=== PATIENT | female | born 1970 | race Caucasian/White ===

== ENCOUNTER 2019-06-11 07:00 | Outpatient (RCR) | payer BC, SELFPAY ==
[2018-12-20 12:19] VITALS: BMI 32.4
--- NOTE | 2019-05-28 10:49 | HP.PTEVAL ---
Patient's Visit Information WHIT CHAPMAN is a 49 year old F referred to Physical Therapy by Koffi Tran DO with a diagnosis of Left Hip Pain. Date of Evaluation: 05/28/19 Physical Therapist: Jannette Garrett DPT - Visit Plan Frequency: 2x /Week Duration: 4 Weeks Plan: Focus on LE and core strength/stabilization. 3/6 HEP given: isometric abdominals, bridge, hip adduction with ball, piriformis stretch, Figure 4 stretch, clams - Subjective Findings: Patient reports that she gets left hip pain comes and goes- Couple of months- Insidious onset-Last time it really hurt she was sitting in the drivers seat and reached in the back seat right rotation- sharp pain then she has to stop and wait and it goes away. Going down the stairs sometimes it feels like its going to buckle. When it aches the a pain is more in the back of the hip but she has groin pain when its sharp. X-rays were normal. Worst: 8/10. Less than a minute then the pain fully goes away. Best: 0/10. 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 No radiates pain- reports no back pain prior. Did try chiropractic and he told her it was tight but no relief or change in syptoms. Dr. Tran gave her an anti-inflam which she takes but does not feel like it changes things (3 pills). Sleep: does wake her up if she rolls over to quickly. No N/T in the LE. PMHx: none Meds: anti-inflammatory - Objective Posture: FH, RS- can correct but does not maintain. Gait: no deviation noted. Stairs: asc/desc 8 recip with 1 HR- poor controlw ith descent. HR/TR: able. SLS: 15 sec with hip drop bilaterally. Sensation/Reflex: WNL. ROM: Lumbar: flexion: hands to knees-reports pulling in hamstrings no pain, Extn: WNL, SB and rotation: WNL no pain, Hip: flexion only painful from 90 degrees to 120 degrees, Discomfort with IR/ER but no limitations, Knee: WNL, Ankle: WNL. Strength: Core: fair minus, Hip: flexion: 4-/5, Abd: 4-/5, Add: 4+/5, IR/ER: 4/5 with discomfort, Knee: 4+/5, Ankle: 5/5. Special Test: LLD: negative, IBETH: positive, Piriformis: positive, Scour Positive,. Palpation: tender along piriformis and greater troch. Flex: HS: severe, Gastroc: mod Piriformis: severe - Goals Goal 1:: Patient will be I with HEP and progression Goal Time Frame: 4-6 Weeks Goal 2:: Patient will maintain proper posture t/o tx session to demo increased core s/s. Goal Time Frame: 4-6 Weeks Goal 3:: Patient will report 0/10 pain for 1 week Goal Time Frame: 4-6 Weeks Goal 4:: Patient will SLS for 30 sec without LOB or pelvic drop bilaterally Goal Time Frame: 4-6 Weeks - Rehabilitation Potential Physical Therapy Diagnosis: Patient presents with hypomobility- she has decreased painfree ROM, LE and core strength/stabilization, flex and muscular endurance leading to increased pain with ADL's. Rehabilitation Potential: Fair - Anticipated Interventions Patient/Client Instruction: Educate patient on: Benefits of Fitness Program Therapeutic Exercise to Include: Strength training, Endurance training, Balance training, Body mechanics, Postural training, Flexibilty training, Gait and locomotor training, Neuromotor development, Passive ROM, Active ROM, Dynamic Lumbar Stabilization, Scapular Strength/Stabilization For the Purpose of:: To improve muscle performance and motor function Cryotherapy (ice pack, ice massage): Yes Thermo therapy (hot pack): Yes Thank you for the opportunity to evaluate your patient. For Medicare and Medicare HMO plans, please review the plan of care and approve it. It will need to be FAXED BACK to us at [phone] for Medicare purposes. For Medicare only, by signing this I certify the plan of care. Please let me know if there are questions or concerns regarding this plan of care. Physician Signature: Date:
--- NOTE | 2019-08-03 12:26 | HP.PT.NRP ---
WHIT CHAPMAN was seen in my office for initial evaluation on 05/28/19. The following Plan of Care was established for this patient: Initial Frequency: 2x /Week Initial Duration: 4 Weeks Patient/Client Instruction: Educate patient on: Benefits of Fitness Program Therapeutic Exercise to Include: Strength training, Endurance training, Balance training, Body mechanics, Postural training, Flexibilty training, Gait and locomotor training, Neuromotor development, Passive ROM, Active ROM, Dynamic Lumbar Stabilization, Scapular Strength/Stabilization For the Purpose of:: To improve muscle performance and motor function Cryotherapy (ice pack, ice massage): Yes Thermo therapy (hot pack): Yes This patient was last seen in our office . Pertinent comments regarding their Physical therapy will appear below: Patient reports that she is going to return to [facility] for further evaluation- Discharge at this time. At this point I will be discontinuing this patient from physical therapy. I would be happy to see this patient again in the future if found appropriate by the physician. Thank you! Jannette Garrett DPT
== END 2019-06-11 19:00 | disposition home or self-care (01) ==
LOC: PT 07:00
PROVIDERS: PCP Internal Medicine; Referring Provider Orthopaedic Surgery; Visit Provider Orthopaedic Surgery
DX: M25.552 Pain in left hip (principal)
CPT/HCPCS: 97110; 97161

== ENCOUNTER → 2019-08-13 09:37 | Outpatient (CLI) | payer BC, SELFPAY ==
[2018-12-20 12:19] VITALS: BMI 32.4
--- NOTE | 2019-08-13 09:42 | RAD_ITS ---
PROCEDURE: Steroid injection - LEFT HIP REASON FOR EXAM: Female, 49 years old. Left hip pain FLUOROSCOPY TIME (if supplied): (0:15) seconds STERILE BARRIER TECHNIQUE: The following sterile barrier precautions were used during the procedure: hand hygiene; use of 2% chlorhexidine aseptic; use of a cap, mask, sterile gown, sterile gloves, sterile full body drape, and a large sterile sheet. PROCEDURE/TECHNIQUE: The risks, benefits, and alternatives to the procedure were explained to patient, and the patient agreed to the procedure and signed a consent form for the procedure. A timeout was performed to confirm the patient''s identity, the type of procedure, to be performed and the site of entry. Injection Information: Mixture of 16 cc containing 0.2 mL of DOTAREM, 10 mL of Isovue 300 and 10 mL of normal saline. Number of images obtained: 7 TECHNIQUE: Under fluoroscopic guidance using sterile technique and after infiltration of the skin and subcutaneous soft tissues with 10 mL of lidocaine 1% a 22-gauge needle is introduced in the hip joint. The above mentioned mixture was injected in the hip joint. FINDINGS: The joint capsule is normal in size. There is no evidence of intra-articular loose bodies. RAD/Inj/Asp Henri Jt Should/Hip/Knee IMPRESSION: Successful left hip arthrogram. Electronically Signed: Paola Villar, at 15:49 EDT Tel , Service support ,
--- NOTE | 2019-08-13 10:33 | MRI_ITS ---
STUDY: MRI ARTHROGRAM LEFT HIP REASON FOR EXAM: Female, 49 years old. left hip/groin pain TECHNIQUE: Standardized fat and water weighted pulse sequences were obtained in all 3 orthogonal planes following the intra-articular administration of contrast. COMPARISON: None. FINDINGS: Normal hip joint without articular joint space narrowing. Normal acetabulum. Tear of the anterior superior acetabular labrum, series 8 images 9 and 10. Normal femoral head. Normal femoral neck and intratrochanteric region. There is no demonstrated fracture. Normal gluteus minimus, medius and iliopsoas tendons and distal insertions. There is no trochanteric, iliopsoas or iliopectineal bursitis. Normal superior and inferior pubic rami. Normal pubic symphysis. Normal ischial tuberosity. Normal origin of the hamstring tendons. Normal visualized iliac wing, sacroiliac joint, and sacral ala. Normal visualized soft tissue structures of the pelvis. MRI/Lower Ext/Jt Only/W Contrast IMPRESSION: No fracture or avascular necrosis. Tear of the anterior superior acetabular labrum. Electronically Signed: Mahad Tsang MD at 8:13 EDT , Service support ,
== END ==
PROVIDERS: PCP Internal Medicine; Referring Provider Orthopaedic Surgery; Visit Provider Orthopaedic Surgery
DX: M25.552 Pain in left hip (principal)
CPT/HCPCS: 20610; 73722; 77002; A9575; Q9967

== ENCOUNTER 2019-09-08 07:00 | Outpatient (RCR) | payer BC, SELFPAY ==
[2018-12-20 12:19] VITALS: BMI 32.4
--- NOTE | 2019-08-25 07:47 | HP.PTEVAL_ITS ---
Patient's Visit Information WHIT CHAPMAN is a 49 year old F referred to Physical Therapy by Dr. Koffi Tran, with a diagnosis of Left Hip Labral Tear. Date of Evaluation: 08/25/19 Physical Therapist: Jannette Garrett DPT - Visit Plan Frequency: 1x/Week Duration: 4 Weeks Plan: Focus on LE and core strength/stabilization with a home exercise program- does have a left labral tear per MRI. / HEP given: clams with blue tband, bridge with blue tband, bug UE and LE, Step up knee drive bilateral, Lateral step overs, steamboats bilaterally with green tband, inchworms orange tband. - Subjective Patient reports that she was doing okay- returned to Dr. Tran- wanted her to have and MRI- did an arthrogram- injected the dye- and then it was horrible- had the MRI which was very painful for the next couple of days. MRI was August 12- showed a labral tear in the hip- plan is to try PT then have surgery if it does not get better. Pain is located in the greater troch-no radiating pain. Dull and achy at this time but last night she reached for a volleyball with her daughter and it was sharp/shooting. Worst: 9/10 when she had the MRI. Sleep: wakes her up at night. Best: 0/10 Eases: nothing really just tries to rest but not sure it helps- moves around a lot. No N/T down the LE. Has noticed the LE does swell sometimes. 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 PMHx: none Meds: none - Objective Posture: FH, RS- can correct but does not maintain. Gait: no deviation noted- normal bryn. Stairs: asc/desc 8 recip with 1 HR- poor control with descent. HR/TR: able. SLS: 15 sec with hip drop bilaterally but no loss of balance. Sensation/Reflex: WNL. ROM: Lumbar: flexion: hands to knees-reports pulling in hamstrings no pain, Extn: WNL, SB and rotation: WNL no pain, Hip: flexion only painful from 90 degrees to 120 degrees, Discomfort with IR/ER but no limitations but tight, Knee: WNL, Ankle: WNL. Strength: Core: fair minus, Hip: flexion: 4- /5, Abd: 4-/5, Add: 4+/5, IR/ER: 4/5 with no discomfort, Knee: 5/5, Ankle: 5/5. Special Test: LLD: negative, IBETH: positive, Piriformis: positive, Scour Positive,. Palpation: tender along piriformis and greater troch. Flex: HS: severe, Gastroc: mod Piriformis: severe - Goals Goal 1:: Patient will be I with HEP and progression Goal Time Frame: 4-6 Weeks Goal 2:: Patient will maintain proper posture to demo increased core strength/stabilization Goal Time Frame: 4-6 Weeks Goal 3:: Patient will report no pain for 1 week Goal Time Frame: 4-6 Weeks Goal 4:: Patient will demo increase of strength by 1 grade where deficit Goal Time Frame: 4-6 Weeks - Rehabilitation Potential Physical Therapy Diagnosis: Patient presents with hypomobility- she has decreased ROM, strength, flex and muscular endurance leading to increased pain with ADL's. Rehabilitation Potential: Fair - Anticipated Interventions Patient/Client Instruction: Educate patient on: Benefits of Fitness Program Therapeutic Exercise to Include: Strength training, Endurance training, Balance training, Coordination, Agility training, Body mechanics, Postural training, Flexibilty training, Gait and locomotor training, Neuromotor development, Dynamic Lumbar Stabilization For the Purpose of:: To improve muscle performance and motor function TENS: Yes Cryotherapy (ice pack, ice massage): Yes Thermo therapy (hot pack): Yes Ultrasound (thermal/non thermal): Yes Thank you for the opportunity to evaluate your patient. For Medicare and Medicare HMO plans, please review the plan of care and approve it. It will need to be FAXED BACK to us at [phone] for Medicare purposes. For Medicare only, by signing this I certify the plan of care. Please let me know if there are questions or concerns regarding this plan of care. Physician Signature: Date:
--- NOTE | 2019-12-20 15:55 | HP.PT.NRP ---
WHIT CHAPMAN was seen in my office for initial evaluation on 08/25/19. The following Plan of Care was established for this patient: Initial Frequency: 1x/Week Initial Duration: 4 Weeks Patient/Client Instruction: Educate patient on: Benefits of Fitness Program Therapeutic Exercise to Include: Strength training, Endurance training, Balance training, Coordination, Agility training, Body mechanics, Postural training, Flexibilty training, Gait and locomotor training, Neuromotor development, Dynamic Lumbar Stabilization For the Purpose of:: To improve muscle performance and motor function TENS: Yes Cryotherapy (ice pack, ice massage): Yes Thermo therapy (hot pack): Yes Ultrasound (thermal/non thermal): Yes This patient was last seen in our office . Pertinent comments regarding their Physical therapy will appear below: Discharge- pt to have surgery. At this point I will be discontinuing this patient from physical therapy. I would be happy to see this patient again in the future if found appropriate by the physician. Thank you! Jannette Garrett DPT
== END 2019-09-08 19:00 | disposition home or self-care (01) ==
LOC: PT 07:00
PROVIDERS: PCP Internal Medicine; Referring Provider Orthopaedic Surgery; Visit Provider Orthopaedic Surgery
DX: S73.192D Other sprain of left hip, subsequent encounter (principal)
CPT/HCPCS: 97110; 97161

== ENCOUNTER 2020-03-08 16:30 | Outpatient (RCR) | payer BC, SELFPAY ==
[2018-12-20 12:19] VITALS: BMI 32.4
--- NOTE | 2019-12-02 17:25 | HP.PTEVAL ---
Patient's Visit Information WHIT CHAPMAN is a 49 year old F referred to Physical Therapy by Dr. David Burleson MD with a diagnosis of Left Hip Surgery 11/15/2019. Date of Evaluation: 12/02/19 Physical Therapist: Jannette Garrett DPT - Visit Plan Frequency: 1x/Week Duration: 4 Weeks Plan: Follow protocol. HEP Given 12/01: heel slide, hamstring stretch, quad set, glut set, prone lying, bent knee fall out, hip add with ball, laq - Subjective Left Hip Scope with Labral Repair Acetabluloplasty, AIIS decompression, chroplasty, synovectomy, femoroplasty, and casular closure on 11/15/2019. The pain has not been that bad except for achy in the side of the hip. She is back to work and is sitting in the w/c all day. Going up/down stairs on her buttocks- she does use her crutches when she needs to. Does have her own wheelchair but does not use it at home. Fully I prior to surgery. Worst: 5/10 Agg: trying to get comfortable sitting. Eases: elevation and rest. Best: 0/10. Describes the pain as dull and achy. No radiating pain in the leg or back. Does have N/T but it comes and goes. Sleep: disturbed- hard to get comfortable. PMHx/Meds: see previous. - Objective Posture: FH, RS- can correct but does not maintain. Gait: antalgic- axillary crutches- NWB on the left- following restrictions- came to PT in w/c ROM: Right Hip: WNL in all planes. Left Hip: Flexion: 110 degrees, Extn: zero, IR: 40 degrees ER: 30 degrees, Knee/Ankle: WNL. Flex: HS: moderate, Gastroc: moderate, Quad: mild. No WB testing secondary to precautions - Goals Goal 1:: Patient will be I with HEP and progression Goal Time Frame: 4-6 Weeks Goal 2:: Patient will ambulate >300 feet with a normalized gait pattern as per protocol Goal Time Frame: 4-6 Weeks Goal 3:: Patient will asc/desc 8 stairs recip with no HR as per protocol Goal Time Frame: 4-6 Weeks Goal 4:: Patient will report no pain for 1 week Goal Time Frame: 4-6 Weeks - Rehabilitation Potential Physical Therapy Diagnosis: Patient presents s/p extensive hip surgery- she has decreased rom,strength, flex and muscular endurance limiting her ability to perform normalized ADL's. Rehabilitation Potential: Good - Anticipated Interventions Patient/Client Instruction: Educate patient on: Benefits of Fitness Program Therapeutic Exercise to Include: Strength training, Endurance training, Balance training, Agility training, Body mechanics, Postural training, Flexibilty training, Gait and locomotor training, Passive ROM, Active ROM, Dynamic Lumbar Stabilization, Scapular Strength/Stabilization Comment: as per protocol For the Purpose of:: To improve muscle performance and motor function TENS: Yes Cryotherapy (ice pack, ice massage): Yes Thermo therapy (hot pack): Yes Ultrasound (thermal/non thermal): No Thank you for the opportunity to evaluate your patient. For Medicare and Medicare HMO plans, please review the plan of care and approve it. It will need to be FAXED BACK to us at [phone] for Medicare purposes. For Medicare only, by signing this I certify the plan of care. Please let me know if there are questions or concerns regarding this plan of care. Physician Signature: Date:
--- NOTE | 2019-12-29 17:18 | HP.PTREVAL ---
Dr. David Burleson MD, It has been my pleasure to treat WHIT CHAPMAN over the last 5 visits for Left Hip Surgery 11/15/2019. Please see the progress note below for an update on the physical therapy plan of care! Subjective: Patient reports that she the PA yesterday- no a lot to say other than she is tight and gave her Tramadol for sleeping and then said see you in 6 weeks. Sleeping is the worst issue at this point. Worst: 5/10 pain is located on the lateral aspect of the hip- more achy pains. Best: 0/10 Eases: ice and elevate. Most comfortable position now is sitting but depends on the chair. Current HEP: bridges and quadruped exercises. Objective/Function: Posture: FH, RS- can correct but does not maintain. Gait: antalgic- no AD- poor heel/toe pattern on the left with decreased stance time ROM: Right Hip: WNL in all planes. Left Hip: Flexion: 125 degrees, Extn: 10, IR: 40 degrees ER: 30 degrees, Knee/Ankle: WNL. Flex: HS: moderate, Gastroc: moderate, Quad: mild. HR/TR: WNL, SLS: 10 sec then LOB, Stairs: non recip with 2 HR. Plan Plan: Continue 1x a week for 4 weeks- focus on protocol progression and HEP. HEP: supine hamstring stretch from 90/90, SKTC, Hip flexor stretch, modified IBETH, modified piriformis, quad rocking, cat/camel, cobra, prone hip extn, prone IR stretch, prone ER stretch Goals Goal 1:: Patient will be I with HEP and progression Goal Time Frame: 4-6 Weeks Goal Progress: Progressing Goal 2:: Patient will ambulate >300 feet with a normalized gait pattern as per protocol Goal Time Frame: 4-6 Weeks Goal Progress: Progressing Goal 3:: Patient will asc/desc 8 stairs recip with no HR as per protocol Goal Time Frame: 4-6 Weeks Goal Progress: Progressing Goal 4:: Patient will report no pain for 1 week Goal Time Frame: 4-6 Weeks Goal Progress: Progressing Anticipated Interventions Patient/Client Instruction: Educate patient on: Benefits of Fitness Program Therapeutic Exercise to Include: Strength training, Endurance training, Balance training, Agility training, Body mechanics, Postural training, Flexibilty training, Gait and locomotor training, Passive ROM, Active ROM, Dynamic Lumbar Stabilization, Scapular Strength/Stabilization Comment: as per protocol For the Purpose of:: To improve muscle performance and motor function TENS: Yes Cryotherapy (ice pack, ice massage): Yes Thermo therapy (hot pack): Yes Ultrasound (thermal/non thermal): No Please do not hesitate to contact me at [phone] by phone or if you have questions or concerns regarding this new plan of care! Sincerely, JANNETTE HarperT
--- NOTE | 2020-01-26 17:21 | HP.PTREVAL ---
Dr. David Burleson MD, It has been my pleasure to treat WHIT CHAPMAN over the last 9 visits for Left Hip Surgery 11/15/2019. Please see the progress note below for an update on the physical therapy plan of care! Subjective: Patient reports that she sometimes feels that her legs are uneven. Does not have any pain in the LE anymore. Feels that she is 85% back to normal- still trying to get rid of the limp. Overdid it this weekend helping with leaves. Objective/Function: Posture: FH, RS- can correct but does not maintain without verbal cues. Gait: slightly antalgic ROM: Right Hip: WNL in all planes. Left Hip: WNL in all planes, Knee/Ankle: WNL. Flex: HS: moderate, Gastroc: moderate, Quad: mild. HR/TR: WNL, SLS: 30 sec then LOB, Stairs: recip with no HR Strength: Ankle: 5/5, Knee: 5/5, Hip: 4+/5 throughout Pelvic Alignment:left ASIS superior to right Plan Plan: Continue for HEP progression 1x a week for 3 weeks Goals Goal 1:: Patient will be I with HEP and progression Goal Time Frame: 4-6 Weeks Goal Progress: Progressing Goal 2:: Patient will ambulate >300 feet with a normalized gait pattern as per protocol Goal Time Frame: 4-6 Weeks Goal Progress: Progressing Goal 3:: Patient will asc/desc 8 stairs recip with no HR as per protocol Goal Time Frame: 4-6 Weeks Goal Progress: Progressing Goal 4:: Patient will report no pain for 1 week Goal Time Frame: 4-6 Weeks Goal Progress: Progressing Anticipated Interventions Patient/Client Instruction: Educate patient on: Benefits of Fitness Program Therapeutic Exercise to Include: Strength training, Endurance training, Balance training, Agility training, Body mechanics, Postural training, Flexibilty training, Gait and locomotor training, Passive ROM, Active ROM, Dynamic Lumbar Stabilization, Scapular Strength/Stabilization Comment: as per protocol For the Purpose of:: To improve muscle performance and motor function TENS: Yes Cryotherapy (ice pack, ice massage): Yes Thermo therapy (hot pack): Yes Ultrasound (thermal/non thermal): No Please do not hesitate to contact me at [phone] by phone or if you have questions or concerns regarding this new plan of care! Sincerely, JANNETTE HarperT
--- NOTE | 2020-03-08 16:48 | HP.PTDCSUM ---
It has been my pleasure to treat WHIT CHAPMAN referred by Dr. David Burleson MD, with the diagnosis of Left Hip Surgery 11/15/2019 for a total of 12 visit(s). Discharge Date: Please see the following information for a summary of their discharge status. Subjective: Patient reports that she is doing not bad. She has no pain in the hip and feels that she is 90% back to normal. She still holds onto the HR going upstairs due to feeling weird. There is nothing at home she can't do. Goes back to the MD 03/21. Left Hip Pain Intensity (Out of 10): 6 % Improvement: 90 Objective/Function: Posture: good in sitting and standing Gait: slightly antalgic ROM: Right Hip: WNL in all planes. Left Hip: WNL in all planes, Knee/Ankle: WNL. Flex: HS: moderate, Gastroc: moderate, Quad: mild. HR/TR: WNL, SLS: 30 sec without LOB Stairs: recip with no HR Strength: Ankle: 5/5, Knee: 5/5, Hip: 4+/5 throughout Goal 1:: Patient will be I with HEP and progression Goal Progress: Goal Met Goal 2:: Patient will ambulate >300 feet with a normalized gait pattern as per protocol Goal Progress: Progressing Goal 3:: Patient will asc/desc 8 stairs recip with no HR as per protocol Goal Progress: Goal Met Goal 4:: Patient will report no pain for 1 week Goal Progress: Goal Met Plan: Discharge to home exercise program- encouraged to call if questions or concerns If there are questions or concerns regarding this patient's physical therapy, please feel free to call me at [phone]. Thank you for the referral of this patient. Sincerely, Jannette Garrett DPT
== END 2020-03-08 19:00 | disposition home or self-care (01) ==
LOC: PT 16:30
PROVIDERS: PCP Internal Medicine; Referring Provider Orthopaedic Surgery Sports Medicine; Visit Provider Orthopaedic Surgery Sports Medicine
DX: M25.852 Other specified joint disorders, left hip (principal)
CPT/HCPCS: 97110; 97161; 97164

== ENCOUNTER 2021-02-07 07:50 | Emergency (ER) | payer BC, SELFPAY ==
[2021-02-07 07:50] VITALS: BP 132/99; PULSE 83; RESP 14; TEMP 36.7; O2SAT 100; BMI 31.8
--- NOTE | 2021-02-07 08:11 | CT_ITS ---
STUDY: CT ABDOMEN AND PELVIS WITHOUT CONTRAST REASON FOR EXAM: Female, 50 years old. Left lower quadrant left flank pain. RADIATION DOSAGE (If Supplied By Facility): CTDIvol = ( 17.99 ) mGy, DLP = ( 901.85 ) mGycm TECHNIQUE: Transaxial images were obtained from the dome of the diaphragm to the symphysis pubis without oral contrast, and without intravenous contrast. Sagittal and coronal images were reconstructed. Individualized dose optimization techniques were used for this CT. COMPARISON: None. FINDINGS: The visualized lung bases are unremarkable. The visualized portions of the heart are within normal limits. Normal liver. Normal gallbladder and extrahepatic biliary system. Normal spleen. Normal pancreas. Normal bilateral adrenal glands. Normal right kidney. Mild degree of left hydronephrosis with left perinephric stranding. I suspect a 3 mm calculus at the left ureteral pelvic junction. Normal visualized stomach. Normal small intestine. Findings suggestive of a colitis involving the sigmoid colon. The appendix is visualized and appears normal. There is scattered atherosclerotic calcification of the abdominal aorta, without a demonstrated aneurysm. Normal inferior vena cava. Normal retroperitoneum. Normal urinary bladder. The uterus is enlarged. There is evidence of a 1.5 cm nabothian cyst in the cervix. Normal abdominal wall. Normal osseous structures. CT/Abdomen/Pelvis without Cont IMPRESSION: 3 mm catheter placed at the left ureteropelvic junction causing mild degree of left hydronephrosis and left perinephric stranding. Findings suggestive of colitis of the sigmoid colon. Electronically Signed: Foster Victoria MD at 9:25 EST , Service support ,
--- NOTE | 2021-02-07 08:11 | EDS_ITS ---
HPI HPI - Female History of Present Illness Chief Complaint: Flank Pain Informant: patient Pain Current Severity: Moderate Maximum Severity: Moderate Bleeding Issue: Positive for Vaginal bleeding Narrative Narrative: 42-year-old female known history of prior kidney stones x2. She passed both of those without surgery. States she had abdominal cramping yesterday she is on her menstrual period. Initially thought was that and today developed left flank pain which she thinks is secondary to kidney stone. Denies dysuria or fever. She has had associated nausea. Prior similar symptoms: Yes Recent Illness/Hospitalization: No PFSH PFSH Medical History Hay fever Home Medications clotrimazole-betamethasone 1 %-0.05 % topical cream 1 applic TOPICAL BID 14 Days #45 g 10/15/20 [Rx Last Taken Unknown] Allergy/AdvReac Type Severity Reaction Status Date / Time codeine Allergy Unknown Verified 02/07/21 07:52 Family History Other Heart disease Surgical History History of cholecystectomy History of placement of ear tubes History of repair of ACL History of tonsillectomy and adenoidectomy Social History Smoking Status: Never smoker alcohol intake: current alcohol intake frequency: holidays/special occasions only ROS ROS ED ROS Narrative Denies recent illness. Review of Systems ROS Unobtainable: Denies due to encephalopathy Constitutional Constitutional ED: Denies fever(s) Eyes Eyes: Denies change in vision ENT ENT ED: Denies ear pain Cardiovascular Cardiovascular: Denies chest pain Respiratory/Chest Respiratory/Chest: Denies dyspnea Gastrointestinal Gastrointestinal: Reports abdominal pain, nausea and vomiting Genitourinary Genitourinary ED: Denies dysuria Musculoskeletal Musculoskeletal: Denies myalgias Integumentary Denies rash Neurologic Neurologic: Denies headache(s) Psychiatric Psychiatric: Denies depression Endocrine Endocrinology: Denies polyuria Hematologic/Lymphatic Hematologic/Lymphatic: Denies easy bruising Allergic/Immunologic Allergic/Immunologic ED: Denies urticaria EXAM Physical Exam Narrative Exam Narrative: Middle-aged female vital signs stable afebrile. Nauseated. HEENT exam unremarkable. Lungs clear to auscultation. Heart regular rhythm no murmur. Abdomen soft nontender, nondistended normal bowel sounds no peritoneal signs. Moving all 4 extremities. Calves nontender without edema or cords. Neurologically patient is awake and alert. Back nontender. Const Vital Signs: 02/07/21 07:50 Temperature 98.1 F Temperature Source Temporal Pulse Rate 83 Respiratory Rate 14 Blood Pressure 132/99 H Blood Pressure Mean 110 Pulse Ox 100 Oxygen Delivery Method Room Air Positive well nourished and well developed; Negative for obese, cachectic, contractures or unkempt General Appearance ED: well developed; Negative for unkempt, cachectic, contractures, NAD or pallor Nutritional Appearance: Negative for cachectic or obese HEENT Reports moist mucous membranes Negative for trauma or tenderness Eyes PERRL and EOMs intact bilaterally Neck no lymphadenopathy, supple and no JVD Thyroid: Negative for tender Chest Wall inspection of chest normal and palpation of chest normal Resp normal respiratory effort and clear to auscultation bilaterally Effort and Inspection: Negative for pain with movement Auscultation: Negative for rales, rhonchi or wheezes Cardio regular rate, regular rhythm, S1 normal heart sound, no murmurs and no JVD GI normal to inspection, nondistended, normoactive bowel sounds, soft to palpation, non-tender, non-distended and no masses Auscultation: normoactive bowel sounds Palpation: Negative for tender, guarding or rigid no CVA tenderness Extremity normal to inspection and full ROM General Extremety ED: Negative for edema or tenderness General Extremity: Negative for edema Neuro oriented x3 Sensorium / Orientation: alert, oriented to person, oriented to place and oriented to time Motor Exam: strength 5/5 throughout Psych mental status grossly normal Appearance: Negative for unkempt Skin no rashes or lesions noted and no wounds General Skin Exam: Negative for jaundice or pallor MDM MDM MDM Narrative Medical decision making narrative: Middle-aged female with left flank pain with history of kidney stones. Clinically and historically sounds like a kidney stone. She will receive IV morphine, IV Toradol and IV Zofran. UA, chemistry and CAT scan will be obtained. She will be reevaluated. Repeat exam at 10:15 a.m. patient is doing well. She will need a dose of morphine for pain. She will discuss of her test results. Urine culture be sent. She will be started on antibiotics for UTI. The 3 mm stone should pass. And she will be written for [employer] for pain. She will be given a dose of IV Rocephin here prior to discharge. She knows return if worse. Lab Data Attestation: I reviewed the patient's lab results. Lab results narrative: Electrolytes show a gap of 9 normal BUN and creatinine. Glucose of 391. Urinalysis 5-10 white cells 25-50 red cells 1+ bacteria positive nitrites Labs: Laboratory Results - last 24 hr 02/07/21 02/07/21 08:02 08:25 Sodium 136 Potassium 3.9 Chloride 102 Carbon Dioxide 25.0 Anion Gap 9 BUN 14 Creatinine 0.83 Estim Creat Clear Calc 71.58 Est GFR (MDRD) Af Amer 94 Est GFR (MDRD) Non-Af 78 BUN/Creatinine Ratio 16.9 Glucose 391 H Calcium 9.1 Urine Color Yellow Urine Clarity Cloudy Urine pH 5.0 Ur Specific [place] 1.020 Urine Protein 100 H Urine Glucose (UA) 1000 H Urine Ketones 50 H Urine Occult Blood 250 H Urine Nitrite Positive H Urine Bilirubin Negative Urine Urobilinogen Normal Ur Leukocyte Esterase 500 H Urine RBC 25-50 SEEN Urine WBC 5-10 SEEN Ur Squamous Epith Cells 0-5 SEEN Urine Bacteria 1+ Urine Mucus RARE Radiography Diagnostic Testing: Clinical Impression(s) from Imaging Studies Abdomen/Pelvis CT 02/07/21 08:11 IMPRESSION: 3 mm catheter placed at the left ureteropelvic junction causing mild degree of left hydronephrosis and left perinephric stranding. Findings suggestive of colitis of the sigmoid colon. Electronically Signed: Foster Victoria MD at 9:25 EST , Service support , Discharge Plan Triage Chief Complaint: Flank Pain ED Provider: Rodrigo Higuera Dx/Rx/DC Orders Clinical Impression: Left flank pain, Kidney stone Prescriptions: No Action clotrimazole-betamethasone 1-0.05 % cream 1 applic topical BID 14 Days Qty: 45 RF: 1 Primary Care Provider: Care Physician,No Primary Referrals: Fast,Kathy, DO [NON-STAFF] -
[2021-02-07] MEDS: Ketorolac 30 MG/ML Syringe IV (08:25)
[2021-02-07] MEDS: Ondansetron 4 MG/2 ML Vial IV (08:25)
[2021-02-07] MEDS: morphine 10 MG/ML Syringe IV (08:27)
[2021-02-07 08:28] LABS: Color, Urine Yellow (Yellow); Glucose, Dipstick 1000 mg/dl (Normal); Ketone-Dipstick 50 mg/dl (Negative); Leukocyte Esterase-Dipstick 500 /ul (Negative); Nitrite-Dipstick Positive (Negative); Occult Blood-Urine 250 /ul (Negative); Protein-Dipstick 100 mg/dl (Negative); Urine Bilirubin Dipstick Negative (Negative); Urine Clarity Cloudy (Clear); Urine Urobilinogen Normal (Normal)
[2021-02-07 08:40] LABS: Red Blood Cells-Urine 25-50 SEEN /hpf (0-5); White Blood Cells 5-10 SEEN /hpf (0-5)
[2021-02-07 08:41] LABS: Bacteria 1+ /hpf (None Seen); Mucous, Urine RARE /hpf (<or=2+); Squamous Epithelial Cells - UA 0-5 SEEN /hpf (5-10)
[2021-02-07 08:48] LABS: Anion Gap 9 (5-15); BUN 14 mg/dL (7-18); BUN/Creat Ratio 16.9 RATIO (10-20); Calcium,Total 9.1 mg/dL (8.5-10.1); Chloride 102 mmol/L (98-107); Creatinine, Serum 0.83 mg/dL (0.55-1.02); EST Glomerular Filtration Rate 78 mL/min (>60); Est Glom Filt Rate - Afr Amer 94 mL/min (>60); Estimated Creatinine Clearance 71.58 ml/min; Glucose 391 mg/dL (74-106); Potassium 3.9 mmol/L (3.5-5.1); Sodium Level 136 mmol/L (136-145)
[2021-02-07] MEDS: morphine 8 MG/ML Syringe 6 MG IV (10:27)
[2021-02-07] MEDS: Ceftriaxone 1 GM/50 ML BAG IV (10:30)
[2021-02-07 11:37] VITALS: PULSE 84; RESP 16; O2SAT 99
== END 2021-02-07 11:38 | disposition home or self-care (01) ==
PROVIDERS: Emergency Provider Emergency Medicine
DX: N13.2 Hydronephrosis with renal and ureteral calculous obstruction (principal); N39.0 Urinary tract infection, site not specified; Z87.442 Personal history of urinary calculi
CPT/HCPCS: 74176; 80048; 81001; 87086; 87088; 87186; 96365; 96374; 96375; 96376; 99282; J7030; A4216; J2405

== ENCOUNTER 2021-09-07 07:30 | Outpatient (RCR) | payer BC, SELFPAY ==
--- NOTE | 2021-06-13 08:17 | HP.PTEVAL ---
Patient's Visit Information WHIT CHAPMAN is a 51 year old F referred to Physical Therapy by FATOUMATA OLIVIER with a diagnosis of L shoulder pain. Date of Evaluation: 06/13/21 Physical Therapist: Bairon Larios, PT, ATC - Visit Plan Frequency: 2-3x /Week Duration: 4-6 Weeks Plan: L shoulder PROM/MOBS, AROM, rot cuff strengthening, scap stab ex's, and HEP - Subjective Pt reports she has had L shoulder pain for greater than one year. Pt notes she has had 2 injections at this time. The first one lasted for approximately 3 weeks, and the last one she had was yesterday which has really helped at this time. Pt reports significant sleep difficulty secondary to pain. Pt reports she is R hand dominant. Pt reports she believes her pain may have originated 2 years ago when she had to use crutches and started to have shoulder pain at that time. Pt reports occasional tingling and numbness in L UE to the fingers. Pt reports she is unable to reach overhead or behind her back secondary to pain. Pain ranges from 0/10 pain at rest since the injection, and 9/10 at worst prior to injection. Pt reports she is limited with all ADLs that requires above the head lifting like washing her hair and getting dressed. - Pain L shoulder Pain Intensity (Out of 10): 0 Pain Intensity Range: 9 - Objective Neuro: B LE sensation is WNL to light touch. B bicepital reflex= 2/3. ROM: R shoulder flex= 160, abd= 155, ER= 60, IR WNL; L shoulder flex= 90, abd= 50, ER= 20, IR severely limited. MMT: R shoulder flex= 16, abd= 20, ER= 20; L shoulder flex= 8, abd= 17, ER= 10. SPecial testing: Pos empty can, HK, speeds test. Palpation: Pt is sore along the lateral aspect of her L shoulder. No obvious deformity noted at this time - Balance/Special Test Scores Quick DASH Score: 43.1800 - Goals Goal 1:: Increase L shoulder strength x 5-10 #F to aid with IADL's Goal Time Frame: 4-6 Weeks Goal 2:: Increase L shoulder flex and abd ROM x 30 degrees to aid with overhead lifting Goal Time Frame: 4-6 Weeks Goal 3:: Decrease L shoulder pain x 50% to aid with sleep Goal Time Frame: 4-6 Weeks Goal 4:: I with HEP Goal Time Frame: 4-6 Weeks - Rehabilitation Potential Physical Therapy Diagnosis: L shoulder pain, weakness, and limited ROM secondary to L shoulder adhesive capsulitis Rehabilitation Potential: Good - Anticipated Interventions Patient/Client Instruction: Educate patient on: Condition, Plan of Care For the Purpose of:: To improve self management Therapeutic Exercise to Include: Strength training, Endurance training, Flexibilty training, Passive ROM, Active ROM, Scapular Strength/Stabilization For the Purpose of:: To decrease pain, To increase ROM, To improve muscle performance and motor function Cryotherapy (ice pack, ice massage): Yes For the Purpose of:: To decrease pain Thank you for the opportunity to evaluate your patient. For Medicare and Medicare HMO plans, please review the plan of care and approve it. It will need to be FAXED BACK to us at [phone] for Medicare purposes. For Medicare only, by signing this I certify the plan of care. Please let me know if there are questions or concerns regarding this plan of care. Physician Signature: Date:
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
== END 2021-09-07 09:22 | disposition home or self-care (01) ==
LOC: PT 07:30
DX: M75.02 Adhesive capsulitis of left shoulder (principal)
CPT/HCPCS: 97035; 97110; 97140; 97161

== ENCOUNTER → 2021-10-25 | Outpatient (CLI) | payer BC, SELFPAY ==
--- NOTE | 2021-10-25 10:40 | MRI_ITS ---
STUDY: MRI LEFT SHOULDER REASON FOR EXAM: Left shoulder pain and limited mobility/frozen shoulder for 1.5 years. TECHNIQUE: Standardized fat and water weighted pulse sequences were obtained in all 3 orthogonal planes. COMPARISON: None. FINDINGS: There is mild supraspinatus tendinosis (T2 coronal image 13) without discrete tendon tear. Normal infraspinatus tendon. There is mild subscapularis tendinosis (proton-density axial images 12, 13) without discrete tendon tear. Normal teres minor tendon. Normal supraspinatus muscle. Normal infraspinatus muscle. Normal subscapularis muscle. There is a low-grade strain of the teres minor muscle (T2 coronal images 4, 5). Normal glenohumeral articulation. There is mild cystic change of the posterior aspect of the greater tuberosity. Normal biceps labral complex. Normal intracapsular long biceps tendon. Normal labrum. Normal capsulo- ligamentous complex. There is no substantial acromioclavicular arthrosis. There is a Type II morphology (curved), with a neutral orientation. There is a small volume of subacromial-subdeltoid bursal fluid (T2 coronal images 11-14). There is thickening of the coracohumeral ligament (T2 sagittal image 6). Normal deltoid muscle. Normal trapezius muscle. MRI/Upper Ext Joint Only(Routine) IMPRESSION: Mild supraspinatus and subscapularis tendinosis without demonstrated rotator cuff tear. Low-grade strain of the teres minor muscle. Mild subacromial-subdeltoid bursitis. Thickening of the coracohumeral ligament, a possible MRI manifestation of adhesive capsulitis. Electronically Signed: Aston Trinidad MD at 11:54 EDT ,
== END | disposition home or self-care (01) ==
LOC: MRI 10:23
PROVIDERS: Visit Provider Physician Assistant
DX: M25.512 Pain in left shoulder (principal); M75.02 Adhesive capsulitis of left shoulder
CPT/HCPCS: 73221

== ENCOUNTER → 2023-01-24 | Outpatient (CLI) | payer OTHER, SELFPAY ==
--- NOTE | 2023-01-24 14:12 | BI_ITS ---
MAMMOGRAPHY - BILATERAL SCREENING REASON FOR EXAM: Female, 52 years old. Routine annual screening examination. PERTINENT HISTORY: Mother with breast cancer. TECHNIQUE: Digital bilateral breast jake (3D mammographic acquisition) in the CC and MLO projections. 2-D mediolateral oblique (MLO) and craniocaudad (CC) views of both breasts were obtained. CAD: Full Field Digital Mammography with Computer Added Detection was performed. COMPARISON: Comparison is made with prior study dated May 21, 2016. FINDINGS: Breast Composition: The breasts are heterogeneously dense, which may obscure small masses. There are no dominant masses or suspicious calcifications. No other significant abnormalities are identified. There has been no significant change since the prior study. BI/SCRN MAMM (CAD)W/JAKE BILAT IMPRESSION: Stable bilateral screening mammogram. Yearly follow-up mammogram recommended. (A) ASSESSMENT CATEGORY: BIRADS Category 1: Negative. A letter regarding these results will be sent to the patient by the facility within 30 days. Approximately 10% of breast cancers are not detected by mammography. A normal mammogram should not delay biopsy of a clinically suspicious abnormality. [id number] Electronically Signed: Foster Victoria MD at 15:35 EDT ,
== END | disposition home or self-care (01) ==
PROVIDERS: PCP Internal Medicine; Referring Provider Internal Medicine; Visit Provider Internal Medicine
DX: Z12.31 Encounter for screening mammogram for malignant neoplasm of breast (principal); Z80.3 Family history of malignant neoplasm of breast
CPT/HCPCS: 77063; 77067

== ENCOUNTER → 2023-01-28 | Outpatient (CLI) | payer OTHER, SELFPAY ==
[2023-01-28 09:17] LABS: Bacteria 0 SEEN /hpf (None Seen); Mucous, Urine 0 SEEN /hpf (<or=2+); Red Blood Cells-Urine 0 SEEN /hpf (0-5)
[2023-01-28 12:16] LABS: Color, Urine Yellow (Yellow); Glucose, Dipstick 1000 mg/dl (Normal); Leukocyte Esterase-Dipstick 500 /ul (Negative); Nitrite-Dipstick Negative (Negative); Occult Blood-Urine 25 /ul (Negative); Protein-Dipstick 15 mg/dl (Negative); Specific Gravity, Urine 1.025 (1.002-1.030); Urine Bilirubin Dipstick Negative (Negative); Urine Clarity Clear (Clear); Urine Urobilinogen Normal (Normal)
[2023-01-28 12:17] LABS: Ketone-Dipstick 150 mg/dl (Negative)
[2023-01-28 12:23] LABS: Squamous Epithelial Cells - UA 0-5 SEEN /hpf (5-10); White Blood Cells 10-25 SEEN /hpf (0-5)
[2023-01-28 12:54] LABS: Microalbumin,Random Urine 32.8 mg/L (NO RANGE EST.); Microalbumin:Creatinine Ratio 33.1 mg/g CRE (<30 mg/g CRE)
== END | disposition home or self-care (01) ==
LOC: LABSPEC 09:17
PROVIDERS: PCP Internal Medicine; Referring Provider Internal Medicine; Visit Provider Internal Medicine
DX: R30.0 Dysuria (principal); R73.9 Hyperglycemia, unspecified
CPT/HCPCS: 81001; 82043; 82570; 87086; 87088

== ENCOUNTER → 2023-02-11 | Outpatient (CLI) | payer OTHER, SELFPAY ==
[2023-02-17 15:07] LABS: HPV APTIMA, High Risk Negative (Negative)
== END | disposition home or self-care (01) ==
PROVIDERS: PCP Internal Medicine; Visit Provider Nurse Practitioner Women's Health
DX: Z12.4 Encounter for screening for malignant neoplasm of cervix (principal)
CPT/HCPCS: 87624; 88175; G0145

== ENCOUNTER 2023-02-20 07:25 | Day surgery (SDC) | payer OTHER, SELFPAY ==
[2023-02-20 07:51] VITALS: BP 109/70; PULSE 83; RESP 16; TEMP 36.3; O2SAT 100; BMI 30.9
[2023-02-20] MEDS: Lactated Ringers 1,000 ML 15 ML IV (07:54)
[2023-02-20 08:13] LABS: Bedside Glucose 178 mg/dL (74-106)
--- NOTE | 2023-02-20 08:38 | PCM.HP.STD ---
[facility] - General General Date of Admission: 02/20/23 Date of Service: 02/20/23 [facility] Narrative WHIT CHAPMAN, is a 52 F who presents today for screening colonoscopy. She has not had a colonoscopy in the past. She did not have abdominal pain. She not have any nausea, vomiting or diarrhea. She denies any change in bowel habits. She denies any bleeding, diarrhea or constipation. Overall she is very good health. Past medical history is positive for type 2 diabetes, hypertension, hypercholesterolemia. [facility] Medical History Adhesive capsulitis of left shoulder Alcohol use Diabetes Hay fever High cholesterol History of edema Kidney stone Non-smoker Post-menopausal Restless legs Type 2 diabetes mellitus Wears contact lenses Home Medications atorvastatin 40 mg tablet (Lipitor) 40 mg PO QHS #30 tabs 01/01/23 [Rx Last Taken Unknown] blood sugar diagnostic (Accu-Chek Asya Plus test strips) #100 ea 01/01/23 [Rx Last Taken Unknown] blood-glucose meter (Accu-Chek Guide Glucose Meter) #1 ea 01/01/23 [Rx Last Taken Unknown] lancets (Accu-Chek Softclix Lancets) #100 ea 01/01/23 [Rx Last Taken Unknown] lisinopril 2.5 mg tablet 2.5 mg PO DAILY #30 tabs 01/28/23 [Rx Last Taken Unknown] metformin 1,000 mg tablet 1,000 mg PO BIDWMEAL #60 tabs 01/28/23 [Rx Last Taken Unknown] coenzyme Q10 75 mg capsule (Ultra CoQ10) 75 mg PO DAILY 02/11/23 [History Last Taken Unknown] Allergy/AdvReac Type Severity Reaction Status Date / Time codeine Allergy Itching Verified 02/20/23 07:48 Family History Father Hypertension CVA (cerebral vascular accident) Diabetes Prostate cancer Myocardial infarction High cholesterol Mother Breast cancer Cancer SKIN CANCER High cholesterol Other Heart disease Surgical History History of cholecystectomy History of hip surgery History of placement of ear tubes History of repair of ACL History of tonsillectomy and adenoidectomy S/P endometrial ablation Social History (Updated 02/11/23 @ 15:34 by Susan Obando) household members: spouse and children current occupational status: employed current occupation: [employer] Smoking Status: Never smoker Electronic Cigarette Use: not used alcohol intake: current alcohol intake frequency: holidays/special occasions only details: special occasions substance use type: does not use what type of physical activity do you participate in: none seatbelt use: always do you feel safe at home: Yes additional social history: - Homar ROS Review of Systems ROS Unobtainable: other Constitutional Constitutional: Denies fatigue, fever(s), poor appetite, weight gain or weight loss ENT HEENT: Denies mouth lesions Cardiovascular Cardiovascular: Denies abdominal bloating, abdominal edema or abdominal pain Respiratory/Chest Respiratory/Chest: Denies change in mental status, change in phlegm color, chest congestion or chest tightness Gastrointestinal Gastrointestinal: Denies belching, bloating, change in bowel habits, change in stool character, chewing difficulty, coffee ground emesis, constipation, cramping, diarrhea, dyspepsia, dysphagia, early satiety, excessive flatus, fecal incontinence, heartburn, hematemesis, hematochezia, hemorrhoids, loose stools, melena, nausea, odynophagia, rectal bleeding, tenesmus, vomiting or weight changes Genitourinary Genitourinary: Denies abdominal discomfort, burning urination or itching Musculoskeletal Musculoskeletal: Reports as per HPI; Denies muscle weakness or myalgias Integumentary Integumentary: Denies jaundice Neurologic Neurologic: Denies lack of coordination or weakness Psychiatric Psychiatric: Denies confusion, depression, memory loss, mood swings, paranoia or suicidal ideation Endocrine Endocrinology: Denies systems reviewed and no addt'l complaints, except as documented Hematologic/Lymphatic Hematologic/Lymphatic: Denies anemia, easy bleeding, easy bruising or lymphadenopathy Allergic/Immunologic Allergic/Immunologic: Denies systems reviewed and no addt'l complaints, except as documented Vital Signs Vital Signs Vital Signs: 02/20/23 07:51 02/20/23 07:51 Temperature 97.4 F L Temperature Source Temporal Pulse Rate 83 Respiratory Rate 16 Respiratory Pattern Normal Blood Pressure 109/70 Blood Pressure Mean 83 Blood Pressure Source Monitor Blood Pressure Position Sitting Blood Pressure Location Right Arm Pulse Ox 100 Oxygen Delivery Method Room Air Weight Weight: 186 lb 1.122 oz Body Mass Index (BMI) 30.9 Physical Exam Const alert General Appearance: cooperative Orientation / Consciousness: oriented to person HEENT hearing grossly normal bilaterally Head and Scalp: normal to inspection Face and Sinus: face symmetric Nose: external nose normal Mouth: oral and palatal mucosa normal Eyes conjunctivae normal General Eye: normal appearance of both eyes Neck full ROM General: normal visual inspection Lymph Lymphatic: no lymphadenopathy noted Chest inspection of chest normal and palpation of chest normal Chest: symmetrical chest wall rise Resp normal respiratory effort Effort and Inspection: able to speak in complete sentences Cardio regular rate GI non-distended Percussion: normal to percussion Rectal Exam: deferred Neuro Speech: speech normal Gait (Neuro): normal gait Results Lab / Micro Data Labs: Laboratory Results - last 24 hr 02/20/23 07:50: POC Glucose 178 H Assessment & Plan Assessment/Plan (1) Encounter for screening for malignant neoplasm of colon: PLAN: She was explained alternatives, risk, benefits including not withstanding bleeding, infection, sepsis, perforation, need for emergent surgery . She will have an ASA of 3.
[2023-02-20 09:11] VITALS: BP 109/70; BP 98/66; PULSE 88; RESP 16; TEMP 36.2; O2SAT 100
--- NOTE | 2023-02-20 09:11 | OP.COLON_ITS ---
Patient Name: Lara Montague Procedure Date: 02/20/2023 8:39 AM Date of : 1970 Age: 52 Procedure: Colonoscopy Indications: Screening for colorectal malignant neoplasm Providers: Iggy Panchal DO Referring MD: Iggy Panchal DO Medicines: Monitored Anesthesia Care Patient Profile: This is a 52 year old female. Refer to note in patient chart for documentation of history and physical. Last Colonoscopy: none. The patient's first colonoscopy is today. Complications: No immediate complications. Procedure: Pre-Anesthesia Assessment: - Prior to the procedure, a History and Physical was performed, and patient medications and allergies were reviewed. The patient is competent. The risks and benefits of the procedure and the sedation options and risks were discussed with the patient. All questions were answered and informed consent was obtained. Patient identification and proposed procedure were verified by the physician in the pre-procedure area. Mental Status Examination: alert and oriented. Airway Examination: normal oropharyngeal airway and neck mobility. Prophylactic Antibiotics: The patient does not require prophylactic antibiotics. Prior Anticoagulants: The patient has taken no anticoagulant or antiplatelet agents. ASA Grade Assessment: II - A patient with mild systemic disease. After reviewing the risks and benefits, the patient was deemed in satisfactory condition to undergo the procedure. The anesthesia plan was to use monitored anesthesia care (MAC). Immediately prior to administration of medications, the patient was re-assessed for adequacy to receive sedatives. The heart rate, respiratory rate, oxygen saturations, blood pressure, adequacy of pulmonary ventilation, and response to care were monitored throughout the procedure. The physical status of the patient was re-assessed after the procedure. After I obtained informed consent, the scope was passed under direct vision. Throughout the procedure, the patient's blood pressure, pulse, and oxygen saturations were monitored continuously. The Colonoscope was introduced through the anus and advanced to the cecum, identified by appendiceal orifice and ileocecal valve. The colonoscopy was performed without difficulty. The patient tolerated the procedure well. The quality of the bowel preparation was adequate. The ileocecal valve, appendiceal orifice, and rectum were photographed. Scope In: 8:52:52 AM Scope Withdrawal Time 0 hours 9 minutes 29 seconds Scope Out: 9:06:32 AM Total Procedure Duration Time 0 hours 13 minutes 40 seconds Findings: The perianal and digital rectal examinations were normal. A few small-mouthed diverticula were found in the sigmoid colon. The exam was otherwise without abnormality on direct and retroflexion views. Impression: - Diverticulosis in the sigmoid colon. - The examination was otherwise normal on direct and retroflexion views. - No specimens collected. Recommendation: - Discharge patient to home. - Resume previous diet. - Continue present medications. - Repeat colonoscopy in 10 years for screening purposes. Procedure Code(s): --- Professional --- G0121, Colorectal cancer screening; colonoscopy on individual not meeting criteria for high risk CPT copyright 2021 [employer]. All rights reserved. The codes documented in this report are preliminary and upon order entry administrator review may be revised to meet current compliance requirements. Iggy Panchal DO 02/20/2023 9:11:17 AM This report has been signed electronically. Number of Addenda: 0 Note Initiated On: 02/20/2023 8:39 AM
--- NOTE | 2023-02-20 09:12 | OP.CCLET_ITS ---
02/20/2023 Shantell Ricks Md Re : Colonoscopy procedure for Lara Montague Dear Milliecnt This procedure was performed on January. My impressions and recommendations are as follows: Impressions : - Diverticulosis in the sigmoid colon. - The examination was otherwise normal on direct and retroflexion views. - No specimens collected. Recommendations : - Discharge patient to home. - Resume previous diet. - Continue present medications. - Repeat colonoscopy in 10 years for screening purposes. My findings are described in the full procedure note, which is enclosed. If I can be of further assistance, please feel free to contact me at . Sincerely, Iggy Panchal, 02/20/2023 9:11:17 AM This report has been signed electronically.
[2023-02-20 09:15] VITALS: BP 105/76; BP 109/70; PULSE 79; RESP 16; O2SAT 100
[2023-02-20 09:20] VITALS: BP 103/84; BP 109/70; PULSE 81; RESP 16; O2SAT 100
[2023-02-20 09:25] VITALS: BP 109/70; BP 111/91; PULSE 80; RESP 16; TEMP 36.3; O2SAT 99
[2023-02-20 09:41] VITALS: BP 109/70
== END 2023-02-20 09:55 | disposition home or self-care (01) ==
LOC: EN 07:26 → AC 07:27
PROVIDERS: PCP Internal Medicine; Referring Provider Internal Medicine; Visit Provider Internal Medicine Gastroenterology
PROC: 0DJD8ZZ Inspection of Lower Intestinal Tract, Via Natural or Artificial Opening Endoscopic (ICD-10-PCS; CPT 45378; principal; 2023-02-20 08:25)
DX: Z12.11 Encounter for screening for malignant neoplasm of colon (principal); E11.9 Type 2 diabetes mellitus without complications; K57.30 Diverticulosis of large intestine without perforation or abscess without bleeding; E78.00 Pure hypercholesterolemia, unspecified; I10 Essential (primary) hypertension; Z79.899 Other long term (current) drug therapy; Z79.84 Long term (current) use of oral hypoglycemic drugs; Z90.49 Acquired absence of other specified parts of digestive tract
CPT/HCPCS: 45378; 82962; J7120; J2405

== ENCOUNTER → 2023-03-26 | Outpatient (CLI) | payer OTHER, SELFPAY ==
--- OUTSIDE RECORDS SUMMARY | 2023-03-26 15:50 | XMS RPT_ITS | CCD ---
Author Name Unknown Address [address] [place] [address] Organization [facility] Care Team Providers Care [employer] Name Role Phone Con MARKETING SERVICES SPECIALIST, Leti N Unavailable Unavailab le Con MARKETING SERVICES SPECIALIST, Leti N Unavailable Unavailab le Fast, Kathy A Unavailable Alanis Anaya Unavailable Unavailable Legal Summer Intern, System Unavailable Unavailable Hina Stahl Unavailable Unavailable Unavailable Unavailable Fast DO, Kathy A Unavailable Alanis Anaya Unavailable Unavailable Legal Summer Intern, System Unavailable Unavailable Mast Hina OROZCO Unavailable Unavailable Unavailable Unavailable Allergies Allergy Classification Reported Allergen(s) Allergy Type Date of Onset Reaction(s) Facility (2 sources) codeine drug allergy 7 [facility] Work Phone: (2 sources) SEASONAL ALLERGIES drug allergy 7 [facility] Work Phone: (4 sources) Codeine/Codeine Derivatives; Translations: [Codeine/Codein e Derivatives] Allergy to substance (finding) [facility] Work Phone: Medications Completed/Discontinued Medications Medication Drug Class(es) Dates Sig (Normalized) Sig (Original) AMOXICILLIN-POT CLAVULANATE TABS (6 sources) Penicillin-class Antibacterial Start: 09-10-2016 AUGMENTIN TABS as directed AMOXICILLIN-POT CLAVULANATE TABS [id number] [place] Problems Active Problems Problem Classification Problem Date Documented Da te Episodic/Chronic Allergic reactions (3 sources) Dermatitis Episodic Calculus of urinary tract (6 sources) Calcium renal calculus ; 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] 02-08-2015 Episodic Conditions associated with dizziness or vertigo (6 sources) Dizziness and giddiness; Translations: [Dizziness and giddiness] Resolved: 07-14-2009 03-03-2015 Episodic Conditions associated with dizziness or vertigo (6 sources) Conditions associated with dizziness or vertigo Contraceptive and procreative management (3 sources) H/O: tubal ligation; Translations: [Tubal Ligation] 06-12-2011 Episodic Diabetes mellitus with complications (11 sources) Type II diabetes mellitus uncontrolled; Translations: [Uncontrolled type II diabetes mellitus] 02-06-2015 Chronic Diabetes mellitus without complication (20 sources) Abnormal glucose tolerance test; Translations: [Abnormal glucose tolerance test] 02-03-2015 Episodic Diabetes or abnormal glucose tolerance complicating ; childbirth; or the puerperium (8 sources) Personal history of gestational diabetes Resolved: 09-07-2008 12-29-2019 Episodic Disorders of lipid metabolism (20 sources) Mixed hyperlipidemia; Translations: [Mixed hyperlipidemia] 06-12-2011 Chronic Genitourinary symptoms and ill-defined conditions (8 sources) Blood in urine; Translations: [Hematuria] Resolved: 12-09-2008 12-29-2019 Episodic Headache; including migraine (11 sources) Migraine with aura; Translations: [Migraine with aura and without status migrainosus, not intractable] 02-07-2015 Chronic Past or Other Problems Problem Classification Problem Date Documented Date Episodic/Chronic Coronary atherosclerosis and other heart disease (8 sources) Coronary atherosclerosis and other heart disease Resolved: 09-07-2008 09-07-2008 Diabetes mellitus without complication (20 sources) Diabetes mellitus without complication Other non-traumatic joint disorders (2 sources) Pain in wrist; Translations: [Pain in unspecified wrist] Onset: 02-14-2016 02-14-2016 Episodic Unclassified (12 sources) soft tissue mass right buttocks- get mri of the buttocks Resolved: 09-07-2008 12-29-2019 Results Test Name Value Interpretation Reference Range Facil ity Vital Signs Date Time Vital Sign Value Performing Clinician Facility 09-10-2016 13:19-0400 BMI (Body Mass Index) 35.56 kg/m2 Leti Andujar LPN [facility] Work Phone: 09-10-2016 13:19-0400 Body Temperature 98.7 [degF] Leti Andujar LPN [facility] Work Phone: 09-10-2016 13:19-0400 BP Diastolic 92 mm[Hg] Leti Andujar LPN [facility] Work Phone: 09-10-2016 13:19-0400 BP Systolic 150 mm[Hg] Leti Andujar LPN [facility] Work Phone: 09-10-2016 13:19-0400 Height 162.56 cm Leti Andujar LPN [facility] Work Phone: 09-10-2016 13:19-0400 Pulse (Heart Rate) 104 /min Leti Andujar LPN [facility] Work Phone: 09-10-2016 13:19-0400 Pulse Oximetry 98 % Leti Andujar LPN [facility] Work Phone: 09-10-2016 13:19-0400 Respiratory Rate 15 /min Leti Andujar LPN [facility] [place] Work Phone: 09-10-2016 13:19-0400 Weight 93.99 kg Leti Andujar LPN [facility] Work Phone: 06-12-2011 08:46-0400 BMI (Body Mass Index) 39.96 kg/m2 Hina Stahl RN [facility] Work Phone: 06-12-2011 08:46-0400 Body Temperature 97.7 [degF] Hina Stahl RN [facility] Work Phone: Encounters Encounter Date Encounter Type Care Provider Facility Start: 06-12-2011 End: 06-12-2011 Patient encounter procedure Kathy Benavides [facility] Start: 03-19-2011 End: 03-19-2011 Patient encounter procedure Ktahy Benavides [facility] Start: 12-05-2010 End: 12-05-2010 Error Encounter Kathy Benavides [facility] Start: 08-29-2010 End: 08-29-2010 Patient encounter procedure Kathy Benavides [facility] Start: 05-14-2010 End: 05-14-2010 Patient encounter procedure Kathy Benavides [facility] Start: 01-05-2010 End: 01-05-2010 Patient encounter procedure Kathy Benavides [facility] Start: 10-20-2009 End: 10-20-2009 Patient encounter procedure Kathyfarhat Benavides [facility] Start: 07-14-2009 End: 07-14-2009 Patient encounter procedure Kathy Benavides [facility] Start: 05-25-2009 End: 05-25-2009 Office outpatient visit 10 minutes Kathyfarhat Benavides [facility] Start: 05-01-2009 End: 05-01-2009 Patient encounter procedure Kathyfarhat Benavides [facility] Start: 03-31-2009 End: 03-31-2009 Patient encounter procedure Kathyfarhat Benavides [facility] Start: 01-16-2009 End: 01-16-2009 Office outpatient visit 15 minutes Kathy Kennedy [facility] Start: 12-09-2008 End: 12-09-2008 Patient encounter procedure Kathy Kennedy [facility] Start: 09-08-2008 End: 09-08-2008 Patient encounter procedure Kathy Kennedy [facility] Start: 07-18-2008 End: 07-18-2008 Phone Encounter Kathy Kennedy [facility] Start: 06-10-2008 End: 06-12-2008 Patient encounter procedure Kathy Kennedy [facility] Start: 03-11-2008 End: 03-13-2008 Patient encounter procedure Kathyfarhat Benavides [facility] Start: 12-21-2007 End: 12-21-2007 Patient encounter procedure Kathy Kennedy [facility] Start: 12-09-2007 End: 12-09-2007 Patient encounter procedure Kathy Benavides [facility] Start: 11-03-2007 End: 11-03-2007 Office outpatient visit 15 minutes Kathy Kennedy [facility] Start: 09-04-2007 End: 09-04-2007 Patient encounter procedure Kathy Kennedy [facility] Start: 06-05-2007 End: 06-05-2007 Patient encounter procedure Kathyfarhat Benavides [facility] Start: 05-21-2007 End: 05-21-2007 Office outpatient visit 15 minutes Kathy Kennedy [facility] Start: 02-27-2007 End: 02-27-2007 Patient encounter procedure Kathy Kennedy [facility] Start: 12-22-2006 End: 12-22-2006 Office outpatient visit 10 minutes Kathy Kennedy [facility] Start: 11-10-2006 End: 11-10-2006 Patient encounter procedure Kathy Kennedy [facility] Start: 11-07-2006 End: 11-07-2006 Historical Summary Kathy Benavides [facility] Start: 08-11-2006 End: 08-11-2006 Patient encounter procedure Kathy Kennedy [facility] Start: 06-24-2006 End: 06-24-2006 Office outpatient visit 40 minutes Kathy Benavides [facility] Procedures Date Procedure Procedure Detail Performing Clinician Start: 05-21-2016 End: 05-21-2016 SCREENING MAMM (CAD), BILAT Comments: See Note; NOTES: [facility] Services [address] [address] Verdana 4d SCREENING MAMM (CAD), BILAT MR#: [id number] Acct: [id number] Name: WHIT CHAPMAN Rep #: [id number] : [id number] F [id number] From: Foster Victoria MD PCP: Kathy Benavides DO Status: REG CLI Study: SCREENING MAMM (CAD), BILAT Date of Exam: 05/21/16 Exam# [id number] Ordering Dr: Jacqueline Nevarez MD MAMMOGRAPHY - BILATERAL SCREENING REASON FOR EXAM: Female, 46 years old. Routine annual screening examination. PERTINENT HISTORY: Mother with breast cancer. TECHNIQUE: Digital bilateral breast michelle (3D mammographic acquisition) in the CC and MLO projections. 2-D mediolateral oblique (MLO) and craniocaudad (CC) views of both breasts were obtained. CAD: Full Field Digital Mammography with Computer Added Detection was performed. COMPARISON: Comparison is made with prior examination dated March 11, 2008. FINDINGS: Breast Composition: There are scattered areas of fibroglandular density. There are no dominant masses or suspicious calcifications. No other significant abnormalities are identified. There has been no significant change since the prior study. HPBI/SCREENING MAMM (CAD), BILAT IMPRESSION: Stable bilateral screening mammogram. Yearly follow-up mammogram recommended. (A) ASSESSMENT CATEGORY: BIRADS Category 1: Negative. A letter regarding these results will be sent to the patient by the facility within 30 days. Approximately 10% of breast cancers are not detected by mammography. A normal mammogram should not delay biopsy of a clinically suspicious abnormality. [id number] Electronically Signed: Foster Victoria MD at 11:28 EST Tel [phone], Service support [phone], CC: Kathy Benavides DO; Jacqueline Nevarez MD Press Operator Automatic: Signed Kathy Benavides Start: 02-14-2016 End: 02-28-2016 Drain/inject, joint/bursa Koffi Ely Work Phone: Arthroscopy of knee Arthroscopy of Knee M celeste Stahl RN Plan of Treatment Date Care Activity Detail Author Start: 09-10-2016 End: 09-10-2016 Appointment Appointment [facility] Work Phone: Start: 06-12-2011 Provider Instructions for Treatment Diet, Exercise, and Wt loss [facility] Work Phone: Start: 06-12-2011 Assay of thyroid stimulating hormone tsh TSH (08499) [facility]; [facility] Work Phone: Start: 06-12-2011 TSH Qn TSH (45213) [facility] Work Phone: Start: 06-12-2011 Blood count manual cell count each CBC WITH MANUAL DIFF (36535) [facility] Work Phone: Start: 06-12-2011 Comprehensive metabolic panel METABOLIC PANEL, COMPREHENSIVE (02350) [facility] Work Phone: Start: 06-12-2011 Lipid panel LIPID PANEL (84567) [facility] Work Phone: Start: 03-19-2011 Provider Instructions for Treatment Diet, Exercise, and Wt loss [facility] Work Phone: Start: 03-19-2011 Urine albumin quantitative MICROALBUMIN: CREATININE RATIO (10791) AND (79243) [facility] Work Phone: Start: 03-19-2011 Blood count manual cell count each CBC WITH MANUAL DIFF (30925) [facility] Work Phone: Start: 03-19-2011 Comprehensive metabolic panel METABOLIC PANEL, COMPREHENSIVE (10267) [facility] Work Phone: Start: 03-19-2011 Lipid panel LIPID PANEL (55001) [facility] Work Phone: Start: 12-05-2010 HbA1c (Bld) [Mass fraction] HgA1C , Office (59180) [facility] Work Phone: Start: 12-05-2010 Hemoglobin glycosylated a1c HgA1C , Office (14652) [facility]; [facility] Work Phone: Start: 12-05-2010 Gluc bld gluc mntr dev cleared fda spec home use Blood Glucose , Office (85591) [facility]; [facility] Work Phone: Start: 12-05-2010 Glucose [Mass/Vol] Blood Glucose , Office (12528) [facility] Work Phone: Start: 08-29-2010 Provider Instructions for Treatment [facility] Work Phone: Start: 08-29-2010 Comprehensive metabolic panel METABOLIC PANEL, COMPREHENSIVE (06270) [facility] Work Phone: Start: 08-29-2010 Lipid panel LIPID PANEL (58816) [facility] Work Phone: Start: 05-14-2010 Comprehensive metabolic panel METABOLIC PANEL, COMPREHENSIVE (96788) [facility] Work Phone: Start: 05-14-2010 Lipid panel LIPID PANEL (79170) [facility] Work Phone: Start: 01-05-2010 Urine albumin quantitative MICROALBUMIN: CREATININE RATIO (04850) AND (71785) [facility] Work Phone: Start: 01-05-2010 Comprehensive metabolic panel METABOLIC PANEL, COMPREHENSIVE (56954) [facility] Work Phone: Start: 01-05-2010 Lipid panel LIPID PANEL (23491) [facility] Work Phone: Start: 01-05-2010 [employer] streptococcus group a Rapid Strep Test, Office (77294) [facility]; [facility] Work Phone: Immunizations Immunization Date Immunization Notes Care Provider Sarah brownlee 03-11-2008 influenza, seasonal, injectable Kathy Fast [facility] Work Phone: Payers Date Payer Category Payer Policy ID Unknown Social History Date Type Detail Facility Alcohol Use Alcohol Use [facility] Work Phone: Medical Equipment Procedure Code Equipment Code Equipment Origin al Text Equipment Identifier Dates DIABETIC TESTING SUPPLIES ( Strip) (Free Text) 1 Strip bid for 0 days Quantity: 1 {Box(s)} Refills: 3 Ordered: 29-Aug-2010 Mast Hina OROZCO Start : 29-Aug-2010 Active Comments: pen needles for byetta Start: 08-29-2010 Family History Unknown Family Member Name Dates Details Father Comments:- age 62- r enal failure and [place]- had chf and diabetes- high chol Status:Active Mother Comments:In good health- hig h chol Status:Active Unknown Family Member Name Dates Details Father Comments:- age 62- r enal failure and [place]- had chf and diabetes- high chol Status:Active Mother Comments:In good health- hig h chol Status:Active Unknown Family Member Name Dates Details Father Comments:- age 62- r enal failure and [place]- had chf and diabetes- high chol Status:Active Mother Comments:In good health- hig h chol Status:Active Additional Source Comments FOR RECORDS PERTAINING TO PATIENTS WHO ARE OR HAVE BEEN ENROLLED IN A CHEMICAL DEPENDENCY/SUBSTANCEABUSE PROGRAM, SOME INFORMATION MAY BE OMITTED. This clinical summary was aggregated from multiple sources. Caution should be exercised in using it in the provision of clinical care. This summary normalizes information from multiple sources, and as a consequence, information in this document may materially change the coding, format and clinical context of patient data. In addition, data may be omitted in some cases. CLINICAL DECISIONS SHOULD BE BASED ON THE PRIMARY CLINICAL RECORDS. [employer] provides no warranty or guarantee of the accuracy or completeness of information in this document.
== END | disposition home or self-care (01) ==
LOC: LABSPEC 15:19
PROVIDERS: PCP Internal Medicine; Visit Provider Physician Assistant
DX: U07.1 COVID-19 (principal)
CPT/HCPCS: 87634; 87635

== ENCOUNTER → 2023-05-01 | Outpatient (CLI) | payer OTHER, SELFPAY ==
[2023-05-01 12:01] LABS: Microalbumin,Random Urine 33.3 mg/L (NO RANGE EST.); Microalbumin:Creatinine Ratio 26.6 mg/g CRE (<30 mg/g CRE)
[2023-05-01 13:46] LABS: AST(SGOT) 17 U/L (15-37); Alanine Aminotransfer ALT/SGPT 21 U/L (13-56); Albumin, Serum 3.9 g/dL (3.2-5.0); Alkaline Phosphatase 99 U/L (45-117); Anion Gap 6 (5-15); BUN 15 mg/dL (7-18); Calcium,Total 9.2 mg/dL (8.5-10.1); Chloride 107 mmol/L (98-107); Cholesterol 270 mg/dL (200); Creatinine, Serum 0.65 mg/dL (0.55-1.02); EST Glomerular Filtration Rate 102 mL/min (>60); Est Glom Filt Rate - Afr Amer 123 mL/min (>60); Glucose 169 mg/dL (74-106); High Density Lipoprotein 50 mg/dL; Potassium 3.7 mmol/L (3.5-5.1); Protein, Total 7.9 g/dL (6.4-8.2); Sodium Level 135 mmol/L (136-145); Triglycerides 123 mg/dL; Very Low Density Lipoprotein 25 mg/dL (5-40)
== END | disposition home or self-care (01) ==
LOC: LAB 11:18
PROVIDERS: PCP Internal Medicine; Referring Provider Internal Medicine; Visit Provider Internal Medicine
DX: E11.9 Type 2 diabetes mellitus without complications (principal)
CPT/HCPCS: 36415; 80053; 80061; 82043; 82570

== ENCOUNTER → 2023-07-31 | Outpatient (CLI) | payer OTHER, SELFPAY ==
--- NOTE | 2023-07-31 08:28 | RAD_ITS ---
STUDY: X-RAY - LEFT WRIST REASON FOR EXAM: Female, 53 years old. PAIN S/P FALL TECHNIQUE: 3 view(s) of the wrist were obtained. COMPARISON: None. FINDINGS: Normal visualized distal radius and ulna. Normal radiocarpal articulation. Normal distal radioulnar articulation. Normal carpal bones. Normal carpal articulations. Normal carpometacarpal articulation of the thumb. Normal second through fifth carpometacarpal articulations. Normal visualized metacarpal bones. The soft tissue structures are unremarkable. RAD/Wrist min 3 Views IMPRESSION: Normal x-ray examination of the wrist. Electronically Signed: Tyler Cedeno MD at 22:43 EDT ,
== END | disposition home or self-care (01) ==
LOC: RAD 08:25
PROVIDERS: PCP Internal Medicine; Referring Provider Orthopaedic Surgery Sports Medicine; Visit Provider Orthopaedic Surgery Sports Medicine
DX: M25.531 Pain in right wrist (principal)
CPT/HCPCS: 73110

== ENCOUNTER → 2023-10-01 | Outpatient (CLI) | payer OTHER, SELFPAY ==
--- NOTE | 2023-10-01 15:55 | RAD_ITS ---
STUDY: X-RAY CHEST REASON FOR EXAM: Female, 53 years old. right chest wall pain TECHNIQUE: PA and lateral COMPARISON: None. FINDINGS: The lungs are clear and expanded. There is no demonstrated pleural abnormality. Normal size heart. Normal mediastinum and elvira. Normal visualized pulmonary arteries. Normal visualized aortic arch and descending thoracic aorta. Normal visualized thoracic spine. Normal visualized ribs, clavicles, and shoulders. There is no demonstrated abnormality of the visualized soft tissue structures of the upper abdomen. RAD/Chest PA and Lateral IMPRESSION: Normal x-ray examination of the chest. Electronically Signed: Milton Zaldivar MD at 17:03 EDT ,
== END | disposition home or self-care (01) ==
LOC: MTRAD 15:55
PROVIDERS: PCP Internal Medicine; Referring Provider Physician Assistant; Visit Provider Physician Assistant
DX: R07.89 Other chest pain (principal)
CPT/HCPCS: 71046

== ENCOUNTER → 2023-12-23 | Outpatient (CLI) | payer OTHER, SELFPAY ==
--- NOTE | 2023-12-23 11:09 | RAD_ITS ---
STUDY: X-RAY - RIGHT SHOULDER REASON FOR EXAM: Female, 53 years old. Pain. TECHNIQUE: 4 views of the right shoulder. COMPARISON: None. FINDINGS: There is a 3 mm calcific density situated inferior to the inferior glenoid rim, possibly representing a small loose body. Otherwise, normal glenohumeral articulation. Normal acromioclavicular joint. Normal acromion. Normal humeral head and visualized proximal humerus. The soft tissue structures are unremarkable. Normal visualized pulmonary apex. RAD/Shoulder min 2 Views IMPRESSION: Suspected 3 mm calcified loose body in the inferior glenohumeral joint recess. Electronically Signed: Dudley Bush MD at 11:43 EDT ,
== END | disposition home or self-care (01) ==
LOC: MTRAD 11:09
PROVIDERS: PCP Internal Medicine; Referring Provider Orthopaedic Surgery Sports Medicine; Visit Provider Orthopaedic Surgery Sports Medicine
DX: M25.511 Pain in right shoulder (principal)
CPT/HCPCS: 73030

== ENCOUNTER → 2024-01-22 | Outpatient (CLI) | payer OTHER, SELFPAY ==
--- NOTE | 2024-01-22 16:33 | MRI_ITS ---
EXAM: MR RIGHT UPPER EXTREMITY WITHOUT INTRAVENOUS CONTRAST, SHOULDER CLINICAL INDICATION: pain, eval for cuff tear TECHNIQUE: Multiplanar and multisequence MR images of the right shoulder without intravenous contrast. COMPARISON: No relevant prior studies available. FINDINGS: TENDONS: SUPRASPINATUS: Unremarkable. Intact. INFRASPINATUS: Unremarkable. Intact. SUBSCAPULARIS: Unremarkable. Intact. TERES MINOR: Unremarkable. Intact. BICEPS BRACHII, LONG HEAD: Unremarkable. The extra-articular biceps tendon is in the bicipital groove. The intra-articular biceps tendon is normal. LIGAMENTS: GLENOHUMERAL: Unremarkable. Intact. MUSCLES: Unremarkable. No rotator cuff muscle atrophy. FLUID: Unremarkable. No joint effusion. No subacromial-subdeltoid space bursal fluid. CARTILAGE: Unremarkable. Articular cartilage intact. GLENOID LABRUM: Unremarkable. Intact, limited evaluation on non-arthrographic exam. BONES/JOINTS: Type I acromion with flat undersurface. No subacromial enthesophyte or os acromiale. No fracture. No abnormal bone marrow signal. OTHER SOFT TISSUES: Unremarkable. No rotator interval edema. MRI/Upper Ext Joint Only(Routine) IMPRESSION: Unremarkable MRI of the right shoulder. Electronically Signed: Polo Briceno MD at 22:05 EDT ,
== END | disposition home or self-care (01) ==
LOC: MRI 16:25
PROVIDERS: PCP Internal Medicine; Referring Provider Orthopaedic Surgery Sports Medicine; Visit Provider Orthopaedic Surgery Sports Medicine
DX: M25.511 Pain in right shoulder (principal); M25.811 Other specified joint disorders, right shoulder
CPT/HCPCS: 73221

== ENCOUNTER → 2024-02-06 | Outpatient (CLI) | payer OTHER, SELFPAY ==
--- NOTE | 2024-02-06 07:28 | BI_ITS ---
MAMMOGRAPHY - BILATERAL SCREENING REASON FOR EXAM: Female, 53 years old. Routine annual screening examination. PERTINENT HISTORY: Mother with breast cancer. TECHNIQUE: Digital bilateral breast jake (3D mammographic acquisition) in the CC and MLO projections. 2-D mediolateral oblique (MLO) and craniocaudad (CC) views of both breasts were obtained. CAD: Full Field Digital Mammography with Computer Added Detection was performed. COMPARISON: Comparison is made with prior study January 24, 2023 and May 21, 2016. FINDINGS: Breast Composition: The breasts are heterogeneously dense, which may obscure small masses. There are no dominant masses or suspicious calcifications. No other significant abnormalities are identified. There has been no significant change since the prior study. BI/SCRN MAMM (CAD)W/JAKE BILAT IMPRESSION: Stable bilateral screening mammogram. Yearly follow-up mammogram recommended. (A) ASSESSMENT CATEGORY: BIRADS Category 1: Negative. A letter regarding these results will be sent to the patient by the facility within 30 days. Approximately 10% of breast cancers are not detected by mammography. A normal mammogram should not delay biopsy of a clinically suspicious abnormality. [id number] Electronically Signed: Foster Victoria MD at 8:32 EST ,
== END | disposition home or self-care (01) ==
LOC: OPBI 07:27
PROVIDERS: PCP Internal Medicine; Referring Provider Internal Medicine; Visit Provider Internal Medicine
DX: Z12.31 Encounter for screening mammogram for malignant neoplasm of breast (principal); Z80.3 Family history of malignant neoplasm of breast
CPT/HCPCS: 77063; 77067

== ENCOUNTER → 2024-02-26 | Outpatient (CLI) | payer OTHER, SELFPAY ==
[2024-02-26 07:47] LABS: Absolute Lymphocyte Count 3.08 X10^3/uL (0.83-4.51); Absolute Neutrophil Count 6.6 X10^3/uL (2.0-7.7); Basophil# 0.06 X10^3/uL; Basophil% 0.6 % (0-1); Hematocrit 39.8 % (37-47); Hemoglobin 13.3 g/dL (12.0-15.0); Lymphocyte # 3.08 X10^3/ul (0.83-4.51); Lymphocyte % 29.3 % (19-41); Mean Corp Hgb Conc 33.4 g/dL (32-36); Mean Corpuscular Hgb 30.3 pg (27.0-32.0); Mean Corpuscular Volume 90.7 fL (81-99); Mean Platelet Vol. 10.3 fl (6.2-12.0); Monocyte# 0.69 X10^3/uL; Monocyte% 6.6 % (0-10); NRBC Flagged by Analyzer 0 % (0-5); Neutrophil # 6.56 X10^3/uL (2.7-7.7); Neutrophil % 62.2 % (47-70); Platelet Count 298 K/mm3 (150-450); RBC Distribution Width CV 12.8 % (11.6-14.6); RBC Distribution Width SD 42.2 fl (35.1-43.9); Red Blood Count 4.39 M/mm3 (4.2-5.4); White Blood Count 10.5 K/mm3 (4.4-11.0)
[2024-02-26 08:16] LABS: ALB/GLOB Ratio 1.1 RATIO (0.9-2.4); AST(SGOT) 13 U/L (15-37); Alanine Aminotransfer ALT/SGPT 26 U/L (13-56); Albumin, Serum 3.8 g/dL (3.2-5.0); Alkaline Phosphatase 107 U/L (45-117); Anion Gap 5 (5-15); BUN 20 mg/dL (7-18); BUN/Creat Ratio 23.1 RATIO (10-20); Calcium,Total 9.3 mg/dL (8.5-10.1); Chloride 105 mmol/L (98-107); Creatinine, Serum 0.87 mg/dL (0.55-1.02); EST Glomerular Filtration Rate 73 mL/min (>60); Est Glom Filt Rate - Afr Amer 88 mL/min (>60); Globulin 3.4 g/dL (2.2-4.2); Glucose 196 mg/dL (74-106); Potassium 4.3 mmol/L (3.5-5.1); Protein, Total 7.2 g/dL (6.4-8.2); Sodium Level 138 mmol/L (136-145)
[2024-02-26 08:27] LABS: Hemoglobin A1c 7.7 % (3.8-5.6)
== END | disposition home or self-care (01) ==
LOC: LAB 07:30
PROVIDERS: PCP Internal Medicine
DX: Z01.818 Encounter for other preprocedural examination (principal); E11.9 Type 2 diabetes mellitus without complications
CPT/HCPCS: 36415; 80053; 83036; 85025

== ENCOUNTER 2024-04-14 15:30 | Outpatient (RCR) | payer OTHER, SELFPAY ==
--- NOTE | 2024-03-18 11:26 | HP.PTEVAL ---
Patient's Visit Information Visit Information Visit Information: WHIT CHAPMAN is a 53 year old F referred to Physical Therapy by LEYLA GLASS with a diagnosis of R shoulder SAD, biceps tenodesis, and capsular release 03/11/24. Date of Evaluation: 03/18/24 Physical Therapist: Bairon Larios, PT, ATC Visit Plan Frequency: 2-3x /Week Duration: 6-8 weeks Plan: Follow protocol. CP for pain Subjective Subjective: DOS: 03/11/24. Pt reports she had SAD performed at that time with biceps tenodesis and capsular release in her R shoulder. Pt reports she had pain in her R shoulder for approximately 2 mos prior to having this surgery. Pt reports the pain she had previously is gone now, but she still has a lot of discomfort and stiffness in R shoulder. Pt reports she is able to sleep at night as long as she ices and takes pain meds. Pt is R hand dominant. Pt reports she has tingling in her R UE from the elbow downward towards her hand. 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 Pt notes she has been performing her HEP faithfully, but is having a hard time reaching behind her back. 4/10 pain at rest, 7/10 pain at worst (when she stretches out taking her pain meds.) Pain R shoulder: Pain Intensity (Out of 10): 4 Pain Intensity Range: 7 Objective Objective: Neuro: B UE sensation is WNL to light touch Observation: Incisions are still covered at this time. No signs of infection. AROM: L shoulder flex= 110, abd= 100, ER= 10, IR= WNL; R shoulder flex= 110, abd= 110, ER= 10, IR= moderately limited MMT: L shoulder flex= 8, abd= 15, ER= 10, IR= 16 #F; R shoulder Not tested today Balance/Special Test Scores Quick DASH Score: 75.0000 Goals Goal 1:: Increase R shoulder flex and abd ROM to 150 degrees to aid with overhead activity Goal Time Frame: 6-8 Weeks Goal 2:: Increase R shoulder strength to 90% of L shoulder strength to aid with IADL's Goal Time Frame: 6-8 Weeks Goal 3:: I with HEP Goal Time Frame: 4-6 Weeks Goal 4:: Decrease R shoulder pain x 50% to aid with sleep Goal Time Frame: 6-8 Weeks Rehabilitation Potential Physical Therapy Diagnosis: Pt has R shoulder pain, weakness, and limited ROM secondary to R shoulder surgery Rehabilitation Potential: Good Anticipated Interventions Patient/Client Instruction: Educate patient on: Condition and Plan of Care For the Purpose of:: To improve self management Therapeutic Exercise to Include: Strength training, Endurance training, Flexibilty training, Passive ROM, Active ROM and Scapular Strength/Stabilization For the Purpose of:: To decrease pain, To increase ROM and To improve muscle performance and motor function Cryotherapy (ice pack, ice massage): Yes For the Purpose of:: To decrease pain Text: Thank you for the opportunity to evaluate your patient. For Medicare and Medicare HMO plans, please review the plan of care and approve it. It will need to be FAXED BACK to us at [phone] for Medicare purposes. For Medicare only, by signing this I certify the plan of care. Please let me know if there are questions or concerns regarding this plan of care. Physician Signature: Date:
--- NOTE | 2024-04-14 16:05 | HP.PTREVAL ---
Re-Evaluation Intro: LEYLA GLASS, It has been my pleasure to treat WHIT CHAPMAN over the last 9 visits for R shoulder SAD, biceps tenodesis, and capsular release 03/11/24. Please see the progress note below for an update on the physical therapy plan of care! Subjective Subjective: Pt reports her shoulder aches all the time Objective Objective/Function: R shoulder pain ranges from 2-8/10 R shoulder ROM: flex= 120, abd= 105 degrees R shoulder MMT: flex= 5, abd= 10, ER= 7, IR= 10 #F Pt is showing excellent progress at this time Plan Plan Plan: 04/14/24- Follow protocol. CP for pain Balance/Gait/Functional tests Balance/Special Test Scores Quick DASH Score: 72.7250 Goals Goals Goal 1:: Increase R shoulder flex and abd ROM to 150 degrees to aid with overhead activity Goal Time Frame: 6-8 Weeks Goal 2:: Increase R shoulder strength to 90% of L shoulder strength to aid with IADL's Goal Time Frame: 6-8 Weeks Goal 3:: I with HEP Goal Time Frame: 4-6 Weeks Goal 4:: Decrease R shoulder pain x 50% to aid with sleep Goal Time Frame: 6-8 Weeks Goal Progress: Progressing Anticipated Interventions Anticipated Interventions Patient/Client Instruction: Educate patient on: Condition and Plan of Care For the Purpose of:: To improve self management Therapeutic Exercise to Include: Strength training, Endurance training, Flexibilty training, Passive ROM, Active ROM and Scapular Strength/Stabilization For the Purpose of:: To decrease pain, To increase ROM and To improve muscle performance and motor function Cryotherapy (ice pack, ice massage): Yes For the Purpose of:: To decrease pain Re-Evaluation Ending Re-evaluation ending: Please do not hesitate to contact me at [phone] by phone or if you have questions or concerns regarding this new plan of care! Sincerely, Bairon Larios, PT, ATC
--- NOTE | 2024-06-08 13:52 | HP.PT.NRP ---
Patient Information Patient Information: WHIT CHAPMAN was seen in my office for initial evaluation on 03/18/24. The following Plan of Care was established for this patient: POC Established Initial Frequency: 2-3x /Week Initial Duration: 6-8 weeks Anticipated Interventions Patient/Client Instruction: Educate patient on: Condition and Plan of Care For the Purpose of:: To improve self management Therapeutic Exercise to Include: Strength training, Endurance training, Flexibilty training, Passive ROM, Active ROM and Scapular Strength/Stabilization For the Purpose of:: To decrease pain, To increase ROM and To improve muscle performance and motor function Cryotherapy (ice pack, ice massage): Yes For the Purpose of:: To decrease pain Last Seen Last Seen: This patient was last seen in our office . Pertinent comments regarding their Physical therapy will appear below: Pt has not returned to PT in 30 days and is discharged at this time. At this point I will be discontinuing this patient from physical therapy. I would be happy to see this patient again in the future if found appropriate by the physician. Thank you! Bairon Larios, PT, ATC Balance/Gait/Functional tests Balance/Special Test Scores Quick DASH Score: 72.7290
== END 2024-04-14 19:00 | disposition home or self-care (01) ==
LOC: PT 15:30
PROVIDERS: PCP Internal Medicine
DX: Z98.890 Other specified postprocedural states (principal)
CPT/HCPCS: 97110; 97140; 97161; 97530

== ENCOUNTER → 2024-05-12 | Outpatient (CLI) | payer OTHER, SELFPAY ==
[2024-05-12 16:54] LABS: Absolute Lymphocyte Count 3.72 X10^3/uL (0.83-4.51); Absolute Neutrophil Count 5.4 X10^3/uL (2.0-7.7); Basophil# 0.04 X10^3/uL; Basophil% 0.4 % (0-1); Eosinophil# 0.13 X10^3/uL; Eosinophils% 1.3 % (0-5); Hemoglobin 13.3 g/dL (12.0-15.0); Lymphocyte # 3.72 X10^3/ul (0.83-4.51); Lymphocyte % 37.7 % (19-41); Mean Corp Hgb Conc 33.3 g/dL (32-36); Mean Corpuscular Volume 90.1 fL (81-99); Mean Platelet Vol. 10.8 fl (6.2-12.0); Monocyte# 0.58 X10^3/uL; Monocyte% 5.9 % (0-10); NRBC Flagged by Analyzer 0 % (0-5); Neutrophil # 5.38 X10^3/uL (2.7-7.7); Neutrophil % 54.4 % (47-70); Platelet Count 303 K/mm3 (150-450); RBC Distribution Width CV 12.6 % (11.6-14.6); RBC Distribution Width SD 41.2 fl (35.1-43.9); Red Blood Count 4.44 M/mm3 (4.2-5.4); White Blood Count 9.9 K/mm3 (4.4-11.0)
[2024-05-12 17:46] LABS: ALB/GLOB Ratio 1.2 RATIO (0.9-2.4); AST(SGOT) 11 U/L (15-37); Alanine Aminotransfer ALT/SGPT 23 U/L (13-56); Albumin, Serum 4.1 g/dL (3.2-5.0); Alkaline Phosphatase 92 U/L (45-117); Anion Gap 8 (5-15); BUN 23 mg/dL (7-18); Calcium,Total 9.6 mg/dL (8.5-10.1); Chloride 107 mmol/L (98-107); Creatinine, Serum 0.66 mg/dL (0.55-1.02); EST Glomerular Filtration Rate 100 mL/min (>60); Est Glom Filt Rate - Afr Amer 121 mL/min (>60); Globulin 3.5 g/dL (2.2-4.2); Glucose 123 mg/dL (74-106); Potassium 4.1 mmol/L (3.5-5.1); Protein, Total 7.6 g/dL (6.4-8.2); Sodium Level 140 mmol/L (136-145)
== END | disposition home or self-care (01) ==
PROVIDERS: PCP Internal Medicine
DX: Z01.818 Encounter for other preprocedural examination (principal)
CPT/HCPCS: 36415; 80053; 85025

== ENCOUNTER → 2024-06-28 | Outpatient (CLI) | payer OTHER, SELFPAY ==
[2024-06-28 10:40] LABS: Cholesterol 234 mg/dL (<=200); High Density Lipoprotein 54 mg/dL; Low Density Lipoprotein Calc. 151 mg/dL; Triglycerides 147 mg/dL; Very Low Density Lipoprotein 29 mg/dL (5-40); cholesterol:hdl ratio screen 4.35
== END | disposition home or self-care (01) ==
LOC: LAB 09:25
PROVIDERS: PCP Internal Medicine; Referring Provider Internal Medicine; Visit Provider Internal Medicine
DX: E11.9 Type 2 diabetes mellitus without complications (principal); R80.9 Proteinuria, unspecified
CPT/HCPCS: 36415; 80061; 82043; 82570

== ENCOUNTER 2024-10-05 10:55 | Outpatient (CLI) | payer OTHER, SELFPAY ==
--- NOTE | 2024-10-05 10:57 | CT_ITS ---
PROCEDURE: LIMITED CHEST CT CARDIAC ONLY 10/05/2024 REASON FOR EXAM: SCREENING TECHNIQUE: LIMITED CHEST CT CARDIAC ONLY Coronal and Sagittal reconstruction series were provided. CONTRAST: None One or more dose reduction techniques were used (e.g., Automated exposure control, adjustment of the mA and/or kV according to patient size, use of iterative reconstruction technique). RADIATION DOSE SUMMARY: CTDlvol: 12.19 mGy DLP: 219.42 mGycm COMPARISON: None FINDINGS: Small mediastinal lymph nodes. Coronary artery calcification. The heart is not enlarged. The pericardium is not thickened. The lungs are clear. CT/Limited Chest CT Cardiac Only IMPRESSION: Coronary artery calcification. Reading Location: [facility]
--- NOTE | 2024-10-05 12:26 | CA.SCORE ---
Calcium Scoring Date of Study:: 10/05/24 Indications Indications: Hyperlipidemia Coronary Calcium Scoring: High-resolution Computed Tomographic imaging of the chest was performed on [10/05/2024], with particular attention paid to the coronary arteries. Images from the examination were analyzed for the presence and extent of coronary artery calcification , using coronary calcium quantification software. The patient tolerated the procedure well and there were no complications. The results of the coronary calcification analysis are provided below. Findings Coronary Artery Left Main (LM): 0 Left Anterior Descending (LAD): 233 Left Circumflex (LCX): 0 Right Coronary Artery (RCA): 228 Total Agatston Score: 461 Percentile RankinTh % Calcium Scoring Interpretation: Different methods to categorize the overall amount of coronary plaque. Overall amount CAC SIS Visual of coronary plaque P1 Mild -100 <2 1-2 vessels with mild amount of plaque P2 Moderate 101-300 3-4 1-2 vessels with moderate amount, 3 vessels with mild amount of plaque P3 Severe 301-999 5-7 3 vessels with moderate amount, 1 vessel with severe amount of plaque P4 Extensive >1000 >8 2-3 vessels with severe amount of plaque Calcium Score: Moderate: 1-2 vessels w/moderate amt, 3 vessels w/mild amt of plaque Conclusion: Moderate two-vessel plaque disease noted.
== END 2024-10-05 23:59 | disposition home or self-care (01) ==
LOC: CT 10:56
PROVIDERS: PCP Internal Medicine; Referring Provider Internal Medicine; Visit Provider Internal Medicine
DX: Z13.6 Encounter for screening for cardiovascular disorders (principal)
CPT/HCPCS: 75571; 76380

== ENCOUNTER → 2024-10-07 | Outpatient (CLI) | payer OTHER, SELFPAY ==
--- NOTE | 2024-10-07 10:51 | ART_ITS ---
Reason For Study Reason For Study: Lrg pain with walking Procedure A bilateral lower extremity continuous wave Doppler with analog waveform analysis and ankle brachial indexes. Left Segmental Pressures Left brachial= 94mmHg. Left posterior tibial artery = 162mmHg. Left dorsalis pedis artery = 153mmHg. Left digit = 130 mmHg. The left dorsalis pedis waveforms are triphasic. The left posterior tibial artery waveforms are triphasic. Right Segmental Pressures Right brachial= 94mmHg. Right posterior tibial artery = 177mmHg. Right dorsalis pedis artery = 165mmHg. Right digit = 112 mmHg. The right dorsalis pedis waveforms are triphasic. The right posterior tibial artery waveforms are triphasic. Indices The right ankle brachial index by the dorsalis pedis is 1.76. The right ankle brachial index by the posterior tibial artery is 1.88. The right digital-brachial index is 1.19. The left ankle brachial index by the dorsalis pedis is 1.63. The left ankle brachial index by the posterior tibial artery is 1.73. The left digital-brachial index is 1.38. VL/Ankle Brachial Index Interpretation Summary Right DAGOBERTO 1.88, normal. TBI and Doppler/PVR waveforms of the right leg normal a t rest. Left DAGOBERTO 1.72, normal. TBI and Doppler/PVR waveforms of the left leg normal at rest. Ordering Physician: Anamaria Ricks Referring Physician: ANAMARIA RICKS MD Performed By: Antonina Dickinson RVT
== END | disposition home or self-care (01) ==
LOC: CVS 10:50
PROVIDERS: PCP Internal Medicine; Referring Provider Internal Medicine; Visit Provider Internal Medicine
DX: I73.9 Peripheral vascular disease, unspecified (principal)
CPT/HCPCS: 93922

== ENCOUNTER → 2024-10-12 | Outpatient (CLI) | payer OTHER, SELFPAY ==
[2024-10-12 13:01] LABS: Creatinine, Urine (random) 145.00 mg/dL (28.00-217.00); Microalbumin,Random Urine 12.7 mg/L (<20 mg/L)
== END | disposition home or self-care (01) ==
LOC: LAB 11:46
PROVIDERS: PCP Internal Medicine; Referring Provider Internal Medicine; Visit Provider Internal Medicine
DX: R80.9 Proteinuria, unspecified (principal)
CPT/HCPCS: 82043; 82570

== ENCOUNTER → 2024-10-19 | Outpatient (CLI) | payer OTHER, SELFPAY ==
--- NOTE | 2024-10-19 07:50 | ART_ITS ---
Reason For Study Reason For Study: BLE Pain Procedure A bilateral lower extremity continuous wave Doppler with analog waveform analysis,segmental pressures,and ankle brachial indexes with exercise. Left Segmental Pressures Left brachial= 83mmHg. Left posterior tibial artery = 142mmHg. Left dorsalis pedis artery = 141mmHg. Left digit = 102 mmHg. The left posterior tibial artery waveforms are triphasic. The left dorsalis pedis waveforms are triphasic. Right Segmental Pressures Right brachial= 83mmHg. Right posterior tibial artery = 142mmHg. Right dorsalis pedis artery = 141mmHg. Right digit = 102 mmHg. The right posterior tibial artery waveforms are triphasic. The right dorsalis pedis waveforms are triphasic. Indices The right ankle brachial index by the posterior tibial artery is 1.69. The right ankle brachial index by the dorsalis pedis is 1.67. The right digital-brachial index is 1.29. The right post exercise ankle brachial index is 1.05. The left ankle brachial index by the posterior tibial artery is 1.56. The left ankle brachial index by the dorsalis pedis is 1.55. The left digital-brachial index is 1.12. The left post exercise ankle brachial index is 0.84. VL/Lower Ext Art Exam w/ Exercise Interpretation Summary Right DAGOBERTO 1.69, artificially elevated. TBI and Doppler/PVR waveforms of the rig ht leg normal at rest. Right lower extremity exhibits normal response to exercise. Left DAGOBERTO 1.56, artificially elevated. TBI and Doppler/PVR waveforms of the left leg normal at rest. Left lower extremity with abnormal response to exercise and post exercise DAGOBERTO i n the moderate category. Bilateral brachial pressures reduced which ma lead to inaccurate indices. Ordering Physician: Jovan Gilliam Referring Physician: Shantell Ricks Performed By: Marcellus Yi, RVT
== END | disposition home or self-care (01) ==
LOC: CVS 07:50
PROVIDERS: PCP Internal Medicine; Referring Provider Internal Medicine Cardiovascular Disease; Visit Provider Internal Medicine Cardiovascular Disease
DX: E11.29 Type 2 diabetes mellitus with other diabetic kidney complication (principal); R80.9 Proteinuria, unspecified; I79.8 Other disorders of arteries, arterioles and capillaries in diseases classified elsewhere
CPT/HCPCS: 93924

== ENCOUNTER → 2024-11-05 | Outpatient (CLI) | payer OTHER, SELFPAY ==
--- NOTE | 2024-11-05 06:54 | ECHOD_ITS ---
Reason For Study Reason For Study: MURMUR Procedure This was a 2D Doppler, Color Flow transthoracic echocardiogram. Exam performed in department. Left Ventricle Normal LV size. Left ventricular systolic function is normal. The left ventricular ejection fraction is 65 %. No regional wall motion abnormalities noted. Right Ventricle Normal RV size. Normal systolic function. Atria Normal left atrium. Normal right atrium. Mitral Valve Normal mitral valve. Tricuspid Valve Normal tricuspid valve. Mild tricuspid valve insufficiency. Pulmonary artery systolic pressure is 26 mmHg. Pulmonic Valve Normal pulmonic valve. Great Vessels Normal aortic root. The pulmonary artery is normal size. Normal inferior vena cava. Pericardium/Pleural No pericardial effusion. MMode/2D Measurements & Calculations LVIDd: 4.1 cm IVSd: 1.1 cm Ao root diam: 2.9 cm LVIDs: 2.8 cm LVPWd: 1.1 cm RVDd: 2.8 cm FS: 32.1 % LAV(MOD-bp): 49.0 ml LVAd ap4: 20.2 cm2 LVAd ap2: 19.6 cm2 LAV(MOD-bp) Indexed: 26.5 ml/m2 LVLd ap4: 6.3 cm LVLd ap2: 6.1 cm LAV(MOD-sp2): 44.1 ml EDV(MOD-sp4): 55.6 ml EDV(MOD-sp2): 55.0 ml LAV(MOD-sp4): 44.5 ml EDV(sp4-el): 55.2 ml EDV(sp2-el): 53.6 ml LVAs ap4: 9.9 cm2 LVAs ap2: 9.9 cm2 LVLs ap4: 4.9 cm LVLs ap2: 4.7 cm ESV(MOD-sp4): 18.9 ml ESV(MOD-sp2): 18.5 ml ESV(sp4-el): 17.3 ml ESV(sp2-el): 17.6 ml EF(MOD-sp4): 65.9 % EF(MOD-sp2): 66.3 % EF(sp4-el): 68.6 % SV(MOD-sp4): 36.6 ml SV(MOD-sp2): 36.5 ml SV(sp4-el): 37.9 ml SI(MOD-sp4): 19.8 ml/m2 SI(MOD-sp2): 19.7 ml/m2 LA A4 area: 14.7 cm2 LA dimension(2D): 3.8 cm RA A4 area: 11.7 cm2 TAPSE: 2.1 cm Time Measurements MV dec time: 0.14 sec Doppler Measurements & Calculations MV E max maverick: 93.3 cm/sec Lat Peak E' Maverick: 10.4 cm/sec Med Peak E' Maverick: 7.9 cm/sec MV A max maverick: 82.6 cm/sec E/E' lat: 9.0 E/E' med: 11.8 MV E/A: 1.1 MV V2 max: 88.7 cm/sec MV P1/2t max maverick: 88.7 cm/sec Ao V2 max: 133.6 cm/sec MV max P.1 mmHg MV P1/2t: 42.6 msec Ao max P.1 mmHg MV V2 mean: 66.0 cm/sec Ao V2 mean: 90.7 cm/sec MV mean P.9 mmHg MV dec slope: 610.4 cm/sec2 Ao mean P.8 mmHg MV V2 VTI: 18.1 cm MVA(P1/2t): 5.2 cm2 Ao V2 VTI: 28.3 cm AV (velocity ratio): 0.64 LV V1 max: 79.9 cm/sec PA V2 max: 101.9 cm/sec TR max maverick: 239.0 cm/sec LV V1 max P.6 mmHg PA V2 mean: 74.9 cm/sec TR max P.9 mmHg LV V1 mean P.6 mmHg LV V1 mean: 59.6 cm/sec LV V1 VTI: 18.2 cm ECHO/Echo Complete Interpretation Summary Normal LV size. Left ventricular systolic function is normal. The left ventricular ejection fraction is 65 %. Pulmonary artery systolic pressure is 26 mmHg. Ordering Physician: Jovan Gilliam Referring Physician: Shantell Ricks Performed By: Julia Urena, CARLINE, RVT
--- OUTSIDE RECORDS SUMMARY | 2024-11-05 07:10 | XMS RPT_ITS | CCD ---
Author Organization [facility]ini[facility] Care Team Providers Care Cash Applications Analyst Name Role Phone Leti Andujar LPN Unavailable Unavailab le Leti Andujar LPN Unavailable Unavailab le Fast, Kathy A Unavailable Alanis Anaya Unavailable Unavailable Mail Technician, System Unavailable Unavailable Mast, Hina Unavailable Unavailable Unavailable Unavailable Fast DO, Kathy A Unavailable Jaclyn Alanis Unavailable Unavailable Mail Technician, System Unavailable Unavailable Mast RN, Hina Unavailable Unavailable Unavailable Unavailable Care Physician, No Primary Primary Care Provider Unavailable Care Physician, No Primary Referring Provider Un available Dr. Anamaria Ricks Attending Provider [phone] Dr. Anamaria Ricks Primary Care Provider Dr. Anamaria Ricks Referring Provider [phone] Contreras CONTAINERS SALES REPRESENTATIVE, JENNI-Karel Cardona Attending Provider [phone] FriendDr. Parkinson Attending Provider Friend, Dr. Parkinson Other Provider [phone] LINDY Farmer Attending Provider [phone] Dr. Anamaria Ricks Attending Provider [phone] Unavailable Primary Care Provider Unavailabl e SASHA SAVAGE Attending Unavailable SASHA SAVAGE Attending Unavailable Dr. Anamaria Ricks MD Primary Care Provider [phone] SASHA SAVAGE Attending Provider [phone] SASHA SAVAGE Referring Provider [phone] Anamaria Ricks MD Attending Provider Dr. Anamaria Ricks MD Referring Provider YELENA GLASS Attending Provider [phone] YELENA GLASS Referring Provider [phone] SASHA SAVAGE Attending Provider SASHA SAVAGE Referring Provider [phone] Millicent FRANKS, Dr. Stinson Primary Care Provider [phone] Millicent FRANKS, Dr. Stinson Primary Care Provider [phone] Millicent FRANKS, Dr. Stinson Attending Provider Millicent FRANKS, Dr. Stinson Referring Provider Millicent FRANKS, Dr. Stinson Other Provider [phone] Mane FRANKS, Dr. Aldana Attending Provider [phone] Amadou FRANKS, Dr. Ratliff Attending Provider [phone] Mane FRANKS, Dr. Aldana Referring Provider [phone] Millicent FRANKS, Dr. Stinson Primary Care Provider [phone] Millicent FRANKS, Dr. Stinson Attending Provider Millicent FRANKS, Dr. Stinson Referring Provider Millicent, Anamaria Referring Unavailable Mollison, Oscar Attending Unavailable [place], Anamaria Primary Care Unavailable Gaudencio Tobar Attending Unavailable [place], Anamaria Primary Care Unavailable Millicent, Anamaria Referring Unavailable Millicent, Anamaria Consulting Unavailable Millicent, Anamaria Primary Care Unavailable Mane, Jovan Attending Unavailable Millicent, Anamaria Attending Unavailable Millicent, Anamaria Primary Care Unavailable Millicent, Anamaria Referring Unavailable Mollison, Oscar Referring Unavailable Mollison, Oscar Attending Unavailable Millicent, Anamaria Primary Care Unavailable Mollison, Osacr Referring Unavailable Mollison, Oscar Attending Unavailable [place], Anamaria Primary Care Unavailable Millicent, Anamaria Primary Care Unavailable Mane, Jovan Attending Unavailable Mane, Piedmont Referring Unavailable [place], Anamaria Primary Care Unavailable Mane, [place] Attending Unavailable Mane, Jovan Referring Unavailable Millicent, Anamaria Referring Unavailable Gaudencio Tobar Attending Unavailable Millicent, Anamaria Primary Care Unavailable [place], Anamaria Attending Unavailable [place], Anamaria Primary Care Unavailable [place], Anamaria Referring Unavailable [place], Anamaria Attending Unavailable Millicent, Anamaria Primary Care Unavailable Millicent, Anamaria Referring Unavailable Millicent, Anamaria Attending Unavailable Millicent, Anamaria Primary Care Unavailable [place], Anamaria Referring Unavailable Millicent, Anamaria Primary Care Unavailable Rodriguez, Mahad Referring Unavailable Rodriguez, Mahad Attending Unavailable [place], Anamaria Primary Care Unavailable Rodriguez, Mahad Referring Unavailable Rodriguez, Mahad Attending Unavailable Millicent, Anamaria Primary Care Unavailable Rodriguez, Mahad Referring Unavailable Rodriguez, Mahad Attending Unavailable [place], Anamaria Attending Unavailable Millicent, Anamaria Referring Unavailable Millicent, Anamaria Primary Care Unavailable Millicent, Anamaria Attending Unavailable Millicent, Anamaria Primary Care Unavailable Millicent, Anamaria Referring Unavailable [place], Anamaria Primary Care Unavailable Mane, Piedmont Attending Unavailable Mane, P[place]mont Referring Unavailable Millicent, Anamaria Attending Unavailable Millicent, Anamaria Referring Unavailable [place], Anamaria Primary Care Unavailable Millicent, Anamaria Referring Unavailable Millicent, Anamaria Primary Care Unavailable Mane, Pied[place] Attending Unavailable Millicent, Anamaria Primary Care Unavailable [place], Anamaria Attending Unavailable Millicent, Anamaria Referring Unavailable Oscar Davis Attending Unavailable [place], Anamaria Primary Care Unavailable [place], Anamaria Referring Unavailable [place], Anamaria Attending Unavailable Millicent, Anamaria Primary Care Unavailable Millicent, Anamaria Referring Unavailable Millicent, Anamaria Attending Unavailable Millicent, Anamaria Primary Care Unavailable Millicent, Anamaria Referring Unavailable Millicent, Anamaria Referring Unavailable Oscar Davis Attending Unavailable Millicent, Anamaria Primary Care Unavailable Allergies Allergy Classification Reported Allergen(s) Allergy Type Date of Onset Reaction(s) Facility (2 sources) codeine drug allergy [address] [facility] Work Phone: (2 sources) SEASONAL ALLERGIES drug allergy [address] [facility] Work Phone: (4 sources) Codeine/Codeine Derivatives; Translations: [Codeine/Codein e Derivatives] Allergy to substance (finding) [facility] Work Phone: (20 sources) Codeine Drug Allergy 1 Hives, Shortness of breath [facility] (1 source) Codeine Drug Allergy 5 [facility] Repository Medications Current Medications Medication Drug Class(es) Dates Sig (Normalized) Sig (Original) acetaminophen 325 mg / oxyCODONE hydrochloride 5 mg oral tablet (2 sources) Opioid Agonist Start: 02-25-2024 oxyCODONE-acetamino phen (Percocet) 5-325 MG tablet 02/25/2024 Active Blood-Glucose Meter (Accu-Chek Guide Glucose Meter) misc (14 sources) Start: 01-01-2023 Blood-Glucose Meter (Accu-Chek Guide Glucose Meter) misc Active 0 .Route 1 January 01, 2023 12:00am Uncontrolled type 2 diabetes mellitus daily Start: 01-01-2023 Blood-Glucose Meter (Accu-Chek Guide Glucose Meter) misc Active 0 .Route January 01, 2023 12:00am daily Start: 01-01-2023 Blood-Glucose Meter (Accu-Chek Guide Glucose Meter) misc Active 0 .Route 1 December 31, 2022 11:00pm daily fluticasone propionate 0.05 mg/actuat metered dose nasal spray (20 sources) Corticosteroid Start: 09-05-2023 fluticasone (F lonase) 50 MCG/ACT nasal spray 09/05/2023 Active Start: 09-05-2023 End: 09-16-2024 take 50 ug nasal route once daily Fluticasone Propionate (Allergy Relief (Fluticasone)) 50 mcg/actuation spray,suspension Active 2 NMA INTRANASAL DAILY 16 0 September 16, 2024 8:49am administer into each nostril Start: 09-10-2016 FLOVENT DISKUS AEPB as directed FLUTICASONE PROPIONATE (INHAL) AEPB [id number] [place] Start: 09-10-2016 FLOVENT DISKUS AEPB as directed FLUTICASONE PROPIONATE (INHAL) AEPB [id number] [place] ipratropium bromide 0.021 mg/actuat metered dose nasal spray (10 sources) Anticholinergic Start: 09-16-2024 Ipratropium Br omide 21 mcg (0.03 %) spray,non-aerosol Active 2 NMA INTRANASAL 2 to 3 times per day as needed for allergy symptoms September 16, 2024 8:49am administer into each nostril Start: 09-05-2023 ipratropium (A trovent) 0.03 % nasal spray 09/05/2023 Active levocetirizine dihydrochloride 5 mg oral tablet (2 sources) Histamine-1 Receptor Antagonist Start: 10-20-2024 take 1 tablet by mouth once daily Levocetirizine (Xyzal) 5 mg tablet Active 5 mg PO daily October 20, 2024 12:00am Mounjaro 10 MG/0.5ML solution auto-injector (4 sources) Start: 11-19-2023 Mounjaro 10 MG/0.5ML solution auto-injector 11/19/2023 Active Mounjaro 2.5 MG/0.5ML solution auto-injector (4 sources) Start: 06-16-2023 Mounjaro 2.5 MG/0.5ML solution auto-injector 06/16/2023 Active Mounjaro 5 MG/0.5ML solution auto-injector (4 sources) Start: 04-14-2023 Mounjaro 5 MG/0.5ML solution auto-injector 04/14/2023 Active Mounjaro 7.5 MG/0.5ML solution auto-injector (4 sources) Start: 02-11-2024 Mounjaro 7.5 MG/0.5ML solution auto-injector 02/11/2024 Active rosuvastatin calcium 40 mg oral tablet (5 sources) HMG-CoA Reductase Inhibitor Start: 10-20-2024 take 1 tablet by mouth once daily Rosuvastatin (Crestor) 40 mg tablet Active 40 mg PO daily October 20, 2024 12:00am Start: 03-19-2011 take 1 tablet by alec th once daily CRESTOR, 40MG (Oral Tablet) 1 Tablet qd for 30 days Quantity: 30 {Tablet} Refills: 3 Ordered: 19-Mar-2011 Fast DO, Kathy A Fast DO, Kathy A Start : 19-Mar-2011 Active Tirzepatide 12.5 mg/0.5 mL p en injector (6 sources) Start: 09-28-2024 Tirzepatide 12 .5 mg/0.5 mL pen injector Active 12.5 mg SC EVERY WEEK 2 28 September 28, 2024 7:54am ubidecarenone 75 mg oral cap mallory (12 sources) Start: 02-11-2023 Coenzyme Q10 ( Ultra Coq10) 75 mg capsule Active 75 mg PO DAILY February 11, 2023 1:00am Completed/Discontinued Medications Medication Drug Class(es) Dates Sig (Normalized) Sig (Original) acetaminophen 325 mg / HYDROcodone bitartrate 5 mg oral tablet (16 sources) Opioid Agonist Start: 02-07-2021 End: 11-15-2021 Hydrocodone-Acetami nophen 5-325 mg tablet Discontinued 1 {tbl} PO Q4H as needed for pain 14 3 0 February 07, 2021 November 15, 2021 12:25pm Calculus of kidney Calculus of kidney Start: 02-07-2021 End: 11-15-2021 take 1 tablet by mouth every four hours Hydrocodone-Acetaminophen Discontinued 1 TABLET PO Q4H 14 3 February 07, 2021 November 15, 2021 11:25am amoxicillin 875 mg / clavulanate 125 mg oral tablet (20 sources) Penicillin-class Antibacterial Start: 12-20-2018 End: 12-30-2018 Amoxicillin-Pot Clavulanate (Augmentin) 875-125 mg tablet Discontinued 1 {tbl} PO Q12H 20 10 0 December 20, 2018 12:00am December 29, 2018 12:00am December 30, 2018 12:07am Acute sinusitis, unspecified Start: 09-10-2016 AUGMENTIN TABS as directed AMOXICILLIN-POT CLAVULANATE TABS [id number] [place] Start: 05-01-2009 End: 05-15-2009 take 1 tablet by mouth twice daily AUGMENTIN, 875-125MG (Oral Tablet) 1 Tablet bid for 14 days Quantity: 28 {Tablet} Refills: 0 Ordered: 01-May-2009 Fast DO, Kathy A Fast DO, Kathy A Start : 01-May-2009 End : 15-May-2009 Inactive atorvastatin 40 mg oral tablet (20 sources) HMG-CoA Reductase Inhibitor Start: 04-11-2023 take 1 tablet by mouth at bedtime Atorvastatin Active 0 .ROUTE .COMPLEX April 11, 2023 1:19pm TAKE 1 TABLET BY MOUTH AT BEDTIME Start: 12-24-2022 End: 10-20-2024 take 1 tablet by mouth at bedtime Atorvastatin 40 mg tablet Discontinued 0 .ROUTE .COMPLEX 90 July 27, 2024 9:55am October 20, 2024 10:32am TAKE 1 TABLET BY MOUTH AT BEDTIME benzonatate 200 mg oral capsule (20 sources) Non-narcotic Antitussive Start: 03-26-2023 End: 06-30-2023 take 1 capsule by mouth three times daily Benzonatate 200 mg capsule Discontinued 200 mg PO THREE TIMES A DAY March 26, 2023 1:00am June 30, 2023 7:50am Start: 09-10-2016 TESSALRADAMES GRADYE S CAPS as directed BENZONATATE CAPS [id number] [place] Start: 05-21-2007 End: 12-21-2007 take 1 capsule by mouth three times daily as needed TESSALON PERLES, 100MG (Oral Capsule) 1 (one) Capsule tid, prn for 0 days Quantity: 30 {Capsule} Refills: 0 Ordered: 21-May-2007 Mignon Donahue RN Start : 21-May-2007 End : 21-Dec-2007 Inactive augmented betamethasone 0.5 mg/ml topical cream (4 sources) Corticosteroid Start: 12-21-2007 End: 01-05-2010 DIPROLENE AF, 0.05% (External Cream) apply to affected area Cream Twice daily for 0 days Quantity: 45 {Cream} Refills: 0 Ordered: 05-Jan-2010 Esperanza Shane Start : 21-Dec-2007 End : 05-Jan-2010 Inactive betamethasone 0.5 mg/ml / clotrimazole 10 mg/ml topical cream (16 sources) Azole Antifungal, Corticosteroid Start: 10-15-2020 End: 11-15-2021 Clotrimazole-Betamet hasone 1-0.05 % cream Discontinued 1 NMA TOPICAL TWICE A DAY 45 14 1 October 15, 2020 12:00am November 15, 2021 12:25pm Start: 10-15-2020 End: 11-15-2021 Clotrimazole-Betamethasone D iscontinued 1 APPLIC TOPICAL TWICE A DAY 45 14 October 14, 2020 11:00pm November 15, 2021 11:25am BYETTA 10 MCG PEN, 10MCG/0.04ML (Subcutaneous Solution) (3 sources) Start: 03-19-2011 BYETTA 10 MCG PEN, 10MCG/0.04ML (Subcutaneous Solution) 1 Solution bid for 0 days Quantity: 1 {pen} Refills: 3 Ordered: 19-Mar-2011 Hina Stahl RN Start : 19-Mar-2011 Active BYETTA 5 MCG PEN, 5MCG/0.02ML (Subcutaneous Solution) (3 sources) Start: 08-29-2010 End: 08-29-2010 BYETTA 5 MCG PEN, 5MCG/0.02ML (Subcutaneous Solution) 1 (one) Solution bid for 0 days Quantity: 1 {Solution} Refills: 3 Ordered: 29-Aug-2010 Fast DO, Kathy A Fast DO, Kathy A Start : 29-Aug-2010 End : 29-Aug-2010 Discontinued cephalexin 500 mg oral capsule (16 sources) Cephalosporin Antibacterial Start: 02-07-2021 End: 11-15-2021 take 1 capsule by mouth every six hours Cephalexin 500 mg capsule Discontinued 500 mg PO EVERY 6 HOURS 28 7 0 February 07, 2021 1:00am November 15, 2021 12:24pm Urinary tract infection Urinary tract infection, site not specified DULoxetine 60 mg delayed release oral capsule (4 sources) Serotonin and Norepinephrine Reuptake Inhibitor Start: 03-19-2011 CYMBALTA, 60MG (Oral Capsule Delayed Release Particles) 1 (one) Capsule DR Part qd for 0 days Quantity: 30 {Capsule_DR_Part} Refills: 3 Ordered: 19-Mar-2011 Fast DO, Kathy A Fast DO, Kathy A Start : 19-Mar-2011 Active ORTHO TRI-CYCLEN (28), 0.035MG (Oral Tablet) (8 sources) Progestin, Estrogen End: 12-22-2006 take 1 tablet by mouth once daily ORTHO-CYCLEN (28), 0.25-35MG-MCG (Oral Tablet) 1 tab qd, uad for 0 days Refills: 0 Ordered: 21-May-2007 Rita Shea LPN End : 22-Dec-2006 Inactive Comments: on hold d/t no periods with cymbalta End: 12-21-2007 take 1 tablet by mouth once daily ORTHO TRI-CYCLEN (28), 0.035MG (Oral Tablet) 1 tab qd for 0 days Refills: 0 Ordered: 21-Dec-2007 Mignon Donahue RN End : 21-Dec-2007 Inactive Comment on above: on hold d/t no perio ds with cymbalta 60 actuat exenatide 0.01 mg/actuat pen injector (2 sources) GLP-1 Receptor Agonist Start: 03-19-2011 BYETTA 10 MCG PEN, 10MCG/0.04ML (Subcutaneous Solution) 1 Solution bid for 0 days Quantity: 1 {pen} Refills: 3 Ordered: 19-Mar-2011 Hina Stahl RN Start : 19-Mar-2011 Active Start: 08-29-2010 End: 08-29-2010 BYETTA 5 MCG PEN, 5MCG/0.02M L (Subcutaneous Solution) 1 (one) Solution bid for 0 days Quantity: 1 {Solution} Refills: 3 Ordered: 29-Aug-2010 Fast DO, Kathy A Fast DO, Kathy A Start : 29-Aug-2010 End : 29-Aug-2010 Discontinued fenofibric acid 135 mg delayed release oral capsule (4 sources) Peroxisome Proliferator Receptor alpha Agonist Start: 03-19-2011 TRILIPIX, 135MG (Oral Capsule Delayed Release) [address] q tashi for 0 days Quantity: 30 {Capsule_DR} Refills: 3 Ordered: 19-Mar-2011 Hina Stahl RN Start : 19-Mar-2011 Active fexofenadine hydrochloride 180 mg oral tablet (4 sources) Histamine-1 Receptor Antagonist Start: 08-29-2010 DEEDEE, 180MG (Oral Tablet) 1 tab Tablet qd prn for 0 days Quantity: 30 {Tablet} Refills: 3 Ordered: 29-Aug-2010 Hina Stahl RN Start : 29-Aug-2010 Active 12 hr fexofenadine hydrochloride 60 mg / pseudoephedrine hydrochloride 120 mg extended release oral tablet (4 sources) alpha-Adrenergic Agonist, Histamine-1 Receptor Antagonist Start: 11-03-2007 End: 09-08-2008 take 60-120 mg by mouth every twelve hours DEEDEE-D 12 HOUR, 60-120MG (Oral Tablet Extended Release 12 Hour) 1 for 0 days Refills: 0 Ordered: 03-Nov-2007 Mignon Donahue RN Start : 03-Nov-2007 End : 08-Sep-2008 Inactive Ipratropium [place] 21 mcg (0.03 %) spray,non-aerosol (8 sources) Start: 09-05-2023 End: 09-16-2024 Ipratropium [place] 21 mcg (0.03 %) spray,non-aerosol Discontinued 2 NMA INTRANASAL 2 to 3 times per day as needed for allergy symptoms September 05, 2023 12:00am September 16, 2024 8:49am administer into each nostril Start: 09-05-2023 Ipratropium Br omide 21 mcg (0.03 %) spray,non-aerosol Active 2 NMA INTRANASAL 2 to 3 times per day as needed for allergy symptoms September 05, 2023 12:00am administer into each nostril lisinopril 2.5 mg oral tablet (20 sources) Angiotensin Converting Enzyme Inhibitor Start: 01-24-2023 End: 07-27-2024 take 1 tablet by mouth once daily Lisinopril 2.5 mg tablet Discontinued 2.5 mg PO DAILY 90 0 April 12, 2024 8:21am July 27, 2024 9:56am meclizine hydrochloride 12.5 mg oral tablet (4 sources) Antiemetic Start: 05-25-2009 End: 01-05-2010 take 1 tablet by mouth every six hours as needed for dizziness ANTIVERT, 12.5MG (Oral Tablet) 1 Tablet q6hrs prn for dizziness for 0 days Quantity: 30 {Tablet} Refills: 0 Ordered: 05-Jan-2010 Esperanza Shane Start : 25-May-2009 End : 05-Jan-2010 Inactive metFORMIN hydrochloride 1000 mg oral tablet (20 sources) Biguanide Start: 01-28-2023 End: 06-30-2023 take 1 tablet by mouth twice daily at mealtime Metformin 1,000 mg tablet Discontinued 1000 mg PO 2 times per day with meals 60 2 January 28, 2023 9:58am June 30, 2023 7:38am Start: 01-16-2023 End: 01-28-2023 take 1 tablet by mouth once daily at mealtime, then take 1 tablet by mouth twice daily Metformin 1,000 mg tablet Discontinued 1000 mg PO 2 times per day with meals 60 0 January 16, 2023 12:00am January 28, 2023 9:58am take 1 tablet daily for 7 days, then increase to 1 tablet twice daily. Start: 03-19-2011 METFORMIN HCL, 500MG (Oral Tablet Extended Release 24 Hour) 2 (two) Tablet ER 24HR bid for 0 days Quantity: 120 {Tablet_ER_24HR} Refills: 3 Ordered: 19-Mar-2011 Mast Hina OROZCO Start : 19-Mar-2011 Active methylPREDNISolone 4 mg oral tablet (8 sources) Corticosteroid Start: 10-09-2023 End: 10-15-2023 take 1 tablet by mouth once Methylprednisolone (Medrol (Ra)) 4 mg tablets,dose pack Discontinued 4 mg PO per package directions 21 6 0 October 09, 2023 12:00am October 14, 2023 12:00am October 15, 2023 12:05am metoprolol tartrate 50 mg oral tablet (6 sources) beta-Adrenergic Shemar Start: 09-28-2024 End: 10-18-2024 take 1 tablet by mouth once Metoprolol Tartrate 50 mg tablet Discontinued 50 mg PO ONCE 1 0 September 28, 2024 12:00am October 18, 2024 11:36am take 1 hour before calcium scoring test ofloxacin 3 mg/ml otic solution (4 sources) Quinolone Antimicrobial Start: 01-16-2009 End: 01-05-2010 FLOXIN OTIC, 0.3% (Otic Solution) 1 Solution 10 gtts bid for 0 days Quantity: 1 {Solution} Refills: 0 Ordered: 20-Oct-2009 Esperanza Shane Start : 16-Jan-2009 End : 05-Jan-2010 Discontinued Comments: This order discontinued per [facility]. Comment on above: This order discontin ued per [facility]. predniSONE 20 mg oral tablet (14 sources) Start: 03-26-2023 End: 06-30-2023 take 1 tablet by mouth twice daily Prednisone 20 mg tablet Discontinued 20 mg PO TWICE A DAY 10 March 26, 2023 1:00am June 30, 2023 7:38am rizatriptan 10 mg disintegrating oral tablet (4 sources) Serotonin-1b and Serotonin-1d Receptor Agonist Start: 02-27-2007 End: 01-05-2010 MAXALT-CDL PROGRAM COORDINATOR, 10MG (Oral Tablet Dispersible) 1 (one) Tablet Disperse at onset of headache for 0 days Quantity: 10 {Tablet_Disperse} Refills: 1 Ordered: 05-Jan-2010 Esperanza Shane Start : 27-Feb-2007 End : 05-Jan-2010 Inactive Tirzepatide (Mounjaro) 2.5 mg/0.5 mL pen injector (20 sources) Start: 06-16-2023 End: 06-30-2023 Tirzepatide (Mounjaro) 2.5 mg/0.5 mL pen injector Discontinued 2.5 mg SC EVERY WEEK 2 20 04June 16, 2023 12:18pm June 30, 2023 8:01am Start: 06-16-2023 End: 06-30-2023 Tirzepatide (Mounjaro) 2.5 m g/0.5 mL pen injector Discontinued 2.5 mg SC EVERY WEEK 2 June 16, 2023 12:18pm June 30, 2023 8:01am Start: 04-21-2023 End: 05-19-2023 Tirzepatide (Mounjaro) 2.5 m g/0.5 mL pen injector Discontinued 2.5 mg SC EVERY WEEK 2 April 21, 2023 10:06am May 18, 2023 1:00am May 19, 2023 1:05am Start: 04-21-2023 End: 05-19-2023 Tirzepatide (Mounjaro) 2.5 m g/0.5 mL pen injector Discontinued 2.5 mg SC EVERY WEEK 2 April 21, 2023 10:06am May 18, 2023 1:00am May 19, 2023 1:05am Start: 04-21-2023 Tirzepatide (M ounjaro) 2.5 mg/0.5 mL pen injector Active 2.5 MG SC EVERY WEEK 2 April 21, 2023 9:06am Start: 01-01-2023 End: 01-28-2023 Tirzepatide (Mounjaro) 2.5 m g/0.5 mL pen injector Discontinued 2.5 mg SC EVERY WEEK 2 January 01, 2023 12:00am January 28, 2023 1:00am January 28, 2023 10:34am Start: 01-01-2023 End: 01-28-2023 Tirzepatide (Mounjaro) 2.5 m g/0.5 mL pen injector Discontinued 2.5 mg SC EVERY WEEK 2 January 01, 2023 12:00am January 28, 2023 1:00am January 28, 2023 10:34am Start: 01-01-2023 End: 01-28-2023 Tirzepatide (Mounjaro) 2.5 m g/0.5 mL pen injector Discontinued 2.5 MG SC EVERY WEEK 2 December 31, 2022 11:00pm January 28, 2023 9:34am Tirzepatide (Mounjaro) 5 mg/ 0.5 mL pen injector (8 sources) Start: 06-30-2023 End: 07-29-2023 Tirzepatide (Mounjaro) 5 mg/ 0.5 mL pen injector Discontinued 5 mg SC EVERY WEEK 2 20 04June 30, 2023 7:57am July 29, 2023 12:46pm Start: 06-30-2023 End: 07-29-2023 Tirzepatide (Mounjaro) 5 mg/ 0.5 mL pen injector Discontinued 5 mg SC EVERY WEEK 2 June 30, 2023 7:57am July 29, 2023 12:46pm Tirzepatide 10 mg/0.5 mL pen injector (20 sources) Start: 07-27-2024 End: 08-24-2024 Tirzepatide 10 mg/0.5 mL pen injector Discontinued 10 mg SC EVERY WEEK 6 July 27, 2024 9:56am August 23, 2024 12:00am August 24, 2024 12:07am Start: 06-23-2024 End: 07-27-2024 Tirzepatide 10 mg/0.5 mL pen injector Discontinued 10 mg SC EVERY WEEK 2 20 04June 23, 2024 6:34pm July 27, 2024 9:56am Start: 06-23-2024 Tirzepatide 10 mg/0.5 mL pen injector Active 10 mg SC EVERY WEEK 2 June 23, 2024 6:34pm Start: 04-26-2024 End: 06-23-2024 Tirzepatide 10 mg/0.5 mL pen injector Discontinued 10 mg SC EVERY WEEK 2 20 04April 26, 2024 5:04pm June 23, 2024 6:35pm Start: 04-26-2024 End: 06-23-2024 Tirzepatide 10 mg/0.5 mL pen injector Discontinued 10 mg SC EVERY WEEK 2 April 26, 2024 5:04pm June 23, 2024 6:35pm Start: 04-26-2024 Tirzepatide 10 mg/0.5 mL pen injector Active 10 mg SC EVERY WEEK 2 April 26, 2024 5:04pm Start: 09-29-2023 End: 01-13-2024 Tirzepatide 10 mg/0.5 mL pen injector Discontinued 10 mg SC EVERY WEEK 2 20 04September 29, 2023 5:41pm January 13, 2024 4:14pm Start: 09-29-2023 End: 01-13-2024 Tirzepatide 10 mg/0.5 mL pen injector Discontinued 10 mg SC EVERY WEEK 2 September 29, 2023 5:41pm January 13, 2024 4:14pm Tirzepatide 7.5 mg/0.5 mL pe n injector (20 sources) Start: 03-31-2024 End: 04-26-2024 Tirzepatide 7.5 mg/0.5 mL pe n injector Discontinued 7.5 mg SC EVERY WEEK 2 20 04March 31, 2024 8:58am April 26, 2024 5:05pm Start: 03-31-2024 End: 04-26-2024 Tirzepatide 7.5 mg/0.5 mL pe n injector Discontinued 7.5 mg SC EVERY WEEK 2 March 31, 2024 8:58am April 26, 2024 5:05pm Start: 03-08-2024 End: 03-31-2024 Tirzepatide 7.5 mg/0.5 mL pe n injector Discontinued 7.5 mg SC EVERY WEEK 2 20 04March 08, 2024 1:00pm March 31, 2024 8:59am Start: 03-08-2024 End: 03-31-2024 Tirzepatide 7.5 mg/0.5 mL pe n injector Discontinued 7.5 mg SC EVERY WEEK 2 March 08, 2024 1:00pm March 31, 2024 8:59am Start: 01-13-2024 End: 03-08-2024 Tirzepatide 7.5 mg/0.5 mL pe n injector Discontinued 7.5 mg SC EVERY WEEK 2 20 04January 13, 2024 4:14pm March 08, 2024 1:00pm Start: 01-13-2024 End: 03-08-2024 Tirzepatide 7.5 mg/0.5 mL pe n injector Discontinued 7.5 mg SC EVERY WEEK 2 January 13, 2024 4:14pm March 08, 2024 1:00pm Start: 09-29-2023 End: 09-29-2023 Tirzepatide 7.5 mg/0.5 mL pe n injector Discontinued 7.5 mg SC EVERY WEEK 2 20 04September 29, 2023 7:57am September 29, 2023 5:41pm Start: 09-29-2023 End: 09-29-2023 Tirzepatide 7.5 mg/0.5 mL pe n injector Discontinued 7.5 mg SC EVERY WEEK 2 September 29, 2023 7:57am September 29, 2023 5:41pm Start: 07-29-2023 End: 09-29-2023 Tirzepatide 7.5 mg/0.5 mL pe n injector Discontinued 7.5 mg SC EVERY WEEK 2 20 04July 29, 2023 12:46pm September 29, 2023 7:58am Start: 07-29-2023 End: 09-29-2023 Tirzepatide 7.5 mg/0.5 mL pe n injector Discontinued 7.5 mg SC EVERY WEEK 2 July 29, 2023 12:46pm September 29, 2023 7:58am tobramycin 3 mg/ml ophthalmic solution (14 sources) Aminoglycoside Antibacterial Start: 11-15-2021 End: 11-23-2021 take 0.3 drop(s) into the eye(s) every two hours Tobramycin (Tobrex) 0.3 % drops Discontinued 1 NMA OPHTHALMIC Q2H 5 0 November 15, 2021 12:00am November 23, 2021 8:59am to left eye while awake for 5 days Start: 11-15-2021 End: 11-23-2021 take 0.3 drop(s) into the eye(s) every two hours Tobramycin (Tobrex) 0.3 % drops Discontinued 1 DRP OPHTHALMIC Q2H 5 November 14, 2021 11:00pm November 23, 2021 7:59am to left eye while awake for 5 days traMADol hydrochloride 50 mg oral tablet (10 sources) Opioid Agonist Start: 03-23-2024 End: 06-29-2024 take 1 tablet by mouth every six hours as needed Tramadol 50 mg tablet Discontinued 50 mg PO EVERY 6 HOURS as needed March 31, 2024 1:00am June 29, 2024 7:38am triamcinolone acetonide 0.055 mg/actuat metered dose nasal spray (4 sources) Corticosteroid Start: 08-29-2010 NASACORT AQ, 55MCG/ACT (Nasal Aerosol Solution) 2 (two) Aerosol Soln qd for 0 days Quantity: 1 {Aerosol_Soln} Refills: 3 Ordered: 29-Aug-2010 Fast DO, Kathy A Fast DO, Kathy A Start : 29-Aug-2010 Active Start: 08-29-2010 NASACORT AQ, 5 5MCG/ACT (Nasal Aerosol Solution) 2 (two) Aerosol Soln qd for 0 days Quantity: 1 {Aerosol_Soln} Refills: 3 Ordered: 29-Aug-2010 Fast DO, Kathy A Fast DO, Kathy A Start : 29-Aug-2010 Active valACYclovir 1000 mg oral tablet (8 sources) Herpesvirus Nucleoside Analog DNA Polymerase Inhibitor, Herpes Simplex Virus Nucleoside Analog DNA Polymerase Inhibitor, Herpes Zoster Virus Nucleoside Analog DNA Polymerase Inhibitor Start: 10-09-2023 End: 10-19-2023 Valacyclovir 1 gram tablet Discontinued 1000 mg PO Q8H 30 10 0 October 09, 2023 12:00am October 18, 2023 12:00am October 19, 2023 12:04am Problems Active Problems Problem Classification Problem Date Documented Da te Episodic/Chronic Abdominal pain (16 sources) Left flank pain; Translations: [Unspecified abdominal pain] 02-15-2021 Episodic Administrative/social admission (5 sources) Persons encountering health services in other specified circumstances; Translations: [Other reasons for seeking consultation] 01-01-2023 Episodic Allergic reactions (3 sources) Dermatitis Episodic Calculus of urinary tract (20 sources) Calcium renal calculus ; Translations: [Kidney stone] 02-08-2015 Episodic Conditions associated with dizziness or vertigo (6 sources) Dizziness and giddiness; Translations: [Dizziness and giddiness] Resolved: 07-14-2009 03-03-2015 Episodic Conditions associated with dizziness or vertigo (6 sources) Conditions associated with dizziness or vertigo Contraceptive and procreative management (3 sources) H/O: tubal ligation; Translations: [Tubal Ligation] 06-12-2011 Episodic Diabetes mellitus with complications (20 sources) Type II diabetes mellitus uncontrolled; Translations: [Uncontrolled type II diabetes mellitus] Onset: 10-28-2024 02-06-2015 Chronic Diabetes mellitus without complication (20 sources) Diabetes mellitus; Translations: [Type 2 diabetes mellitus without complications] Onset: 12-24-2022 02-25-2024 Chronic Diabetes mellitus without complication (20 sources) Abnormal glucose tolerance test; Translations: [Abnormal glucose tolerance test] 02-03-2015 Episodic Diabetes or abnormal glucose tolerance complicating ; childbirth; or the puerperium (8 sources) Personal history of gestational diabetes Resolved: 09-07-2008 12-29-2019 Episodic Disorders of lipid metabolism (20 sources) Mixed hyperlipidemia; Translations: [Mixed hyperlipidemia] Onset: 10-20-2024 06-12-2011 Chronic Comment on above: ON MED Genitourinary symptoms and ill-defined conditions (20 sources) Blood in urine; Translations: [Hematuria] Onset: 10-20-2024 Resolved: 12-09-2008 12-29-2019 Episodic Headache; including migraine (11 sources) Migraine with aura; Translations: [Migraine with aura and without status migrainosus, not intractable] 02-07-2015 Chronic Comment on above: if persist next visi t will start prevention meds Headache; including migraine (8 sources) Headache; Translations: [Headache] Resolved: 07-14-2009 12-29-2019 Episodic Headache; including migraine (20 sources) Headache; including migraine Heart valve disorders (3 sources) Heart murmur; Translations: [Cardiac murmur, unspecified] Onset: 11-04-2024 10-20-2024 Episodic Immunizations and screening for infectious disease (18 sources) Need for prophylactic vaccination and inoculation against influenza; Translations: [Needs influenza immunization] 12-27-2014 Episodic Inflammation; infection of eye (except that caused by tuberculosis or sexually transmitteddisease) (14 sources) Acute conjunctivitis; Translations: [Unspecified acute conjunctivitis, left eye] 01-01-2023 Episodic Mood disorders (20 sources) Depressive disorder; Translations: [Depressive disorder] 02-10-2015 Chronic Comment on above: chronic stable-mark nue present regimen Mood disorders (20 sources) Mood disorders Neoplasms of unspecified nature or uncertain behavior (5 sources) Neoplasm of unspecified behavior of bone, soft tissue, and skin; Translations: [Neoplasm of unspecified nature of bone, soft tissue, and skin] 01-01-2023 Episodic Nonspecific chest pain (9 sources) Chest wall pain; Translations: [Other chest pain] Onset: 10-20-2024 10-01-2023 Episodic Other circulatory disease (1 source) Other disorders of arteries, arterioles and capillaries in diseases classified elsewhere; Translations: [Other disorders of arteries, arterioles and capillaries in diseases classified elsewhere] Onset: 10-20-2024 Chronic Other connective tissue disease (14 sources) Adhesive capsulitis of left shoulder; Translations: [Adhesive capsulitis of left shoulder] 11-23-2021 Episodic Other connective tissue disease (7 sources) Adhesive capsulitis of left shoulder; Translations: [Adhesive capsulitis of shoulder] 01-01-2023 Episodic Other connective tissue disease (2 sources) Impingement syndrome of right shoulder region; Translations: [Impingement syndrome of right shoulder] 02-24-2024 Episodic Other connective tissue disease (5 sources) Bilateral calf pain; Translations: [Pain in right lower leg] 09-28-2024 Episodic Other ear and sense organ disorders (6 sources) Impacted cerumen; Translations: [Cerumen impaction] Resolved: 07-14-2009 12-29-2019 Episodic Other gastrointestinal disorders (1 source) Irritable bowel syndrome without diarrhea; Translations: [Irritable bowel syndrome, unspecified] Onset: 07-13-2024 Chronic Other gastrointestinal disorders (6 sources) Diarrhea; Translations: [Diarrhea, unspecified] 07-13-2024 Episodic Other hereditary and degenerative nervous system conditions (3 sources) Restless legs; Translations: [Restless legs syndrome] 10-18-2024 Chronic Comment on above: NOT ON MED, DOESN'T BOTHER PT Other inflammatory condition of skin (16 sources) Intertrigo; Translations: [Erythema intertrigo] 12-31-2022 Episodic Other lower respiratory disease (10 sources) Cough; Translations: [Cough] Onset: 09-10-2016 Resolved: 09-08-2008 09-10-2016 Episodic Other nervous system disorders (2 sources) Carpal tunnel syndrome; Translations: [Carpal tunnel syndrome, unspecified upper limb] Onset: 02-14-2016 02-14-2016 Chronic Other non-traumatic joint disorders (10 sources) Pain in wrist; Translations: [Pain in left wrist] Onset: 02-14-2016 02-14-2016 Episodic Other non-traumatic joint disorders (5 sources) Pain in right hip; Translations: [Pain in joint, pelvic region and thigh] 01-01-2023 Episodic Other non-traumatic joint disorders (8 sources) Disorder of shoulder; Translations: [Other specified joint disorders, right shoulder] 12-23-2023 Episodic Other screening for suspected conditions (not mental disorders or infectious disease) (20 sources) CT of abdomen abnormal; Translations: [Liver function tests abnormal] Onset: 03-04-2024 Resolved: 03-31-2009 12-29-2019 Episodic Other skin disorders (5 sources) Inflammatory dermatosis; Translations: [Dermatitis] Resolved: 09-08-2008 09-08-2008 Episodic Other upper respiratory disease (20 sources) Allergic rhinitis; Translations: [Allergic rhinitis] 12-27-2014 Chronic Other upper respiratory infections (5 sources) Chronic sinusitis; Translations: [Sinusitis, chronic] 12-27-2014 Chronic Other upper respiratory infections (20 sources) Viral upper respiratory tract infection; Translations: [Acute pharyngitis] Onset: 09-10-2016 Resolved: 03-19-2011 09-10-2016 Episodic Otitis media and related conditions (6 sources) Chronic serous otitis media; Translations: [Chronic serous otitis media, unspecified laterality] Resolved: 07-14-2009 12-29-2019 Chronic Otitis media and related conditions (20 sources) Dysfunction of eustachian tube; Translations: [Otitis media] 12-27-2014 Episodic Peripheral and visceral atherosclerosis (1 source) Peripheral vascular disease, unspecified; Translations: [Peripheral vascular disease, unspecified] Onset: 10-13-2024 Chronic Residual codes; unclassified (3 sources) H/O: surgery; Translations: [Tonsillectomy] 06-12-2011 Episodic Residual codes; unclassified (3 sources) Needs influenza immunization; Translations: [Need for prophylactic vaccination and inoculation against influenza] 12-27-2014 Episodic Residual codes; unclassified (8 sources) Family history of ischemic heart disease; Translations: [Family history of ischemic heart disease] 06-12-2011 Episodic Residual codes; unclassified (5 sources) Immunization not carried out because of patient refusal; Translations: [Vaccination not carried out because of patient refusal] 01-01-2023 Episodic Thyroid disorders (20 sources) Thyroid nodule; Translations: [Goiter] 06-12-2011 Chronic Unclassified (20 sources) Unclassified (12 sources) splenic lesion- ct 11/3006-12-2011 Unclassified (6 sources) Nephrolithiasis (274.11) Unclassified (8 sources) elevated alk phos- no sx- from bone Resolved: 09-07-2008 12-29-2019 Unclassified (8 sources) sebacous lesion Resolved: 09-07-2008 12-29-2019 Comment on above: reassurance call alexandro nges Unclassified (6 sources) Elevated LFT (790.6) Unclassified (6 sources) Abnormal CT of Abdomen(794.9) Unclassified (6 sources) Otitis externa, unspecified (380.10) Unclassified (3 sources) Sinusitis,chronic (473.9) Urinary tract infections (20 sources) Urinary tract infectious disease; Translations: [Urinary tract infection, site not specified] 12-31-2022 Episodic Viral infection (10 sources) COVID-19; Translations: [Other specified viral infection] 03-31-2023 Episodic Past or Other Problems Problem Classification Problem Date Documented Da te Episodic/Chronic Biliary tract disease (4 sources) Gallstone; Translations: [Calculus of gallbladder without cholecystitis without obstruction] Onset: 01-04-2008 02-25-2024 Episodic Coronary atherosclerosis and other heart disease (8 sources) Coronary atherosclerosis and other heart disease Resolved: 09-07-2008 09-07-2008 Diabetes mellitus without complication (20 sources) Diabetes mellitus without complication Other gastrointestinal disorders (1 source) Diarrhea, unspecified; Translations: [Diarrhea, unspecified] Onset: 07-13-2024 Episodic Other non-traumatic joint disorders (20 sources) Pain in right shoulder; Translations: [Right shoulder pain] Onset: 02-12-2024 03-30-2024 Episodic Other non-traumatic joint disorders (1 source) Other specified joint disorders, right shoulder; Translations: [Other specified joint disorders, right shoulder] Onset: 01-16-2024 Episodic Unclassified (12 sources) soft tissue mass right buttocks- get mri of the buttocks Resolved: 09-07-2008 12-29-2019 Comment on above: mri neg- likely asym ettric fat distribution Unclassified (4 sources) Deliveries (Parity); Translations: [Deliveries (Parity)] 06-12-2011 Comment on above: 2 Unclassified (4 sources) Pregnancies (); Translations: [Pregnancies ()] 06-12-2011 Comment on above: 2 Unclassified (6 sources) Cerumen impaction (380.4) Unclassified (6 sources) Eustachian tube dysfunction (381.81) Unclassified (4 sources) ANTERIOR CRUCIATE LIGAMENT OF KNEE JOINT 06-12-2011 Comment on above: Replacement 04/26 Results Test Name Value Interpretation Reference Range Facility Arterial study reportOrdered By: Gaudencio Tobar on 10-20-2024 Noninvasive arteriosclerosis study report [facility] [address] [place] [address] Lower Ext Art Exam w/ Exercise 10/19/24 0804 MR#: [id number] Acct: [id number] Name: LARA CHAPMAN Rep #:[id number] : 1970 54 From: Gaudencio Vicente Attending Dr: Dr. Jovan Gilliam MD S tatus: REG CLI Ordering Dr: Jovan Gilliam MD Date: Location: [facility] Sex: F C Admitted: Reason For Study Reason For Study: BLE Pain Procedure A bilateral lower extremity continuous wave Doppler with analog waveform analysis,segmental pressures,and ankle brachial indexes with exercise. Left Segmental Pressures Left brachial= 83mmHg. Left posterior tibial artery = 142mmHg. Left dorsalis pedis artery = 141mmHg. Left digit = 102 mmHg. The left posterior tibial artery waveforms are triphasic. The left dorsalis pedis waveforms are triphasic. Right Segmental Pressures Right brachial= 83mmHg. Right posterior tibial artery = 142mmHg. Right dorsalis pedis artery = 141mmHg. Right digit = 102 mmHg. The right posterior tibial artery waveforms are triphasic. The right dorsalis pedis waveforms are triphasic. Indices The right ankle brachial index by the posterior tibial artery is 1.69. The rightankle brachial index by the dorsalis pedis is 1.67. The right digital-brachial index is 1.29. The right post exerciseankle brachial index is 1.05. The left ankle brachial index by the posterior tibial artery is 1.56. The left ankle brachial index by the dorsalis pedis is 1.55. The left digital-brachial index is 1.12. The left post exercise ankle brachial index is 0.84. VL/Lower Ext Art Exam w/ Exercise Interpretation Summary Right DAGOBERTO 1.69, artificially elevated. TBI and Doppler/PVR waveforms of the right leg normal at rest. Right lower extremity exhibits normal response to exercise. Left DAGOBERTO 1.56, artificially elevated. TBI and Doppler/PVR waveforms of the left leg normal at rest. Left lower extremity with abnormal response to exercise and post exercise DAGOBERTO inthe moderate category. Bilateral brachial pressures reduced which ma lead to inaccurate indices. __ Ordering Physician: Jovan Gilliam Referring Physician: Anamaria Ricks Performed By: Marcellus Yi, T 10/20/24940 Date _ Gaudencio Tobar MD CC: Dr. Anamaria Ricks MD; Dr. Jovan Gilliam MD ~ Date Dictated: 10/19/24 0804 Date Transcribed: 10/20/24 0941 Weaving Machine Operator: Signed [facility] Work Phone: Cardiology Visit Reporton Cardiology Visit Report [facility] [address] [place] [address] OFFICE VISIT Date of Service: 10/20/24 MR#: [id number] Acct: [id number] Name: LARA CHAPMAN Rep #: [id number] : 1970 Provider: Dr. Jovan Gilliam MD Age/Sex: 54/F Location: [facility] Status: Signed HPI HPI History of Present Illness Details: Pleasant 54-year-old lady with a family history of coronary artery disease who underwent a routine screening coronary calcium score which demonstrated an elevated level of 461. She denies any chest pain or shortness of breath or paroxysmal nocturnal dyspnea or pedal edema she does have what she thinks are intermittent claudication she also thinks that she has muscle aches from the statin. She was sent for and underwent a lower extremity arterial duplex scan has had a lipid profile demonstrating a total cholesterol 234 HDL of 54 LDL of 151. She has been compliant with her medications. Her physical exam demonstrates clear lung hayes regular rate and rhythm soft 1/6 systolic murmur noted left sternal border and apex and no pedal edema electrocardiogram demonstrates sinus rhythm with no acute changes and a rate of 84 bpm. 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: No Accompanied by: Self Is patient in pain?: No Allergies codeine Allergy (Verified 10/20/24 08:59) Itching Medications ???Medication ???Instructions ???Recorded ???Confirmed ???Type blood sugar diagnostic (Accu-Chek #100 ea 01/01/23 10/20/24 Rx Asya Plus test strips) blood-glucose meter (Accu-Chek #1 ea 01/01/23 10/20/24 Rx Guide Glucose Meter) lancets (Accu-Chek Softclix #100 ea 01/01/23 10/20/24 Rx Lancets) coenzyme Q10 75 mg capsule (Ultra 75 mg PO DAILY 02/11/23 10/20/24 History CoQ10) lisinopril 2.5 mg tablet 2.5 mg PO DAILY #90 tabs 07/27/24 10/20/24 Rx fluticasone propionate 50 2 spray intranasal DAILY #16 grams 09/16/24 10/20/24 Rx mcg/actuation nasal spray,suspension (Allergy Relief (fluticasone)) ipratropium bromide 21 mcg (0.03 2 spray intranasal BID-TID PRN 10/20/24 Rx %) nasal spray allergy symptoms #30 mL tirzepatide 12.5 mg/0.5 mL 12.5 mg (0.5 mL) subcut QWEEK 4 10/20/24 Rx subcutaneous pen injector weeks #2 mL levocetirizine 5 mg tablet (Xyzal) 5 mg PO QDAY 10/20/24 10/20/24 H istory rosuvastatin 40 mg tablet (Crestor) 40 mg PO QDAY #90 tabs 10/20/24 10/20/24 Rx PFSH Medical History Abnormal findings on diagnostic imaging of heart and coronary circulation Right-sided chest wall pain High cholesterol Restless legs Type 2 diabetes mellitus Adhesive capsulitis of left shoulder Kidney stone Hay fever Surgical History History of shoulder surgery S/P endometrial ablation History of hip surgery History of cholecystectomy History of repair of ACL History of placement of ear tubes History of tonsillectomy and adenoidectomy Family History Father Hypertension CVA (cerebral vascular accident) Diabetes Prostate cancer Myocardial infarction High cholesterol Mother Breast cancer Cancer SKIN CANCER High cholesterol Other Heart disease Social History household members: spouse and children current occupational status: employed current occupation: [employer] Smoking Status: Never smoker Electronic Cigarette Use: not used alcohol intake: current alcohol intake frequency: holidays/special occasions only details: special occasions substance use type: does not use what type of physical activity do you participate in: none seatbelt use: always do you feel safe at home: Yes additional social history: - Homar ROS Const Const: Negative for fatigue, weakness, headache(s), daytime sleepiness or difficulty sleeping ENT ENT: Negative for headache(s), dizziness or Nosebleed/epistaxis Cardio Chest Pain: No Palpitations: No Edema: None Resp Respiratory: Negative for SOB with activity, SOB at rest, SOB orthopnea SOB lying down or Cough GI GI: Negative nausea, vomiting or heartburn Neuro Neuro: Negative for dizziness, lightheadedness, near syncope, headache(s) or weakness Endo Endo: Negative for fatigue Cardiology Exam Const Appearance: cooperative, healthy appearing, no acute distress, well developed and well groomed Nutritional Appearance: average body (more content not included)... Normal [facility] Lower Ext Art Exam w/ Exerci bethany 10-19-2024 Lower Ext Art Exam w/ Exercise [facility] [address] [place] [address] Lower Ext Art Exam w/ Exercise 10/19/24 0804 MR#: [id number] Acct: [id number] Name: LARA CHAPMAN Rep #: [id number] : 1970 54 From: Gaudencio Tobar MD Attending Dr: Dr. Jovan Gilliam MD Status: [facility] Ordering Dr: Jovan Gilliam MD Date: 10/19/24 Location: [facility] Sex: F C Admitted: Reason For Study Reason For Study: BLE Pain Procedure A bilateral lower extremity continuous wave Doppler with analog waveform analysis,segmental pressures,and ankle brachial indexes with exercise. Left Segmental Pressures Left brachial= 83mmHg. Left posterior tibial artery = 142mmHg. Left dorsalis pedis artery = 141mmHg. Left digit = 102 mmHg. The left posterior tibial artery waveforms are triphasic. The left dorsalis pedis waveforms are triphasic. Right Segmental Pressures Right brachial= 83mmHg. Right posterior tibial artery = 142mmHg. Right dorsalis pedis artery = 141mmHg. Right digit = 102 mmHg. The right posterior tibial artery waveforms are triphasic. The right dorsalis pedis waveforms are triphasic. Indices The right ankle brachial index by the posterior tibial artery is 1.69. The right ankle brachial index by the dorsalis pedis is 1.67. The right digital-brachial index is 1.29. The right post exercise ankle brachial index is 1.05. The left ankle brachial index by the posterior tibial artery is 1.56. The left ankle brachial index by the dorsalis pedis is 1.55. The left digital-brachial index is 1.12. The left post exercise ankle brachial index is 0.84. VL/Lower Ext Art Exam w/ Exercise Interpretation Summary Right DAGOBERTO 1.69, artificially elevated. TBI and Doppler/PVR waveforms of the right leg normal at rest. Right lower extremity exhibits normal response to exercise. Left DAGOBERTO 1.56, artificially elevated. TBI and Doppler/PVR waveforms of the left leg normal at rest. Left lower extremity with abnormal response to exercise and post exercise DAGOBERTO in the moderate category. Bilateral brachial pressures reduced which ma lead to inaccurate indices. __ Ordering Physician: Jovan Gilliam Referring Physician: Anamaria Ricks Performed By: Marcellus iY, T 10/20/24940 Date Gaudencio Tobar MD CC: Dr. Anamaria Ricks MD; Dr. Jovan Gilliam MD Date Dictated: 10/19/24803 Date Transcribed: 10/20/24940 Weaving Machine Operator: Signed Normal [facility] Microalb:Creat Ratio,Random URon 10-12-2024 Creatinine [Mass/Vol] 145.00 mg/dL Normal 28.00- 217.0 0 [facility] Comment on above: Performed By: #### L 502.0250 ####[facility] [id number] [place], [place], [id number] MALB:CREAT 8.8 mg/g CRE Normal <30 mg/g CRE [facility] Comment on above: Performed By: #### L [id number] ####[facility] [address] [facility] [id number] MICROALBUMIN,UR 12.7 mg/L Normal <20 mg/L [facility] Comment on above: Performed By: #### L 502.0250 ####[facility] [address] [place], [place], [id number] Random urine creatinine jerson urement (mass/volume)Ordered By: Anamaria Ricks on 10-12-2024 Creatinine Unsp time (U) [Mass/Vol] 145.00 mg/dL 28.00-217.0 0 [facility] Urine albumin measurement [facility] detection limit of 20 mg/L or less (mass/volume)Ordered By: Anamaria Ricks on 10-12-2024 Albumin DL <= 20 mg/L (U) [Mass/Vol] 12.7 mg/L <20 mg/L [facility] Ankle Brachial Indexon 10-07 Ankle Brachial Index [facility] [address] [place] [address] Ankle Brachial Index 10/07/24 1052 MR#: [id number] Acct: [id number] Name: LARA CHAPMAN Rep #: [id number] : 1970 54 From: Gaudencio Tobar MD Attending Dr: Dr. Anamaria Ricks MD Status: RE G CLI Ordering Dr: Anamaria Ricks MD Date: 10/07/24 Location: [facility] Sex: F C Admitted: Reason For Study Reason For Study: Lrg pain with walking Procedure A bilateral lower extremity continuous wave Doppler with analog waveform analysis and ankle brachial indexes. Left Segmental Pressures Left brachial= 94mmHg. Left posterior tibial artery = 162mmHg. Left dorsalis pedis artery = 153mmHg. Left digit = 130 mmHg. The left dorsalis pedis waveforms are triphasic. The left posterior tibial artery waveforms are triphasic. Right Segmental Pressures Right brachial= 94mmHg. Right posterior tibial artery = 177mmHg. Right dorsalis pedis artery = 165mmHg. Right digit = 112 mmHg. The right dorsalis pedis waveforms are triphasic. The right posterior tibial artery waveforms are triphasic. Indices The right ankle brachial index by the dorsalis pedis is 1.76. The right ankle brachial index by the posterior tibial artery is 1.88. The right digital-brachial index is 1.19. The left ankle brachial index by the dorsalis pedis is 1.63. The left ankle brachial index by the posterior tibial artery is 1.73. The left digital-brachial index is 1.38. VL/Ankle Brachial Index Interpretation Summary Right DAGOBERTO 1.88, normal. TBI and Doppler/PVR waveforms of the right leg normal at rest. Left DAGOBERTO 1.72, normal. TBI and Doppler/PVR waveforms of the left leg normal at rest. __ Ordering Physician: Anamaria Ricks Referring Physician: ANAMARIA RICKS MD Performed By: Antonian Dickinson RVT 10/07/241841 Date Gaudencio Tobar MD CC: Dr. Anamaria Ricks MD Date Dictated: 10/07/24 1052 Date Transcribed: 10/07/241841 Weaving Machine Operator: Signed Normal [facility] Arterial study reportOrdered By: Gaudencio Tobar on 10-07-2024 Noninvasive arteriosclerosis study report [facility] Services [address] [place], [place] [address] [address] Ankle Brachial Index 10/07/24 1052 MR#: [id number] Acct: [id number] Name: LARA CHAPMAN Rep #:[id number] : 1970 54 From: Gaudencio Vicente Attending Dr: Dr. Anamaria Ricks MD Status: REG CLI Ordering Dr: Anamaria Ricks MD Date: 10/07/24 Location: CVS Sex: F C Admitted: Reason For Study Reason For Study: Lrg pain with walking Procedure A bilateral lower extremity continuous wave Doppler with analog waveform analysis and ankle brachial indexes. Left Segmental Pressures Left brachial= 94mmHg. Left posterior tibial artery = 162mmHg. Left dorsalis pedis artery = 153mmHg. Left digit = 130 mmHg. The left dorsalis pedis waveforms are triphasic. The left posterior tibialartery waveforms are triphasic. Right Segmental Pressures Right brachial= 94mmHg. Right posterior tibial artery = 177mmHg. Right dorsalis pedis artery = 165mmHg. Right digit = 112 mmHg. The right dorsalis pedis waveforms are triphasic. The right posterior tibial artery waveforms are triphasic. Indices The right ankle brachial index by the dorsalis pedis is 1.76. The right ankle brachial index by the posterior tibial artery is 1.88. The right digital-brachial index is 1.19. The left ankle brachial index by the dorsalis pedis is 1.63. The left ankle brachial index by the posterior tibial artery is 1.73. The left digital-brachial index is 1.38. VL/Ankle Brachial Index Interpretation Summary Right DAGOBERTO 1.88, normal. TBI and Doppler/PVR waveforms of the right leg normal atrest. Left DAOGBERTO 1.72, normal. TBI and Doppler/PVR waveforms of the left leg normal at rest. __ Ordering Physician: Anamaria Ricks Referring Physician: ANAMARIA RICKS MD Performed By: Antonina Dickinson RVSindy 10/07/241841 Date _ Gaudencio Tobar MD CC: Dr. 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 Anamaria Ricks MD Status:REG CLI Y Location: CT Calcium Scoring Date of Study:: 10/05/24 Indications Indications: Hyperlipidemia Coronary Calcium Scoring: High-resolution Computed Tomographic imaging of the chest was performed on [10/05/2024], with particular attention paid to the coronary arteries. Images from the examination were analyzed for the presence and extent of coronary artery calcification , using coronary calcium quantification software. The patient tolerated the procedure well and there were no complications. The results of the coronary calcification analysis are provided below. Findings Coronary Artery Left Main (LM): 0 Left Anterior Descending (LAD): 233 Left Circumflex (LCX): 0 Right Coronary Artery (RCA): 228 Total Agatston Score: 461 Percentile RankinTh % Calcium Scoring Interpretation: Different methods to categorize the overall amount of coronary plaque. Overall amount CAC SIS Visual of coronary plaque P1 Mild -100 <2 1-2 vessels with mild amount of plaque P2 Moderate 101-300 3-4 1-2 vessels with moderate amount, 3 vessels with mild amount of plaque P3 Severe 301-999 5-7 3 vessels with moderate amount, 1 vessel with severe amount of plaque P4 Extensive >1000 >8 2-3 vessels with severe amount of plaque Calcium Score: Moderate: 1-2 vessels w/moderate amt, 3 vessels w/mild amt of plaque Conclusion: Moderate two-vessel plaque disease noted. 10/05/24 1228 Date Jovan Gilliam MD Cosigner Signature (if applicable): Date CC: Dr. Anamaria Ricks MD; Dr. Jovan Gilliam MD Signed Normal [facility] Limited Chest CT Cardiac Onl yon 10-05-[address] Cardiac Only [facility] Imaging Services [address] [place], [place] [id number] Limited Chest CT Cardiac Only MR#: [id number] Acct: [id number] Name: LARA CHAPMAN Rep #: [id number] : 1970 F 54 From: Foster perez MD PCP: Dr. Anamaria Ricks MD Status: [facility] Study: Limited Chest CT Cardiac Only Date of Exam: Exam# [id number] Ordering Dr: Anamaria Ricks MD PROCEDURE: LIMITED CHEST CT CARDIAC ONLY 10/05/2024 REASON FOR EXAM: SCREENING TECHNIQUE: LIMITED CHEST CT CARDIAC ONLY Coronal and Sagittal reconstruction series were provided. CONTRAST: None One or more dose reduction techniques were used (e.g., Automated exposure control, adjustment of the mA and/or kV according to patient size, use of iterative reconstruction technique). RADIATION DOSE SUMMARY: CTDlvol: 12.19 mGy DLP: 219.42 mGycm COMPARISON: None FINDINGS: Small mediastinal lymph nodes. Coronary artery calcification. The heart is not enlarged. The pericardium is not thickened. The lungs are clear. CT/Limited Chest CT Cardiac Only IMPRESSION: Coronary artery calcification. Reading Location: [facility] CC: Dr. 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 Anamaria gaitan MD Age/Sex: 54/F Location: [facility] Status: Signed Intake Vital Signs 06/29/24 07:39 07/13/24 08:02 09/28/24 07:36 Height 5 ft 5 in 5 ft 5 in 5 ft 5 in Weight: 169 lb 4 oz BMI 28.1 BP 138/80 H Blood Pressure Location Lt brachial Position Sitting Respiration 16 Pulse 91 Pulse Source Monitor Temp 97.1 F L Temp Source Temporal Pulse Oximetry (%) 99 Oxygen Delivery Method room air Intake Visit Reasons: 3 M FU Chief Complaint: f/u Sr. 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 Required: No Accompanied by: Self Is patient in pain?: No Allergies codeine Allergy (Verified 09/28/24 07:28) Itching Medications ???Medication ???Instructions ???Recorded ???Confirmed ???Type blood sugar diagnostic (Accu-Chek #100 ea 01/01/23 09/28/24 Rx Asya Plus test strips) blood-glucose meter (Accu-Chek #1 ea 01/01/23 09/28/24 Rx Guide Glucose Meter) lancets (Accu-Chek Softclix #100 ea 01/01/23 09/28/24 Rx Lancets) coenzyme Q10 75 mg capsule (Ultra 75 mg PO DAILY 02/11/23 09/28/24 History CoQ10) atorvastatin 40 mg tablet See Rx Instructions .Route 5 09/28/24 Rx .COMPLEX #90 tabs lisinopril 2.5 mg tablet 2.5 mg PO DAILY #90 tabs 07/27/24 09/28/24 Rx fluticasone propionate 50 2 spray intranasal DAILY #16 grams 09/16/24 09/28/24 Rx mcg/actuation nasal spray,suspension (Allergy Relief (fluticasone)) ipratropium bromide 21 mcg (0.03 2 spray intranasal BID-TID PRN 09/28/24 Rx %) nasal spray allergy symptoms #30 mL metoprolol tartrate 50 mg tablet 50 mg PO ONCE #1 TAB 09/28/2411/15 Rx tirzepatide 12.5 mg/0.5 mL 12.5 mg (0.5 mL) subcut QWEEK 4 09/28/24 Rx subcutaneous pen injector weeks #2 mL Nurse's Note: 3 month fu [facility] Medical History Impingement of right shoulder Right shoulder pain Right-sided chest wall pain Left wrist pain Wears contact lenses Post-menopausal Alcohol use Diabetes High cholesterol Restless legs Non-smoker History of edema Type 2 diabetes mellitus Adhesive capsulitis of left shoulder Kidney stone Hay fever Surgical History History of shoulder surgery S/P endometrial ablation History of hip surgery History of cholecystectomy History of repair of ACL History of placement of ear tubes History of tonsillectomy and adenoidectomy Family History Father Hypertension CVA (cerebral vascular accident) Diabetes Prostate cancer Myocardial infarction High cholesterol Mother Breast cancer Cancer SKIN CANCER High cholesterol Other Heart disease Social History household members: spouse and children current occupational status: employed current occupation: [employer] Smoking Status: Never smoker Electronic Cigarette Use: not used alcohol intake: current alcohol intake frequency: holidays/special occasions only details: special occasions substance use type: does not use what type of physical activity do you participate in: none seatbelt use: always do you feel safe at home: Yes additional social history: - Homar HPI HPI Chief Complaint: f/u Details: LARA CHAPMAN, is a 54 F who presents to the office today for a follow up. She is up to date on her routine blood work and screening. She would like her pneumovax today. She doesn't smoke and does not need refills. She reports she has been trying to monitor her diet. Her activity has been doing better. She started a walking group at work. She reports her sugars have been in the 120-140s range. She does try to limit her carbohydrate and sugar intake. She is taking her medication as prescribed without problems. She does her injections on Tuesdays, usually. Last week, she did forget and did it on . She is up to date on her eye exam. She has been taking her cholesterol medication without problems, however, does report some occasional pain in her calves with walking. She reports it started when she started walking at work a couple of weeks ago. She states it does improve when she stops exercising. She reports her shoulder has been doing better lately. She reports she has been using a topical compound medication seems to be helping. She states she is planning on changing to [facility] as it is closer. She reports the diarrhea is better than it had been. She states she thinks it is related to when she doesn't get her protein drinks (more content not included)... Normal [facility] Microalb:Creat Ratio,Random URon 09-09-2024 MALB:CREAT 44.3 mg/g CRE Normal [facility] Comment on above: Result Comment: AMENDED REPORT 09/09/24 0857 MALB:CREAT previously reported as: 443.0 mg/g CRE Performed By: #### L 500.4100, L502.0250 ####[facility] [address] [place], [address] Internal Medicine Office Vis iton 07-12-2024 Internal Medicine Office Visit [facility] [place] [address] [place] [address] OFFICE VISIT Date of Service: 07/13/24 MR#: [id number] Acct: [id number] Name: LARA CHAPMAN Rep #: [id number] : 1970 Provider: Dr. Anamaria gaitan MD Age/Sex: 54/F Location: [facility] Status: Signed Intake Vital Signs 06/29/24 07:39 07/13/24 08:02 Height 5 ft 5 in 5 ft 5 in Weight: 162 lb BMI 26.9 BP 126/78 H Blood Pressure Location Lt brachial Position Sitting Respiration 16 Pulse 92 Pulse Source Monitor Temp 97.2 F L Temp Source Temporal Pulse Oximetry (%) 96 Oxygen Delivery Method room air Intake Visit Reasons: ongoing diarrhea Sr. 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 Required: No Is patient in pain?: No Allergies codeine Allergy (Verified 07/13/24 07:52) Itching Medications ???Medication ???Instructions ???Recorded ???Confirmed ???Type blood sugar diagnostic (Accu-Chek #100 ea 01/01/23 07/13/24 Rx Asya Plus test strips) blood-glucose meter (Accu-Chek #1 ea 01/01/23 07/13/24 Rx Guide Glucose Meter) lancets (Accu-Chek Softclix #100 ea 01/01/23 07/13/24 Rx Lancets) coenzyme Q10 75 mg capsule (Ultra 75 mg PO DAILY 02/11/23 07/13/24 History CoQ10) fluticasone propionate 50 2 spray intranasal DAILY #16 grams 09/05/23 07/13/24 Rx mcg/actuation nasal spray,suspension (Allergy Relief (fluticasone)) ipratropium bromide 21 mcg (0.03 2 spray intranasal BID-TID PRN 07/13/24 Rx %) nasal spray allergy symptoms #30 mL atorvastatin 40 mg tablet See Rx Instructions .Route 5 07/13/24 Rx .COMPLEX #90 tabs lisinopril 2.5 mg tablet 2.5 mg PO DAILY #90 tabs 04/12/24 07/13/24 Rx tirzepatide 10 mg/0.5 mL 10 mg (0.5 mL) subcut QWEEK 4 05/1807/13/24 Rx subcutaneous pen injector weeks #2 mL Nurse's Note: Since she has had diarrhea. She has not had a formed BM. Has been taking immodium and hydrogen water which helped some then she quit taking it and right back at it. Has about 5-6 Bm's a day. Pt states it is worse in the morning and after she eats anything not specific that she has noticed flares it. Is not doing BRAT diet but is not eating much as it happens when she eats. Denies abdominal pain, bloating crampin, nausea, or vomiting. Pt states the diarrhea does stink very bad. Denies any odor color, burning or blood. Wonders if it's due to the antiinflammatory use as it has been senior care. [facility] Medical History Impingement of right shoulder Right shoulder pain Right-sided chest wall pain Left wrist pain Wears contact lenses Post-menopausal Alcohol use Diabetes High cholesterol Restless legs Non-smoker History of edema Type 2 diabetes mellitus Adhesive capsulitis of left shoulder Kidney stone Hay fever Surgical History History of shoulder surgery S/P endometrial ablation History of hip surgery History of cholecystectomy History of repair of ACL History of placement of ear tubes History of tonsillectomy and adenoidectomy Family History Father Hypertension CVA (cerebral vascular accident) Diabetes Prostate cancer Myocardial infarction High cholesterol Mother Breast cancer Cancer SKIN CANCER High cholesterol Other Heart disease Social History household members: spouse and children current occupational status: employed current occupation: [employer] Smoking Status: Never smoker Electronic Cigarette Use: not used alcohol intake: current alcohol intake frequency: holidays/special occasions only details: special occasions substance use type: does not use what type of physical activity do you participate in: none seatbelt use: always do you feel safe at home: Yes additional social history: - Homar [facility] HPI Details: LARA CHAPMAN, is a 54 F who presents to the office today for an acute visit. She has concerns about diarrhea. She reports that it started on . She reports they are watery stools. She started taking imodium on Friday which has slowed it down. Prior to taking it, she was having 4-6 bowel movements per day. She denies any dark or bloody stools, fevers, abdominal pain. She reports some nausea without vomiting. She reports she didn't eat anything out or the ordinary and denies anybody with similar symptoms. She reports she hasn't eaten much since it started. She is trying to drink fluids. She reports her medications haven't changed much, aside from stopping NSAIDS. She hasn't been on any antibiotics. ROS Const Constitutional: Positive for weight change (3 pound weight loss); N (more content not included)... Normal [facility] Laboratory - Hematology and Cell countsOrdered By: Anamaria Ricks on 06-29-2024 HbA1c (Bld) [Mass fraction] 7.6 % High 4.2-6.3 [facility] Albumin DL <= 20 mg/L (U) [M ass/Vol]Ordered By: Anamaria Ricks on 06-28-2024 Urine Random Microalbumin 171.0 mg/L NO RANGE EST. [facility] Calculated very low density lipoprotein (VLDL) cholesterol measurementOrdered By: Anamaria Ricks on 06-28-2024 Calculated very low density lipoprotein (VLDL) cholesterol measurement 29 mg/dL 5-40 [facility] VLDL Cholesterol 29 mg/dL 5-40 [facility] Creatinine Unsp time (U) [Ma ss/Vol]Ordered By: Anamaria Ricks on 06-28-2024 Creatinine (U) [Mass/Vol] 386.00 mg/dL High 28.00-217.0 0 [facility] Internal Medicine Office Vis itomikey 06-28-2024 Internal Medicine Office Visit [facility] [place] [address] [place] [address] OFFICE VISIT Date of Service: 06/29/24 MR#: [id number] Acct: [id number] Name: LARA CHAPMAN Rep #: [id number] : 1970 Provider: Dr. Anamaria gaitan MD Age/Sex: 54/F Location: [facility] Status: Signed Intake Vital Signs 03/31/24 07:36 06/29/24 07:39 Height 5 ft 5 in 5 ft 5 in Weight: 165 lb BMI 27.4 BP 130/84 H Blood Pressure Location Lt brachial Position Sitting Respiration 16 Pulse 79 Pulse Source Monitor Temp 97.7 F L Temp Source Temporal Pulse Oximetry (%) 97 Oxygen Delivery Method room air Intake Visit Reasons: 3 M FU Chief Complaint: 6m f/u Sr. 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 Required: No Is patient in pain?: No Allergies codeine Allergy (Verified 06/29/24 07:38) Itching Medications ???Medication ???Instructions ???Recorded ???Confirmed ???Type blood sugar diagnostic (Accu-Chek #100 ea 01/01/23 06/29/24 Rx Asya Plus test strips) blood-glucose meter (Accu-Chek #1 ea 01/01/23 06/29/24 Rx Guide Glucose Meter) lancets (Accu-Chek Softclix #100 ea 01/01/23 06/29/24 Rx Lancets) coenzyme Q10 75 mg capsule (Ultra 75 mg PO DAILY 02/11/23 06/29/24 History CoQ10) fluticasone propionate 50 2 spray intranasal DAILY #16 grams 09/05/23 06/29/24 Rx mcg/actuation nasal spray,suspension (Allergy Relief (fluticasone)) ipratropium bromide 21 mcg (0.03 2 spray intranasal BID-TID PRN 06/29/24 Rx %) nasal spray allergy symptoms #30 mL atorvastatin 40 mg tablet See Rx Instructions .Route 5 06/29/24 Rx .COMPLEX #90 tabs lisinopril 2.5 mg tablet 2.5 mg PO DAILY #90 tabs 04/12/24 06/29/24 Rx tirzepatide 10 mg/0.5 mL 10 mg (0.5 mL) subcut QWEEK 4 05/1806/29/24 Rx subcutaneous pen injector weeks #2 mL Nurse's Note: Wants to discuss lab results. Wants to know what alternatives she could use for inflammation to help w/ body pains. [facility] Medical History (Updated 06/29/24 @ 09:[address] Anamaria Ricks MD) Impingement of right shoulder Right shoulder pain Right-sided chest wall pain Left wrist pain Wears contact lenses Post-menopausal Alcohol use Diabetes High cholesterol Restless legs Non-smoker History of edema Type 2 diabetes mellitus Adhesive capsulitis of left shoulder Kidney stone Hay fever Surgical History (Updated 06/29/24 @ 07:38 by Kasandra Reyes MA) History of shoulder surgery S/P endometrial ablation History of hip surgery History of cholecystectomy History of repair of ACL History of placement of ear tubes History of tonsillectomy and adenoidectomy Family History Father Hypertension CVA (cerebral vascular accident) Diabetes Prostate cancer Myocardial infarction High cholesterol Mother Breast cancer Cancer SKIN CANCER High cholesterol Other Heart disease Social History household members: spouse and children current occupational status: employed current occupation: [employer] Smoking Status: Never smoker Electronic Cigarette Use: not used alcohol intake: current alcohol intake frequency: holidays/special occasions only details: special occasions substance use type: does not use what type of physical activity do you participate in: none seatbelt use: always do you feel safe at home: Yes additional social history: - Homar HPI HPI Chief Complaint: 6m f/u Details: LARA CHAPMAN, is a 54 F who presents to the office today for a follow up. She is up to date on her routine blood work and screening. She isn't due for any immunizations. She doesn't smoke and does need refills. She reports she has been trying to monitor her diet. Her activity has been low with her repeat surgery. She reports her sugars have been in the 130-140s range. She does try to limit her carbohydrate and sugar intake. She is taking her medication as prescribed without problems. She does her injections on Friday evenings, but missed yesterday's dose. She is up to date on her eye exam. She has been taking her cholesterol medication without problems. She reports since she was last seen, she had another surgery for her right shoulder. She reports she is having some associated weakness and plans on doing some physical therapy. She continues to have some pain in her shoulder, rating it 2-3/10 currently. She states her pain is mainly at night. She has been using aleve and advil PM. She also uses aspercreme with lidocaine which helps a little. She has also tried cryotherapy and injections, which did help, but they don't last long. She has no other questions or concerns at this time. ROS Const Constitutional: Positive for weight c (more content not included)... Normal [facility] LDL calc ser/plasOrdered By: Anamaria Ricks on 06-28-2024 Cholesterol in LDL [Mass/Vol] 151 mg/dL [facility] Comment on above: Hqflxuxskg=209-308 m g/dL & Higher Gnil=801 mg/dL or greater LDL Cholesterol, Calculated 151 mg/dL [facility] Comment on above: Bhfultwpmr=989-967 m g/dL & Higher Uebx=891 mg/dL or greater Lipid Profileon 06-28-2024 CHOL:HDL 4.35 Normal [facility] Comment on above: Performed By: #### L 500.4100, L502.0250 ####[facility] [address] [place], [address] Cholesterol [Mass/Vol] 234 mg/dL High <=200 [facility] Comment on above: Result Comment: Chol esterol level, Desirable <200 mg/dL Borderline high cholesterol 200-239 mg/dL High cholesterol >=240 mg/dL Recommendations of the NCEP Adult Treatment Panel for the following risk-cutoff thresholds for the [place] population. Performed By: #### L 500.4100, L502.0250 ####[facility] [address] [place], [address] Cholesterol in HDL [Mass/Vol] 54 mg/dL Normal [facility] Comment on above: Result Comment: Sunitha onal Cholesterol Education Program (NCEP) guidelines: <40 mg/dL: Low HDL-cholesterol (major risk factor for CHD) >= 60 mg/dL: High HDL-cholesterol (negative risk factor for CHD) HDL-cholesterol is affected by a number of factors, e.g. smoking, exercise, hormones, sex and age. Performed By: #### L 500.4100, L502.0250 ####[facility] [address] [place], [address] Cholesterol in LDL [Mass/Vol] 151 mg/dL Normal [facility] Comment on above: Result Comment: Bord lvykai=468-942 mg/dL Higher Whqq=392 mg/dL or greater Performed By: #### L 500.4100, L502.0250 ####[facility] [address] [place], [address] Cholesterol in VLDL [Mass/Vol] 29 mg/dL Normal 5-40 [facility] Comment on above: Performed By: #### L 500.4100, L502.0250 ####[facility] [address] [place], [address] Triglyceride [Mass/Vol] 147 mg/dL Normal [facility] Comment on above: Result Comment: The drugs N-Acetylcysteine and Metamizole may falsely depress this assay. Normal range: <150 mg/dL Borderline High: 150-199 mg/dL High: 200-499 mg/dL Very High: >500 mg/dL Performed By: #### L 500.4100, L502.0250 ####[facility] [address] [place], [address] Microalbumin/creat ratio urO rdered By: Anamaria Ricks on 06-28-2024 Urine Microalbumin/Creatinine Ratio 443.0 mg/g CRE [facility] Random urine creatinine jerson urement (mass/volume)Ordered By: Anamaria Ricks on 06-28-2024 Creatinine Unsp time (U) [Mass/Vol] 386.00 mg/dL High 28.00-217.0 0 [facility] Screening total cholesterol/ high density lipoprotein (HDL) cholesterol ratioOrdered By: Anamaria Ricks on 06-28-2024 Cholesterol.total/Choles terol in HDL [Mass ratio] 4.35 {ratio} [facility] Serum or plasma cholesterol in HDL measurement (mass/volume)Ordered By: Anamaria Ricks on 06-28-2024 Cholesterol in HDL [Mass/Vol] 54 mg/dL >40 [facility] Comment on above: National Cholesterol Education Program (NCEP) guidelines:<40 mg/dL: Low HDL-cholesterol (major risk factor for CHD)>= 60 mg/dL: High HDL-cholesterol (negative risk factor for CHD)HDL-cholesterol is affected by a number of factors, e.g. smoking, exercise, hormones, sex and age. Serum or plasma cholesterol measurement (mass/volume)Ordered By: Anamaria Ricks on 06-28-2024 Cholesterol [Mass/Vol] 234 mg/dL High <201 [facility] Comment on above: Cholesterol level, D esirable <200 mg/dLBorderline high cholesterol 200-239 mg/dLHigh cholesterol >=240 mg/dLRecommendations of the NCEP Adult Treatment Panel for the following risk-cutoff thresholds for the [place] population. Triglycerides measurementOrd ered By: Anamaria Ricks on 06-28-2024 Triglyceride [Mass/Vol] 147 mg/dL <[address] [facility] Comment on above: The drugs N-Acetylcy steine and Metamizole may falsely depress this assay. Normal range: <150 mg/dLBorderline High: 150-199 mg/dLHigh: 200-499 mg/dLVery High: >500 mg/dL Urine albumin measurement wi detection limit of 20 mg/L or less (mass/volume)Ordered By: Anamaria Ricks on 06-28-2024 Albumin DL <= 20 mg/L (U) [Mass/Vol] 171.0 mg/L NO RANGE EST. [facility] Absolute neutrophil counton 05-12-2024 Neutrophils (Bld) [#/Vol] 5.4 10*3/uL 2.0-7.7 [facility] Albumin to globulin ratioon 05-12-2024 Albumin/Globulin [Mass ratio] 1.2 {ratio} 0.9-2.4 [facility] Basophil percentageon 2024 Basophils/100 WBC (Bld) 0.4 % 0-[address] [facility] Bilirubin, totalon Bilirubin [Mass/Vol] 0.90 mg/dL 0.20-1.00 [facility] Comment on above: For patients on eltr ombopag therapy, use of Dimension [place] TBIL is not recommended. Blood urea nitrogen (BUN)/cr eatinine ratioon 05-12-2024 Urea nitrogen/Creatinine [Mass ratio] 35.0 mg/mg High 10-20 [facility] CBC W/Diff, Automatedon 02-1 9-2025 Absolute Lymph 3.72 X10 3/uL Normal 0.83-4.51 [facility] Comment on above: Performed By: #### L 500.4050, L100.0100 #### [facility] [address] [place], [address] Absolute Neut 5.4 X10 3/uL Normal 2.0-7.7 [facility] Comment on above: Performed By: #### L 500.4050, L100.0100 #### [facility] [address] [place], [address] Basophils/100 WBC (Bld) 0.4 % Normal 0-[address] [facility] Comment on above: Performed By: #### L 500.4050, L100.0100 #### [facility] [address] [place], [address] Eosinophils/100 WBC (Bld) 1.3 % Normal 0-5 [facility] Comment on above: Performed By: #### L 500.4050, L100.0100 #### [facility] [address] [place], [address] Erythrocyte distribution width (RBC) [Ratio] 12.6 % Normal 11.6-14.6 [facility] Comment on above: Performed By: #### L 500.4050, L100.0100 #### [facility] [address] [place], [address] Hematocrit (Bld) [Volume fraction] 40.0 % Normal 37-47 [facility] Comment on above: Performed By: #### L 500.4050, L100.0100 #### [facility] [address] [place], [address] Hemoglobin (Bld) [Mass/Vol] 13.3 g/dL Normal 12.0-15.0 [facility] Comment on above: Performed By: #### L 500.4050, L100.0100 #### [facility] [address] [place], [address] IG% 0.300 Normal 0.0-0.9 [facility] Comment on above: Result Comment: IG% - Immature Granulocytes (promyelocytes, myelocytes and metamyelocytes) > 1% indicates that a LEFT SHIFT is Present. Performed By: #### L 500.4050, L100.0100 #### [facility] [address] [place], [address] Lymphocytes/100 WBC (Bld) 37.7 % Normal 19-41 [facility] Comment on above: Performed By: #### L 500.4050, L100.0100 #### [facility] [address] [place], [address] MCH (RBC) [Entitic mass] 30.0 pg Normal 27.0-32.0 [facility] Comment on above: Performed By: #### L 500.4050, L100.0100 #### [facility] [address] [place], [address] MCHC (RBC) [Mass/Vol] 33.3 g/dL Normal 32-[address] [facility] Comment on above: Performed By: #### L 500.4050, L100.0100 #### [facility] [address] [place], [address] MCV (RBC) [Entitic vol] 90.1 fL Normal 81-99 [facility] Comment on above: Performed By: #### L 500.4050, L100.0100 #### [facility] [address] [place], [address] Monocytes/100 WBC (Bld) 5.9 % Normal 0-[address] [facility] Comment on above: Performed By: #### L 500.4050, L100.0100 #### [facility] [address] [place], [address] Neutrophils/100 WBC (Bld) 54.4 % Normal 47-70 [facility] Comment on above: Performed By: #### L 500.4050, L100.0100 #### [facility] [address] [place], [address] Nucleated RBC (Bld) [#/Vol] 0 10*3/uL Normal 0-5 [facility] Comment on above: Performed By: #### L 500.4050, L100.0100 #### [facility] [address] [place], [address] Platelet mean volume (Bld) [Entitic vol] 10.8 fL Normal 6.2-12.0 [facility] Comment on above: Performed By: #### L 500.4050, L100.0100 #### [facility] [address] [place], [address] Platelets (Bld) [#/Vol] 303 10*3/uL Normal 150-450 [facility] Comment on above: Performed By: #### L 500.4050, L100.0100 #### [facility] [address] [place], [address] RBC (Bld) [#/Vol] 4.44 10*6/uL Normal 4.2-5.4 [facility] Comment on above: Performed By: #### L 500.4050, L100.0100 #### [facility] [address] [place], [address] RDW SD 41.2 fl Normal 35.1-43.9 [facility] Comment on above: Performed By: #### L 500.4050, L100.0100 #### [facility] [address] [place], [address] WBC (Bld) [#/Vol] 9.9 10*3/uL Normal 4.4-11.0 [facility] Comment on above: Performed By: #### L 500.4050, L100.0100 #### [facility] [address] [place], [address] Carbon dioxide measurementon 05-12-2024 CO2 [Moles/Vol] 25.0 mmol/L 21.0-32.0 [facility] Chloride measurementon 05-12 Chloride [Moles/Vol] 107 mmol/L 98-107 [facility] Comprehensive Metabolic Prof ilon 05-12-2024 Albumin [Mass/Vol] 4.1 g/dL Normal 3.2-5.0 [facility] Comment on above: Performed By: #### L 500.4050, L100.0100 #### [facility] [address] [place], [address] Albumin/Globulin [Mass ratio] 1.2 {ratio} Normal 0.9-2.4 [facility] Comment on above: Performed By: #### L 500.4050, L100.0100 #### [facility] [address] [place], [address] ALK P 92 U/L Normal 45-117 [facility] Comment on above: Performed By: #### L 500.4050, L100.0100 #### [facility] [address] [place], [address] ALT [Catalytic activity/Vol] 23 U/L Normal 13-56 [facility] Comment on above: Performed By: #### L 500.4050, L100.0100 #### [facility] [address] [place], [address] AST [Catalytic activity/Vol] 11 U/L Low 15-37 [facility] Comment on above: Performed By: #### L 500.4050, L100.0100 #### [facility] [address] [place], [address] Bilirubin [Mass/Vol] 0.90 mg/dL Normal 0.20-1.00 [facility] Comment on above: Result Comment: For patients on eltrombopag therapy, use of Dimension [place] TBIL is not recommended. Performed By: #### L 500.4050, L100.0100 #### [facility] [address] [place], [address] BUN/CRE 35.0 RATIO High 10-20 [facility] Comment on above: Performed By: #### L 500.4050, L100.0100 #### [facility] [address] [place], [address] CA,Total 9.6 mg/dL Normal 8.5-10.1 [facility] Comment on above: Performed By: #### L 500.4050, L100.0100 #### [facility] [address] [place], [address] Chloride [Moles/Vol] 107 mmol/L Normal 98-107 [facility] Comment on above: Performed By: #### L 500.4050, L100.0100 #### [facility] [address] [place], [address] CO2 [Moles/Vol] 25.0 mmol/L Normal 21.0-32.0 [facility] Comment on above: Performed By: #### L 500.4050, L100.0100 #### [facility] [address] [place], [address] Creatinine [Mass/Vol] 0.66 mg/dL Normal 0.55-1.[address] [facility] Comment on above: Result Comment: The validity of the calculated GFR GFRAA in patients over 70 years has not been determined. Clinical correlation is essential. Performed By: #### L 500.4050, L100.0100 #### [facility] [address] [place], [address] EST GFR - AA 121 mL/min Normal >60 [facility] Comment on above: Result Comment: Afri can Sudanese GFR Calc Performed By: #### L 500.4050, L100.0100 #### [facility] [address] [place], [address] GAP 8 Normal 5-15 [facility] Comment on above: Performed By: #### L 500.4050, L100.0100 #### [facility] [address] [place], [address] GFR/1.73 sq M.predicted among non-blacks MDRD (S/P/Bld) [Vol rate/Area] 100 mL/min/{1.73_m2} Normal >60 [facility] Comment on above: Result Comment: Non- GFR Calc Performed By: #### L 500.4050, L100.0100 #### [facility] [address] [place], [address] Globulin (S) [Mass/Vol] 3.5 g/dL Normal 2.2-4.2 [facility] Comment on above: Performed By: #### L 500.4050, L100.0100 #### [facility] [address] [place], [address] Glucose [Mass/Vol] 123 mg/dL High 74-106 [facility] Comment on above: Result Comment: Fast ing Glucose result from 100 to 125 mg/dL suggests IMPAIRED HOMEOSTASIS per A.D.A. criteria. Performed By: #### L 500.4050, L100.0100 #### [facility] [address] [place], [address] Potassium [Moles/Vol] 4.1 mmol/L Normal 3.5-5.[address] [facility] Comment on above: Performed By: #### L 500.4050, L100.0100 #### [facility] [address] [place], [address] Sodium [Moles/Vol] 140 mmol/L Normal 136-145 [facility] Comment on above: Performed By: #### L 500.4050, L100.0100 #### [facility] [address] [place], [address] T PROT 7.6 g/dL Normal 6.4-8.2 [facility] Comment on above: Performed By: #### L 500.4050, L100.0100 #### [facility] [address] [place], [address] Urea nitrogen [Mass/Vol] 23 mg/dL High 7-18 [facility] Comment on above: Performed By: #### L 500.4050, L100.0100 #### [facility] [address] [place], [address] Eosinophil percentageon 04-24 Eosinophils/100 WBC (Bld) 1.3 % 0-5 [facility] Erythrocyte distribution wid th ratioon 05-12-2024 Erythrocyte distribution width (RBC) [Ratio] 12.6 % 11.6-14.6 [facility] Erythrocyte distribution wid th standard deviationon 05-12-2024 Erythrocyte distribution width (RBC) [Entitic vol] 41.2 fL 35.1-43.9 [facility] Estimated glomerular filtrat ion rate (GFR) Americanon 05-12-2024 Estimated GFR (MDRD) Amer 121 mL/min >60 [facility] Comment on above: GFR Calc Glomerular filtration rate ( GFR) estimationon 05-12-2024 Estimated GFR (MDRD) Non-Af Amer 100 mL/min >60 [facility] Comment on above: Non- GFR Calc Glucose measurementon 2024 Glucose [Mass/Vol] 123 mg/dL High 74-106 [facility] Comment on above: Fasting Glucose resu lt from 100 to 125 mg/dL suggests IMPAIRED HOMEOSTASIS per A.D.A. criteria. Hematocrit Auto (Bld) [Volum e fraction]on 05-12-2024 Hematocrit (Bld) [Volume fraction] 40.0 % 37-47 [facility] Hemoglobin measurementon Hemoglobin (Bld) [Mass/Vol] 13.3 g/dL 12.0-15.0 [facility] Immature granulocytes/100 WB C Auto (Bld)on 05-12-2024 Immature granulocytes/100 WBC (Bld) 0.300 % 0.0-0.9 [facility] Comment on above: IG% - Immature Granu locytes (promyelocytes, myelocytes and metamyelocytes) > 1% indicates that a LEFT SHIFT is Present. Laboratory - Chemistry and C hemistry - challengeon 05-12-2024 AST [Catalytic activity/Vol] 11 U/L Low 15-37 [facility] Lymphocytes Auto (Unsp spec) [#/Vol]on 05-12-2024 Lymphocytes (Bld) [#/Vol] 3.72 10*3/uL 0.83-4.51 [facility] Lymphocytes/100 WBC Auto (Un sp spec)on 05-12-2024 Lymphocytes/100 WBC (Bld) 37.7 % 19-41 [facility] MCV (mean corpuscular volume ) determinationon 05-12-2024 MCV (RBC) [Entitic vol] 90.1 fL 81-[address] [facility] Mean corpuscular hemoglobin (MCH) determinationon 05-12-2024 MCH (RBC) [Entitic mass] 30.0 pg 27.0-32.0 [facility] Mean corpuscular hemoglobin concentration (MCHC) determinationon 05-12-2024 MCHC (RBC) [Mass/Vol] 33.3 g/dL 32-[address] [facility] Mean platelet volume determi nationon 05-12-2024 Platelet mean volume (Bld) [Entitic vol] 10.8 fL 6.2-12.0 [facility] Monocyte percentageon 2024 Monocytes/100 WBC (Bld) 5.9 % 0-[address] [facility] Neutrophil percentageon 04-24 Neutrophils/100 WBC (Bld) 54.4 % 47-70 [facility] Nucleated red blood cell per centageon 05-12-2024 Nucleated RBC/100 WBC (Bld) [Ratio] 0 % 0-5 [facility] Platelet counton 05-12-2024 Platelets (Bld) [#/Vol] 303 10*3/uL 150-450 [facility] Potassium measurementon 04-24 Potassium [Moles/Vol] 4.1 mmol/L 3.5-5.[address] [facility] RBC Auto (Bld) [#/Vol]on RBC (Bld) [#/Vol] 4.44 10*6/uL 4.2-5.4 [facility] Serum anion gap measuremento n 05-12-2024 Anion gap [Moles/Vol] 8 mmol/L 5-[address] [facility] Serum globulin measurementon 05-12-2024 Globulin (S) [Mass/Vol] 3.5 g/dL 2.2-4.[address] [facility] Serum or plasma alanine peterson otransferase (ALT) measurementon 05-12-2024 ALT [Catalytic activity/Vol] 23 U/L 13-56 [facility] Serum or plasma albumin jerson urement (mass/volume)on 05-12-2024 Albumin [Mass/Vol] 4.1 g/dL 3.2-5.0 [facility] Serum or plasma alkaline shereen sphatase measurementon 05-12-2024 ALP [Catalytic activity/Vol] 92 U/L 45-117 [facility] Serum or plasma calcium jerson urement (mass/volume)on 05-12-2024 Calcium [Mass/Vol] 9.6 mg/dL 8.5-10.1 [facility] Serum or plasma creatinine m easurement (mass/volume)on 05-12-2024 Creatinine [Mass/Vol] 0.66 mg/dL 0.55-1.[address] [facility] Comment on above: The validity of the calculated GFR & GFRAA in patients over 70 years has not been determined. Clinical correlation is essential. Serum or plasma urea nitroge n measurement (mass/volume)on 05-12-2024 Urea nitrogen [Mass/Vol] 23 mg/dL High 7-18 [facility] Sodium levelon 05-12-2024 Sodium [Moles/Vol] 140 mmol/L 136-145 [facility] Total proteinon 05-12-2024 Protein [Mass/Vol] 7.6 g/dL 6.4-8.2 [facility] White blood cell (WBC) count on 05-12-2024 WBC (Bld) [#/Vol] 9.9 10*3/uL 4.4-11.0 [facility] Re-Evaluation - PT (1)on Re-Evaluation - PT (1) [facility] Physical Therapy [facility] [address] [place] [address] / REEVALUATION / MEDICARE RECERTIFICATION PHYSICAL THERAPY MR#: [id number] Acct: [id number] Name: LARA CHAPMAN Rep #: [id number] : 1970 53 From: Bairon Larios PT, ATC Referring DrTony: OUT OF TOWN DOCTOR Status:REG RCR Insurance: [employer]/[facility] SELF PAY INSURANCE Re-Evaluation Intro: YELENA GLASS, It has been my pleasure to treat LARA CHAPMAN over the last 9 visits for R shoulder SAD, biceps tenodesis, and capsular release 03/11/24. Please see the progress note below for an update on the physical therapy plan of care! Subjective Subjective: Pt reports her shoulder aches all the time Objective Objective/Function: R shoulder pain ranges from 2-8/10 R shoulder ROM: flex= 120, abd= 105 degrees R shoulder MMT: flex= 5, abd= 10, ER= 7, IR= 10 #F Pt is showing excellent progress at this time Plan Plan Plan: 04/14/24- Follow protocol. CP for pain Balance/Gait/Functi onal tests Balance/Special Test Scores Quick DASH Score: 72.7250 Goals Goals Goal 1:: Increase R shoulder flex and abd ROM to 150 degrees to aid with overhead activity Goal Time Frame: 6-8 Weeks Goal 2:: Increase R shoulder strength to 90% of L shoulder strength to aid with IADL's Goal Time Frame: 6-8 Weeks Goal 3:: I with HEP Goal Time Frame: 4-6 Weeks Goal 4:: Decrease R shoulder pain x 50% to aid with sleep Goal Time Frame: 6-8 Weeks Goal Progress: Progressing Anticipated Interventions Anticipated Interventions Patient/Client Instruction: Educate patient on: Condition and Plan of Care For the Purpose of:: To improve self management Therapeutic Exercise to Include: Strength training, Endurance training, Flexibilty training, Passive ROM, Active ROM and Scapular Strength/Stabilizat ion For the Purpose of:: To decrease pain, To increase ROM and To improve muscle performance and motor function Cryotherapy (ice pack, ice massage): Yes For the Purpose of:: To decrease pain Re-Evaluation Ending Re-evaluation ending: Please do not hesitate to contact me at [phone] by phone or if you have questions or concerns regarding this new plan of care! Sincerely, Bairon Larios, PT, ATC 04/14/24 1608 CC: Dr. Anamaria Ricks MD; YELENA GLASS [facility] Signed For Medicare only, by signing this I certify the plan of care. _ Physicians Signature Date Normal [facility] Internal Medicine Office Vis iton 03-30-2024 Internal Medicine Office Visit [facility] [place] [address] [place] [address] OFFICE VISIT Date of Service: 03/31/24 MR#: [id number] Acct: [id number] Name: LARA CHAPMAN Rep #: [id number] : 1970 Provider: Dr. 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 Accompanied by: Self Is patient in pain?: Yes (right shoulder) Pain scale (1-10): 4 Allergies codeine Allergy (Verified 03/31/24 07:30) Itching Medications ???Medication ???Instructions ???Recorded ???Confirmed ???Type blood sugar diagnostic (Accu-Chek #100 ea 01/01/23 03/31/24 Rx Asya Plus test strips) blood-glucose meter (Accu-Chek #1 ea 01/01/23 03/31/24 Rx Guide Glucose Meter) lancets (Accu-Chek Softclix #100 ea 01/01/23 03/31/24 Rx Lancets) coenzyme Q10 75 mg capsule (Ultra 75 mg PO DAILY 02/11/23 03/31/24 History CoQ10) fluticasone propionate 50 2 spray intranasal DAILY #16 grams 09/05/23 03/31/24 Rx mcg/actuation nasal spray,suspension (Allergy Relief (fluticasone)) ipratropium bromide 21 mcg (0.03 2 spray intranasal BID-TID PRN 09/05/23 03/31/24 Rx %) nasal spray allergy symptoms #30 mL atorvastatin 40 mg tablet See Rx Instructions .Route 12/22/23 03/31/24 Rx .COMPLEX #90 tabs lisinopril 2.5 mg tablet 2.5 mg PO DAILY #90 tabs 12/22/23 03/31/24 Rx tirzepatide 7.5 mg/0.5 mL 7.5 mg (0.5 mL) subcut QWEEK 4 03/31/24 03/31/24 Rx subcutaneous pen injector weeks #2 mL tramadol 50 mg tablet 50 mg PO Q6 PRN 03/31/24 03/31/24 History PFS Medical History Impingement of right shoulder Right shoulder pain Right-sided chest wall pain Left wrist pain Wears contact lenses Post-menopausal Alcohol use Diabetes High cholesterol Restless legs Non-smoker History of edema Type 2 diabetes mellitus Adhesive capsulitis of left shoulder Kidney stone Hay fever Surgical History History of shoulder surgery S/P endometrial ablation History of hip surgery History of cholecystectomy History of repair of ACL History of placement of ear tubes History of tonsillectomy and adenoidectomy Family History Father Hypertension CVA (cerebral vascular accident) Diabetes Prostate cancer Myocardial infarction High cholesterol Mother Breast cancer Cancer SKIN CANCER High cholesterol Other Heart disease Social History (Updated 03/31/24 @ 07:[address] Anamaria Ricks MD) household members: spouse and children current occupational status: employed current occupation: [employer] Smoking Status: Never smoker Electronic Cigarette Use: not used alcohol intake: current alcohol intake frequency: holidays/special occasions only details: special occasions substance use type: does not use what type of physical activity do you participate in: none seatbelt use: always do you feel safe at home: Yes additional social history: - Homar ROBERTSON HPI Chief Complaint: 6m f/u Details: LARA CHAPMAN, is a 53 F who presents to the office today for a follow up. She is due for some routine blood work and is up to date on her screening. She did have her flu shot. She doesn't smoke and does need refills. She reports she has been trying to monitor her diet. She hasn't been very active recently. She reports her sugars have been in the 140-180s range. She does try to limit her carbohydrate and sugar intake. She is taking her medication as prescribed. She reports the mounjaro doesn't seem to cause as much gassiness as it had. She does her injections on Friday evenings. She is up to date on her eye exam. She has been taking her cholesterol medication without problems, however, admits she missed a few doses following her surgery. Since the patient was last seen, she started having problems with her right shoulder as well, which started 2-3 months ago. She has been following with orthopedics. She did an injection which didn't help. Therapy was ordered, but she didn't do it. She went and saw another orthopedist at the [facility] who recommended surgery which was done in February. She reports that the surgery went well. She has been having some ongoing pain, however. She has a follow up with the surgeon on the . She will (more content not included)... Normal [facility] Inital Evaluation (1) - PTon 03-18-2024 Inital Evaluation (1) - PT [facility] Physical Therapy [facility] [address] [place] [address] / REHABILITATION SERVICES INITIAL EVALUATION MR#: [id number] Acct: [id number] Name: LARA CHAPMAN Rep #: [id number] : 1970 53 From: Bairon Larios PT, ATC Referring Dr.: YELENA GLASS Status: REG RCR Insurance: [employer]/[facility] SELF PAY INSURANCE Patient's Visit Information Visit Information Visit Information: LARA CHAPMAN is a 53 year old F referred to Physical Therapy by YELENA GLASS with a diagnosis of R shoulder SAD, biceps tenodesis, and capsular release 03/11/24. Date of Evaluation: 03/18/24 Physical Therapist: Bairon Larios, PT, ATC Visit Plan Frequency: 2-3x /Week Duration: 6-8 weeks Plan: Follow protocol. CP for pain Subjective Subjective: DOS: 03/11/24. Pt reports she had SAD performed at that time with biceps tenodesis and capsular release in her R shoulder. Pt reports she had pain in her R shoulder for approximately 2 mos prior to having this surgery. Pt reports the pain she had previously is gone now, but she still has a lot of discomfort and stiffness in R shoulder. Pt reports she is able to sleep at night as long as she ices and takes pain meds. Pt is R hand dominant. Pt reports she has tingling in her R UE from the elbow downward towards her hand. 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 Pt notes she has been performing her HEP faithfully, but is having a hard time reaching behind her back. 4/10 pain at rest, 7/10 pain at worst (when she stretches out taking her pain meds.) Pain R shoulder: Pain Intensity (Out of 10): 4 Pain Intensity Range: 7 Objective Objective: Neuro: B UE sensation is WNL to light touch Observation: Incisions are still covered at this time. No signs of infection. AROM: L shoulder flex= 110, abd= 100, ER= 10, IR= WNL; R shoulder flex= 110, abd= 110, ER= 10, IR= moderately limited MMT: L shoulder flex= 8, abd= 15, ER= 10, IR= 16 #F; R shoulder Not tested today Balance/Special Test Scores Quick DASH Score: 75.0000 Goals Goal 1:: Increase R shoulder flex and abd ROM to 150 degrees to aid with overhead activity Goal Time Frame: 6-8 Weeks Goal 2:: Increase R shoulder strength to 90% of L shoulder strength to aid with IADL's Goal Time Frame: 6-8 Weeks Goal 3:: I with HEP Goal Time Frame: 4-6 Weeks Goal 4:: Decrease R shoulder pain x 50% to aid with sleep Goal Time Frame: 6-8 Weeks Rehabilitation Potential Physical Therapy Diagnosis: Pt has R shoulder pain, weakness, and limited ROM secondary to R shoulder surgery Rehabilitation Potential: Good Anticipated Interventions Patient/Client Instruction: Educate patient on: Condition and Plan of Care For the Purpose of:: To improve self management Therapeutic Exercise to Include: Strength training, Endurance training, Flexibilty training, Passive ROM, Active ROM and Scapular Strength/Stabilizat ion For the Purpose of:: To decrease pain, To increase ROM and To improve muscle performance and motor function Cryotherapy (ice pack, ice massage): Yes For the Purpose of:: To decrease pain Text: Thank you for the opportunity to evaluate your patient. For Medicare and Medicare HMO plans, please review the plan of care and approve it. It will need to be FAXED BACK to us at [phone] for Medicare purposes. For Medicare only, by signing this I certify the plan of care. Please let me know if there are questions or concerns regarding this plan of care. Physician Signature: __Date: 03/18/24 1126 CC: Dr. Anamaria Ricks MD; YELENA GLASS [facility] Signed Normal [facility] Absolute neutrophil counton 02-26-2024 Neutrophils (Bld) [#/Vol] 6.6 10*3/uL 2.0-7.7 [facility] Albumin to globulin ratioon 02-26-2024 Albumin/Globulin [Mass ratio] 1.1 {ratio} 0.9-2.4 [facility] Basophil percentageon 2023 Basophils/100 WBC (Bld) 0.6 % 0-[address] [facility] Bilirubin, totalon Bilirubin [Mass/Vol] 0.80 mg/dL 0.20-1.00 [facility] Comment on above: For patients on eltr ombopag therapy, use of Dimension [place] TBIL is not recommended. Blood urea nitrogen (BUN)/cr eatinine ratioon 02-26-2024 Urea nitrogen/Creatinine [Mass ratio] 23.1 mg/mg High 10-20 [facility] CBC W/Diff, Automatedon Absolute Lymph 3.08 X10 3/uL Normal 0.83-4.51 [facility] Comment on above: Performed By: #### L 500.4050, L100.0100, L501.9985 ####[facility] [address] [place], [address] Absolute Neut 6.6 X10 3/uL Normal 2.0-7.7 [facility] Comment on above: Performed By: #### L 500.4050, L100.0100, L501.9985 ####[facility] [address] [place], [address] Basophils/100 WBC (Bld) 0.6 % Normal 0-[address] [facility] Comment on above: Performed By: #### L 500.4050, L100.0100, L501.9985 ####[facility] [address] [place], [address] Eosinophils/100 WBC (Bld) 1.0 % Normal 0-5 [facility] Comment on above: Performed By: #### L 500.4050, L100.0100, L501.9985 ####[facility] [address] [place], [address] Erythrocyte distribution width (RBC) [Ratio] 12.8 % Normal 11.6-14.6 [facility] Comment on above: Performed By: #### L 500.4050, L100.0100, L501.9985 ####[facility] [address] [place], [address] Hematocrit (Bld) [Volume fraction] 39.8 % Normal 37-47 [facility] Comment on above: Performed By: #### L 500.4050, L100.0100, L501.9985 ####[facility] [address] [place], [address] Hemoglobin (Bld) [Mass/Vol] 13.3 g/dL Normal 12.0-15.0 [facility] Comment on above: Performed By: #### L 500.4050, L100.0100, L501.9985 ####[facility] [address] [place], [address] IG% 0.300 Normal 0.0-0.9 [facility] Comment on above: Result Comment: IG% - Immature Granulocytes (promyelocytes, myelocytes and metamyelocytes) > 1% indicates that a LEFT SHIFT is Present. Performed By: #### L 500.4050, L100.0100, L501.9985 ####[facility] [address] [place], [address] Lymphocytes/100 WBC (Bld) 29.3 % Normal 19-41 [facility] Comment on above: Performed By: #### L 500.4050, L100.0100, L501.9985 ####[facility] [address] [place], [address] MCH (RBC) [Entitic mass] 30.3 pg Normal 27.0-32.0 [facility] Comment on above: Performed By: #### L 500.4050, L100.0100, L501.9985 ####[facility] [address] [place], [address] MCHC (RBC) [Mass/Vol] 33.4 g/dL Normal 32-[address] [facility] Comment on above: Performed By: #### L 500.4050, L100.0100, L501.9985 ####[facility] [address] [place], [address] MCV (RBC) [Entitic vol] 90.7 fL Normal 81-[address] [facility] Comment on above: Performed By: #### L 500.4050, L100.0100, L501.9985 ####[facility] [address] [place], [address] Monocytes/100 WBC (Bld) 6.6 % Normal 0-10 [facility] Comment on above: Performed By: #### L 500.4050, L100.0100, L501.9985 ####[facility] [address] [place], [address] Neutrophils/100 WBC (Bld) 62.2 % Normal 47-70 [facility] Comment on above: Performed By: #### L 500.4050, L100.0100, L501.9985 ####[facility] [address] [place], [address] Nucleated RBC (Bld) [#/Vol] 0 10*3/uL Normal 0-5 [facility] Comment on above: Performed By: #### L 500.4050, L100.0100, L501.9985 ####[facility] [address] [place], [address] Platelet mean volume (Bld) [Entitic vol] 10.3 fL Normal 6.2-12.0 [facility] Comment on above: Performed By: #### L 500.4050, L100.0100, L501.9985 ####[facility] [address] [place], [address] Platelets (Bld) [#/Vol] 298 10*3/uL Normal 150-450 [facility] Comment on above: Performed By: #### L 500.4050, L100.0100, L501.9985 ####[facility] [address] [place], [address] RBC (Bld) [#/Vol] 4.39 10*6/uL Normal 4.2-5.4 [facility] Comment on above: Performed By: #### L 500.4050, L100.0100, L501.9985 ####[facility] [address] [place], [address] RDW SD 42.2 fl Normal 35.1-43.9 [facility] Comment on above: Performed By: #### L 500.4050, L100.0100, L501.9985 ####[facility] [address] [place], [address] WBC (Bld) [#/Vol] 10.5 10*3/uL Normal 4.4-11.0 [facility] Comment on above: Performed By: #### L 500.4050, L100.0100, L501.9985 ####[facility] [address] [place], [address] Carbon dioxide measurementon 02-26-2024 CO2 [Moles/Vol] 27.0 mmol/L 21.0-32.0 [facility] Chloride measurementon 02-25 Chloride [Moles/Vol] 105 mmol/L 98-107 [facility] Comprehensive Metabolic Prof ilon 02-26-2024 Albumin [Mass/Vol] 3.8 g/dL Normal 3.2-5.0 [facility] Comment on above: Performed By: #### L 500.4050, L100.0100, L501.9985 ####[facility] [address] [place], [address] Albumin/Globulin [Mass ratio] 1.1 {ratio} Normal 0.9-2.4 [facility] Comment on above: Performed By: #### L 500.4050, L100.0100, L501.9985 ####[facility] [address] [place], [address] ALK P 107 U/L Normal 45-117 [facility] Comment on above: Performed By: #### L 500.4050, L100.0100, L501.9985 ####[facility] [address] [place], [address] ALT [Catalytic activity/Vol] 26 U/L Normal 13-56 [facility] Comment on above: Performed By: #### L 500.4050, L100.0100, L501.9985 ####[facility] [address] [place], [address] AST [Catalytic activity/Vol] 13 U/L Low 15-37 [facility] Comment on above: Performed By: #### L 500.4050, L100.0100, L501.9985 ####[facility] [address] [place], [address] Bilirubin [Mass/Vol] 0.80 mg/dL Normal 0.20-1.00 [facility] Comment on above: Result Comment: For patients on eltrombopag therapy, use of Dimension [place] TBIL is not recommended. Performed By: #### L 500.4050, L100.0100, L501.9985 ####[facility] [address] [place], [address] BUN/CRE 23.1 RATIO High 10-20 [facility] Comment on above: Performed By: #### L 500.4050, L100.0100, L501.9985 ####[facility] [address] [place], [address] CA,Total 9.3 mg/dL Normal 8.5-10.1 [facility] Comment on above: Performed By: #### L 500.4050, L100.0100, L501.9985 ####[facility] [address] [place], [address] Chloride [Moles/Vol] 105 mmol/L Normal 98-107 [facility] Comment on above: Performed By: #### L 500.4050, L100.0100, L501.9985 ####[facility] [address] [place], [address] CO2 [Moles/Vol] 27.0 mmol/L Normal 21.0-32.0 [facility] Comment on above: Performed By: #### L 500.4050, L100.0100, L501.9985 ####[facility] [address] [place], [address] Creatinine [Mass/Vol] 0.87 mg/dL Normal 0.55-1.[address] [facility] Comment on above: Result Comment: The validity of the calculated GFR GFRAA in patients over 70 years has not been determined. Clinical correlation is essential. Performed By: #### L 500.4050, L100.0100, L501.9985 ####[facility] [address] [place], [address] EST GFR - AA 88 mL/min Normal >60 [facility] Comment on above: Result Comment: Afri can Sudanese GFR Calc Performed By: #### L 500.4050, L100.0100, L501.9985 ####[facility] [address] [place], [address] GAP 5 Normal 5-15 [facility] Comment on above: Performed By: #### L 500.4050, L100.0100, L501.9985 ####[facility] [address] [place], [address] GFR/1.73 sq M.predicted among non-blacks MDRD (S/P/Bld) [Vol rate/Area] 73 mL/min/{1.73_m2} Normal >60 [facility] Comment on above: Result Comment: Non- GFR Calc Performed By: #### L 500.4050, L100.0100, L501.9985 ####[facility] [address] [place], [address] Globulin (S) [Mass/Vol] 3.4 g/dL Normal 2.2-4.2 [facility] Comment on above: Performed By: #### L 500.4050, L100.0100, L501.9985 ####[facility] [address] [place], [address] Glucose [Mass/Vol] 196 mg/dL High 74-106 [facility] Comment on above: Result Comment: Fast ing Glucose result greater than or equal to 126 mg/dL suggests DIABETES MELLITUS per A.D.A. criteria. Performed By: #### L 500.4050, L100.0100, L501.9985 ####[facility] [address] [place], [address] Potassium [Moles/Vol] 4.3 mmol/L Normal 3.5-5.[address] [facility] Comment on above: Performed By: #### L 500.4050, L100.0100, L501.9985 ####[facility] [address] [place], [address] Sodium [Moles/Vol] 138 mmol/L Normal 136-145 [facility] Comment on above: Performed By: #### L 500.4050, L100.0100, L501.9985 ####[facility] [address] [place], [address] T PROT 7.2 g/dL Normal 6.4-8.2 [facility] Comment on above: Performed By: #### L 500.4050, L100.0100, L501.9985 ####[facility] [address] [place], [address] Urea nitrogen [Mass/Vol] 20 mg/dL High 7-18 [facility] Comment on above: Performed By: #### L 500.4050, L100.0100, L501.9985 ####[facility] [address] [place], [place], [address] Eosinophil percentageon 120 Eosinophils/100 WBC (Bld) 1.0 % 0-5 [facility] Erythrocyte distribution wid th ratioon 02-26-2024 Erythrocyte distribution width (RBC) [Ratio] 12.8 % 11.6-14.6 [facility] Erythrocyte distribution wid th standard deviationon 02-26-2024 Erythrocyte distribution width (RBC) [Entitic vol] 42.2 fL 35.1-43.9 [facility] Estimated glomerular filtrat ion rate (GFR) Americanon 02-26-2024 Estimated GFR (MDRD) Amer 88 mL/min >60 [facility] Comment on above: GFR Calc Glomerular filtration rate ( GFR) estimationon 02-26-2024 Estimated GFR (MDRD) Non-Af Amer 73 mL/min >60 [facility] Comment on above: Non- GFR Calc Glucose measurementon 2023 Glucose [Mass/Vol] 196 mg/dL High 74-106 [facility] Comment on above: Fasting Glucose resu lt greater than or equal to 126 mg/dL suggests DIABETES MELLITUS per A.D.A. criteria. Hematocrit Auto (Bld) [Volum e fraction]on 02-26-2024 Hematocrit (Bld) [Volume fraction] 39.8 % 37-47 [facility] Hemoglobin A1con 02-26-2024 HbA1c (Bld) [Mass fraction] 7.7 % High 3.8-5.6 [facility] Comment on above: Result Comment: Norm al < 5.7 % Prediabetic 5.7 - 6.4 % Diabetic >or= 6.5 % Please note range changes. Performed By: #### L 500.4050, L100.0100, L501.9985 ####[facility] [address] [place], [address] Hemoglobin A1c percentageon 02-26-2024 HbA1c (Bld) [Mass fraction] 7.7 % High 3.8-5.6 [facility] Comment on above: Normal < 5.7 % Predi abetic 5.7 - 6.4 % Diabetic >or= 6.5 % Please note range changes. Hemoglobin measurementon Hemoglobin (Bld) [Mass/Vol] 13.3 g/dL 12.0-15.0 [facility] Immature granulocytes/100 WB C Auto (Bld)on 02-26-2024 Immature granulocytes/100 WBC (Bld) 0.300 % 0.0-0.9 [facility] Comment on above: IG% - Immature Granu locytes (promyelocytes, myelocytes and metamyelocytes) > 1% indicates that a LEFT SHIFT is Present. Laboratory - Chemistry and C hemistry - challengeon 02-26-2024 AST [Catalytic activity/Vol] 13 U/L Low 15-37 [facility] Lymphocytes Auto (Unsp spec) [#/Vol]on 02-26-2024 Lymphocytes (Bld) [#/Vol] 3.08 10*3/uL 0.83-4.51 [facility] Lymphocytes/100 WBC Auto (Un sp spec)on 02-26-2024 Lymphocytes/100 WBC (Bld) 29.3 % 19-41 [facility] MCV (mean corpuscular volume ) determinationon 02-26-2024 MCV (RBC) [Entitic vol] 90.7 fL 81-[address] [facility] Mean corpuscular hemoglobin (MCH) determinationon 02-26-2024 MCH (RBC) [Entitic mass] 30.3 pg 27.0-32.0 [facility] Mean corpuscular hemoglobin concentration (MCHC) determinationon 02-26-2024 MCHC (RBC) [Mass/Vol] 33.4 g/dL 32-[address] [facility] Mean platelet volume determi nationon 02-26-2024 Platelet mean volume (Bld) [Entitic vol] 10.3 fL 6.2-12.0 [facility] Monocyte percentageon 2023 Monocytes/100 WBC (Bld) 6.6 % 0-[address] [facility] Neutrophil percentageon Neutrophils/100 WBC (Bld) 62.2 % 47-70 [facility] Nucleated red blood cell per centageon 02-26-2024 Nucleated RBC/100 WBC (Bld) [Ratio] 0 % 0-5 [facility] Platelet counton 02-26-2024 Platelets (Bld) [#/Vol] 298 10*3/uL 150-450 [facility] Potassium measurementon Potassium [Moles/Vol] 4.3 mmol/L 3.5-5.[address] [facility] RBC Auto (Bld) [#/Vol]on RBC (Bld) [#/Vol] 4.39 10*6/uL 4.2-5.4 [facility] Serum anion gap measuremento n 02-26-2024 Anion gap [Moles/Vol] 5 mmol/L 5-[address] [facility] Serum globulin measurementon 02-26-2024 Globulin (S) [Mass/Vol] 3.4 g/dL 2.2-4.[address] [facility] Serum or plasma alanine peterson otransferase (ALT) measurementon 02-26-2024 ALT [Catalytic activity/Vol] 26 U/L 13-56 [facility] Serum or plasma albumin jerson urement (mass/volume)on 02-26-2024 Albumin [Mass/Vol] 3.8 g/dL 3.2-5.0 [facility] Serum or plasma alkaline shereen sphatase measurementon 02-26-2024 ALP [Catalytic activity/Vol] 107 U/L 45-117 [facility] Serum or plasma calcium jerson urement (mass/volume)on 02-26-2024 Calcium [Mass/Vol] 9.3 mg/dL 8.5-10.1 [facility] Serum or plasma creatinine m easurement (mass/volume)on 02-26-2024 Creatinine [Mass/Vol] 0.87 mg/dL 0.55-1.[address] [facility] Comment on above: The validity of the calculated GFR & GFRAA in patients over 70 years has not been determined. Clinical correlation is essential. Serum or plasma urea nitroge n measurement (mass/volume)on 02-26-2024 Urea nitrogen [Mass/Vol] 20 mg/dL High 7-18 [facility] Sodium levelon 02-26-2024 Sodium [Moles/Vol] 138 mmol/L 136-145 [facility] Total proteinon 02-26-2024 Protein [Mass/Vol] 7.2 g/dL 6.4-8.2 [facility] White blood cell (WBC) count on 02-26-2024 WBC (Bld) [#/Vol] 10.5 10*3/uL 4.4-11.0 [facility] SCRN MAMM (CAD)W/JAKE BILATo n 02-06-2024 SCRN MAMM (CAD)W/JAKE BILAT [facility] Imaging Services [address], [place] [address] SCRN MAMM (CAD)W/JAKE BILAT MR#: [id number] Acct: [id number] Name: LARA CHAPMAN Rep #: [id number] : 1970 F 53 From: Foster perez MD PCP: Dr. Anamaria Ricks MD Status: [facility] Study: SCRN MAMM (CAD)W/JAKE BILAT Date of Exam: 01/22 08/14 Exam# [id number] Ordering Dr: Anamaria Ricks MD -[id number] MAMMOGRAPHY - BILATERAL SCREENING REASON FOR EXAM: Female, 53 years old. Routine annual screening examination. PERTINENT HISTORY: Mother with breast cancer. TECHNIQUE: Digital bilateral breast jake (3D mammographic acquisition) in the CC and MLO projections. 2-D mediolateral oblique (MLO) and craniocaudad (CC) views of both breasts were obtained. CAD: Full Field Digital Mammography with Computer Added Detection was performed. COMPARISON: Comparison is made with prior study January 24, 2023 and May 21, 2016. FINDINGS: Breast Composition: The breasts are heterogeneously dense, which may obscure small masses. There are no dominant masses or suspicious calcifications. No other significant abnormalities are identified. There has been no significant change since the prior study. BI/SCRN MAMM (CAD)W/JAKE BILAT IMPRESSION: Stable bilateral screening mammogram. Yearly follow-up mammogram recommended. (A) ASSESSMENT CATEGORY: BIRADS Category 1: Negative. A letter regarding these results will be sent to the patient by the facility within 30 days. Approximately 10% of breast cancers are not detected by mammography. A normal mammogram should not delay biopsy of a clinically suspicious abnormality. [id number] Electronically Signed: Foster Victoria MD at 8:32 EST Reading Location ID and State: [facility] / [place] , Service support , CC: Dr. 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 Oscar rose MD Age/Sex: 53/F Location: [facility] Status: Signed Intake Vital Signs 01/23/24 11:30 Height 5 ft 5 in Intake Visit Reasons: RIGHT SHOULDER Chief Complaint: Right shoulder pain Accompanied by: Self Is patient in pain?: Yes Pain scale (1-10): 5 Allergies codeine Allergy (Verified 01/26/24 13:16) Itching Medications ???Medication ???Instructions ???Recorded ???Confirmed ???Type blood sugar diagnostic (Accu-Chek #100 ea 01/01/23 01/26/24 Rx Asya Plus test strips) blood-glucose meter (Accu-Chek #1 ea 01/01/23 01/26/24 Rx Guide Glucose Meter) lancets (Accu-Chek Softclix #100 ea 01/01/23 01/26/24 Rx Lancets) coenzyme Q10 75 mg capsule (Ultra 75 mg PO DAILY 02/11/23 01/26/24 History CoQ10) fluticasone propionate 50 2 spray intranasal DAILY #16 grams 09/05/23 01/26/24 Rx mcg/actuation nasal spray,suspension (Allergy Relief (fluticasone)) ipratropium bromide 21 mcg (0.03 2 spray intranasal BID-TID PRN 09/05/23 01/26/24 Rx %) nasal spray allergy symptoms #30 mL atorvastatin 40 mg tablet See Rx Instructions .Route 12/22/23 01/26/24 Rx .COMPLEX #90 tabs lisinopril 2.5 mg tablet 2.5 mg PO DAILY #90 tabs 12/22/23 01/26/24 Rx tirzepatide 7.5 mg/0.5 mL 7.5 mg (0.5 mL) subcut QWEEK 4 01/13/24 01/26/24 Rx subcutaneous pen injector weeks #2 mL PFSH Medical History Impingement of right shoulder Right shoulder pain Right-sided chest wall pain Left wrist pain Wears contact lenses Post-menopausal Alcohol use Diabetes High cholesterol Restless legs Non-smoker History of edema Type 2 diabetes mellitus Adhesive capsulitis of left shoulder Kidney stone Hay fever Surgical History S/P endometrial ablation History of hip surgery History of cholecystectomy History of repair of ACL History of placement of ear tubes History of tonsillectomy and adenoidectomy Family History Father Hypertension CVA (cerebral vascular accident) Diabetes Prostate cancer Myocardial infarction High cholesterol Mother Breast cancer Cancer SKIN CANCER High cholesterol Other Heart disease Social History household members: spouse and children current occupational status: employed current occupation: [facility] Smoking Status: Never smoker Electronic Cigarette Use: not used alcohol intake: current alcohol intake frequency: holidays/special occasions only details: special occasions substance use type: does not use what type of physical activity do you participate in: none seatbelt use: always do you feel safe at home: Yes additional social history: - Homar HPI RIGHT SHOULDER Details: This documentation accurately reflects the service provided and the decisions made by me, Dr. Oscar Davis MD 01/26/24 1039. Part of today???s visit was documented by [ ], acting as scribe. LARA CHAPMAN is a 53 year old F here today for follow-up right shoulder MRI results. Patient did have a cortisone injection but has not yet started physical therapy. The patient has noticed lateral based shoulder pain radiating down the arm especially with certain movements like reaching behind the back or abduction of the shoulder. No numbness or tingling in the hand. Supplemental Info [facility] Imaging Services [address], [place] [address] Upper Ext Joint Only(Routine) MR#: [id number] Acct: [id number] Name: LARA CHAPMAN Rep #: [id number] : 1970 F 53 From: Polo Briceno MD PCP: Dr. Anamaria Ricks MD Status: REG [facility] Study: Upper Ext Joint Only(Routine) Date of Exam: 01/22/24 Exam# [id number] Ordering Dr: Oscar Davis MD -[id number] EXAM: MR RIGHT UPPER EXTREMITY WITHOUT INTRAVENOUS CONTRAST, SHOULDER CLINICAL INDICATION: pain, eval for cuff tear TECHNIQUE: Multiplanar and multisequence MR images of the right shoulder without intravenous contrast. COMPARISON: No relevant prior studies available. FINDINGS: TENDONS: SUPRASPINATUS: Unremarkable. Intact. INFRASPINATUS: Unremarkable. Intact. SUBSCAPULARIS: Unremarkable. Intact. TERES MINOR: Unremarkable. Intact. BICEPS BRACHII, LONG HEAD: Unremarkabl (more content not included)... Normal [facility] Upper Ext Joint Only(Routine )on 01-22-2024 Upper Ext Joint Only(Routine) [facility] Imaging Services [address] [place], [place] [id number] Upper Ext Joint Only(Routine) MR#: [id number] Acct: [id number] Name: LARA CHAPMAN Rep #: [id number] : 1970 F 53 From: Polo Briceno MD PCP: Dr. Anamaria Ricks MD Status: REG CLI Study: Upper Ext Joint Only(Routine) Date of Exam: Exam# [id number] Ordering Dr: Oscar Davis MD -[id number] EXAM: MR RIGHT UPPER EXTREMITY WITHOUT INTRAVENOUS CONTRAST, SHOULDER CLINICAL INDICATION: pain, eval for cuff tear TECHNIQUE: Multiplanar and multisequence MR images of the right shoulder without intravenous contrast. COMPARISON: No relevant prior studies available. FINDINGS: TENDONS: SUPRASPINATUS: Unremarkable. Intact. INFRASPINATUS: Unremarkable. Intact. SUBSCAPULARIS: Unremarkable. Intact. TERES MINOR: Unremarkable. Intact. BICEPS BRACHII, LONG HEAD: Unremarkable. The extra-articular biceps tendon is in the bicipital groove. The intra-articular biceps tendon is normal. LIGAMENTS: GLENOHUMERAL: Unremarkable. Intact. MUSCLES: Unremarkable. No rotator cuff muscle atrophy. FLUID: Unremarkable. No joint effusion. No subacromial-subdelt oid space bursal fluid. CARTILAGE: Unremarkable. Articular cartilage intact. GLENOID LABRUM: Unremarkable. Intact, limited evaluation on non-arthrographic exam. BONES/JOINTS: Type I acromion with flat undersurface. No subacromial enthesophyte or os acromiale. No fracture. No abnormal bone marrow signal. OTHER SOFT TISSUES: Unremarkable. No rotator interval edema. MRI/Upper Ext Joint Only(Routine) IMPRESSION: Unremarkable MRI of the right shoulder. Electronically Signed: Polo Briceno MD at 22:05 EDT , CC: Dr. Anamaria Ricks MD; Dr. 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 [address] [place] [id number] OFFICE VISIT Date of Service: 01/16/24 MR#: [id number] Acct: [id number] Name: LARA CHAPMAN Rep #: [id number] : 1970 Provider: Dr. Oscar rose MD Age/Sex: 53/F Location: [facility] Status: Signed Intake Vital Signs 12/16/23 14:36 Height 5 ft 5 in Intake Visit Reasons: RIGHT SHOULDER Chief Complaint: Right shoulder pain Accompanied by: Self Is patient in pain?: Yes (Right shoulder ) Pain scale (1-10): 4 Allergies codeine Allergy (Verified 01/16/24 14:33) Itching Medications ???Medication ???Instructions ???Recorded ???Confirmed ???Type blood sugar diagnostic (Accu-Chek #100 ea 01/01/23 01/16/24 Rx Asya Plus test strips) blood-glucose meter (Accu-Chek #1 ea 01/01/23 01/16/24 Rx Guide Glucose Meter) lancets (Accu-Chek Softclix #100 ea 01/01/23 01/16/24 Rx Lancets) coenzyme Q10 75 mg capsule (Ultra 75 mg PO DAILY 02/11/23 01/16/24 History CoQ10) fluticasone propionate 50 2 spray intranasal DAILY #16 grams 09/05/23 01/16/24 Rx mcg/actuation nasal spray,suspension (Allergy Relief (fluticasone)) ipratropium bromide 21 mcg (0.03 2 spray intranasal BID-TID PRN 09/05/23 01/16/24 Rx %) nasal spray allergy symptoms #30 mL atorvastatin 40 mg tablet See Rx Instructions .Route 12/22/23 01/16/24 Rx .COMPLEX #90 tabs lisinopril 2.5 mg tablet 2.5 mg PO DAILY #90 tabs 12/22/23 01/16/24 Rx tirzepatide 7.5 mg/0.5 mL 7.5 mg (0.5 mL) subcut QWEEK 4 10/22/24 10/25/24 Rx subcutaneous pen injector weeks #2 mL PFSH Medical History Impingement of right shoulder Right shoulder pain Right-sided chest wall pain Left wrist pain Wears contact lenses Post-menopausal Alcohol use Diabetes High cholesterol Restless legs Non-smoker History of edema Type 2 diabetes mellitus Adhesive capsulitis of left shoulder Kidney stone Hay fever Surgical History S/P endometrial ablation History of hip surgery History of cholecystectomy History of repair of ACL History of placement of ear tubes History of tonsillectomy and adenoidectomy Family History Father Hypertension CVA (cerebral vascular accident) Diabetes Prostate cancer Myocardial infarction High cholesterol Mother Breast cancer Cancer SKIN CANCER High cholesterol Other Heart disease Social History household members: spouse and children current occupational status: employed current occupation: [employer] Smoking Status: Never smoker Electronic Cigarette Use: not used alcohol intake: current alcohol intake frequency: holidays/special occasions only details: special occasions substance use type: does not use what type of physical activity do you participate in: none seatbelt use: always do you feel safe at home: Yes additional social history: - Homar ROBERTSON RIGHT SHOULDER Details: This documentation accurately reflects the service provided and the decisions made by me, Dr. Oscar Davis MD 01/16/24 1312. Part of today???s visit was documented by [ ], acting as scribe. LARA CHAPMAN is a 53 year old F here today for FU R shoulder pain, had right shoulder cortisone injection now 3 weeks ago with minimal relief. The patient only got about 2 days of help from the injection the pain is worse at night wakes the patient up multiple times at night. The pain is located on the lateral aspect of the arm worse with lifting. Coding Level of Care Code Off vis,est,level 3 Diagnoses Right shoulder pain M25.511 Impingement of right shoulder M25.811 Assessment and Plan Assessment and Plan (1) Right shoulder pain: Status: Acute Plan: LARA CHAPMAN is a 53 year old F here today for FU R shoulder pain, had right shoulder cortisone injection now 3 weeks ago with no relief. This could be rotator cuff tear impingement syndrome bursitis or other problems about the shoulder. I will go ahead and order an MRI of the shoulder as well as a referral for physical therapy at [facility] follow-up after the test the patient understands no further questions or concerns. (2) Impingement of right shoulder: Status: Acute Orders: Orders Upper Ext Joint Only(Routine) Today M25.511 - Pain in right shoulder, M25.811 - Other specified joint disorders, right shoulder Referrals PT Referral M25.511 - Pain in right shoulder, M25.811 - Other specified joint disorders, right shoulder Ortho Exam General General: Yes no acute distress Neurologic: Yes alert and Yes oriented x3 Psychologic: Yes reasonable and appropriate Rig (more content not included)... Normal [facility] Orthopedic Visit Reporton Orthopedic Visit Report [facility] [address] [place] [address] OFFICE VISIT Date of Service: 12/23/23 MR#: [id number] Acct: [id number] Name: LARA CHAPMAN Rep #: [id number] : 1970 Provider: Dr. Oscar rose MD Age/Sex: 53/F Location: [facility] Status: Signed Intake Vital Signs 09/29/23 07:38 12/16/23 14:36 Height 5 ft 5 in 5 ft 5 in Intake Visit Reasons: RIGHT SHOULDER Accompanied by: Self Is patient in pain?: Yes Pain scale (1-10): 4 Allergies codeine Allergy (Verified 12/23/23 11:02) Itching Medications ???Medication ???Instructions ???Recorded ???Confirmed ???Type blood sugar diagnostic (Accu-Chek #100 ea 01/01/23 12/23/23 Rx Asya Plus test strips) blood-glucose meter (Accu-Chek #1 ea 01/01/23 12/23/23 Rx Guide Glucose Meter) lancets (Accu-Chek Softclix #100 ea 01/01/23 12/23/23 Rx Lancets) coenzyme Q10 75 mg capsule (Ultra 75 mg PO DAILY 02/11/23 12/23/23 History CoQ10) fluticasone propionate 50 2 spray intranasal DAILY #16 grams 09/05/23 12/23/23 Rx mcg/actuation nasal spray,suspension (Allergy Relief (fluticasone)) ipratropium bromide 21 mcg (0.03 2 spray intranasal BID-TID PRN 09/05/23 12/23/23 Rx %) nasal spray allergy symptoms #30 mL tirzepatide 10 mg/0.5 mL 10 mg (0.5 mL) subcut QWEEK 4 09/29/23 12/23/23 Rx subcutaneous pen injector weeks #2 mL atorvastatin 40 mg tablet See Rx Instructions .Route 12/22/23 12/23/23 Rx .COMPLEX #90 tabs lisinopril 2.5 mg tablet 2.5 mg PO DAILY #90 tabs 12/22/23 12/23/23 Rx PFSH Medical History (Updated 12/23/23 @ 11:43 by Oscar Davis MD) Impingement of right shoulder Right shoulder pain Right-sided chest wall pain Left wrist pain Wears contact lenses Post-menopausal Alcohol use Diabetes High cholesterol Restless legs Non-smoker History of edema Type 2 diabetes mellitus Adhesive capsulitis of left shoulder Kidney stone Hay fever Surgical History S/P endometrial ablation History of hip surgery History of cholecystectomy History of repair of ACL History of placement of ear tubes History of tonsillectomy and adenoidectomy Family History Father Hypertension CVA (cerebral vascular accident) Diabetes Prostate cancer Myocardial infarction High cholesterol Mother Breast cancer Cancer SKIN CANCER High cholesterol Other Heart disease Social History household members: spouse and children current occupational status: employed current occupation: [employer] Smoking Status: Never smoker Electronic Cigarette Use: not used alcohol intake: current alcohol intake frequency: holidays/special occasions only details: special occasions substance use type: does not use what type of physical activity do you participate in: none seatbelt use: always do you feel safe at home: Yes additional social history: - Homar HPI RIGHT SHOULDER Details: This documentation accurately reflects the service provided and the decisions made by me, Dr. Oscar Davis MD 12/23/23 1100. Part of today???s visit was documented by [ ], acting as scribe. LARA CHAPMAN is a 53 year old F here today for R shoulder pain. no stiffness on the right side. 1 month. lateral side pain. no injnury. worse at night. worse with reaching. RHD. Patient did have adhesive capsulitis on the left shoulder tried quite a bit of stretching and a cortisone injection there but is quite stiff stiffness on the right side more so pain lateral side going down the arm worse with lifting and working the patient up at night the patient is interested in a cortisone injection. hg a1c is 7 now, but was 13. still stiff on the left side. Ortho Exam General General: Yes no acute distress Neurologic: Yes alert and Yes oriented x3 Psychologic: Yes reasonable and appropriate Right Shoulder Skin/Wound: Yes CDI, No ecchymosis, No erythema and No swelling Testing: Positive Hawkin's, Neer's, AROM-Forward Elevation 0-180, AROM-External Rotation at side 0- 60, empty can and belly press normal; Negative Speed's, TTP Biceps, TTP AC Joint, Drop Arm, cross arm or scapular winging SHOULDER: normal motor and sens to ax nerve, and MRU and AIN/PIN strength fe 4+, er 5, pos painful arc. Left Shoulder Skin/Wound: Yes CDI, No ecchymosis, No erythema and No swelling Testing: Yes Hawkin's, No scapular winging and Yes belly press normal Internal Rotation: Hip SHOULDER: Active and passive forward elevation 85 degrees. Er neutral. Office Procedures Ortho Injections Injections Yes Subacromial Injection Right Is this a patient provided medication?: No Detail (more content not included)... Normal [facility] Shoulder min 2 Viewson 12-22 Shoulder min 2 Views [facility] Imaging Services [address] [place] [address] Shoulder min 2 Views MR#: [id number] Acct: [id number] Name: LARA CHAPMAN Rep #: [id number] : 1970 F 53 From: Dudely Bush MD PCP: Dr. Anamaria Ricks MD Status: REG CLI Study: Shoulder min 2 Views Date of Exam: 12/23/23 Exam# [id number] Ordering Dr: Oscar Davis MD -[id number] STUDY: X-RAY - RIGHT SHOULDER REASON FOR EXAM: Female, 53 years old. Pain. TECHNIQUE: 4 views of the right shoulder. COMPARISON: None. FINDINGS: There is a 3 mm calcific density situated inferior to the inferior glenoid rim, possibly representing a small loose body. Otherwise, normal glenohumeral articulation. Normal acromioclavicular joint. Normal acromion. Normal humeral head and visualized proximal humerus. The soft tissue structures are unremarkable. Normal visualized pulmonary apex. RAD/Shoulder min 2 Views IMPRESSION: Suspected 3 mm calcified loose body in the inferior glenohumeral joint recess. Electronically Signed: Dudley Bush MD at 11:43 EDT , CC: Dr. Anamaria Ricks MD; Dr. 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 Chloride [Moles/Vol] 107 mmol/L 98-107 [facility] Cholesterol [Mass/Vol] 270 mg/dL <200 [facility] Comment on above: <200 mg/dL Desirable 200-240 mg/dL Borderline >240 mg/dL High Risk Glucose [Mass/Vol] 169 mg/dL 74-106 [facility] Comment on above: Fasting Glucose resu lt greater than or equal to 126 mg/dL suggests DIABETES MELLITUS per A.D.A. criteria. Potassium [Moles/Vol] 3.7 mmol/L 3.5-5.[address] [facility] Protein [Mass/Vol] 7.9 g/dL 6.4-8.2 [facility] Sodium [Moles/Vol] 135 mmol/L 136-145 [facility] Triglyceride [Mass/Vol] 123 mg/dL <[address] [facility] Comment on above: The drugs N-Acetylcy steine and Metamizole may falsely depress this assay.Serum Triglycerides Reference Interval Normal <150 mg/dL Borderline high 150 - 199 mg/dL High 200 - 499 mg/dL Very High > or = 500 mg/dL Laboratory - Chemistry and C hemistry - challengeOrdered By: Anamaria Ricks on 05-01-2023 Albumin/Globulin [Mass ratio] 1.0 {ratio} 0.9-2.4 [facility] ALP [Catalytic activity/Vol] 99 U/L 45-117 [facility] ALT [Catalytic activity/Vol] 21 U/L 13-56 [facility] Cholesterol in HDL [Mass/Vol] 50 mg/dL >40 [facility] Comment on above: The drugs N-Acetylcy steine and Metamizole may falsely depress this assay. Reference Range HDL <40 mg/dL Low HDL Cholesterol HDL >or= 60 mg/dL High HDL Cholesterol Cholesterol in LDL [Mass/Vol] 195 mg/dL 0-130 [facility] CO2 [Moles/Vol] 22.0 mmol/L 21.0-32.0 [facility] Globulin (S) [Mass/Vol] 4.0 g/dL 2.2-4.2 [facility] Urea nitrogen/Creatinine [Mass ratio] 23.0 mg/mg 10-20 [facility] No Panel InformationOrdered By: Anamaria Ricks on 05-01-2023 Estimated GFR (MDRD) Amer 123 mL/min >60 [facility] Comment on above: GFR Calc Estimated GFR (MDRD) Non-Af Amer 102 mL/min >60 [facility] Comment on above: Non- GFR Calc Urine Microalbumin/Creatinine Ratio 26.6 mg/g CRE <30 [facility] VLDL Cholesterol 25 mg/dL 5-40 [facility] Serum or plasma calcium jerson urement (mass/volume)Ordered By: Anamaria Ricks on 05-01-2023 Calcium [Mass/Vol] 9.2 mg/dL 8.5-10.1 [facility] Serum or plasma creatinine m easurement (mass/volume)Ordered By: Anamaria Ricks on 05-01-2023 Creatinine [Mass/Vol] 0.65 mg/dL 0.55-1.[address] [facility] Comment on above: The validity of the calculated GFR & GFRAA in patients over 70 years has not been determined. Clinical correlation is essential. Serum or plasma urea nitroge n measurement (mass/volume)Ordered By: Anamaria Ricks on 05-01-2023 Urea nitrogen [Mass/Vol] 15 mg/dL 7-18 [facility] Thin prep Papanicolaou smear with manual screeningOrdered By: Anamaria Ricks on 05-01-2023 Thin prep Papanicolaou smear with manual screening 3.9 g/dL 3.2-5.0 [facility] Thin prep Papanicolaou smear with manual screening 17 U/L 15-37 [facility] Thin prep Papanicolaou smear with manual screening 6 5-15 [facility] Thin prep Papanicolaou smear with manual screening 33.3 mg/L NO RANGE EST. [facility] Urine creatinine measurement (mass/volume)Ordered By: Anamaria Ricks on 05-01-2023 Creatinine (U) [Mass/Vol] 125.00 mg/dL NO RANGE EST. [facility] Basophil percentageOrdered B y: Newton Harden on 03-26-2023 Basophil percentage [facility] Laboratory - Microbiology an d Antimicrobial susceptibilityOrdered By: Newton Harden on 03-26-2023 SARS-CoV-2 (COVID-19) RNA HUSAM+probe Ql (Unsp spec) SARS-CoV-2 (COVID 19) [facility] No Panel Informationon 03-26 Influenza Types A,B Rapid (Clinic) Negative [facility] Glucose Glucometer (BldC) [M ass/Vol]Ordered By: Iggy Panchal on 02-20-2023 Glucose [Mass/Vol] 178 mg/dL 74-106 [facility] Comment on above: MANAGEMENT OF PATIEN T CARE PER NURSING PROTOCOL Cervical or vagninal specime n microscopic examination by cytology stain (reported asOrdered By: Dulce Chairez on 02-11-2023 Cytology report Cyto stain Doc (Cvx/Vag) Comment . [facility] Comment on above: The Pap smear is a s creening test designed to aid in thedetection of premalignant and malignant conditions of theuterine cervix. It is not a diagnostic procedure andshould not be used as the sole means of detecting cervicalcancer. Both false-positive and false-negative reports dooccur. Detection in cervical specim en of any of human papilloma virus (HPV) 16, 18, 31, 33,Ordered By: Dulce Chairez on 02-11-2023 HPV 16+18+31+33+35+39+45+51+ 52+56+58+59+66+68 DNA Probe+sig amp Ql (Cvx) Negative Negative [facility] Comment on above: This nucleic acid am plification test detects fourteen high-risk HPV types (16,18,31,33,35,39,45,51,52,56,58,59,66,68)without differentiation. Laboratory - CytologyOrdered By: Dulce Chairez on 02-11-2023 Geologic Technician Cyto stain Nom (Cvx/Vag) [ID] Comment . [facility] Comment on above: Samanta Winter pervisory Lube Worker (ASCP) Laboratory - Miscellaneous t estsOrdered By: Dulce Chairez on 02-11-2023 Service comment (Unsp spec) [Interp] Comment . [facility] Comment on above: This liquid based Th inPrep(R) pap test was screened withthe use of an image guided system. Service comment (Unsp spec) [Interp] . . [facility] Liquid-based cerv Pap + CT/G C by HUSAM w reflex to high-risk HPV for ASCUSOrdered By: Dulce Chairez on 02-11-2023 Cytology report Cyto stain.thin prep Doc (Cvx/Vag) Comment . [facility] Comment on above: Criteria not met, HP V Genotype not performed.Performed at: [address], [place] [id number] Director: Jennifer Salcedo MD, Phone: [phone] at: =[facility] [place], [place] [id number] Director: Jennifer Salcedo MD, Phone: [phone] No Panel InformationOrdered By: Dulce Chairez on 02-11-2023 Pathology report final diagnosis Narrative Comment . [facility] Comment on above: NEGATIVE FOR INTRAEP ITHELIAL LESION OR MALIGNANCY. Basophil percentageOrdered B y: Anamaria Ricks on 01-28-2023 Basophil percentage 10-25 SEEN /hpf 0-5 [facility] Bilirubin Test strip Ql (U)O rdered By: Anamaria Ricks on 01-28-2023 Bilirubin Ql (U) Negative Negative [facility] Culture, urineOrdered By: Romulo Ricks on 01-28-2023 Bacteria identified Cx Nom (U) Mixed Gram Pos & Gram Neg Org [facility] Ketones Test strip Ql (U)Ord ered By: Anamaria Ricks on 01-28-2023 Ketones Ql (U) 150 mg/dl Negative [facility] Comment on above: CRITICAL VALUE *H Mucus LM Ql (Urine sed)Order ed By: Anamaria Ricks on 01-28-2023 Mucus Ql (Urine sed) 0 SEEN /hpf [facility] Nitrite Test strip Ql (U)Ord ered By: Anamaria Ricks on 01-28-2023 Nitrite Ql (U) Negative Negative [facility] No Panel InformationOrdered By: Anamaria Ricks on 01-28-2023 Urine Microalbumin/Creatinine Ratio 33.1 mg/g CRE <30 [facility] Protein Test strip Ql (U)Ord ered By: Anamaria Ricks on 01-28-2023 Protein Ql (U) 15 mg/dl Negative [facility] Squamous epithelial cells de tection in urine sediment by light microscopyOrdered By: Anamaria Ricks on 01-28-2023 Epithelial cells.squamous LM Ql (Urine sed) 0-5 SEEN /hpf 5-10 [facility] Thin prep Papanicolaou smear with manual screeningOrdered By: Anamaria Ricks on 01-28-2023 Thin prep Papanicolaou smear with manual screening 32.8 mg/L NO RANGE EST. [facility] Urine blood detectionOrdered By: Anamaria Ricks on 01-28-2023 RBC Ql (U) 25 /ul Negative [facility] RBC Ql (U) 0 SEEN /hpf 0-5 [facility] Urine clarityOrdered By: Timothy Ricks on 01-28-2023 Clarity (U) Clear Clear [facility] Urine color determinationOrd ered By: Anamaria Ricks on 01-28-2023 Color (U) Yellow Yellow [facility] Urine creatinine measurement (mass/volume)Ordered By: Anamaria Ricks on 01-28-2023 Creatinine (U) [Mass/Vol] 99.00 mg/dL NO RANGE EST. [facility] Urine glucose detectionOrder ed By: Anamaria Ricks on 01-28-2023 Glucose Ql (U) 1000 mg/dl Normal [facility] Urine leukocyte esterase det ection by dipstickOrdered By: Anamaria Ricks on 01-28-2023 Leukocyte esterase Test strip Ql (U) 500 /ul Negative [facility] Urine pHOrdered By: Anamaria pruitt on 01-28-2023 pH (U) 5.0 [pH] 5.0 - 8.0 [facility] Urine sediment bacteria coun t by microscopy (number/high power field)Ordered By: Anamaria Ricks on 01-28-2023 Bacteria LM.HPF (Urine sed) [#/Area] 0 /[HPF] None Seen [facility] Urine specific gravity measu rementOrdered By: Anamaria Ricks on 01-28-2023 Specific gravity (U) [Rel density] 1.025 1.002-1.030 [facility] Urobilinogen Auto test strip Ql (U)Ordered By: Anamaria Ricks on 01-28-2023 Urobilinogen Ql (U) Normal mg/dl Normal [facility] Laboratory - Hematology and Cell countson 01-01-2023 HbA1c (Bld) [Mass fraction] 13.2 % 4.2-6.3 [facility] Absolute lymphocyte countOrd ered By: HEALTH ASSESSMENT on 12-30-2022 Lymphocytes Auto (Unsp spec) [#/Vol] 3.04 10*3/uL 0.83-4.51 [facility] Absolute reticulocyte countO rdered By: HEALTH ASSESSMENT on 12-30-2022 Reticulocytes (Bld) [#/Vol] 0.00 10*3/uL 0-5 [facility] Basophil percentageOrdered B y: HEALTH ASSESSMENT on 12-30-2022 Basophil percentage 3.5 mg/dL 2.5-4.9 [facility] Bilirubin [Mass/Vol] 0.60 mg/dL 0.20-1.00 [facility] Comment on above: For patients on eltr ombopag therapy, use of Dimension [place] TBIL is not recommended. Chloride [Moles/Vol] 101 mmol/L 98-107 [facility] Cholesterol [Mass/Vol] 451 mg/dL <200 [facility] Comment on above: <200 mg/dL Desirable 200-240 mg/dL Borderline >240 mg/dL High Risk Glucose [Mass/Vol] 340 mg/dL 74-106 [facility] Comment on above: Glucose result great er than or equal to 200 mg/dLsuggests DIABETES MELLITUS per A.D.A. criteria. LDH [Catalytic activity/Vol] 157 U/L 84-246 [facility] Neutrophils (Bld) [#/Vol] 5.7 10*3/uL 2.0-7.7 [facility] Potassium [Moles/Vol] 4.3 mmol/L 3.5-5.[address] [facility] Protein [Mass/Vol] 7.1 g/dL 6.4-8.2 [facility] Sodium [Moles/Vol] 137 mmol/L 136-145 [facility] Triglyceride [Mass/Vol] 435 mg/dL <[address] [facility] Comment on above: The drugs N-Acetylcy steine and Metamizole may falsely depress this assay. TRIGLYCERIDE IS GREATER THAN 400 mg/dL. LDL RESULT IS INVALID AND WILL NOT BE REPORTED.Serum Triglycerides Reference Interval Normal <150 mg/dL Borderline high 150 - 199 mg/dL High 200 - 499 mg/dL Very High > or = 500 mg/dL WBC (Bld) [#/Vol] 9.6 10*3/uL 4.4-11.0 [facility] Bilirubin Test strip Ql (U)O rdered By: HEALTH ASSESSMENT on 12-30-2022 Bilirubin Ql (U) Negative Negative [facility] Blood erythrocytes count (nu mber/volume)Ordered By: HEALTH ASSESSMENT on 12-30-2022 RBC (Bld) [#/Vol] 4.87 10*6/uL 4.2-5.4 [facility] Blood hemoglobin measurement (mass/volume)Ordered By: HEALTH ASSESSMENT on 12-30-2022 Hemoglobin (Bld) [Mass/Vol] 14.5 g/dL 12.0-15.0 [facility] Blood platelet mean volumeOr dered By: HEALTH ASSESSMENT on 12-30-2022 Platelet mean volume (Bld) [Entitic vol] 11.1 fL 6.2-12.0 [facility] Determination of erythrocyte mean corpuscular volume (MCV)Ordered By: HEALTH ASSESSMENT on 12-30-2022 MCV (RBC) [Entitic vol] 91.0 fL 81-[address] [facility] Direct bilirubinOrdered By: HEALTH ASSESSMENT on 12-30-2022 Bilirubin.direct [Mass/Vol] 0.12 mg/dL 0.00-0.30 [facility] Hematocrit Auto (Bld) [Volum e fraction]Ordered By: HEALTH ASSESSMENT on 12-30-2022 Hematocrit (Bld) [Volume fraction] 44.3 % 37-47 [facility] Ketones Test strip Ql (U)Ord ered By: HEALTH ASSESSMENT on 12-30-2022 Ketones Ql (U) 50 mg/dl Negative [facility] Laboratory - Chemistry and C hemistry - challengeOrdered By: HEALTH ASSESSMENT on 12-30-2022 ALP [Catalytic activity/Vol] 122 U/L 45-117 [facility] ALT [Catalytic activity/Vol] 20 U/L 13-56 [facility] Cholesterol.total/Choles terol in HDL [Mass ratio] 11.30 {ratio} [facility] CO2 [Moles/Vol] 26.0 mmol/L 21.0-32.0 [facility] Globulin (S) [Mass/Vol] 3.8 g/dL 2.2-4.[address] [facility] Urea nitrogen/Creatinine [Mass ratio] 18.4 mg/mg 10-20 [facility] Laboratory - Hematology and Cell countsOrdered By: HEALTH ASSESSMENT on 12-30-2022 Erythrocyte distribution width (RBC) [Entitic vol] 40.6 fL 35.1-43.9 [facility] Erythrocyte distribution width (RBC) [Ratio] 12.3 % 11.6-14.6 [facility] MCH (RBC) [Entitic mass] 29.8 pg 27.0-32.0 [facility] Nucleated RBC/100 WBC (Bld) [Ratio] 0 % 0-5 [facility] MCHC Auto (RBC) [Mass/Vol]Or dered By: HEALTH ASSESSMENT on 12-30-2022 MCHC (RBC) [Mass/Vol] 32.7 g/dL 32-[address] [facility] Nitrite Test strip Ql (U)Ord ered By: HEALTH ASSESSMENT on 12-30-2022 Nitrite Ql (U) Negative Negative [facility] No Panel InformationOrdered By: HEALTH ASSESSMENT on 12-30-2022 Estimated GFR (MDRD) Amer 104 mL/min >60 [facility] Comment on above: GFR Calc Estimated GFR (MDRD) Non-Af Amer 86 mL/min >60 [facility] Comment on above: Non- GFR Calc Platelets bldOrdered By: [facility] ASSESSMENT on 12-30-2022 Platelets (Bld) [#/Vol] 280 10*3/uL 150-450 [facility] Protein Test strip Ql (U)Ord ered By: HEALTH ASSESSMENT on 12-30-2022 Protein Ql (U) 15 mg/dl Negative [facility] Segmented neutrophils/100 WB C Auto (Bld)Ordered By: HEALTH ASSESSMENT on 12-30-2022 Segmented neutrophils/100 WBC (Bld) 59.2 % 47-70 [facility] Serum or plasma albumin jerson urement (mass/volume)Ordered By: HEALTH ASSESSMENT on 12-30-2022 Albumin [Mass/Vol] 3.3 g/dL 3.2-5.0 [facility] Serum or plasma albumin/glob ulin mass ratioOrdered By: HEALTH ASSESSMENT on 12-30-2022 Albumin/Globulin [Mass ratio] 0.9 {ratio} 0.9-2.4 [facility] Serum or plasma calcium jerson urement (mass/volume)Ordered By: HEALTH ASSESSMENT on 12-30-2022 Calcium [Mass/Vol] 8.7 mg/dL 8.5-10.1 [facility] Serum or plasma cholesterol in HDL measurement (mass/volume)Ordered By: HEALTH ASSESSMENT on 12-30-2022 Cholesterol in HDL [Mass/Vol] 40 mg/dL >40 [facility] Comment on above: The drugs N-Acetylcy steine and Metamizole may falsely depress this assay. Reference Range HDL <40 mg/dL Low HDL Cholesterol HDL >or= 60 mg/dL High HDL Cholesterol Serum or plasma cholesterol in VLDL measurement (mass/volume)Ordered By: HEALTH ASSESSMENT on 12-30-2022 Cholesterol in VLDL [Mass/Vol] TNP [facility] Comment on above: Test not performed Serum or plasma creatinine m easurement (mass/volume)Ordered By: HEALTH ASSESSMENT on 12-30-2022 Creatinine [Mass/Vol] 0.76 mg/dL 0.55-1.[address] [facility] Comment on above: The validity of the calculated GFR & GFRAA in patients over 70 years has not been determined. Clinical correlation is essential. Serum or plasma low density lipoprotein (LDL) cholesterol measurement (mass/volume)Ordered By: HEALTH ASSESSMENT on 12-30-2022 Cholesterol in LDL [Mass/Vol] TNP [facility] Comment on above: Test not performed Serum or plasma urea nitroge n measurement (mass/volume)Ordered By: HEALTH ASSESSMENT on 12-30-2022 Urea nitrogen [Mass/Vol] 14 mg/dL 7-18 [facility] Serum or plasma uric acid me asurement (mass/volume)Ordered By: HEALTH ASSESSMENT on 12-30-2022 Urate [Mass/Vol] 3.8 mg/dL 2.6-6.0 [facility] Comment on above: The drugs N-Acetylcy steine and Metamizole may falsely depress this assay. Thin prep Papanicolaou smear with manual screeningOrdered By: HEALTH ASSESSMENT on 12-30-2022 Thin prep Papanicolaou smear with manual screening 9 U/L 15-37 [facility] Thin prep Papanicolaou smear with manual screening 10 5-15 [facility] Urine blood detectionOrdered By: HEALTH ASSESSMENT on 12-30-2022 RBC Ql (U) 10 /ul Negative [facility] Urine clarityOrdered By: HEA LTH ASSESSMENT on 12-30-2022 Clarity (U) Sl. Cloudy Clear [facility] Urine color determinationOrd ered By: HEALTH ASSESSMENT on 12-30-2022 Color (U) Yellow Yellow [facility] Urine glucose detectionOrder ed By: HEALTH ASSESSMENT on 12-30-2022 Glucose Ql (U) 1000 mg/dl Normal [facility] Urine leukocyte esterase det ection by dipstickOrdered By: HEALTH ASSESSMENT on 12-30-2022 Leukocyte esterase Test strip Ql (U) 100 /ul Negative [facility] Urine pHOrdered By: HEALTH A SSESSMENT on 12-30-2022 pH (U) 5.0 [pH] 5.0 - 8.0 [facility] Urine specific gravity measu rementOrdered By: HEALTH ASSESSMENT on 12-30-2022 Specific gravity (U) [Rel density] 1.020 1.002-1.030 [facility] Urobilinogen Auto test strip Ql (U)Ordered By: HEALTH ASSESSMENT on 12-30-2022 Urobilinogen Ql (U) Normal mg/dl Normal [facility] Office Visit: UC: chaparro Documentation of current medications (procedure) Done Invalid Interpretation Code [facility] Work Phone: Fall risk assessment No Invalid Interpretation Code [facility] Work Phone: Protein mass conc Done [facility] Work Phone: Tobacco smoking status NHIS Never smoker [facility] Work Phone: Tobacco use HS Never smoker Invalid Interpretation Code [facility] Work Phone: Blood Glucose , Office ([phone])Ordered By: Hina Stahl on 06-12-2011 Glucose Glucometer (BldC) [Moles/Vol] 117 1 Normal [facility] Work Phone: HgA1C , Office ([phone])Ordere d By: Hina Stahl on 06-12-2011 HbA1c (Bld) [Mass fraction] 7.6 % Abnormal 4.6 - 7.1 [facility] Work Phone: Blood Glucose , Office ([phone])Ordered By: Esperanza Shane on 03-19-2011 Glucose Glucometer (BldC) [Moles/Vol] 108 1 Normal [facility] Work Phone: HgA1C , Office ([phone])Ordere d By: Esperanza Shane on 03-19-2011 HbA1c (Bld) [Mass fraction] 7.6 % Abnormal 4.6 - 7.1 [facility] Work Phone: Blood Glucose , Office ([phone])Ordered By: Esperanza Shane on 08-29-2010 Glucose Glucometer (BldC) [Moles/Vol] 155 1 Normal [facility] Work Phone: HgA1C , Office ([phone])Ordere d By: Esperanza Shane on 08-29-2010 HbA1c (Bld) [Mass fraction] 7.1 % Normal 4.6 - 7.1 [facility] Work Phone: Blood Glucose , Office ([phone])Ordered By: Gay Mitchell on 05-14-2010 Glucose Glucometer (BldC) [Moles/Vol] 119 1 Normal [facility] Work Phone: Comment on above: ate 2 H ago HgA1C , Office ([phone])Ordere d By: Gay Mitchell on 05-14-2010 HbA1c (Bld) [Mass fraction] 6.8 % Normal 4.6 - 7.1 [facility] Work Phone: [facility]OK[facility] CULTURE-OTHER ([phone])Ord ered By: Sample Dye Mixer on 01-05-2010 Bacteria identified Respiratory culture Nom (Unsp spec) Final report Normal [facility] Work Phone: Comment on above: PATIENT NOT FASTINGP ERFORMED BY: CB [facility] [id number] [address] [facility] [id number] Information: SRC:MILIND [id number] Bacteria identified Respiratory culture Nom (Unsp spec) RRF Normal [facility] Work Phone: Comment on above: Routine respiratory caitlin PATIENT NOT FASTINGP ERFORMED BY: CB [facility] [id number] [address] RoadUNC [facility] [id number] Information: SRC:MILIND [id number] Blood Glucose , Office ([phone])Ordered By: Esperanza Shane on 01-05-2010 Glucose Glucometer (BldC) [Moles/Vol] 101 1 Normal [facility] Work Phone: HgA1C , Office ([phone])Ordere d By: Kathy Fast on 01-05-2010 HbA1c (Bld) [Mass fraction] 6.7 % Normal 4.6 - 7.1 [facility] Work Phone: Blood Glucose , Office ([phone])Ordered By: Lucita Leonard on 10-20-2009 Glucose Glucometer (BldC) [Moles/Vol] 137 1 Normal [facility] Work Phone: HgA1C , Office ([phone])Ordere d By: Lucita Leonard on 10-20-2009 HbA1c (Bld) [Mass fraction] 7.1 % Normal 4.6 - 7.1 [facility] Work Phone: Blood Glucose , Office ([phone])Ordered By: Esperanza Shane on 07-14-2009 Glucose Glucometer (BldC) [Moles/Vol] 124 1 Normal [facility] Work Phone: HgA1C , Office ([phone])Ordere d By: Kathy Fast on 07-14-2009 HbA1c (Bld) [Mass fraction] 6.5 % Normal 4.6 - 7.1 [facility] Work Phone: Blood Glucose , Office ([phone])Ordered By: Hina Stahl on 03-31-2009 Glucose Glucometer (BldC) [Moles/Vol] 142 1 Normal [facility] Work Phone: HgA1C , Office ([phone])Ordere d By: Hina Mast on 03-31-2009 HbA1c (Bld) [Mass fraction] 6.6 % Normal 4.6 - 7.1 [facility] Work Phone: Blood Glucose , Office ([phone])Ordered By: Esperanza Shane on 12-09-2008 Glucose Glucometer (BldC) [Moles/Vol] 101 1 Normal [facility] Work Phone: HgA1C , Office ([phone])Ordere d By: Esperanza Shane on 12-09-2008 HbA1c (Bld) [Mass fraction] 6.2 % Normal 4.6 - 7.1 [facility] Work Phone: Blood Glucose , Office ([phone])Ordered By: Mignon Donahue on 09-08-2008 Glucose Glucometer (BldC) [Moles/Vol] 127 1 Normal [facility] Work Phone: Comment on above: done j HgA1C , Office ([phone])Ordere d By: Esperanza Shane on 09-08-2008 HbA1c (Bld) [Mass fraction] 6.2 % Normal 4.6 - 7.1 [facility] Work Phone: Comment on above: done j Blood Glucose , Office ([phone])Ordered By: Esperanza Shane on 06-10-2008 Glucose Glucometer (BldC) [Moles/Vol] 134 1 Normal [facility] Work Phone: HgA1C , Office ([phone])Ordere d By: Esperanza Shane on 06-10-2008 HbA1c (Bld) [Mass fraction] 5.9 % Normal 4.6 - 7.1 [facility] Work Phone: Blood Glucose , Office ([phone])Ordered By: Esperanza Shane on 03-11-2008 Glucose Glucometer (BldC) [Moles/Vol] 91 1 Normal [facility] Work Phone: HgA1C , Office ([phone])Ordere d By: Esperanza Shane on 03-11-2008 HbA1c (Bld) [Mass fraction] 6.0 % Normal 4.6 - 7.1 [facility] Work Phone: Blood Glucose , Office ([phone])Ordered By: Esperanza Shane on 12-09-2007 Glucose Glucometer (BldC) [Moles/Vol] 99 1 Normal [facility] Work Phone: HgA1C , Office ([phone])Ordere d By: Esperanza Shane on 12-09-2007 HbA1c (Bld) [Mass fraction] 6.0 % Normal 4.6 - 7.1 [facility] Work Phone: Blood Glucose , Office ([phone])Ordered By: Esperanza Shane on 09-04-2007 Glucose Glucometer (BldC) [Moles/Vol] 129 1 Normal [facility] Work Phone: HgA1C , Office ([phone])Ordere d By: Esperanza Shane on 09-04-2007 HbA1c (Bld) [Mass fraction] 5.7 % Normal 4.6 - 7.1 [facility] Work Phone: Blood Glucose , Office ([phone])Ordered By: Esperanza Shane on 06-05-2007 Glucose Glucometer (BldC) [Moles/Vol] 115 1 Normal [facility] Work Phone: HgA1C , Office ([phone])Ordere d By: Esperanza Shane on 06-05-2007 HbA1c (Bld) [Mass fraction] 5.6 % Normal 4.6 - 7.1 [facility] Work Phone: Blood Glucose , Office ([phone])Ordered By: Esperanza Shane on 02-27-2007 Glucose Glucometer (BldC) [Moles/Vol] 98 1 Normal [facility] Work Phone: HgA1C , Office ([phone])Ordere d By: Esperanza Shane on 02-27-2007 HbA1c (Bld) [Mass fraction] 5.5 % Normal 4.6 - 7.1 [facility] Work Phone: Blood Glucose , Office ([phone])Ordered By: Esperanza Shane on 11-10-2006 Glucose Glucometer (BldC) [Moles/Vol] 88 1 Normal [facility] Work Phone: HgA1C , Office ([phone])Ordere d By: Esperanza Shane on 11-10-2006 HbA1c (Bld) [Mass fraction] 5.4 % Normal 4.6 - 7.1 [facility] Work Phone: Blood Glucose , Office ([phone])Ordered By: Kathy Benavides on 08-11-2006 Glucose Glucometer (BldC) [Moles/Vol] 92 1 Normal [facility] Work Phone: HgA1C , Office ([phone])Ordere d By: Kathy Benavides on 08-11-2006 HbA1c (Bld) [Mass fraction] 5.5 % Normal 4.6 - 7.1 [facility] Work Phone: Vital Signs Date Time Vital Sign Value Performing Clinician Facility 10-20-2024 08:55-0400 Body height 165.[address] Anamaria Ricks MD Work Phone: [facility] 10-20-2024 08:55-0400 Body mass index (BMI) [Ratio] 28.4 kg/m2 Dr. Anamaria Ricks MD Work Phone: [facility] 10-20-2024 08:55-0400 Body weight 77.[address] Anamaria Ricks MD Work Phone: [facility] 10-20-2024 08:55-0400 Diastolic blood pressure 67 mm[Hg] Dr. Anamaria Ricks MD Work Phone: [facility] 10-20-2024 08:55-0400 Heart rate 76 /min Dr. Anamaria Ricks MD Work Phone: [facility] 10-20-2024 08:55-0400 Respiratory rate 16 /min Dr. Anamaria Ricks MD Work Phone: [facility] 10-20-2024 08:55-0400 Systolic blood pressure 93 mm[Hg] Dr. Anamaria Ricks MD Work Phone: [facility] 09-28-2024 07:36-0400 Body height 165.[address] Anamaria Ricks MD Work Phone: [facility] 09-28-2024 07:36-0400 Body mass index (BMI) [Ratio] 28.1 kg/m2 Dr. Anamaria Ricks MD Work Phone: [facility] 09-28-2024 07:36-0400 Body temperature 97.1 [degF] Dr. Anamaria Ricks MD Work Phone: [facility] 09-28-2024 07:36-0400 Body weight 76.[address] Anamaria Ricks MD Work Phone: [facility] 09-28-2024 07:36-0400 Diastolic blood pressure 80 mm[Hg] Dr. Anamaria Ricks MD Work Phone: [facility] 09-28-2024 07:36-0400 Heart rate 91 /min Dr. Anamaria Ricks MD Work Phone: [facility] 09-28-2024 07:36-0400 Respiratory rate 16 /min Dr. Anamaria Ricks MD Work Phone: [facility] 09-28-2024 07:36-0400 SaO2% (BldA) [Mass fraction] 99 % Dr. Anamaria Ricks MD Work Phone: [facility] 09-28-2024 07:36-0400 Systolic blood pressure 138 mm[Hg] Dr. Anamaria Ricks MD Work Phone: [facility] 07-13-2024 08:02-0400 Body mass index (BMI) [Ratio] 26.9 kg/m2 Dr. Anamaria Ricks MD Work Phone: [facility] 07-13-2024 08:02-0400 Body temperature 97.2 [degF] Dr. Anamaria Ricks MD Work Phone: [facility] 07-13-2024 08:02-0400 Body weight 73.[address] Anamaria Ricks MD Work Phone: [facility] 07-13-2024 08:02-0400 Diastolic blood pressure 78 mm[Hg] Dr. Anamaria Ricks MD Work Phone: [facility] 07-13-2024 08:02-0400 Heart rate 92 /min Dr. Anamaria Ricks MD Work Phone: [facility] 07-13-2024 08:02-0400 Respiratory rate 16 /min Dr. Anamaria Ricks MD Work Phone: [facility] 07-13-2024 08:02-0400 SaO2% (BldA) [Mass fraction] 96 % Dr. Anamaria Ricks MD Work Phone: [facility] 07-13-2024 08:02-0400 Systolic blood pressure 126 mm[Hg] Dr. Anamaria Ricks MD Work Phone: [facility] 06-29-2024 07:39-0400 Body height 165.[address] Anamaria Ricks MD Work Phone: [facility] 06-29-2024 07:39-0400 Body mass index (BMI) [Ratio] 27.4 kg/m2 Dr. Anamaria Ricks MD Work Phone: [facility] 06-29-2024 07:39-0400 Body temperature 97.7 [degF] Dr. Anamaria Ricks MD Work Phone: [facility] 06-29-2024 07:39-0400 Body weight 74.[address] Anamaria Ricks MD Work Phone: [facility] 06-29-2024 07:39-0400 Diastolic blood pressure 84 mm[Hg] Dr. Anamaria Ricks MD Work Phone: [facility] 06-29-2024 07:39-0400 Heart rate 79 /min Dr. Anamaria Ricks MD Work Phone: [facility] 06-29-2024 07:39-0400 Respiratory rate 16 /min Dr. Anamaria Ricks MD Work Phone: [facility] 06-29-2024 07:39-0400 SaO2% (BldA) [Mass fraction] 97 % Dr. Anamaria iRcks MD Work Phone: [facility] 06-29-2024 07:39-0400 Systolic blood pressure 130 mm[Hg] Dr. Anamaria Ricks MD Work Phone: [facility] 05-11-2024 09:00-0500 Body height 165.1 cm Sasha [employer]str[employer] SAL[employer] REPRESENTATIVE Work Phone: [facility] 05-11-2024 09:00-0500 Body mass index (BMI) [Ratio] 26.63 kg/m2 Sasha [employer] SAL[employer] REPRESENTATIVE Work Phone: [facility] 05-11-2024 09:00-0500 Body weight 72.58 kg Sasha [employer]strup [employer] SALES REPRESENTATIVE Work Phone: [facility] 05-11-2024 09:00-0500 Diastolic blood pressure 62 mm[Hg] Sasha [employer]strup [employer] SALES REPRESENTATIVE Work Phone: [facility] 05-11-2024 09:00-0500 Systolic blood pressure 125 mm[Hg] Sasha [employer]strup [employer] SALES REPRESENTATIVE Work Phone: [facility] 03-31-2024 07:36-0500 Body height 165.[address] Anamaria Ricks MD Work Phone: [facility] 03-31-2024 07:36-0500 Body mass index (BMI) [Ratio] 28.1 kg/m2 Dr. Anamaria Ricks MD Work Phone: [facility] 03-31-2024 07:36-0500 Body temperature 97.6 [degF] Dr. Anamaria Ricks MD Work Phone: [facility] 03-31-2024 07:36-0500 Body weight 76.[address] Anamaria Ricks MD Work Phone: [facility] 03-31-2024 07:36-0500 Diastolic blood pressure 76 mm[Hg] Dr. Anamaria Ricks MD Work Phone: [facility] 03-31-2024 07:36-0500 Heart rate 94 /min Dr. Anamaria Ricks MD Work Phone: [facility] 03-31-2024 07:36-0500 Respiratory rate 16 /min Dr. Anamaria Ricks MD Work Phone: [facility] 03-31-2024 07:36-0500 SaO2% (BldA) [Mass fraction] 99 % Dr. Anamaria Ricks MD Work Phone: [facility] 03-31-2024 07:36-0500 Systolic blood pressure 128 mm[Hg] Dr. Anamaria Ricks MD Work Phone: [facility] 02-25-2024 08:51-0500 Body height 165.1 cm Sasha [employer]strup [employer] SALES REPRESENTATIVE Work Phone: [facility] 02-25-2024 08:51-0500 Body mass index (BMI) [Ratio] 26.63 kg/m2 Sasha [employer]strup [employer] SALES REPRESENTATIVE Work Phone: [facility] 02-25-2024 08:51-0500 Body weight 72.58 kg Sasha [employer]strup [employer] SALES REPRESENTATIVE Work Phone: [facility] 02-25-2024 08:51-0500 Diastolic blood pressure 77 mm[Hg] Sasha [employer]strup [employer] SALES REPRESENTATIVE Work Phone: [facility] 02-25-2024 08:51-0500 Systolic blood pressure 130 mm[Hg] Sasha [employer]strup [employer] SALES REPRESENTATIVE Work Phone: [facility] 03-31-2023 07:36-0500 Body height 165.1 cm No Primary Care Physician [facility] 03-31-2023 07:36-0500 Body mass index (BMI) [Ratio] 28.9 kg/m2 No Primary Care Physician [facility] 03-31-2023 07:36-0500 Body temperature 97.6 [degF] No Primary Care Physician [facility] 03-31-2023 07:36-0500 Body weight 78.92 kg No Primary Care Physician [facility] 03-31-2023 07:36-0500 Diastolic blood pressure 70 mm[Hg] No Primary Care Physician [facility] 03-31-2023 07:36-0500 Heart rate 78 /min No Primary Care Physician [facility] 03-31-2023 07:36-0500 Respiratory rate 16 /min No Primary Care Physician [facility] 03-31-2023 07:36-0500 SaO2% (BldA) [Mass fraction] 94 % No Primary Care Physician [facility] 03-31-2023 07:36-0500 Systolic blood pressure 124 mm[Hg] No Primary Care Physician [facility] 03-26-2023 14:50-0500 Body mass index (BMI) [Ratio] 30.2 kg/m2 No Primary Care Physician [facility] 03-26-2023 14:50-0500 Body temperature 98 [degF] No Primary Care Physician [facility] 03-26-2023 14:50-0500 Body weight 82.55 kg No Primary Care Physician [facility] 03-26-2023 14:50-0500 Diastolic blood pressure 80 mm[Hg] No Primary Care Physician [facility] 03-26-2023 14:50-0500 Heart rate 96 /min No Primary Care Physician [facility] 03-26-2023 14:50-0500 Respiratory rate 14 /min No Primary Care Physician [facility] 03-26-2023 14:50-0500 SaO2% (BldA) [Mass fraction] 96 % No Primary Care Physician [facility] 03-26-2023 14:50-0500 Systolic blood pressure 126 mm[Hg] No Primary Care Physician [facility] 02-20-2023 09:25-0500 Body temperature 97.4 [degF] No Primary Care Physician [facility] 02-20-2023 09:25-0500 Diastolic blood pressure 91 mm[Hg] No Primary Care Physician [facility] 02-20-2023 09:25-0500 Heart rate 80 /min No Primary Care Physician [facility] 02-20-2023 09:25-0500 Respiratory rate 16 /min No Primary Care Physician [facility] 02-20-2023 09:25-0500 SaO2% (BldA) [Mass fraction] 99 % No Primary Care Physician [facility] 02-20-2023 09:25-0500 Systolic blood pressure 111 mm[Hg] No Primary Care Physician [facility] 02-20-2023 07:51-0500 Body height 165.1 cm No Primary Care Physician [facility] 02-20-2023 07:51-0500 Body mass index (BMI) [Ratio] 30.9 kg/m2 No Primary Care Physician [facility] 02-20-2023 07:51-0500 Body weight 84.4 kg No Primary Care Physician [facility] 02-11-2023 15:37-0500 Body height 165.1 cm No Primary Care Physician [facility] 02-11-2023 15:28-0500 Body mass index (BMI) [Ratio] 31.5 kg/m2 No Primary Care Physician [facility] 02-11-2023 15:28-0500 Body weight 85.95 kg No Primary Care Physician [facility] 02-11-2023 15:28-0500 Diastolic blood pressure 80 mm[Hg] No Primary Care Physician [facility] 02-11-2023 15:28-0500 Systolic blood pressure 124 mm[Hg] No Primary Care Physician [facility] 01-28-2023 08:32-0500 Body height 165.1 cm No Primary Care Physician [facility] 01-28-2023 08:32-0500 Body mass index (BMI) [Ratio] 31.8 kg/m2 No Primary Care Physician [facility] 01-28-2023 08:32-0500 Body temperature 97.7 [degF] No Primary Care Physician [facility] 01-28-2023 08:32-0500 Body weight 86.63 kg No Primary Care Physician [facility] 01-28-2023 08:32-0500 Diastolic blood pressure 74 mm[Hg] No Primary Care Physician [facility] 01-28-2023 08:32-0500 Heart rate 86 /min No Primary Care Physician [facility] 01-28-2023 08:32-0500 Respiratory rate 16 /min No Primary Care Physician [facility] 01-28-2023 08:32-0500 SaO2% (BldA) [Mass fraction] 98 % No Primary Care Physician [facility] 01-28-2023 08:32-0500 Systolic blood pressure 118 mm[Hg] No Primary Care Physician [facility] 01-02-2023 16:01-0400 Body mass index (BMI) [Ratio] 30.7 kg/m2 No Primary Care Physician [facility] 01-02-2023 16:01-0400 Body weight 83.91 kg No Primary Care Physician [facility] 01-01-2023 11:03-0400 Body temperature 97.9 [degF] No Primary Care Physician [facility] 01-01-2023 11:03-0400 Diastolic blood pressure 72 mm[Hg] No Primary Care Physician [facility] 01-01-2023 11:03-0400 Heart rate 94 /min No Primary Care Physician [facility] 01-01-2023 11:03-0400 Respiratory rate 16 /min No Primary Care Physician [facility] 01-01-2023 11:03-0400 SaO2% (BldA) [Mass fraction] 99 % No Primary Care Physician [facility] 01-01-2023 11:03-0400 Systolic blood pressure 112 mm[Hg] No Primary Care Physician [facility] 09-10-2016 13:19-0400 BMI (Body Mass Index) 35.56 kg/m2 Leti Andujar LPN [facility] Work Phone: 09-10-2016 13:19-0400 Body Temperature 98.7 [degF] [facility] Work Phone: 09-10-2016 13:19-0400 BP Diastolic 92 mm[Hg] Leti Andujar LPN [facility] Work Phone: 09-10-2016 13:19-0400 BP Systolic 150 mm[Hg] Leti Andujar LPN [facility] Work Phone: 09-10-2016 13:19-0400 Height 162.56 cm Leti Andujar LPN [facility] Work Phone: 09-10-2016 13:19-0400 Pulse (Heart Rate) 104 /min Leti Andujar LPN [facility] Work Phone: 09-10-2016 13:19-0400 Pulse Oximetry 98 % Leti Jiangliang ENRIQUEZ [facility] Work Phone: 09-10-2016 13:19-0400 Respiratory Rate 15 /min Leti Andujar LPN [facility] Work Phone: 09-10-2016 13:19-0400 Weight 93.99 kg Leti Andujar MINA [facility] Work Phone: 06-12-2011 08:46-0400 BMI (Body Mass Index) 39.96 kg/m2 Hina Stahl RN [facility] Internal Medicine Work Phone: 06-12-2011 08:46-0400 Body Temperature 97.7 [degF] Hina Stahl RN [facility] Work Phone: Comment on above: Method: Oral 06-12-2011 08:46-0400 Body weight 104.78 kg Hina Stahl RN [facility] Work Phone: 06-12-2011 08:46-0400 BP Diastolic 82 mm[Hg] Hina Stahl RN [facility] Work Phone: Comment on above: Patient Position: Sitting; Cuff Location : Left Arm; Cuff Size: Large 06-12-2011 08:46-0400 BP Systolic 110 mm[Hg] Hina Stahl RN [facility] Work Phone: Comment on above: Patient Position: Sitting; Cuff Location : Left Arm; Cuff Size: Large 06-12-2011 08:46-0400 BSA (Body Surface Area) 2.07 m2 Hina Stahl RN [facility] Work Phone: 06-12-2011 08:46-0400 Height 161.93 cm Hina Stahl RN [facility] Work Phone: 06-12-2011 08:46-0400 Pulse (Heart Rate) 76 /min Hina Stahl RN [facility] Work Phone: Comment on above: Pattern: Regular 06-12-2011 08:46-0400 Respiratory Rate 18 /min Hina Stahl RN [facility] Work Phone: Comment on above: Pattern: Unlabored 03-19-2011 11:08-0500 BMI (Body Mass Index) 39.79 kg/m2 [facility] Work Phone: 03-19-2011 11:08-0500 Body Temperature 98 [degF] Esperanza Shane [facility] Internal Medicine Work Phone: 03-19-2011 11:08-0500 Body weight 104.33 kg Esperanza Shane [facility] Internal Medicine Work Phone: 03-19-2011 11:08-0500 BP Diastolic 84 mm[Hg] Esperanza Shane [facility] Internal Medicine Work Phone: Comment on above: Patient Position: Sitting; Cuff Location : Left Arm; Cuff Size: Large 03-19-2011 11:08-0500 BP Systolic 122 mm[Hg] Esperanza Shane [facility] Internal Medicine Work Phone: Comment on above: Patient Position: Sitting; Cuff Location : Left Arm; Cuff Size: Large 03-19-2011 11:08-0500 BSA (Body Surface Area) 2.07 m2 Esperanza Shane [facility] Internal Medicine Work Phone: 03-19-2011 11:08-0500 Height 161.93 cm Esperanza Shane [facility] Internal Medicine Work Phone: 03-19-2011 11:08-0500 Pulse (Heart Rate) 76 /min Esperanza Calleens e Internal Medicine Work Phone: Comment on above: Pattern: Regular 03-19-2011 11:08-0500 Respiratory Rate 16 /min Esperanza Shane [facility] Internal Medicine Work Phone: Comment on above: Pattern: Unlabored 08-29-2010 08:41-0400 BMI (Body Mass Index) 39.27 kg/m2 Esperanza Shane [facility] Internal Medicine Work Phone: 08-29-2010 08:41-0400 Body Temperature 97.6 [degF] Esperanza Shane [facility] Internal Medicine Work Phone: 08-29-2010 08:41-0400 Body weight 102.97 kg Esperanza Shane [facility] Internal Medicine Work Phone: 08-29-2010 08:41-0400 BP Diastolic 72 mm[Hg] Esperanza Shane [facility] Internal Medicine Work Phone: Comment on above: Patient Position: Sitting; Cuff Location : Left Arm; Cuff Size: Large 08-29-2010 08:41-0400 BP Systolic 114 mm[Hg] Esperanza Shane [facility] Internal Medicine Work Phone: Comment on above: Patient Position: Sitting; Cuff Location : Left Arm; Cuff Size: Large 08-29-2010 08:41-0400 BSA (Body Surface Area) 2.06 m2 Esperanza Rosscharlie [facility] Internal Medicine Work Phone: 08-29-2010 08:41-0400 Height 161.93 cm Esperanza Sparksbeulah [facility] Internal Medicine Work Phone: 08-29-2010 08:41-0400 Pulse (Heart Rate) 80 /min [facility] Work Phone: Comment on above: Pattern: Regular 08-29-2010 08:41-0400 Respiratory Rate 16 /min Esperanza Rosscharlie [facility] Internal Medicine Work Phone: Comment on above: Pattern: Unlabored 05-14-2010 13:18-0500 BMI (Body Mass Index) 38.27 kg/m2 Gay Mitchell RN [facility] Work Phone: 05-14-2010 13:18-0500 Body Temperature 97.3 [degF] Gay Mitchell RN [facility] Work Phone: Comment on above: Method: Oral 05-14-2010 13:18-0500 Body weight 104.33 kg Gay Mitchell RN [facility] Work Phone: 05-14-2010 13:18-0500 BP Diastolic 78 mm[Hg] Gay Mitchell RN [facility] Work Phone: Comment on above: Patient Position: Sitting; Cuff Location : Left Arm; Cuff Size: Standard 05-14-2010 13:18-0500 BP Systolic 122 mm[Hg] Gay Mitchell RN [facility] Internal Medicine Work Phone: Comment on above: Patient Position: Sitting; Cuff Location : Left Arm; Cuff Size: Standard 05-14-2010 13:18-0500 BSA (Body Surface Area) 2.1 m2 Gay Mitchell RN [facility] Work Phone: 05-14-2010 13:18-0500 Height 165.1 cm Gay Mitchell RN [facility] Work Phone: 05-14-2010 13:18-0500 Pulse (Heart Rate) 64 /min Gay Mitchell RN [facility] Internal Medicine Work Phone: Comment on above: Pattern: Regular 05-14-2010 13:18-0500 Respiratory Rate 18 /min Gay Mitchell RN [facility] Internal Medicine Work Phone: Comment on above: Pattern: Unlabored 01-05-2010 08:13-0400 Body Temperature 97.9 [degF] Esperanza Shane [facility] Internal Medicine Work Phone: 01-05-2010 08:13-0400 Body weight 104.33 kg Esperanza Shane [facility] Internal Medicine Work Phone: 01-05-2010 08:13-0400 BP Diastolic 84 mm[Hg] Esperanza Shane [facility] Internal Medicine Work Phone: Comment on above: Patient Position: Sitting; Cuff Location : Left Arm; Cuff Size: Standard 01-05-2010 08:13-0400 BP Systolic 116 mm[Hg] Esperanza Shane [facility] Internal Medicine Work Phone: Comment on above: Patient Position: Sitting; Cuff Location : Left Arm; Cuff Size: Standard 01-05-2010 08:13-0400 Pulse (Heart Rate) 88 /min Esperanza Shane [facility] Internal Medicine Work Phone: Comment on above: Pattern: Regular 01-05-2010 08:13-0400 Respiratory Rate 18 /min Esperanza Shane [facility] Internal Medicine Work Phone: Comment on above: Pattern: Unlabored 10-20-2009 08:22-0400 Body Temperature 97.2 [degF] [facility] Internal [facility] Work Phone: Comment on above: Method: Oral 10-20-2009 08:22-0400 Body weight 108.13 kg [facility] Work Phone: 10-20-2009 08:22-0400 BP Diastolic 74 mm[Hg] [facility] Internal Medicine Work Phone: Comment on above: Patient Position: Sitting; Cuff Location : Left Arm; Cuff Size: Standard 10-20-2009 08:22-0400 BP Systolic 112 mm[Hg] [facility] Internal Medicine Work Phone: Comment on above: Patient Position: Sitting; Cuff Location : Left Arm; Cuff Size: Standard 10-20-2009 08:22-0400 Pulse (Heart Rate) 72 /min [facility] Work Phone: Comment on above: Pattern: Regular 10-20-2009 08:22-0400 Respiratory Rate 16 /min [facility] Internal Medicine Work Phone: Comment on above: Pattern: Unlabored 07-14-2009 07:21-0400 Body Temperature 97.3 [degF] Esperanza Shane [facility] Internal Medicine Work Phone: 07-14-2009 07:21-0400 Body weight 106.6 kg Esperanza Shane [facility] Internal Medicine Work Phone: 07-14-2009 07:21-0400 BP Diastolic 56 mm[Hg] Esperanza Shane [facility] Internal Medicine Work Phone: Comment on above: Patient Position: Sitting; Cuff Location : Left Arm; Cuff Size: Large 07-14-2009 07:21-0400 BP Systolic 100 mm[Hg] Esperanza Shane [facility] Internal Medicine Work Phone: Comment on above: Patient Position: Sitting; Cuff Location : Left Arm; Cuff Size: Large 07-14-2009 07:21-0400 Pulse (Heart Rate) 84 /min Esperanza Shane [facility] Internal Medicine Work Phone: Comment on above: Pattern: Regular 07-14-2009 07:21-0400 Respiratory Rate 18 /min Esperanza Shane [facility] Internal Medicine Work Phone: Comment on above: Pattern: Unlabored 05-25-2009 08:23-0500 Body Temperature 97.7 [degF] Rita Shea LPN [facility] Internal Medicine Work Phone: Comment on above: Method: Oral 05-25-2009 08:23-0500 Body weight 107.96 kg Rita Shea LPN [facility] Internal Medicine Work Phone: 05-25-2009 08:23-0500 BP Diastolic 80 mm[Hg] Rita Shea [employer] [facility] Internal Medicine Work Phone: Comment on above: Patient Position: Sitting; Cuff Location : Left Arm; Cuff Size: Standard 05-25-2009 08:23-0500 BP Systolic 112 mm[Hg] Rita Shea [employer] [facility] Internal Medicine Work Phone: Comment on above: Patient Position: Sitting; Cuff Location : Left Arm; Cuff Size: Standard 05-25-2009 08:23-0500 Pulse (Heart Rate) 70 /min Rita Shea [employer] [facility] Internal Medicine Work Phone: Comment on above: Pattern: Regular 05-25-2009 08:23-0500 Respiratory Rate 18 /min Rita Shea LPN [facility] Internal Medicine Work Phone: Comment on above: Pattern: Unlabored 05-01-2009 08:16-0500 Body Temperature 98.1 [degF] Esperanza Shane [facility] Medicine Work Phone: 05-01-2009 08:16-0500 BP Diastolic 90 mm[Hg] Esperanza Shane [facility] Medicine Work Phone: Comment on above: Patient Position: Sitting; Cuff Location : Left Arm; Cuff Size: Standard 05-01-2009 08:16-0500 BP Systolic 126 mm[Hg] Esperanza Svitlana [facility] Internal Medicine Work Phone: Comment on above: Patient Position: Sitting; Cuff Location : Left Arm; Cuff Size: Standard 05-01-2009 08:16-0500 Pulse (Heart Rate) 76 /min Esperanza Svitlana [facility] Internal Medicine Work Phone: Comment on above: Pattern: Regular 05-01-2009 08:16-0500 Respiratory Rate 18 /min Esperanza Shane [facility] Medicine Work Phone: Comment on above: Pattern: Unlabored 03-31-2009 07:24-0500 Body Temperature 98.1 [degF] Hina Stahl RN [facility] Work Phone: Comment on above: Method: Oral 03-31-2009 07:24-0500 Body weight 107.96 kg Hina Stahl RN [facility] Work Phone: 03-31-2009 07:24-0500 BP Diastolic 78 mm[Hg] Hina Stahl RN [facility] Work Phone: Comment on above: Patient Position: Sitting; Cuff Location : Left Arm; Cuff Size: Large 03-31-2009 07:24-0500 BP Systolic 100 mm[Hg] Hina Stahl RN [facility] Work Phone: Comment on above: Patient Position: Sitting; Cuff Location : Left Arm; Cuff Size: Large 03-31-2009 07:24-0500 Pulse (Heart Rate) 76 /min Hina Stahl RN [facility] Work Phone: Comment on above: Pattern: Regular 03-31-2009 07:24-0500 Respiratory Rate 20 /min Hina Stahl RN [facility] Work Phone: Comment on above: Pattern: Unlabored 01-16-2009 08:09-0400 BMI (Body Mass Index) 41.02 kg/m2 Mignon Donahue RN [facility] Work Phone: 01-16-2009 08:09-0400 Body Temperature 98.2 [degF] Mignon Donahue RN [facility] Work Phone: Comment on above: Method: Oral 01-16-2009 08:09-0400 Body weight 108.41 kg Mignon Donahue RN [facility] Work Phone: 01-16-2009 08:09-0400 BP Diastolic 82 mm[Hg] Mignon Donahue RN [facility] Work Phone: Comment on above: Patient Position: Sitting; Cuff Location : Left Arm; Cuff Size: Large 01-16-2009 08:09-0400 BP Systolic 124 mm[Hg] Mignon Donahue RN [facility] Work Phone: Comment on above: Patient Position: Sitting; Cuff Location : Left Arm; Cuff Size: Large 01-16-2009 08:09-0400 BSA (Body Surface Area) 2.11 m2 Mignon Donahue RN [facility] Work Phone: 01-16-2009 08:09-0400 Head Circumference 0 cm Kathy Fast [facility] Work Phone: 01-16-2009 08:09-0400 Head Occipital-frontal circumference 0 cm Mignon Donahue RN [facility]; [facility] Work Phone: 01-16-2009 08:09-0400 Height 162.56 cm Mignon Donahue RN [facility] Work Phone: 01-16-2009 08:09-0400 Pulse (Heart Rate) 64 /min Mignon Donahue RN [facility] Work Phone: Comment on above: Pattern: Regular 01-16-2009 08:09-0400 Respiratory Rate 20 /min Mignon Donahue RN [facility] Work Phone: Comment on above: Pattern: Unlabored 12-09-2008 07:44-0400 Body Temperature 97.5 [degF] Esperanza Shane [facility] Work Phone: Comment on above: Method: Undefined 12-09-2008 07:44-0400 Body weight 108.41 kg Esperanza Shane [facility] Medicine Work Phone: 12-09-2008 07:44-0400 BP Diastolic 74 mm[Hg] Esperanza Shane [facility] Medicine Work Phone: Comment on above: Patient Position: Sitting; Cuff Location : Right Arm; Cuff Size: Standard 12-09-2008 07:44-0400 BP Systolic 128 mm[Hg] Esperanza Shane [facility] Work Phone: Comment on above: Patient Position: Sitting; Cuff Location : Right Arm; Cuff Size: Standard 12-09-2008 07:44-0400 Head Circumference 0 cm Kathy [facility] Internal Medicine Work Phone: 12-09-2008 07:44-0400 Head Occipital-frontal circumference 0 cm Esperanza Shane [facility]; [facility] Work Phone: 12-09-2008 07:44-0400 Height 0 cm Esperanza Shane [facility] Work Phone: 12-09-2008 07:44-0400 Pulse (Heart Rate) 72 /min Esperanza Shane [facility] Medicine Work Phone: Comment on above: Pattern: Regular 12-09-2008 07:44-0400 Respiratory Rate 18 /min Esperanza Shane [facility] Medicine Work Phone: Comment on above: Pattern: Undefined 09-08-2008 07:46-0400 BMI (Body Mass Index) 40.86 kg/m2 Mignon Donahue RN [facility] Internal Medicine Work Phone: 09-08-2008 07:46-0400 Body Temperature 97.4 [degF] Mignon Donahue RN [facility] Medicine Work Phone: Comment on above: Method: Oral 09-08-2008 07:46-0400 Body weight 107.99 kg Mignon Donahue RN [facility] Internal Medicine Work Phone: 09-08-2008 07:46-0400 BP Diastolic 64 mm[Hg] Mignon Donahue RN [facility] Medicine Work Phone: Comment on above: Patient Position: Sitting; Cuff Location : Left Arm; Cuff Size: Large 09-08-2008 07:46-0400 BP Systolic 122 mm[Hg] Mignon Donahue RN [facility] Work Phone: Comment on above: Patient Position: Sitting; Cuff Location : Left Arm; Cuff Size: Large 09-08-2008 07:46-0400 BSA (Body Surface Area) 2.11 m2 Mignon Donahue RN [facility] Internal Medicine Work Phone: 09-08-2008 07:46-0400 Head Circumference 0 cm [facility] Internal Medicine Work Phone: 09-08-2008 07:46-0400 Head Occipital-frontal circumference 0 cm Mignon Donahue RN [facility] Internal Medicine; [facility] Work Phone: 09-08-2008 07:46-0400 Height 162.56 cm Mignon Donahue RN [facility] Medicine Work Phone: 09-08-2008 07:46-0400 Pulse (Heart Rate) 60 /min Mignon Donahue RN [facility] Medicine Work Phone: Comment on above: Pattern: Regular 09-08-2008 07:46-0400 Respiratory Rate 20 /min Mignon Donahue RN [facility] Internal Medicine Work Phone: Comment on above: Pattern: Unlabored 06-10-2008 07:52-0400 BMI (Body Mass Index) 40.68 kg/m2 Esperanza Shane [facility] Internal Medicine Work Phone: 06-10-2008 07:52-0400 Body Temperature 97.4 [degF] [facility] Work Phone: Comment on above: Method: Undefined 06-10-2008 07:52-0400 Body [facility] 107.5 [facility] Work Phone: 06-10-2008 07:52-0400 BP Diastolic 78 mm[Hg] [facility] Work [facility]: Comment on above: Patient Position: Sitting; Cuff Location : Right Arm; Cuff Size: Standard 06-10-2008 07:52-0400 BP Systolic 118 mm[Hg] [facility] Work Phone: Comment on above: Patient Position: Sitting; Cuff Location : Right Arm; Cuff Size: Standard 06-10-2008 07:52-0400 BSA (Body Surface Area) 2.1 m2 [facility] Work Phone: 06-10-2008 07:52-0400 Head Circumference 0 cm [facility] Internal Medicine Work Phone: 06-10-2008 07:52-0400 Head Occipital-frontal circumference 0 cm Esperanza Shane [facility]; [facility] Work Phone: 06-10-2008 07:52-0400 Height 162.56 cm Esperanza Shane [facility] Medicine Work Phone: 06-10-2008 07:52-0400 Pulse (Heart Rate) 84 /min Esperanza Shane [facility] Work Phone: Comment on above: Pattern: Regular 06-10-2008 07:52-0400 Respiratory Rate 18 /min Esperanza Shane [facility] Internal Medicine Work Phone: Comment on above: Pattern: Undefined 03-11-2008 09:02-0500 Body Temperature 97.7 [degF] Esperanza Shane [facility] Internal Medicine Work Phone: Comment on above: Method: Undefined 03-11-2008 09:02-0500 Body weight 103.42 kg Esperanza Shane [facility] Internal Medicine Work Phone: 03-11-2008 09:02-0500 BP Diastolic 88 mm[Hg] Esperanza Shane [facility] Internal Medicine Work Phone: Comment on above: Patient Position: Sitting; Cuff Location : Left Arm; Cuff Size: Large 03-11-2008 09:02-0500 BP Systolic 116 mm[Hg] Esperanza Shane [facility] Internal Medicine Work Phone: Comment on above: Patient Position: Sitting; Cuff Location : Left Arm; Cuff Size: Large 03-11-2008 09:02-0500 Head Circumference 0 cm Kathy Benavides [facility] Internal Medicine Work Phone: 03-11-2008 09:02-0500 Head Occipital-frontal circumference 0 cm Esperanza Sparksbeulah [facility]; [facility] Work Phone: 03-11-2008 09:02-0500 Height 0 cm Esperanza Rosscharlie [facility] Medicine Work Phone: 03-11-2008 09:02-0500 Pulse (Heart Rate) 72 /min Esperanza Shane [facility] Work Phone: Comment on above: Pattern: Regular 03-11-2008 09:02-0500 Respiratory Rate 16 /min Esperanza Svitlana [facility] Work Phone: Comment on above: Pattern: Undefined 12-21-2007 08:02-0400 Body Temperature 96.9 [degF] Mignon Donahue RN [facility] Work Phone: Comment on above: Method: Oral 12-21-2007 08:02-0400 Body weight 106.14 kg Mignon Donahue RN [facility] Work Phone: 12-21-2007 08:02-0400 BP Diastolic 68 mm[Hg] Mignon Donahue RN [facility] Work Phone: Comment on above: Patient Position: Sitting; Cuff Location : Left Arm; Cuff Size: Large 12-21-2007 08:02-0400 BP Systolic 118 mm[Hg] Mignon Donahue RN [facility] Work Phone: Comment on above: Patient Position: Sitting; Cuff Location : Left Arm; Cuff Size: Large 12-21-2007 08:02-0400 Head Circumference 0 cm Kathy Fast [facility] Work Phone: 12-21-2007 08:02-0400 Head Occipital-frontal circumference 0 cm Mignon Donahue RN [facility]; [facility] Work Phone: 12-21-2007 08:02-0400 Height 0 cm Mignon Donahue RN [facility] Work Phone: 12-21-2007 08:02-0400 Pulse (Heart Rate) 60 /min Mignon Donahue RN [facility] Work Phone: Comment on above: Pattern: Regular 12-21-2007 08:02-0400 Respiratory Rate 20 /min Mignon Donahue RN [facility] Work Phone: Comment on above: Pattern: Unlabored 12-09-2007 08:13-0400 Body Temperature 97.1 [degF] Esperanza Shane [facility] Work Phone: Comment on above: Method: Undefined 12-09-2007 08:13-0400 Body weight 106.14 kg Esperanza Svitlana [facility] Work Phone: 12-09-2007 08:13-0400 BP Diastolic 76 mm[Hg] Esperanza Shane [facility] Work Phone: Comment on above: Patient Position: Sitting; Cuff Location : Right Arm; Cuff Size: Large 12-09-2007 08:13-0400 BP Systolic 118 mm[Hg] Esperanza Rosscharlie [facility] Work Phone: Comment on above: Patient Position: Sitting; Cuff Location : Right Arm; Cuff Size: Large 12-09-2007 08:13-0400 Head Circumference 0 cm Kathyanita Benavides [facility] Medicine Work Phone: 12-09-2007 08:13-0400 Head Occipital-frontal circumference 0 cm Esperanza Svitlana [facility]; [facility] Work Phone: 12-09-2007 08:13-0400 Height 0 cm Esperanza Svitlana [facility] Work Phone: 12-09-2007 08:13-0400 Pulse (Heart Rate) 80 /min Esperanza Rosscharlie [facility] Medicine Work Phone: Comment on above: Pattern: Regular 12-09-2007 08:13-0400 Respiratory Rate 16 /min Esperanza Rosscharlie [facility] Work Phone: Comment on above: Pattern: Undefined 11-03-2007 08:03-0400 Body Temperature 98.7 [degF] Daria [facility] Work Phone: Comment on above: Method: Undefined 11-03-2007 08:03-0400 Body weight 103.42 kg Daria [facility] Work Phone: 11-03-2007 08:03-0400 BP Diastolic 68 mm[Hg] Daria [facility] Work Phone: Comment on above: Patient Position: Sitting; Cuff Location : Left Arm; Cuff Size: Standard 11-03-2007 08:03-0400 BP Systolic 116 mm[Hg] Daria [facility] Work Phone: Comment on above: Patient Position: Sitting; Cuff Location : Left Arm; Cuff Size: Standard 11-03-2007 08:03-0400 Head Circumference 0 cm [facility] Medicine Work Phone: 11-03-2007 08:03-0400 Head Occipital-frontal circumference 0 cm Daria [facility]; [facility] Work Phone: 11-03-2007 08:03-0400 Height 0 cm Daria [facility] Work Phone: 11-03-2007 08:03-0400 Pulse (Heart Rate) 60 /min [facility] Work Phone: Comment on above: Pattern: Regular 11-03-2007 08:03-0400 Respiratory Rate 16 /min [facility] Work Phone: Comment on above: Pattern: Unlabored 09-04-2007 08:13-0400 Body weight 103.42 kg Esperanza Shane [facility] Medicine Work Phone: 09-04-2007 08:13-0400 BP Diastolic 80 mm[Hg] Esperanza Shane [facility] Work Phone: Comment on above: Patient Position: Sitting; Cuff Location : Right Arm; Cuff Size: Large 09-04-2007 08:13-0400 BP Systolic 122 mm[Hg] Esperanza Shane [facility] Medicine Work Phone: Comment on above: Patient Position: Sitting; Cuff Location : Right Arm; Cuff Size: Large 09-04-2007 08:13-0400 Head Circumference 0 cm [facility] Medicine Work Phone: 09-04-2007 08:13-0400 Head Occipital-frontal circumference 0 cm Esperanza Shane [facility]; [facility] Work Phone: 09-04-2007 08:13-0400 Height 0 cm Esperanza Shane [facility] Work Phone: 09-04-2007 08:13-0400 Pulse (Heart Rate) 80 /min Esperanza Shane [facility] Internal Medicine Work Phone: Comment on above: Pattern: Regular 09-04-2007 08:13-0400 Respiratory Rate 16 /min Esperanza Shane [facility] Work Phone: Comment on above: Pattern: Undefined 06-05-2007 07:53-0400 Body Temperature 98 [degF] Esperanza Shane [facility] Work Phone: Comment on above: Method: Undefined 06-05-2007 07:53-0400 Body weight 99.34 kg Esperanza Shane [facility] Work Phone: 06-05-2007 07:53-0400 BP Diastolic 76 mm[Hg] Esperanza Shane [facility] Work Phone: Comment on above: Patient Position: Sitting; Cuff Location : Left Arm; Cuff Size: Standard 06-05-2007 07:53-0400 BP Systolic 122 mm[Hg] Esperanza Sparksbeulah [facility] Medicine Work Phone: Comment on above: Patient Position: Sitting; Cuff Location : Left Arm; Cuff Size: Standard 06-05-2007 07:53-0400 Head Circumference 0 cm Kathy Kennedy [facility] Medicine Work Phone: 06-05-2007 07:53-0400 Head Occipital-frontal circumference 0 cm Esperanza Svitlana [facility]; [facility] Work Phone: 06-05-2007 07:53-0400 Height 0 cm Esperanza Svitlana [facility] Work Phone: 06-05-2007 07:53-0400 Pulse (Heart Rate) 68 /min Esperanza Shane [facility] Work Phone: Comment on above: Pattern: Regular 06-05-2007 07:53-0400 Respiratory Rate 18 /min Esperanza Sparksbeulah [facility] Work Phone: Comment on above: Pattern: Undefined 05-21-2007 07:57-0500 Body Temperature 97 [degF] Rita Shea LPN [facility] Medicine Work Phone: Comment on above: Method: Oral 05-21-2007 07:57-0500 Body weight 96.62 kg Rita Shea LPN [facility] Work Phone: 05-21-2007 07:57-0500 BP Diastolic 80 mm[Hg] Rita Shea LPN [facility] Work Phone: Comment on above: Patient Position: Sitting; Cuff Location : Left Arm; Cuff Size: Standard 05-21-2007 07:57-0500 BP Systolic 132 mm[Hg] Rita Shea LPN [facility] Work Phone: Comment on above: Patient Position: Sitting; Cuff Location : Left Arm; Cuff Size: Standard 05-21-2007 07:57-0500 Head Circumference 0 cm Kathy Benavides [facility] Work Phone: 05-21-2007 07:57-0500 Head Occipital-frontal circumference 0 cm Rita Shea LPN [facility]; [facility] Work Phone: 05-21-2007 07:57-0500 Height 0 cm Rita Shea LPN [facility] Work Phone: 05-21-2007 07:57-0500 Pulse (Heart Rate) 80 /min Rita Shea LPN [facility] Work Phone: Comment on above: Pattern: Regular 05-21-2007 07:57-0500 Pulse Oximetry 99 % Kathy Benavides [facility] Work Phone: Comment on above: Room air 05-21-2007 07:57-0500 Respiratory Rate 18 /min Rita Shea LPN [facility] Work Phone: Comment on above: Pattern: Unlabored 05-21-2007 07:57-0500 SaO2% (BldA) [Mass fraction] 99 % Rita Shea LPN [facility]; [facility] Work Phone: Comment on above: Room air 02-27-2007 09:22-0500 Body Temperature 98.2 [degF] Esperanza Shane [facility] Work Phone: Comment on above: Method: Oral 02-27-2007 09:22-0500 Body weight 96.62 kg Esperanza Shane [facility] Work Phone: 02-27-2007 09:22-0500 BP Diastolic 84 mm[Hg] Esperanza Shane [facility] Work Phone: Comment on above: Patient Position: Sitting; Cuff Location : Left Arm; Cuff Size: Standard 02-27-2007 09:22-0500 BP Systolic 128 mm[Hg] Esperanza Shane [facility] Work Phone: Comment on above: Patient Position: Sitting; Cuff Location : Left Arm; Cuff Size: Standard 02-27-2007 09:22-0500 Head Circumference 0 cm Kathyanita Benavides [facility] Work Phone: 02-27-2007 09:22-0500 Head Occipital-frontal circumference 0 cm Esperanza Shane [facility]; [facility] Work Phone: 02-27-2007 09:22-0500 Height 0 cm Esperanza Shane [facility] Work Phone: 02-27-2007 09:22-0500 Pulse (Heart Rate) 68 /min Esperanza Shane [facility] Work Phone: Comment on above: Pattern: Regular 02-27-2007 09:22-0500 Respiratory Rate 16 /min Esperanza Shane [facility] Work Phone: Comment on above: Pattern: Unlabored 12-22-2006 11:27-0400 BMI (Body Mass Index) 36.22 kg/m2 Esperanza Shane [facility] Work Phone: 12-22-2006 11:27-0400 Body Temperature 96.8 [degF] Esperanza Shane [facility] Work Phone: Comment on above: Method: Oral 12-22-2006 11:27-0400 Body weight 95.71 kg Esperanza Rosscharlie [facility] Work Phone: 12-22-2006 11:27-0400 BP Diastolic 76 mm[Hg] Esperanza Sparksbeulah [facility] Work Phone: Comment on above: Patient Position: Sitting; Cuff Location : Right Arm; Cuff Size: Standard 12-22-2006 11:27-0400 BP Systolic 122 mm[Hg] Esperanza Shane [facility] Work Phone: Comment on above: Patient Position: Sitting; Cuff Location : Right Arm; Cuff Size: Standard 12-22-2006 11:27-0400 BSA (Body Surface Area) 2 m2 Esperanza Shane [facility] Work Phone: 12-22-2006 11:27-0400 Head Circumference 0 cm Kathy Benavides [facility] Work Phone: 12-22-2006 11:27-0400 Head Occipital-frontal circumference 0 cm Esperanza Shane [facility]; [facility] Work Phone: 12-22-2006 11:27-0400 Height 162.56 cm Esperanza Sparksbeulah [facility] Work Phone: 12-22-2006 11:27-0400 Pulse (Heart Rate) 68 /min [facility] Work [facility]: Comment on above: Pattern: Regular 12-22-2006 11:27-0400 Respiratory Rate 16 /min Esperanza Shane [facility] Work Phone: Comment on above: Pattern: Unlabored 11-10-2006 16:50-0400 BMI (Body Mass Index) 36.12 kg/m2 Savanah Braydon [facility] Internal Medicine Work Phone: 11-10-2006 16:50-0400 Body Temperature 98.3 [degF] [facility] Work Phone: Comment on above: Method: Oral 11-10-2006 16:50-0400 Body weight 95.45 kg Savanah [facility] Work Phone: 11-10-2006 16:50-0400 BP Diastolic 80 mm[Hg] Sav[facility]ah [facility] Work Phone: Comment on above: Patient Position: Sitting; Cuff Location : Right Arm; Cuff Size: Large 11-10-2006 16:50-0400 BP Systolic 128 mm[Hg] [facility] Work Phone: Comment on above: Patient Position: Sitting; Cuff Location : Right Arm; Cuff Size: Large 11-10-2006 16:50-0400 BSA (Body Surface Area) 2 m2 [facility] Work Phone: 11-10-2006 16:50-0400 Head Circumference 0 cm Kathy Benavides [facility] Work Phone: 11-10-2006 16:50-0400 Head Occipital-frontal circumference 0 cm [facility]; [facility] Work Phone: 11-10-2006 16:50-0400 Height 162.56 cm [facility] Work Phone: 11-10-2006 16:50-0400 Pulse (Heart Rate) 72 /min [facility] Work Phone: Comment on above: Pattern: Regular 11-10-2006 16:50-0400 Respiratory Rate 18 /min [facility] Work Phone: Comment on above: Pattern: Unlabored 08-11-2006 15:56-0400 BMI (Body Mass Index) 36.39 kg/m2 Esperanza Shane [facility] Medicine Work Phone: 08-11-2006 15:56-0400 Body Temperature 98.1 [degF] Esperanza Shane [facility] Work Phone: Comment on above: Method: Oral 08-11-2006 15:56-0400 Body weight 96.16 kg Esperanza Shane [facility] Work Phone: 08-11-2006 15:56-0400 BP Diastolic 66 mm[Hg] Esperanza Shane [facility] Work Phone: Comment on above: Patient Position: Sitting; Cuff Location : Left Arm; Cuff Size: Large 08-11-2006 15:56-0400 BP Systolic 132 mm[Hg] Esperanza Shane [facility] Work Phone: Comment on above: Patient Position: Sitting; Cuff Location : Left Arm; Cuff Size: Large 08-11-2006 15:56-0400 BSA (Body Surface Area) 2.01 m2 Esperanza Shane [facility] Work Phone: 08-11-2006 15:56-0400 Head Circumference 0 cm Kathy Benavides [facility] Work Phone: 08-11-2006 15:56-0400 Head Occipital-frontal circumference 0 cm Esperanza Svitlana [facility]; [facility] Work Phone: 08-11-2006 15:56-0400 Height 162.56 cm Esperanza Svitlana [facility] Work Phone: 08-11-2006 15:56-0400 Pulse (Heart Rate) 72 /min Esperanza Sparksbeulah [facility] Work Phone: Comment on above: Pattern: Regular 08-11-2006 15:56-0400 Respiratory Rate 16 /min Esperanza Svitlana [facility] Work Phone: Comment on above: Pattern: Unlabored 06-24-2006 15:34-0400 BMI (Body Mass Index) 37.08 kg/m2 Esperanza Svitlana [facility] Work Phone: 06-24-2006 15:34-0400 Body Temperature 97.4 [degF] Esperanza Sparksbeulah [facility] Work Phone: Comment on above: Method: Oral 06-24-2006 15:34-0400 Body weight 97.98 kg Esperanza Svitlana [facility] Work Phone: 06-24-2006 15:34-0400 BP Diastolic 84 mm[Hg] Esperanza Svitlana [facility] Work Phone: Comment on above: Patient Position: Sitting; Cuff Location : Left Arm; Cuff Size: Large 06-24-2006 15:34-0400 BP Systolic 122 mm[Hg] Esperanza Svitlana [facility] Work Phone: Comment on above: Patient Position: Sitting; Cuff Location : Left Arm; Cuff Size: Large 06-24-2006 15:34-0400 BSA (Body Surface Area) 2.02 m2 Esperanza Shane [facility] Work Phone: 06-24-2006 15:34-0400 Head Circumference 0 cm Kathy Benavides [facility] Work Phone: 06-24-2006 15:34-0400 Head Occipital-frontal circumference 0 cm Esperanza Shane [facility]; [facility] Work Phone: 06-24-2006 15:34-0400 Height 162.56 cm Esperanza Shane [facility] Work Phone: 06-24-2006 15:34-0400 Pulse (Heart Rate) 80 /min Esperanza Shane [facility] Work Phone: Comment on above: Pattern: Regular 06-24-2006 15:34-0400 Respiratory Rate 16 /min Esperanza Shane [facility] Work Phone: Comment on above: Pattern: Unlabored Encounters Encounter Date Encounter Type Care Provider Facility Start: 11-12-2024 ambulatory Anamaria Palafoxlay Facility :[facility] Start: 11-05-2024 ambulatory Anam[place] Facility :[facility] Start: 10-20-2024 End: 10-20-[address] Jovan Gilliam MD -[facility] Work Phone: Start: 10-20-2024 End: 10-20-[address] Anamaria Ricks MD Work Phone: -[facility] Start: 10-19-2024 Non-patient / Non-visit Dr. Gaudencio hinkle MD -[facility] Start: 10-19-2024 End: 10-19-[address] Anamaria Ricks MD Work Phone: -[facility] Services Start: 10-19-2024 End: 10-19-[address] Jovan Gilliam MD -[facility] Work Phone: Start: 10-19-2024 End: 10-19-2024 ambulatory Anamaria Ricks Facility:[facility] Start: 10-12-2024 End: 10-12-[address] Anamaria Ricks MD Work Phone: -Laboratory Start: 10-12-2024 End: 10-12-[address] Anamaria Ricks MD -Laboratory Work Phone: Start: 10-12-2024 End: 10-12-2024 ambulatory Anamaria Ricks Facility:[facility] Start: 10-07-2024 Non-patient / Non-visit Dr. Gaudencio hinkle MD -[facility] Start: 10-07-2024 End: 10-07-[address] Anamaria Ricks MD Work Phone: -Cardiovascular Services Start: 10-07-2024 End: 10-07-[address] Anamaria Ricks MD -[facility] Services Work Phone: Start: 10-07-2024 End: 10-07-2024 ambulatory Anamaria Ricks Facility:[facility] Start: 10-05-2024 ambulatory Anamaria Ricks Facility :[facility] Start: 10-05-2024 Non-patient / Non-visit Dr. Asif FRANKS -[facility] Start: 10-05-2024 End: 10-05-[address] Anamaria Ricks MD -[facility] Work Phone: Start: 10-05-2024 End: 10-05-[address] Anamaria Ricks MD Work Phone: -[facility] Start: 09-28-2024 End: 09-28-[address] Anamaria Ricks MD -[facility] Work Phone: Start: 09-28-2024 End: 09-28-[address] Anamaria Ricks MD Work Phone: -[facility] Start: 09-27-2024 ambulatory Anamaria Ricks Facility :[facility] Start: 07-13-2024 End: 07-13-[address] Anamaria Ricks MD -[facility] Work Phone: Start: 07-13-2024 End: 07-13-2024 ambulatory [facility] Facility:[facility] Start: 06-29-2024 End: 06-29-[address] Anamaria Ricks MD -[facility] Work Phone: Start: 06-29-2024 End: 06-29-2024 ambulatory Anamaria Ricks Facility:[facility] Start: 06-28-2024 End: 06-28-[address] Anamaria Ricks MD Work Phone: [facility] Work Phone: Start: 06-28-2024 End: 06-28-[address] Anamaria Ricks MD -Laboratory Work Phone: Start: 06-28-2024 End: 06-28-2024 ambulatory Anamaria [place] Facility:[facility] Start: 05-26-2024 Encounter for other preprocedural examination Mahad Rodriguez [facility] Start: 05-12-2024 End: 05-12-[address] Anamaria iRcks MD Work Phone: -Laboratory Work Phone: Start: 05-11-2024 End: 05-11-2024 Bamboo flowsheet Sasha Paystrup [employer]ERS SAL[employer] REPRESENTATIVE Work Phone: [facility] Start: 05-11-2024 End: 05-11-2024 Bamboo flowsheet Sasha Paystrup [employer]ERS SALES REPRESENTATIVE Work Phone: [facility] Start: 05-11-2024 End: 05-11-2024 Office outpatient visit 25 minutes Sasha Paystdarren [employer] SAL[employer] REPRESENTATIVE Work Phone: [facility] Comment on above: Impingement syndrome of right shoulder (Primary Dx); Pre-op exam; Type 2 diabetes mellitus without complication, without long-term current use of insulin (CMS/[facility]); Hyperlipidemia, unspecified hyperlipidemia type (CMS/HCC) Start: 05-11-2024 End: 05-11-2024 Preprocedural examination done Sasha Savage CONTAINERS SALES REPRESENTATIVE Work Phone: [facility] Work Phone: Start: 05-11-2024 End: 05-12-2024 ambulatory SASHA PAYSTRUP Not Available Start: 04-14-2024 End: 04-14-[address] Anamaria Ricks MD Work Phone: [facility] Work Phone: Start: 04-14-2024 End: 04-14-[address] Anamaria Ricks MD Work Phone: -Physical Therapy Work Phone: Start: 03-31-2024 End: 03-31-[address] Anamaria Ricks MD -[facility] Work Phone: Start: 03-31-2024 End: 03-31-2024 ambulatory Anamaria Ricks Facility:[facility] Start: 02-26-2024 End: 02-26-[address] Anamaria Ricks MD Work Phone: -Laboratory Work Phone: Start: 02-25-2024 End: 02-25-2024 Bamboo flowsheet Sasha Paystalessiap [employer]TAINERS SALES REPRESENTATIVE Work Phone: [facility] Start: 02-25-2024 End: 02-25-2024 Bamboo flowsheet Sasha Paystrup CONTAINERS SALES REPRESENTATIVE Work Phone: [facility] Start: 02-25-2024 End: 02-25-2024 Office outpatient new 45 minutes Sasha Paystrup [employer]ERS SALES REPRESENTATIVE Work Phone: [facility] Comment on above: Impingement syndrome of right shoulder (Primary Dx); Pre-op exam; Type 2 diabetes mellitus without complication, without long-term current use of insulin (CMS/HCC) Start: 02-25-2024 End: 02-25-2024 Preprocedural examination done Sasha Savage CONTAINERS SALES REPRESENTATIVE Work Phone: [facility] Work Phone: Start: 02-25-2024 End: 02-26-2024 ambulatory SASHA PAYSTRUP Not Available Start: 02-06-2024 End: 02-06-2024 ambulatory Anamaria Ricks Facility:[facility] Start: 01-26-2024 End: 01-26-2024 ambulatory [facility] Start: 01-22-2024 End: 01-22-[facility] Start: 01-16-2024 End: 01-16-2024 ambulatory Anamaria Ricks Facility:[facility] Start: 12-23-2023 End: 12-23-2023 ambulatory Anamaria Ricks Facility:[facility] Start: 12-23-2023 End: 12-23-2023 ambulatory [facility] Facility:[facility] Start: 05-01-2023 End: 05-01-[address] Anamaria Ricks Work Phone: [facility] Work Phone: Start: 05-01-2023 End: 05-01-[address] Anamaria Ricks Work Phone: [facility]-Laboratory Work Phone: Start: 03-31-2023 End: 03-31-2023 Patient encounter procedure No Primary Care Physician [facility] Work Phone: Start: 03-26-2023 End: 03-26-2023 ambulatory No Primary Care Physician [facility] Work Phone: Start: 03-26-2023 End: 03-26-2023 Patient encounter procedure No Primary Care Physician [facility]-Laboratory, Specimen Work Phone: Start: 03-26-2023 End: 03-26-2023 Patient encounter procedure No Primary Care Physician [facility] Work Phone: Start: 02-20-2023 Non-patient / Non-visit No Miriam yelena Care Physician [facility] Start: 02-20-2023 End: 02-20-2023 Admission to same day surgery center No Primary Care Physician [facility]-Endoscopy Work Phone: Start: 02-20-2023 End: 02-20-2023 ambulatory No Primary Care Physician [facility] Work Phone: Start: 02-11-2023 End: 02-11-2023 ambulatory No Primary Care Physician [facility] Work Phone: Start: 02-11-2023 End: 02-11-2023 Patient encounter procedure No Primary Care Physician [facility]-Laboratory, Specimen Work Phone: Start: 02-11-2023 End: 02-11-2023 Patient encounter procedure No Primary Care Physician [facility] Work Phone: Start: 01-28-2023 End: 01-28-2023 ambulatory No Primary Care Physician [facility] Work Phone: Start: 01-28-2023 End: 01-28-2023 Patient encounter procedure No Primary Care Physician [facility] [facility] Work Phone: Start: 01-24-2023 End: 01-24-2023 ambulatory No Primary Care Physician [facility] Work Phone: Start: 01-24-2023 End: 01-24-2023 Patient encounter procedure No Primary Care Physician [facility]-Outpatient Breast Imaging Work Phone: Start: 01-01-2023 End: 01-01-2023 Patient encounter procedure No Primary Care Physician [facility] Work Phone: Start: 12-30-2022 Registered Referred No Primary Care Physician [facility]-Employee Health Start: 10-25-2021 End: 10-25-2021 Patient encounter procedure [facility]-MRI - [facility] Start: 09-07-2021 End: 09-07-2021 Discharged Recurring [facility]-Physical Therapy Start: 06-12-2011 End: 06-12-2011 Patient encounter procedure [facility] Start: 03-19-2011 End: 03-19-2011 Patient encounter procedure Kathy [facility] Start: 12-05-2010 End: 12-05-2010 Error Encounter Kathy [facility] Start: 08-29-2010 End: 08-29-2010 Patient encounter procedure Kathy Kennedy [facility] Start: 05-14-2010 End: 05-14-2010 Patient encounter procedure Kathy Kennedy [facility] Start: 01-05-2010 End: 01-05-2010 Patient encounter procedure Kathy [facility] Start: 10-20-2009 End: 10-20-2009 Patient encounter procedure Kathy [facility] Start: 07-14-2009 End: 07-14-2009 Patient encounter procedure Kathy [facility] Start: 05-25-2009 End: 05-25-2009 Office outpatient visit 10 minutes Kathy [facility] Start: 05-01-2009 End: 05-01-2009 Patient encounter procedure Kathy Kennedy [facility] Start: 03-31-2009 End: 03-31-2009 Patient encounter procedure Kathy Kennedy [facility] Start: 01-16-2009 End: 01-16-2009 Office outpatient visit 15 minutes Kathy [facility] Start: 12-09-2008 End: 12-09-2008 Patient encounter procedure Kathy Kennedy [facility] Start: 09-08-2008 End: 09-08-2008 Patient encounter procedure Kathy Kennedy [facility] Start: 07-18-2008 End: 07-18-2008 Phone Encounter Kathy [facility] Start: 06-10-2008 End: 06-12-2008 Patient encounter procedure Kathy Kennedy [facility] Start: 03-11-2008 End: 03-13-2008 Patient encounter procedure Kathy Fast [facility] Start: 12-21-2007 End: 12-21-2007 Patient encounter procedure Kathy Fast [facility] Start: 12-09-2007 End: 12-09-2007 Patient encounter procedure Kathy [facility] Start: 11-03-2007 End: 11-03-2007 Office outpatient visit 15 minutes Kathy Kennedy [facility] Start: 09-04-2007 End: 09-04-2007 Patient encounter procedure Kathy [facility] Start: 06-05-2007 End: 06-05-2007 Patient encounter procedure Kathy [facility] Start: 05-21-2007 End: 05-21-2007 Office outpatient visit 15 minutes Kathy [facility] Start: 02-27-2007 End: 02-27-2007 Patient encounter procedure Kathy [facility] Start: 12-22-2006 End: 12-22-2006 Office outpatient visit 10 minutes Kathy [facility] Start: 11-10-2006 End: 11-10-2006 Patient encounter procedure Kathy [facility] Start: 11-07-2006 End: 11-07-2006 Historical Summary Kathy [facility] Start: 08-11-2006 End: 08-11-2006 Patient encounter procedure Kathy [facility] Start: 06-24-2006 End: 06-24-2006 Office outpatient visit 40 minutes Kathy Fast [facility] Procedures Date Procedure Procedure Detail Performing Clinician Start: 10-12-2024 Urine microalbumin/creatinine ratio measurement Dr. Anamaria Ricks MD Work Phone: Start: 10-05-2024 CT angiography of coronary arteries Dr. Anamaria Ricks MD Work Phone: Start: 06-28-2024 Urine microalbumin/creatinine ratio measurement Dr. Anamaria Ricks MD Work Phone: Comment on above: Previous reported re sult: 443.0 mg/g CREEdited by: DOMINGA on 09/09/24:0857 AMENDED REPORT 09/09/24 0857 MALB:CREAT previously reported as: 443.0 mg/g CRE Start: 03-26-2023 Basophil percent differential count No Primary Care Physician Start: 03-26-2023 Coronavirus COVID-19 PCR No Primary Care Physician Start: 02-20-2023 Colonoscopy No Primary Care Physician Start: 01-28-2023 Urine culture No Primar y Care Physician Start: 01-24-2023 Screening mammography N o Primary Care Physician Start: 10-25-2021 MRI of joint of lowe r extremity Start: 05-21-2016 End: 05-21-2016 SCREENING MAMM (CAD), BILAT Comments: See Note; NOTES: [facility] Imaging Services [address] [place] [address] Verdana 4d SCREENING MAMM (CAD), BILAT MR#: [id number] Acct: [id number] Name: LARA CHAPMAN Rep #: [id number] : 1970 F 46 From: Foster Victoria MD PCP: Kathy Benavides DO Status: REG CLI Study: SCREENING MAMM (CAD), BILAT Date of Exam: 05/21/16 Exam# [id number] Ordering Dr: Jacqueline Nevarez MD MAMMOGRAPHY - BILATERAL SCREENING REASON FOR EXAM: Female, 46 years old. Routine annual screening examination. PERTINENT HISTORY: Mother with breast cancer. TECHNIQUE: Digital bilateral breast jake (3D mammographic acquisition) in the CC and [...] delay biopsy of a clinically suspicious abnormality. 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: Signed Kathy Benavides Start: 02-14-2016 End: 02-28-2016 Drain/inject, joint/bursa Koffi Ely Work Phone: Arthroscopy of knee Arthroscopy of Knee M celeste Stahl RN Comment on above: 1985 Cholecystectomy Cholecystectomy (Gall Bladder Removal) Hina Stahl RN H/O: surgery Tonsillectomy Hina Stahl RN H/O: tubal ligation Tubal Ligation Hina Stahl RN Plan of Treatment Date Care Activity Detail Author Start: 10-20-2024 Evaluation of diagnostic study results [facility] Start: 05-07-2024 End: 05-07-2025 CBC W Auto Differential panel - Blood CBC and differential Lab Routine Pre-op exam Expected: 05/07/2024 (Approximate), Expires: 05/07/2025 [facility] Work Phone: Comment on above: Expected: 05/07/2024 (Approximate), Expi res: 05/07/2025 Start: 05-07-2024 End: 05-07-2025 Comprehensive metabolic 2000 panel - Serum or Plasma Comprehensive metabolic panel Lab Routine Pre-op exam Expected: 05/07/2024 (Approximate), Expires: 05/07/2025 [facility] Comment on above: Expected: 05/07/2024 (Approximate), Expi res: 05/07/2025 Start: 02-25-2024 End: 02-24-2025 Hemoglobin A1c/Hemoglobin.total in Blood Hemoglobin A1c Lab Routine Type 2 diabetes mellitus without complication, without long-term current use of insulin ([facility]) Expected: 02/25/2024 (Approximate), Expires: 02/24/2025 [facility] Comment on above: Expected: 02/25/2024 (Approximate), Expi res: 02/24/2025 Start: 02-25-2024 End: 02-25-2024 Patient encounter procedure 02/25/2024 9:00 AM EST Consult [facility] [address] [facility] [place] [id number] Sasha Savage, JENNI [address] [place] [address] Impingement syndrome of right shoulder (Primary Dx); Pre-op exam [facility] Comment on above: Impingement syndrome of right shoulder ( Primary Dx); Pre-op exam Start: 02-24-2024 End: 02-23-2025 CBC W Auto Differential panel - Blood CBC and differential Lab Routine Pre-op exam Expected: 02/24/2024 (Approximate), Expires: 02/23/2025 [facility] Work Phone: Comment on above: Expected: 02/24/2024 (Approximate), Expi res: 02/23/2025 Start: 02-24-2024 End: 02-23-2025 Comprehensive metabolic 2000 panel - Serum or Plasma Comprehensive metabolic panel Lab Routine Pre-op exam Expected: 02/24/2024 (Approximate), Expires: 02/23/2025 [facility] Comment on above: Expected: 02/24/2024 (Approximate), Expi res: 02/23/2025 Start: 02-24-2024 End: 02-23-2025 ECG 12 lead ECG 12 lead ECG Routine Pre-op exam Expected: 02/24/2024 (Approximate), Expires: 02/23/2025 [facility] Comment on above: Expected: 02/24/2024 (Approximate), Expi res: 02/23/2025 Start: 02-20-2023 Colonoscopy flx dx w/collj spec when pfrmd DIAGNOSTIC COLONOSCOPY [facility] Start: 02-20-2023 Patient discharge [facility] Start: 02-11-2023 Liquid based cervical cytology screening [facility] Start: 01-01-2023 Patient referral [facility] Work Phone: Start: 09-10-2016 End: 09-10-[address] [facility] Work Phone: Start: 2012 Screening for malignant neoplasm of breast Mammogram [facility] Start: 06-12-2011 Provider Instructions for Treatment Diet, Exercise, and Wt loss [facility] Work Phone: Start: 06-12-2011 Assay of thyroid stimulating hormone tsh TSH (89471) [facility] Work Phone: Start: 06-12-2011 TSH Qn TSH (14899) [facility] Work Phone: Start: 06-12-2011 Blood count manual cell count each CBC WITH MANUAL DIFF (75246) [facility] Work Phone: Start: 06-12-2011 Comprehensive metabolic panel METABOLIC PANEL, COMPREHENSIVE (52818) [facility] Work Phone: Start: 06-12-2011 Lipid panel LIPID PANEL (21062) [facility] Work Phone: Start: 03-19-2011 Provider Instructions for Treatment Diet, Exercise, and Wt loss [facility] Work Phone: Start: 03-19-2011 Urine albumin quantitative MICROALBUMIN: CREATININE RATIO (83572) AND (25142) [facility] Work Phone: Start: 03-19-2011 Blood count manual cell count each CBC WITH MANUAL DIFF (42873) [facility] Work Phone: Start: 03-19-2011 Comprehensive metabolic panel METABOLIC PANEL, COMPREHENSIVE (70120) [facility] Work Phone: Start: 03-19-2011 Lipid panel LIPID PANEL (97803) [facility] Work Phone: Start: 12-05-2010 HbA1c (Bld) [Mass fraction] HgA1C , Office (23137) [facility] Work Phone: Start: 12-05-2010 Hemoglobin glycosylated a1c HgA1C , Office (99547) [facility] Work Phone: Start: 12-05-2010 Gluc bld gluc mntr dev cleared fda spec home use Blood Glucose , Office (25068) [facility] Work Phone: Start: 12-05-2010 Glucose [Mass/Vol] Blood Glucose , Office (24482) [facility] Work Phone: Start: 08-29-2010 Provider Instructions for Treatment [facility] Work Phone: Start: 08-29-2010 Comprehensive metabolic panel METABOLIC PANEL, COMPREHENSIVE (14987) [facility] Work Phone: Start: 08-29-2010 Lipid panel LIPID PANEL (17720) [facility] Work Phone: Start: 05-14-2010 Comprehensive metabolic panel METABOLIC PANEL, COMPREHENSIVE (55898) [facility] Work Phone: Start: 05-14-2010 Lipid panel LIPID PANEL (56586) [facility] Work Phone: Start: 01-05-2010 Urine albumin quantitative MICROALBUMIN: CREATININE RATIO (59519) AND (33373) [facility] Work Phone: Start: 01-05-2010 Comprehensive metabolic panel METABOLIC PANEL, COMPREHENSIVE (24397) [facility] Work Phone: Start: 01-05-2010 Lipid panel LIPID PANEL (97692) [facility] Work Phone: Start: 01-05-2010 Iaadiadoo streptococcus group a Rapid Strep Test, Office (12820) [facility]; [facility] Work Phone: Comment on above: neg Start: 01-05-2010 S. pyogenes Ag IA Ql (Unsp spec) Rapid Strep Test, Office (95429) [facility] Work Phone: Comment on above: neg Start: 10-20-2009 Provider Instructions for Treatment Diet, Exercise, and Wt loss [facility] Work Phone: Start: 10-20-2009 Assay of thyroid stimulating hormone tsh TSH (66868) [facility]; [facility] Work Phone: Start: 10-20-2009 TSH Qn TSH (04496) [facility] Work Phone: Start: 10-20-2009 Hepatic function panel HEPATIC FUNCTION PANEL (13336) [facility] Work Phone: Start: 10-20-2009 Lipid panel LIPID PANEL (33840) [facility] Work Phone: Start: 07-14-2009 Comprehensive metabolic panel METABOLIC PANEL, COMPREHENSIVE (47455) [facility] Work Phone: Start: 07-14-2009 Urine albumin quantitative MICROALBUMIN: CREATININE RATIO (18553) AND (57060) [facility] Work Phone: Start: 07-14-2009 Lipid panel LIPID PANEL (30653) [facility] Work Phone: Start: 05-25-2009 Provider Instructions for Treatment *Vertigo Education [facility] Work Phone: Start: 05-01-2009 Provider Instructions for Treatment *Antibiotic Usage Education - Female [facility] Work Phone: Start: 03-31-2009 Provider Instructions for Treatment Diet, Exercise, and Wt loss [facility] Work Phone: Start: 03-31-2009 Comprehensive metabolic panel METABOLIC PANEL, COMPREHENSIVE (87343) [facility] Work Phone: Start: 03-31-2009 Lipid panel LIPID PANEL (75917) [facility] Work Phone: Start: 01-16-2009 Provider Instructions for Treatment Otits Externa Education [facility] Work Phone: Start: 12-09-2008 Provider Instructions for Treatment Diet and Exercise [facility] Work Phone: Start: 12-09-2008 Blood count manual cell count each CBC WITH MANUAL DIFF (34142) [facility] Work Phone: Start: 12-09-2008 Urine albumin quantitative MICROALBUMIN: CREATININE RATIO (98563) AND (34842) [facility] Work Phone: Start: 12-09-2008 Comprehensive metabolic panel METABOLIC PANEL, COMPREHENSIVE (89157) [facility] Work Phone: Start: 12-09-2008 Assay of thyroid stimulating hormone tsh TSH (90944) [facility]; [facility] Work Phone: Start: 12-09-2008 TSH Qn TSH (35221) [facility] Work Phone: Start: 12-09-2008 Hepatic function panel HEPATIC FUNCTION PANEL (90015) [facility] Work Phone: Start: 12-09-2008 Lipid panel LIPID PANEL (39621) [facility] Work Phone: Start: 09-08-2008 Provider Instructions for Treatment Diet and Exercise [facility] Work Phone: Start: 09-08-2008 Hepatic function panel HEPATIC FUNCTION PANEL (45726) [facility] Work Phone: Start: 09-08-2008 Lipid panel LIPID PANEL (18767) [facility] Work Phone: Start: 06-10-2008 Blood count manual cell count each CBC WITH MANUAL DIFF (94908) [facility] Work Phone: Start: 06-10-2008 Comprehensive metabolic panel METABOLIC PANEL, COMPREHENSIVE (16210) [facility] Work Phone: Start: 06-10-2008 Urine albumin quantitative MICROALBUMIN: CREATININE RATIO (34647) AND (86326) [facility] Work Phone: Start: 06-10-2008 Hepatic function panel HEPATIC FUNCTION PANEL (05875) [facility] Work Phone: Start: 06-10-2008 Lipid panel LIPID PANEL (30546) [facility] Work Phone: Start: 03-11-2008 Comprehensive metabolic panel METABOLIC PANEL, COMPREHENSIVE (01591) [facility] Work Phone: Start: 03-11-2008 Blood count manual cell count each CBC WITH MANUAL DIFF (03694) [facility] Work Phone: Start: 03-11-2008 Assay of glutamyltrase gamma GGT (Gamma Glutamyl Transferase) (09064) [facility]; [facility] Work Phone: Start: 03-11-2008 Gamma glutamyl transferase [Catalytic activity/Vol] GGT (Gamma Glutamyl Transferase) (63001) [facility] Work Phone: Start: 03-11-2008 Lipid panel LIPID PANEL (66072) [facility] Work Phone: Start: 03-11-2008 Hepatic function panel HEPATIC FUNCTION PANEL (75692) [facility] Work Phone: Start: 12-09-2007 Hepatic function panel HEPATIC FUNCTION PANEL (03959) [facility] Work Phone: Start: 12-09-2007 Lipid panel LIPID PANEL (32211) [facility] Work Phone: Start: 11-03-2007 Provider Instructions for Treatment FOLLOW UP NEEDED [facility] Work Phone: Start: 09-04-2007 Urine albumin quantitative MICROALBUMIN URINE QUANT (11306) [facility] Work Phone: Start: 09-04-2007 Assay of thyroid stimulating hormone tsh TSH (36241) [facility]; [facility] Work Phone: Start: 09-04-2007 TSH Qn TSH (76392) [facility] Work Phone: Start: 09-04-2007 Blood count manual cell count each CBC WITH MANUAL DIFF (02394) [facility] Work Phone: Start: 09-04-2007 Comprehensive metabolic panel METABOLIC PANEL, COMPREHENSIVE (44991) [facility] Work Phone: Start: 09-04-2007 Lipid panel LIPID PANEL (52946) [facility] Work Phone: Start: 09-04-2007 Hepatic function panel HEPATIC FUNCTION PANEL (96312) [facility] Work Phone: Start: 06-05-2007 Hepatic function panel HEPATIC FUNCTION PANEL (50794) [facility] Work Phone: Start: 06-05-2007 Lipid panel LIPID PANEL (74043) [facility] Work Phone: Start: 05-21-2007 Provider Instructions for Treatment [facility] Work Phone: Start: 02-27-2007 Comprehensive metabolic panel METABOLIC PANEL, COMPREHENSIVE (14939) [facility] Work Phone: Start: 02-27-2007 Hepatic function panel HEPATIC FUNCTION PANEL (46713) [facility] Work Phone: Start: 02-27-2007 Lipid panel LIPID PANEL (98437) [facility] Work Phone: Start: 11-10-2006 Hepatic function panel HEPATIC FUNCTION PANEL (71515) [facility] Work Phone: Start: 11-10-2006 Lipid panel LIPID PANEL (84494) [facility] Work Phone: Start: 11-10-2006 Provider Instructions for Treatment Antidepressant Usage [facility] Work Phone: Start: 08-11-2006 Urnls dip stick/tablet rgnt auto w/o microscopy URINALYSIS W/O MICRO (67293) [facility] Work Phone: Start: 08-11-2006 Hepatic function panel HEPATIC FUNCTION PANEL (65027) [facility] Work Phone: Start: 08-11-2006 Lipid panel LIPID PANEL (82053) [facility] Work Phone: Start: 08-11-2006 Provider Instructions for Treatment Diabetes Education [facility] Work Phone: Start: 06-24-2006 Urnls dip stick/tablet rgnt auto w/o microscopy URINALYSIS W/O MICRO (99909) [facility] Work Phone: Start: 06-24-2006 Assay of thyroid stimulating hormone tsh TSH (46219) [facility]; [facility] Work Phone: Start: 06-24-2006 TSH Qn TSH (07385) [facility] Work Phone: Start: 06-24-2006 Urine albumin quantitative MICROALBUMIN: CREATININE RATIO (85392) AND (33035) [facility] Work Phone: Start: 06-24-2006 Comprehensive metabolic panel METABOLIC PANEL, COMPREHENSIVE (53338) [facility] Work Phone: Start: 06-24-2006 Glucose tolerance test gtt 3 specimens GLUCOSE TOLERANCE TEST (GTT) 2 hour (66403) [facility] Work Phone: Start: 06-24-2006 Lipid panel LIPID PANEL (41083) [facility] Work Phone: Start: 06-24-2006 Provider Instructions for Treatment FOLLOW UP - MAKE APPT AFTER DIAGNOSTIC TESTS [facility] Work Phone: Start: 2002 Screening for malignant neoplasm of cervix [facility] Start: 1993 Screening for malignant neoplasm of cervix Pap Smear [facility] Start: 1972 Screening for malignant neoplasm of colon [facility] Ankle brachial press ure index [facility] Clostridioides diffi cile DNA [Presence] in Unspecified specimen by HUSAM with probe detection [facility] Colonoscopy [facility] CT angiography of coronary arteries [facility] Lactoferrin [Presenc e] in Stool by Immunoassay [facility] Lipid 1995 panel - S bijan or Plasma [facility] Lipid 1995 panel - S bijan or Plasma [facility] Path report.final Dx Spec [facility] Patient Education [facility] Work Phone: Patient referral [facility] Work Phone: Stress echocardiography [facility] Urine microalbumin/creatinine ratio measurement [facility] Urine microalbumin/creatinine ratio measurement [facility] Urine microalbumin/creatinine ratio measurement [facility] US Heart [facility] Work Phone: [facility] Work Phone: [facility] Work Phone: [facility] Work Phone: [facility] Work Phone: [facility] Work Phone: [facility] Work Phone: [facility] Work Phone: [facility] Work Phone: [facility] Work Phone: [facility] Work Phone: [facility] Work Phone: [facility] Immunizations Immunization Date Immunization Notes Care Provider Sarah brownlee 09-28-2024 pneumococcal polysaccharide vaccine, [address] 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 Work Phone: [facility] 01-24-2021 Covid (Moderna) [facility] 12-27-2020 influenza, injectabl e, quadrivalent, preservative free No Primary Care Physician [facility] 12-27-2020 influenza, seasonal, injectable [facility] Work Phone: 12-27-2020 influenza, seasonal, injectable, preservative free Sasha [employer] CONTAINERS SALES REPRESENTATIVE Work Phone: [facility] 12-27-2020 Seasonal, quadrivale nt, recombinant, injectable influenza vaccine, preservative free No Primary Care Physician [facility] 04-24-2020 Covid ([facility]) [facility] 03-27-2020 Covid (Modern) [facility] 01-10-2020 influenza, injectabl e, quadrivalent, preservative free No Primary Care Physician [facility] 01-10-2020 influenza, seasonal, injectable [facility] Work Phone: 12-17-2018 influenza, injectabl e, quadrivalent, preservative free No Primary Care Physician [facility] 12-17-2018 influenza, seasonal, injectable [facility] Work Phone: 11-24-2018 tetanus toxoid, redu mariela diphtheria toxoid, and acellular pertussis vaccine, adsorbed [facility] 12-19-2017 influenza, injectabl e, quadrivalent, preservative free No Primary Care Physician [facility] 12-19-2017 influenza, seasonal, injectable [facility] Work Phone: 03-11-2008 influenza, seasonal, injectable [facility] Internal Medicine Work Phone: Comment on above: Lot #: [id number] on date: 08/30Amount given: 0.5 mlRoute: IMSite given: Left deltoidGiven by: Anita Hewitt LPN Payers Date Payer Category Payer Unknown [id number] 2023 Self-pay [id number] 2023 Managed Care O (unspecified) [employer] [id number] 2023 Unknown [id number] 2012 Unknown [facility] [id number] 1972 Unknown [id number] 2.840.1.696465.3.579.2. 1259 1972 Unknown [id number] .840.1.720305.3.579.2. 1259 Private Health Insurance [id number] Unknown Unknown [id number] Unknown [id number] 2.16.840.1.806746.3.579.2. 462 Unknown [id number] 2.16.840.1.318017.3.579.2. 462 Unknown [id number] 2.16.840.1.112897.3.579.2. 462 Unknown [id number] 2.16840.1.338564.3.579.2. 462 Unknown [id number] 2.16840.1.047960.3.579.2. 462 Unknown [id number] 2.16840.1.226857.3.579.2. 462 Unknown [id number] 2.16.840.1.073863.3.579.2. 462 Unknown [id number] 2.840.1.014725.3.579.2. 462 Unknown [id number] 2.840.1.083569.3.579.2. 462 Unknown [id number] 2.840.1.637620.3.579.2. 462 Unknown [id number] 2.840.1.409680.3.579.2. 462 Unknown [id number] 2.840.1.000205.3.579.2. 462 Unknown [id number] 2.840.1.480452.3.579.2. 462 Unknown [id number] 2.840.1.328289.3.579.2. 462 Unknown [id number] 2.840.1.188892.3.579.2. 462 Unknown [id number] 2.840.1.741143.3.579.2. 462 Unknown [id number] 2.840.1.192655.3.579.2. 462 Unknown [id number] 2.840.1.076145.3.579.2. 462 Unknown [id number] 2.840.1.718144.3.579.2. 462 Unknown [id number] 2.840.1.656426.3.579.2. 462 Unknown [id number] 2.840.1.899028.3.579.2. 462 Unknown [id number] 2.840.1.797512.3.579.2. 462 Unknown [id number] 2.16840.1.719267.3.579.2. 462 Unknown [id number] 2.16.840.1.555223.3.579.2. 462 Unknown [id number] 2.16.840.1.325736.3.579.2. 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 Tobacco use: Tobacco use: [facility]; [facility] Work Phone: Comment on above: 06/12/11 Start: 02-24-2024 End: 05-11-2024 [id number] Health Literacy [facility] How often do you nee d to have someone help you when you read instructions, pamphlets, or other written material from your doctor or pharmacy [SILS] Never [facility] Do you belong to any clubs or organizations such as islam groups, unions, fraternal or athletic groups, or school groups? Yes [facility] Are you now , , , , never or living with a partner? [facility] How often to you hav e a drink containing alcohol? 2-3 time sa week [facility] How many standard drinks containing alcohol do you have on a typical day? 1 or 2 [facility] How often do you hav e 6 or more drinks on 1 occasion? Never [facility] How hard is it for y ou to pay for the very basics like food, housing, medical care, and heating Not very hard [facility] Do you feel stress - tense, restless, nervous, or anxious, or unable to sleep at night because your mind is troubled all the time - these days [OSQ] Only a little [facility] (I/We) worried josef samaniego (my/our) food would run out before (I/we) got money to buy more. Never true [facility] In the past 12 month s, was there a time when you were not able to pay the mortgage or rent on time? No [facility] Start: 1970 Sex assigned at Not on file [facility] Start: 02-25-2024 End: 03-31-2024 Tobacco smoking status NHIS Never smoked tobacco [facility] Start: 02-25-2024 Tobacco use and exposure Smokeless tobacco non-user [facility] Start: 02-25-2024 End: 05-11-2024 Alcoholic beverage intake Current drinker of alcohol (finding) [facility] Start: 06-08-2024 End: 07-01-2024 Sex Female (finding) [facility] NEGATED: Highlighted row [facility] Medical Equipment Procedure Code Equipment Code Equipment Origin al Text Equipment Identifier Dates DIABETIC TESTING SUPPLIES ( Strip) (Free Text) 1 Strip bid for 0 days Quantity: 1 {Box(s)} Refills: 3 Ordered: 29-Aug-2010 Hina Stahl RN Start : 29-Aug-2010 Active Comments: pen needles for byetta Start: 08-29-2010 Comment on above: pen needles for byet ta FREESTYLE FREEDO M (Kit) test strips Kit uad, bid for 30 days Quantity: 100 Kit Refills: 3 Ordered: 14-Jul-2009 Esperanza Shane Start : 14-Jul-2009 Active Comments: test strips only Start: 07-14-2009 Comment on above: test strips only FREESTYLE LITE TEST (In Vitro Strip) 1 Strip BID for 0 days Quantity: 100 {Strip} Refills: 3 Ordered: 31-Mar-2009 Hina Stahl RN Start : 31-Mar-2009 Active Start: 03-31-2009 DIABETIC TESTING SUPPLIES ( Strip) (Free Text) 1 Strip bid for 0 days Quantity: 1 {Box(s)} Refills: 3 Ordered: 29-Aug-2010 Hina Stahl RN Start : 29-Aug-2010 Active Comments: pen needles for byetta Start: 08-29-2010 Comment on above: pen needles for byet ta FREESTYLE FREEDO M (Kit) test strips Kit uad, bid for 30 days Quantity: 100 Kit Refills: 3 Ordered: 14-Jul-2009 Esperanza Shane Start : 14-Jul-2009 Active Comments: test strips only Start: 07-14-2009 Comment on above: test strips only FREESTYLE LITE TEST (In Vitro Strip) 1 Strip BID for 0 days Quantity: 100 {Strip} Refills: 3 Ordered: 31-Mar-2009 Hina Stahl RN Start : 31-Mar-2009 Active Start: 03-31-2009 DIABETIC TESTING SUPPLIES ( Strip) (Free Text) 1 Strip bid for 0 days Quantity: 1 {Box(s)} Refills: 3 Ordered: 29-Aug-2010 Hina Stahl RN Start : 29-Aug-2010 Active Comments: pen needles for byetta Start: 08-29-2010 Comment on above: pen needles for byet ta FREESTYLE FREEDO M (Kit) test strips Kit uad, bid for 30 days Quantity: 100 Kit Refills: 3 Ordered: 14-Jul-2009 Esperanza Shane Start : 14-Jul-2009 Active Comments: test strips only Start: 07-14-2009 Comment on above: test strips only FREESTYLE LITE TEST (In Vitro Strip) 1 Strip BID for 0 days Quantity: 100 {Strip} Refills: 3 Ordered: 31-Mar-2009 Hina Stahl RN Start : 31-Mar-2009 Active Start: 03-31-2009 FREESTYLE FREEDO M (Kit) test strips Kit uad, bid for 30 days Quantity: 100 Kit Refills: 3 Ordered: 14-Jul-2009 Esperanza Shane Start : 14-Jul-2009 Active Comments: test strips only Start: 07-14-2009 Comment on above: test strips only FREESTYLE LITE TEST (In Vitro Strip) 1 Strip BID for 0 days Quantity: 100 {Strip} Refills: 3 Ordered: 31-Mar-2009 Hina Stahl RN Start : 31-Mar-2009 Active Start: 03-31-2009 Blood Sugar Diagnostic (Accu-Chek Asya Plus Test Strp) strip Start: 01-01-2023 Lancets (Accu-Ch ek Softclix Lancets) [facility] Start: 01-01-2023 Blood Sugar Diagnostic (Accu-Chek Asya Plus Test Strp) strip Start: 01-01-2023 Lancets (Accu-Ch ek Softclix Lancets) [facility] Start: 01-01-2023 Blood Sugar Diagnostic (Accu-Chek Asya Plus Test Strp) strip Start: 01-01-2023 Lancets (Accu-Ch ek Softclix Lancets) misc Start: 01-01-2023 Blood Sugar Diagnostic (Accu-Chek Asya Plus Test Strp) strip Start: 01-01-2023 Lancets (Accu-Ch ek Softclix Lancets) misc Start: 01-01-2023 Blood Sugar Diagnostic (Accu-Chek Asya Plus Test Strp) strip Start: 01-01-2023 Lancets (Accu-Ch ek Softclix Lancets) misc Start: 01-01-2023 Blood Sugar Diagnostic (Accu-Chek Asya Plus Test Strp) strip Start: 01-01-2023 Lancets (Accu-Ch ek Softclix Lancets) misc Start: 01-01-2023 Blood Sugar Diagnostic (Accu-Chek Asya Plus Test Strp) strip Start: 01-01-2023 Lancets (Accu-Ch ek Softclix Lancets) misc Start: 01-01-2023 Blood Sugar Diagnostic (Accu-Chek Asya Plus Test Strp) strip Start: 01-01-2023 Lancets (Accu-Ch ek Softclix Lancets) misc Start: 01-01-2023 Blood Sugar Diagnostic (Accu-Chek Asya Plus Test Strp) strip Start: 01-01-2023 Lancets (Accu-Ch ek Softclix Lancets) misc Start: 01-01-2023 Blood Sugar Diagnostic (Accu-Chek Asya Plus Test Strp) strip Start: 01-01-2023 Lancets (Accu-Ch ek Softclix Lancets) misc Start: 01-01-2023 Blood Sugar Diagnostic (Accu-Chek Asya Plus Test Strp) strip Start: 01-01-2023 Lancets (Accu-Ch ek Softclix Lancets) misc Start: 01-01-2023 Blood Sugar Diagnostic (Accu-Chek Asya Plus Test Strp) strip Start: 01-01-2023 Lancets (Accu-Ch ek Softclix Lancets) misc Start: 01-01-2023 Blood Sugar Diagnostic (Accu-Chek Asya Plus Test Strp) strip Start: 01-01-2023 Lancets (Accu-Ch ek Softclix Lancets) [facility] Start: 01-01-2023 Blood Sugar Diagnostic (Accu-Chek Asya Plus Test Strp) strip Start: 01-01-2023 Lancets (Accu-Ch ek Softclix Lancets) [facility] Start: 01-01-2023 Goals Date Patient Goal Desired Activity /State Mental Status Date Assessment Result Facility 02-20-2023 Cognitive function Voice/Name [facility] Work Phone: Clinical Notes 02-11-2023 to 10-05-2024 Note Date & Type Note Facility 10-05-2024 Radiology Diagnostic study note [facility] Imaging Services [address] [place] [address] Cardiac Only MR#: [id number] Acct: [id number] Name: LARA CHAPMAN Rep #: [id number] : 1970 F 54 From: Gopal Victoria MD PCP: Dr. Anamaria Ricks MD Status: REG CLI Study:Limited Chest CT Cardiac Only Date of E xam: 10/05/24 Exam# [id number] Ordering Dr: Anamaria Ricks MD PROCEDURE: LIMITED CHEST CT CARDIAC ONLY 10/05/2024 REASON FOR EXAM: SCREENING TECHNIQUE: LIMITED CHEST CT CARDIAC ONLY Coronal and Sagittal reconstruction series were provided. CONTRAST: None One or more dose reduction techniques were used (e.g., Automated exposure control, adjustment of the mA and/or kV according to patient size, use of iterative reconstruction technique). RADIATION DOSE SUMMARY: CTDlvol: 12.19 mGy DLP: 219.42 mGycm COMPARISON: None FINDINGS: Small mediastinal lymph nodes. Coronary artery calcification. The heart is not enlarged. The pericardium is not thickened. The lungs are clear. CT/Limited Chest CT Cardiac Only IMPRESSION: Coronary artery calcification. Reading Location: [id number] CC: Dr. 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 Anamaria Ricks MD Status:REG CLI Y Location: CT Calcium Scoring Date of Study:: 10/05/24 Indications Indications: Hyperlipidemia Coronary Calcium Scoring: High-resolution Computed Tomographic imaging of the chest was performed on [10/05/2024], with particular attention paid to the coronary arteries. Images from the examination were analyzed for the presence and extent of coronary artery calcification , using coronary calcium quantification software. The patient tolerated the procedure well and there were no complications. The results of the coronary calcification analysis are provided below. Findings Coronary Artery Left Main (LM): 0 Left Anterior Descending (LAD): 233 Left Circumflex (LCX): 0 Right Coronary Artery (RCA): 228 Total Agatston Score: 461 Percentile RankinTh % Calcium Scoring Interpretation: Different methods to categorize the overall amount of coronary plaque. Overall amount CAC SIS Visual of coronary plaque P1 Mild -100 <2 1-2 vessels with mild amount of plaque P2 Moderate 101-300 3-4 1-2 vessels with moderate amount, 3 vessels with mild amount of plaque P3 Severe 301-999 5-7 3 vessels with moderate amount, 1 vessel with severe amount of plaque P4 Extensive >1000 >8 2-3 vessels with severe amount of plaque Calcium Score: Moderate: 1-2 vessels w/moderate amt, 3 vessels w/mild amt of plaque Conclusion: Moderate two-vessel plaque disease noted. 10/05/24 1228 Date ___ _ Jovan Gilliam MD Cosigner Signature (if applicable): Date ____ CC: Dr. Anamaria Ricks MD; Dr. Jovan Gilliam MD ~ Signed [facility] Work Phone: 07-13-2024 Evaluation note Diagnosis Onset Date Resolution Diarrhea noneactive July 13 7:51am Type 2 diabetes mellitus acute September 28, 2024 7:28am Right shoulder pain resolved September 28, 2024 7:28am Immunization due noneactive September 7:28am Screening for cardiovascular condition noneactive September 7:28am Mixed hyperlipidemia noneactive September 28, 2024 7:28am Microalbuminuria noneactive September 7:28am Bilateral calf pain noneactive September 28, 2024 7:28am Abnormal findings on diagnostic imaging of heart and coronary circulation acute October 20, 2024 8:55am High cholesterol acute September 8:55am Murmur, cardiac acute September 8:55am [facility] Work Phone: 1(729) 798-540704-08-2025 Evaluation note* Diagnosis Onset Date Resolution Status Admit Date Right shoulder pain acute June 29, 2024 7:28am Type 2 diabetes mellitus acute June 29, 2024 7:28am Mixed hyperlipidemia noneactive 2024 7:28am Microalbuminuria noneactive June 7:28am Diarrhea noneactive July 13 7:51am Type 2 diabetes mellitus acute September 28, 2024 7:28am Screening for cardiovascular condition noneactive September 28, 2024 7:28am Mixed hyperlipidemia noneactive September 28, 2024 7:28am Microalbuminuria noneactive September 7:28am [facility] Work Phone: 1(772) 236-603504-08-2025 Evaluation note* Diagnosis Onset Date Resolution Status Admit Date Right shoulder pain acute June 29, 2024 7:28am Type 2 diabetes mellitus acute June 29, 2024 7:28am Mixed hyperlipidemia noneactive Apri 2024 7:28am Microalbuminuria noneactive June 7:28am Diarrhea noneactive July 13 7:51am Right shoulder pain acute September 28, 2024 7:28am Type 2 diabetes mellitus acute September 28, 2024 7:28am Immunization due noneactive September 7:28am Screening for cardiovascular condition noneactive September 28, 2024 7:28am Mixed hyperlipidemia noneactive September 28, 2024 7:28am Microalbuminuria noneactive September 7:28am Bilateral calf pain noneactive September 28, 2024 7:28am [facility] Work Phone: 1(439) 976-147404-08-2025 Evaluation note* Diagnosis Onset Date Resolution Status Admit Date Type 2 diabetes mellitus acute June 29, 2024 7:28am Right shoulder pain resolved June 29, 2024 7:28am Mixed hyperlipidemia noneactive 2024 7:28am Microalbuminuria noneactive June 7:28am Diarrhea noneactive July 13 7:51am Type 2 diabetes mellitus acute September 28, 2024 7:28am Right shoulder pain resolved September 28, 2024 7:28am Immunization due noneactive September 7:28am Screening for cardiovascular condition noneactive September 28, 2024 7:28am Mixed hyperlipidemia noneactive September 28, 2024 7:28am Microalbuminuria noneactive September 7:28am Bilateral calf pain noneactive September 28, 2024 7:28am [facility] Work Phone: 1(444) 779-903303-18-2025 Discharge summary [facility] Physical Therapy [address] [place] [address] / REHABILITATION SERVICES DISCHARGE SUMMARY MR#: [id number] Acct: [id number] Name: LARA CHAPMAN Rep #: [id number] : 1970 54 From: Bairon Larios PT, ATC Referring Dr.: OUT OF TOWN DOCTOR Status: REG RCR Insurance: [facility] [employer]/[facility] SELF PAY INSURANCE Patient Information Patient Information: LARA CHAPMAN was seen in my office for initial evaluation on 03/18/24. The following Plan of Care was established for this patient: POC Established Initial Frequency: 2-3x /Week Initial Duration: 6-8 weeks Anticipated Interventions Patient/Client Instruction: Educate patient on: Condition and Plan of Care For the Purpose of:: To improve self management Therapeutic Exercise to Include: Strength training, Endurance training, Flexibilty training, Passive ROM, Active ROM and Scapular Strength/Stabilization For the Purpose of:: To decrease pain, To increase ROM and To improve muscle performance and motor function Cryotherapy (ice pack, ice massage): Yes For the Purpose of:: To decrease pain Last Seen Last Seen: This patient was last seen in our office . Pertinent comments regarding their Physical therapy willappear below: Pt has not returned to PT in 30 days and is discharged at this time. At this point I will be discontinuing this patient from physical therapy. I would be happy to see this patient again in the future if found appropriate by the physician. Thank you! Bairon Larios, PT, ATC Balance/Gait/Functional tests Balance/Special Test Scores Quick DASH Score: 72.7250 06/08/24 1352 CC: Dr. Anamaria Ricks MD; YELENA GLASS ~ [facility] Signed [facility]01-08-2025 Evaluation note* Diagnosis Onset Date Resolution Status Admit Date Right shoulder pain acute 2024 7:30am Type 2 diabetes mellitus acute March 31, 2024 7:30am Mixed hyperlipidemia noneactive [email or web address] 7:30am Microalbuminuria noneactive March 31, 2024 7:30am [facility] Work Phone: 1(826) 449-943301-08-2025 Evaluation note* Diagnosis Onset Date Resolution Status Admit Date Right shoulder pain acute 2024 7:30am Type 2 diabetes mellitus acute March 31, 2024 7:30am Mixed hyperlipidemia noneactive [email or web address] 7:30am Microalbuminuria noneactive March 31, 2024 7:30am Right shoulder pain acute June 29, 2024 7:28am Type 2 diabetes mellitus acute June 29, 2024 7:28am Mixed hyperlipidemia noneactive 2024 7:28am Microalbuminuria noneactive June 7:28am [facility] Work Phone: 1(465) 796-925511-30-2023 Procedure [facility] 02-20-2023 Procedure [facility]11-21-2023 NotePap Smear Specimen AdequacyNov2022 5:06pmComment.Satisfactory for evaluation. Endocervical and/or squamous metaplasticcells (endocervical component)are present.[facility] INTER[facility]ACED A#[id number] Barnesville HospitalComment on above: Satisfactory for evaluation. Endocervical and/or squamous metaplasticcells (endocervical component)are present.02-11-2023 NotePap Smear Specimen Adequacy February 11, 2023 5:06pmComment.Satisfactory for evaluation. Endocervical and/or squamous metaplasticcells (endocervical component)are present.[facility] A#[id number] Barnesville HospitalComment on above:Satisfactory for evaluation. Endocervical and/or squamous metaplasticcells (endocervical component)are present.02-11-2023 NotePap Smear Specimen AdequacyFebruary 11, 2023 5:06pmComment.Satisfactory for evaluation. Endocervical and/or squamous metaplasticcells (endocervical component)are present.[facility] A#[id number] Barnesville HospitalComment on above:Satisfactory for evaluation. Endocervical and/or squamous metaplasticcells (endocervical component)are present.Discharge summary Author Bairon Larios [facility] Note Date/Time June 08, 2024 1:5 2pm [facility] Physical Therapy [facility] [address] [place] [address] [address] [place] [address] / REHABILITATION SERVICES DISCHARGE SUMMARY MR#: [id number] Acct: [id number] Name: LARA CHAPMAN Rep #: [id number] : 1970 54 From: Bairon Larios PT, ATC Referring DrTony: OUT OF TOWN DOCTOR Status: REG RCR Insurance: [facility] [employer]/[facility] SELF PAY INSURANCE Patient Information Patient Information: LARA CHAPMAN was seen in my office for initial evaluation on 03/18/24. The following Plan of Care was established for this patient: POC Established Initial Frequency: 2-3x /Week Initial Duration: 6-8 weeks Anticipated Interventions Patient/Client Instruction: Educate patient on: Condition and Plan of Care For the Purpose of:: To improve self management Therapeutic Exercise to Include: Strength training, Endurance training, Flexibilty training, Passive ROM, Active ROM and Scapular Strength/Stabilization For the Purpose of:: To decrease pain, To increase ROM and To improve muscle performance and motor function Cryotherapy (ice pack, ice massage): Yes For the Purpose of:: To decrease pain Last Seen Last Seen: This patient was last seen in our office . Pertinent comments regarding their Physical therapy will appear below: Pt has not returned to PT in 30 days and is discharged at this time. At this point I will be discontinuing this patient from physical therapy. I would be happy to see this patient again in the future if found appropriate by the physician. Thank you! Bairon Larios, PT, ATC Balance/Gait/Functional tests Balance/Special Test Scores Quick DASH Score: 72.7250 <Electronically signed by Bairon Larios PT, ATC> 06/08/24 1352 CC: Dr. Anamaria Ricks MD; YELE[facility] GLASS ~ [facility] Signed [facility] Work Phone: Evaluation noteNo assessment information available [facility] Work Phone: Evaluation note* Diagnosis Onset Date Resolution Status Adhesive capsulitis of left shoulder acute Immunization declined noneac tive Skin growth noneactive Screening for colon cancer n oneactive Establishing care with new doctor, encounter for noneactive Screening for cervical cancer noneactive Uncontrolled type II diabetes mellitus noneactive Mixed hyperlipidemia noneact yahir Right hip pain noneactive Screening for breast cancer noneactive Dysuria noneactive Uncontrolled type II diabetes mellitus noneactive Mixed hyperlipidemia noneact yahir [facility] Work Phone: Evaluation note* Diagnosis Onset Date Resolution Status Adhesive capsulitis of left shoulder acute Immunization declined noneac tive Skin growth noneactive Screening for colon cancer n oneactive Establishing care with new doctor, encounter for noneactive Screening for cervical cancer noneactive Uncontrolled type II diabetes mellitus noneactive Mixed hyperlipidemia noneact yahir Right hip pain noneactive Screening for breast cancer noneactive Dysuria noneactive Uncontrolled type II diabetes mellitus noneactive Mixed hyperlipidemia noneact yahir Encounter for routine gynecological examination noneactive [facility] Work Phone: Evaluation note* Diagnosis Onset Date Resolution Status Adhesive capsulitis of left shoulder acute Immunization declined noneac tive Skin growth noneactive Screening for colon cancer n oneactive Establishing care with new doctor, encounter for noneactive Screening for cervical cancer noneactive Uncontrolled type II diabetes mellitus noneactive Mixed hyperlipidemia noneact yahir Right hip pain noneactive Screening for breast cancer noneactive Dysuria noneactive Uncontrolled type II diabetes mellitus noneactive Mixed hyperlipidemia noneact yahir Encounter for routine gynecological examination noneactive Encounter for screening for malignant neoplasm of colon acute [facility] Work Phone: Evaluation note* Diagnosis Onset Date Resolution Status Adhesive capsulitis of left shoulder acute Immunization declined noneac tive Skin growth noneactive Screening for colon cancer n oneactive Establishing care with new doctor, encounter for noneactive Screening for cervical cancer noneactive Uncontrolled type II diabetes mellitus noneactive Mixed hyperlipidemia noneact yahir Right hip pain noneactive Screening for breast cancer noneactive Dysuria noneactive Uncontrolled type II diabetes mellitus noneactive Mixed hyperlipidemia noneact yahir Encounter for routine gynecological examination noneactive Encounter for screening for malignant neoplasm of colon resolved Acute upper respiratory infection resolved Adhesive capsulitis of left shoulder acute COVID-19 noneactive Uncontrolled type II diabetes mellitus noneactive Mixed hyperlipidemia noneact yahir [facility] Work Phone: Evaluation note* Diagnosis Onset Date Resolution Status Dysuria noneactive Uncontrolled type II diabetes mellitus noneactive Mixed hyperlipidemia noneact yahir Encounter for routine gynecological examination noneactive Encounter for screening for malignant neoplasm of colon resolved Acute upper respiratory infection resolved Adhesive capsulitis of left shoulder acute COVID-19 noneactive Uncontrolled type II diabetes mellitus noneactive Mixed hyperlipidemia noneact [facility] Work Phone: Evaluation note* Diagnosis Impingement syndrome of right shoulder- Primary Pre-op exam Type 2 diabetes mellitus without complication, without long-term current use of insulin (CMS/HCC) documented in this encounter [facility] Diagnosis Impingement syndrome of right shoulder- Primary Pre-op exam Type 2 diabetes mellitus without complication, without long-term current use of insulin (CMS/HCC) Hyperlipidemia, unspecified hyperlipidemia type (CMS/HCC) documented in this encounter [facility] and [facility] note Author Iggy Panchal [facility] February 20, 2023 8:39am Note Date/Time February 20, 2023 8:39am [facility] Medical Records Department [address] [place] [address] History & Physical Exam 02/20/23 0838 MR#: [id number] Acct: [id number] Name: LARA CHAPMAN Rep #:[id number] 16 : 1970 52 From: Iggy Friend DO PCP: Dr. Anamaria Ricks MD Status:[facility] Location: [place] [address] HPI - General General Date of Admission: 02/20/23 Date of Service: 02/20/23 HPI Narrative LARA CHAPMAN, is a 52 F who presents today for screening colonoscopy. She has not had a colonoscopy in the past. She did not have abdominal pain. She not have any nausea, vomiting or diarrhea. She denies any change in bowel habits. She denies any bleeding, diarrhea or constipation. Overall she is very good health. Past medical history is positive for type 2 diabetes, hypertension, hypercholesterolemia. [facility] Medical History Adhesive capsulitis of left shoulder Alcohol use Diabetes Hay fever High cholesterol History of edema Kidney stone Non-smoker Post-menopausal Restless legs Type 2 diabetes mellitus Wears contact lenses Home Medications atorvastatin 40 mg tablet (Lipitor) 40 mg PO QHS #30 tabs 01/01/23 [Rx Last Taken Unknown] blood sugar diagnostic (Accu-Chek Asya Plus test strips) #100 ea 01/01/23 [Rx Last Taken Unknown] blood-glucose meter (Accu-Chek Guide Glucose Meter) #1 ea 01/01/23 [Rx Last Taken Unknown] lancets (Accu-Chek Softclix Lancets) #100 ea 01/01/23 [Rx Last Taken Unknown] lisinopril 2.5 mg tablet 2.5 mg PO DAILY #30 tabs 01/28/23 [Rx Last Taken Unknown] metformin 1,000 mg tablet 1,000 mg PO BIDWMEAL #60 tabs 01/28/23 [Rx Last Taken Unknown] coenzyme Q10 75 mg capsule (Ultra CoQ10) 75 mg PO DAILY 02/11/23 [History Last Taken Unknown] Allergy/AdvReac Type Severity Reaction Status Date / Time codeine Allergy Itching Verified 02/20/23 07:48 Family History Father Hypertension CVA (cerebral vascular accident) Diabetes Prostate cancer Myocardial infarction High cholesterol Mother Breast cancer Cancer SKIN CANCER High cholesterol Other Heart disease Surgical History History of cholecystectomy History of hip surgery History of placement of ear tubes History of repair of ACL History of tonsillectomy and adenoidectomy S/P endometrial ablation Social History (Updated 02/11/23 @ 15:34 by Susan Obando) household members: spouse and children current occupational status: employed current occupation: [employer] Smoking Status: Never smoker Electronic Cigarette Use: not used alcohol intake: current alcohol intake frequency: holidays/special occasions only details: special occasions substance use type: does not use what type of physical activity do you participate in: none seatbelt use: always do you feel safe at home: Yes additional social history: - Homar ROS Review of Systems ROS Unobtainable: other Constitutional Constitutional: Denies fatigue, fever(s), poor appetite, weight gain or weight loss ENT HEENT: Denies mouth lesions Cardiovascular Cardiovascular: Denies abdominal bloating, abdominal edema or abdominal pain Respiratory/Chest Respiratory/Chest: Denies change in mental status, change in phlegm color, chestcongestion or chest tightness Gastrointestinal Gastrointestinal: Denies belching, bloating, change in bowel habits, change in stool character, chewing difficulty, coffee ground emesis, constipation, cramping, diarrhea, dyspepsia, dysphagia, early satiety, excessive flatus, fecalincontinence, heartburn, hematemesis, hematochezia, hemorrhoids, loose stools, melena, nausea, odynophagia, rectal bleeding, tenesmus, vomiting or weight changes Genitourinary Genitourinary: Denies abdominal discomfort, burning urination or itching Musculoskeletal Musculoskeletal: Reports as per HPI; Denies muscle weakness or myalgias Integumentary Integumentary: Denies jaundice Neurologic Neurologic: Denies lack of coordination or weakness Psychiatric Psychiatric: Denies confusion, depression, memory loss, mood swings, paranoia orsuicidal ideation Endocrine Endocrinology: Denies systems reviewed and no addt'l complaints, except as documented Hematologic/Lymphatic Hematologic/Lymphatic: Denies anemia, easy bleeding, easy bruising or lymphadenopathy Allergic/Immunologic Allergic/Immunologic: Denies systems reviewed and no addt'l complaints, except as documented Vital Signs Vital Signs Vital Signs: 02/20/23 07:51 02/20/23 07:51 Temperature 97.4 F L Temperature Source Temporal Pulse Rate 83 Respiratory Rate 16 Respiratory Pattern Normal Blood Pressure 109/70 Blood Pressure Mean 83 Blood Pressure Source Monitor Blood Pressure Position Sitting Blood Pressure Location Right Arm Pulse Ox 100 Oxygen Delivery Method Room Air Weight Weight: 186 lb 1.122 oz Body Mass Index (BMI) 30.9 Physical Exam Const alert General Appearance: cooperative Orientation / Consciousness: oriented to person HEENT hearing grossly normal bilaterally Head and Scalp: normal to inspection Face and Sinus: face symmetric Nose: external nose normal Mouth: oral and palatal mucosa normal Eyes conjunctivae normal General Eye: normal appearance of both eyes Neck full ROM General: normal visual inspection Lymph Lymphatic: no lymphadenopathy noted Chest inspection of chest normal and palpation of chest normal Chest: symmetrical chest wall rise Resp normal respiratory effort Effort and Inspection: able to speak in complete sentences Cardio regular rate GI non-distended Percussion: normal to percussion Rectal Exam: deferred Neuro Speech: speech normal Gait (Neuro): normal gait Results Lab / Micro Data Labs: Laboratory Results - last 24 hr 02/20/23 07:50: POC Glucose 178 H Assessment & Plan Assessment/Plan (1) Encounter for screening for malignant neoplasm of colon: PLAN: She was explained alternatives, risk, benefits including not withstanding bleeding, infection, sepsis, perforation, need for emergent surgery . She will have an ASA of 3. 02/20/23 0839 <Electronically signed by Iggy Panchal DO> Cosigner Signature (if applicable): CC: Dr. Anamaria Ricks MD; Iggy Panchal DO~ Signed [facility] Work Phone: Reason for referral (narrative)No reason for referral information availableWSt. [facility] Work Phone: Family History No Family History Records FoundUnknown Family Member Name Dates Details Father Comments:- age 62- r enal failure and DC- had chf and diabetes- high chol Status:Active Mother Comments:In good health- hig h chol Status:Active Unknown Family Member Name Dates Details Father Comments:- age 62- r enal failure and DC- had chf and diabetes- high chol Status:Active Mother Comments:In good health- hig h chol Status:Active Relationship Condition Age at Onset Recorded Date/T mirna Not Specified Cardiac disease Unknown Unknown Family Member Name Dates Details Father Comments:- age 62- r enal failure and DC- had chf and diabetes- high chol Status:Active Mother Comments:In good health- hig h chol Status:Active Relationship Condition Age at Onset Recorded Date/T mirna Not Specified Cardiac disease Unknown father Hypertension Unknown Cerebrovascular accident (CVA) Unknown Diabetes mellitus Unknown Malignant neoplasm of prostate Unknown Myocardial infarction Unknown High blood cholesterol Unknown mother Malignant neoplasm of breast Unknown Malignant neoplasm Unknown Chief Complaint and Reason for Visit Chief Complaint 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 Chief Complaint 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 LEFT SHOULDER PAIN Chief Complaint 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 possible UTI Reason for Visit Adhesive capsulitis of left shoulder Immunization declined Skin growth Screening for colon cancer Establishing care with new doctor, encounter for Screening for cervical cancer Uncontrolled type II diabetes mellitus Mixed hyperlipidemia Right hip pain Screening for breast cancer Dysuria Uncontrolled type II diabetes mellitus Mixed hyperlipidemia Chief Complaint 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 possible UTI Annual ([employer]) Reason for Visit Adhesive capsulitis of left shoulder Immunization declined Skin growth Screening for colon cancer Establishing care with new doctor, encounter for Screening for cervical cancer Uncontrolled type II diabetes mellitus Mixed hyperlipidemia Right hip pain Screening for breast cancer Dysuria Uncontrolled type II diabetes mellitus Mixed hyperlipidemia Encounter for routine gynecological examination Chief Complaint 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 SCREEN possible UTI Annual ([employer]) Reason for Visit Adhesive capsulitis of left shoulder Immunization declined Skin growth Screening for colon cancer Establishing care with new doctor, encounter for Screening for cervical cancer Uncontrolled type II diabetes mellitus Mixed hyperlipidemia Right hip pain Screening for breast cancer Dysuria Uncontrolled type II diabetes mellitus Mixed hyperlipidemia Encounter for routine gynecological examination Encounter for screening for malignant neoplasm of colon Chief Complaint 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 SCREEN possible UTI Annual ([employer]) ACUTE SINUS INFECTION 2 M FU Reason for Visit Adhesive capsulitis of left shoulder Immunization declined Skin growth Screening for colon cancer Establishing care with new doctor, encounter for Screening for cervical cancer Uncontrolled type II diabetes mellitus Mixed hyperlipidemia Right hip pain Screening for breast cancer Dysuria Uncontrolled type II diabetes mellitus Mixed hyperlipidemia Encounter for routine gynecological examination Encounter for screening for malignant neoplasm of colon Acute upper respiratory infection Adhesive capsulitis of left shoulder COVID-19 Uncontrolled type II diabetes mellitus Mixed hyperlipidemia Chief Complaint SCREEN possible UTI Annual ([employer]) ACUTE SINUS INFECTION 2 M FU Reason for Visit Dysuria Uncontrolled type II diabetes mellitus Mixed hyperlipidemia Encounter for routine gynecological examination Encounter for screening for malignant neoplasm of colon Acute upper respiratory infection Adhesive capsulitis of left shoulder COVID-19 Uncontrolled type II diabetes mellitus Mixed hyperlipidemia Chief Complaint Admit Date FAX RESULTS [phone] February 25, 2 024 7:26am 6 M FU March 31, 2024 7: 30am S/P SAD, BT & CAPSULAR RELEASE. RX HERE April 14, 2024 3:30pm Reason for Visit Admit Date Right shoulder pain March 31, 2024 7: 30am Type 2 diabetes mellitus March 31 7:30am Mixed hyperlipidemia March 31, 2024 7 :30am Microalbuminuria March 31, 2024 7: 30am Chief Complaint Admit Date 6 M FU March 31, 2024 7: 30am S/P SAD, BT & CAPSULAR RELEASE. RX HERE April 14, 2024 3:30pm E ORDERS June 28, 2024 9:23 am 3 M FU June 29, 2024 7:28 am Reason for Visit Admit Date Right shoulder pain March 31, 2024 7: 30am Type 2 diabetes mellitus March 31 7:30am Mixed hyperlipidemia March 31, 2024 7 :30am Microalbuminuria March 31, 2024 7: 30am Right shoulder pain June 29, 2024 7:28 am Type 2 diabetes mellitus June 29, 2024 7:28am Mixed hyperlipidemia June 29, 2024 7:2 8am Microalbuminuria June 29, 2024 7:28 am Chief Complaint Admit Date E ORDERS June 28, 2024 9:23 am 3 M FU June 29, 2024 7:28 am ongoing diarrhea July 13, 2024 7:5 1am 3 M FU September 28, 2024 7:28a m Reason for Visit Admit Date Right shoulder pain June 29, 2024 7:28 am Type 2 diabetes mellitus June 29, 2024 7:28am Mixed hyperlipidemia June 29, 2024 7:2 8am Microalbuminuria June 29, 2024 7:28 am Diarrhea July 13, 2024 7:5 1am Type 2 diabetes mellitus September 28, 2024 7:28am Screening for cardiovascular condition J frank 2024 7:28am Mixed hyperlipidemia September 28, 2024 7:28 am Microalbuminuria September 28, 2024 7:28a m Chief Complaint Admit Date E ORDERS June 28, 2024 9:23 am 3 M FU June 29, 2024 7:28 am ongoing diarrhea July 13, 2024 7:5 1am 3 M FU September 28, 2024 7:28a m Encounter for screening for cardiovascul ar disorde October 05, 2024 10:55am Encounter for screening for cardiovascul ar disorde October 05, 2024 12:26pm CLAUDICATION October 07, 2024 10:4 9am Reason for Visit Admit Date Right shoulder pain June 29, 2024 7:28 am Type 2 diabetes mellitus June 29, 2024 7:28am Mixed hyperlipidemia June 29, 2024 7:2 8am Microalbuminuria June 29, 2024 7:28 am Diarrhea July 13, 2024 7:5 1am Right shoulder pain September 28, 2024 7:28a m Type 2 diabetes mellitus September 28, 2024 7:28am Immunization due September 28, 2024 7:28a m Screening for cardiovascular condition J frank 2024 7:28am Mixed hyperlipidemia September 28, 2024 7:28 am Microalbuminuria September 28, 2024 7:28a m Bilateral calf pain September 28, 2024 7:28a m Reason for Visit Admit Date Type 2 diabetes mellitus June 29, 2024 7:28am Right shoulder pain June 29, 2024 7:28 am Mixed hyperlipidemia June 29, 2024 7:2 8am Microalbuminuria June 29, 2024 7:28 am Diarrhea July 13, 2024 7:5 1am Type 2 diabetes mellitus September 28, 2024 7:28am Right shoulder pain September 28, 2024 7:28a m Immunization due September 28, 2024 7:28a m Screening for cardiovascular condition Naif marie 2024 7:28am Mixed hyperlipidemia September 28, 2024 7:28 am Microalbuminuria September 28, 2024 7:28a m Bilateral calf pain September 28, 2024 7:28a m Chief Complaint Admit Date E ORDERS June 28, 2024 9:23 am 3 M FU June 29, 2024 7:28 am ongoing diarrhea July 13, 2024 7:5 1am 3 M FU September 28, 2024 7:28a m Encounter for screening for cardiovascul ar disorde October 05, 2024 10:55am Encounter for screening for cardiovascul ar disorde October 05, 2024 12:26pm CLAUDICATION October 07, 2024 10:4 9am claudication October 19, 2024 7:49 am ABN CCTA ([place]) October 20, 2024 8:55 am Chief Complaint Admit Date ongoing diarrhea July 13, 2024 7:5 1am 3 M FU September 28, 2024 7:28a m Encounter for screening for cardiovascul ar disorde October 05, 2024 10:55am Encounter for screening for cardiovascul ar disorde October 05, 2024 12:26pm CLAUDICATION October 07, 2024 10:4 9am claudication October 19, 2024 7:49 am ABN CCTA ([place]) October 20, 2024 8:55 am Reason for Visit Admit Date Diarrhea July 13, 2024 7:5 1am Type 2 diabetes mellitus September 28, 2024 7:28am Right shoulder pain September 28, 2024 7:28a m Immunization due September 28, 2024 7:28a m Screening for cardiovascular condition J frank 2024 7:28am Mixed hyperlipidemia September 28, 2024 7:28 am Microalbuminuria September 28, 2024 7:28a m Bilateral calf pain September 28, 2024 7:28a m Abnormal findings on diagnos tic imaging of heart and coronary circulation October 20, 2024 8:55am High cholesterol October 20, 2024 8:55 am Murmur, cardiac October 20, 2024 8:55 am Advance Directives No Advanced Directives Records Found Advance Directive Response Recorded Date/ Time Living Will No February 07 9:04am Power of Restaurant Mgr No February 07, 2021 9:04am Advance Directive Response Recorded Date/ Time Living Will No February 07 8:04am Power of Restaurant Mgr No February 07, 2021 8:04am Advance Directive Response Recorded Date/ Time Living Will No February 17, 023 3:59pm Power of Restaurant Mgr No February 17, 2023 3:59pm Advance Directive Response Recorded Date/ Time Living Will No September 05, 2023 8:04am Power of Restaurant Mgr No September 04 8:04am Advance Directive Response Recorded Date/ Time Living Will No September 05, 2023 8:04am Do you have a Healthcare Power of Restaurant Mgr? No September 05, 2023 8:04am Summary Purpose Additional Source Comments Goals (unrecognized section and content) Goals may be documented in a n alternate sectionGoals may be documented in an alternate sectionGoals may be documented in an alternate sectionGoals may be documented in an alternate sectionGoals may be documented in an alternate sectionGoals may be documented in an alternate sectionGoals may be documented in an alternate sectionGoals may be documented in an alternate sectionGoals may be documented in an alternate sectionGoals may be documented in an alternate sectionGoals may be documented in an alternate sectionGoals may be documented in an alternate sectionGoals may be documented in an alternate section Care Teams (unrecognized sec tion and content) Team Status: Active Member Role Status Dates Dr. Kathy Benavides DO Family Provider Active Dr. Anamaria Ricks MD Primary Care Provider Active Team Status: Inactive Member Role Status Dates No Primary Care Physician Primary Care Provider, Refer ring Provider Active Dr. Anamaria Ricks MD Attending Provider Active Team Status: Inactive Member Role Status Dates Dr. Anamaria Ricks MD Primary Care Pro vider, Attending Provider, Referring Provider Active Team Status: Active Member Role Status Dates Dr. Anamaria Ricks MD Primary Care Pro vider, Attending Provider, Referring Provider Active Team Status: Active Member Role Status Dates No Primary Care Physician Primary Care Provider Active Health Risk Assessment Attending Provider, Referring P dina Active Team Status: Inactive Member Role Status Dates Dr. Anamaria Ricks MD Primary Care Provider, Referri ng Provider Active Dulce Chairez CONTAINERS SALES REPRESENTATIVE, CONTAINERS SALES REPRESENTATIVE-C Attending Provider Active Team Status: Inactive Member Role Status Dates Dr. Anamaria Ricks MD Primary Care Provider Active Dulce Chairez CONTAINERS SALES REPRESENTATIVE, CONTAINERS SALES REPRESENTATIVE-C Attending Provider Active Team Status: Active Member Role Status Dates Dr. Anamaria Ricks MD Primary Care Provider, Referri ng Provider Active Dr. Iggy Panchal DO Attending Provider, Other Prov ider Active Team Status: Inactive Member Role Status Dates Dr. Anamaria Ricks MD Primary Care Provider, Referri ng Provider Active Dr. Iggy Panchal DO Attending Provider Active Team Status: Inactive Member Role Status Dates Dr. Anamaria Ricks MD Primary Care Provider, Referri ng Provider Active LINDY Wilder Attending Provider Active Team Status: Inactive Member Role Status Dates Dr. Anamaria Ricks MD Primary Care Provider Active LINDY Wilder Attending Provider Active Team Status: Inactive Member Role Status Dates Dr. Anamaria Ricks MD Primary Care Provider Active Start: February 26, 2024 End: February 26, 2024 SASHA, PAYSTRUP Attending Provider Active Start: February 26, 2024 End: February 26, 2024 SASHA, PAYSTRUP Referring Provider Active Start: February 26, 2024 End: February 26, 2024 Team Status: Inactive Member Role Status Dates Dr. Anamaria Ricks MD Primary Care Provider Active Start: March 31, 2024 End: March 31, 2024 Dr. Anamaria Ricks MD Attending Provider Active Start: March 31, 2024 End: March 31, 2024 Dr. Anamaria Ricks MD Referring Provider Active Start: March 31, 2024 End: March 31, 2024 Team Status: Inactive Member Role Status Dates Dr. Anamaria Ricks MD Primary Care Provider Active Start: April 14, 2024 End: April 14, 2024 MARIA LUISA MAYER Attending Provider Active Start: Ravindra chele 2024 End: April 14, 2024 MARIA LUISA MAYER Referring Provider Active Start: Ravindra almeida 2024 End: April 14, 2024 Team Status: Inactive Member Role Status Dates Dr. Anamaria Ricks MD Primary Care Provider Active Start: May 12, 2024 End: May 12, 2024 SASHA, PAYSTRUP Attending Provider Active Start: May 12, 2024 End: May 12, 2024 SASHA, PAYSTRUP Referring Provider Active Start: May 12, 2024 End: May 12, 2024 Team Status: Inactive Member Role Status Dates Dr. Anamaria Ricks MD Primary Care Provider Active Start: June 28, 2024 End: June 28, 2024 Dr. Anamaria Ricks MD Attending Provider Active Start: June 28, 2024 End: June 28, 2024 Dr. Anamaria Ricks MD Referring Provider Active Start: June 28, 2024 End: June 28, 2024 Team Status: Inactive Member Role Status Dates Dr. Anamaria Ricks MD Primary Care Provider Active Start: June 29, 2024 End: June 29, 2024 Dr. Anamaria Ricks MD Attending Provider Active Start: June 29, 2024 End: June 29, 2024 Dr. Anamaria Ricks MD Referring Provider Active Start: June 29, 2024 End: June 29, 2024 Team Status: Active Member Role/Relationship Status Dates Dr. Kathy Benavides DO Family Provider Active Dr. Anamaria Ricks MD Primary Care Provider Active Team Status: Inactive Member Role/Relationship Status Dates Dr. Anamaria Ricks MD Primary Care Provider Active Start: June 28, 2024 End: June 28, 2024 Dr. Anamaria Ricks MD Attending Provider Active Start: June 28, 2024 End: June 28, 2024 Dr. Anamaria Ricks MD Referring Provider Active Start: June 28, 2024 End: June 28, 2024 Team Status: Inactive Member Role/Relationship Status Dates Dr. Anamaria Ricks MD Primary Care Provider Active Start: June 29, 2024 End: June 29, 2024 Dr. Anamaria Ricks MD Attending Provider Active Start: June 29, 2024 End: June 29, 2024 Dr. Anamaria Ricks MD Referring Provider Active Start: June 29, 2024 End: June 29, 2024 Team Status: Inactive Member Role/Relationship Status Dates Dr. Anamaria Ricks MD Primary Care Provider Active Start: July 13, 2024 End: July 13, 2024 Dr. Anamaria Ricks MD Attending Provider Active Start: July 13, 2024 End: July 13, 2024 Dr. Anamaria Ricks MD Referring Provider Active Start: July 13, 2024 End: July 13, 2024 Team Status: Inactive Member Role/Relationship Status Dates Dr. Anamaria Ricks MD Primary Care Provider Active Start: September 28, 2024 End: September 28, 2024 Dr. Anamaria Ricks MD Attending Provider Active Start: September 28, 2024 End: September 28, 2024 Dr. Anamaria Ricks MD Referring Provider Active Start: September 28, 2024 End: September 28, 2024 Team Status: Active Member Role/Relationship Status Dates Dr. Anamaria Ricks MD Primary Care Provider Active Team Status: Inactive Member Role/Relationship Status Dates Dr. Anamaria Ricks MD Primary Care Provider Active Start: October 05, 2024 End: October 05, 2024 Dr. Anamaria Ricks MD Attending Provider Active Start: October 05, 2024 End: October 05, 2024 Dr. Anamaria Ricks MD Referring Provider Active Start: October 05, 2024 End: October 05, 2024 Team Status: Active Member Role/Relationship Status Dates Dr. Anamaria Ricks MD Primary Care Provider Active Start: October 05, 2024 Dr. Anamaria Ricks MD Referring Provider Active Start: October 05, 2024 Dr. Anamaria Ricks MD Other Provider Active St art: October 05, 2024 Dr. Jovan Gilliam MD Attending Provider Active S tart: October 05, 2024 Team Status: Active Member Role/Relationship Status Dates Dr. Anamaria Ricks MD Primary Care Provider Active Start: October 07, 2024 Dr. Anamaria Ricks MD Attending Provider Active Start: October 07, 2024 Dr. Anamaria Ricks MD Referring Provider Active Start: October 07, 2024 Team Status: Active Member Role/Relationship Status Dates Dr. Anamaria Ricks MD Primary Care Provider Active Start: October 07, 2024 Dr. Gaudencio Tobar MD Attending Provider Active S tart: October 07, 2024 Team Status: Inactive Member Role/Relationship Status Dates Dr. Anamaria Ricks MD Primary Care Provider Active Start: October 07, 2024 End: October 07, 2024 Dr. Anamaria Ricks MD Attending Provider Active Start: October 07, 2024 End: October 07, 2024 Dr. Anamaria Ricks MD Referring Provider Active Start: October 07, 2024 End: October 07, 2024 Team Status: Active Member Role/Relationship Status Dates Dr. Anamaria Ricks MD Primary Care Provider Active Start: October 12, 2024 Dr. Anamaria Ricks MD Attending Provider Active Start: October 12, 2024 Dr. Anamaria Ricks MD Referring Provider Active Start: October 12, 2024 Team Status: Inactive Member Role/Relationship Status Dates Dr. Anamaria Ricks MD Primary Care Provider Active Start: October 12, 2024 End: October 12, 2024 Dr. Anamaria Ricks MD Attending Provider Active Start: October 12, 2024 End: October 12, 2024 Dr. Anamaria Ricks MD Referring Provider Active Start: October 12, 2024 End: October 12, 2024 Team Status: Active Member Role/Relationship Status Dates Dr. Anamaria Ricks MD Primary Care Provider Active Start: October 19, 2024 Dr. Jovan Gilliam MD Attending Provider Active S tart: October 19, 2024 Dr. Jovan Gilliam MD Referring Provider Active S tart: October 19, 2024 Team Status: Inactive Member Role/Relationship Status Dates Dr. Anamaria Ricks MD Primary Care Provider Active Start: October 20, 2024 End: October 20, 2024 Dr. Anamaria Ricks MD Referring Provider Active Start: October 20, 2024 End: October 20, 2024 Dr. Jovan Gilliam MD Attending Provider Active S tart: October 20, 2024 End: October 20, 2024 Team Status: Inactive Member Role/Relationship Status Dates Dr. Anamaria Ricks MD Primary Care Provider Active Start: July 13, 2024 End: July 13, 2024 Dr. Anamaria Ricks MD Attending Provider Active Start: July 13, 2024 End: July 13, 2024 Dr. Anamaria Ricks MD Referring Provider Active Start: July 13, 2024 End: July 13, 2024 Team Status: Inactive Member Role/Relationship Status Dates Dr. Anamaria Ricks MD Primary Care Provider Active Start: September 28, 2024 End: September 28, 2024 Dr. Anamaria Ricks MD Attending Provider Active Start: September 28, 2024 End: September 28, 2024 Dr. Anamaria Ricks MD Referring Provider Active Start: September 28, 2024 End: September 28, 2024 Team Status: Inactive Member Role/Relationship Status Dates Dr. Anamaria Ricks MD Primary Care Provider Active Start: October 05, 2024 End: October 05, 2024 Dr. Anamaria Ricks MD Attending Provider Active Start: October 05, 2024 End: October 05, 2024 Dr. Anamaria Ricks MD Referring Provider Active Start: October 05, 2024 End: October 05, 2024 Team Status: Active Member Role/Relationship Status Dates Dr. Anamaria Ricks MD Primary Care Provider Active Start: October 05, 2024 Dr. Anamaria Ricks MD Referring Provider Active Start: October 05, 2024 Dr. Anamaria Ricks MD Other Provider Active St art: October 05, 2024 Dr. Jovan Gilliam MD Attending Provider Active S tart: October 05, 2024 Team Status: Inactive Member Role/Relationship Status Dates Dr. Anamaria Ricks MD Primary Care Provider Active Start: October 07, 2024 End: October 07, 2024 Dr. Anamaria Ricks MD Attending Provider Active Start: October 07, 2024 End: October 07, 2024 Dr. Anamaria Ricks MD Referring Provider Active Start: October 07, 2024 End: October 07, 2024 Team Status: Active Member Role/Relationship Status Dates Dr. Anamaria Ricks MD Primary Care Provider Active Start: October 07, 2024 Dr. Gaudencio Tobar MD Attending Provider Active S tart: October 07, 2024 Team Status: Inactive Member Role/Relationship Status Dates Dr. Anamaria Ricks MD Primary Care Provider Active Start: October 12, 2024 End: October 12, 2024 Dr. Anamaria Ricks MD Attending Provider Active Start: October 12, 2024 End: October 12, 2024 Dr. Anamaria Ricks MD Referring Provider Active Start: October 12, 2024 End: October 12, 2024 Team Status: Inactive Member Role/Relationship Status Dates Dr. Anamaria Ricks MD Primary Care Provider Active Start: October 19, 2024 End: October 19, 2024 Dr. Jovan Gilliam MD Attending Provider Active S tart: October 19, 2024 End: October 19, 2024 Dr. Jovan Gilliam MD Referring Provider Active S tart: October 19, 2024 End: October 19, 2024 Team Status: Active Member Role/Relationship Status Dates Dr. Anamaria Ricks MD Primary Care Provider Active Start: October 19, 2024 Dr. Gaudencio Tobar MD Attending Provider Active S tart: October 19, 2024 Team Status: Inactive Member Role/Relationship Status Dates Dr. Anamaria Ricks MD Primary Care Provider Active Start: October 20, 2024 End: October 20, 2024 Dr. Anamaria Ricks MD Referring Provider Active Start: October 20, 2024 End: October 20, 2024 Dr. Jovan Gilliam MD Attending Provider Active S tart: October 20, 2024 End: October 20, 2024 Reason for Visit (unrecogniz ed section and content) Reason Comments Pre-op Exam Pre op exam INFORMATION SOURCE (unrecogn ized section and content) DATE CREATED AUTHOR 05/12/2024 [facility] EPIC DATE CREATED AUTHOR AUTHOR'S ORGANIZ ATION 11/04/2024 [facility] FOR RECORDS PERTAINING TO PATIENTS WHO ARE [...] BE BASED ON THE PRIMARY CLINICAL RECORDS. [facility] [employer] provides no warranty or guarantee of the accuracy or completeness of information in this document.
== END | disposition home or self-care (01) ==
LOC: CVS 06:53
PROVIDERS: PCP Internal Medicine; Referring Provider Internal Medicine Cardiovascular Disease; Visit Provider Internal Medicine Cardiovascular Disease
DX: R01.1 Cardiac murmur, unspecified (principal)
CPT/HCPCS: 93306

== ENCOUNTER → 2024-11-12 | Outpatient (CLI) | payer OTHER, SELFPAY ==
--- NOTE | 2024-11-12 10:28 | STEWCON_ITS ---
Reason For Study Reason For Study: CAD/ASHD Stress Results Protocol: Ahmet Protocol WITH DEFINITY Maximum Predicted HR: 168 bpm Target HR: 143 bpm % Maximum Predicted HR: 90 % DurationHeart Rate Stage (mm:ss) (bpm) BP Comment BASELINE 101 104/80 STAGE 1 3:00 121 112/78 STAGE 2 3:00 141 122/78LEG CRAMPING UP STAGE 3 1:00 151 / 4 CC DEFINITY FOR ENTIRE TEST recovery 110 98/64 Stress Duration: 7:00 mm:ss Maximum Stress HR: 151 bpm Baseline Echocardiogram Findings Stress Echo Wall motion Data Resting WM Intermediate WM Stress WM ECHO/Stress Test Echo W/Contrast Interpretation Summary Exercise stress echocardiogram. 54-year-old lady with a history of an elevated calcium score. Rest EKG demonstrates normal sinus rhythm with a rate of 86 bpm resting blood p ressure is 104/80 mmHg. The patient exercised according to regular Ahmet protocol for total duration of 7 minutes t he maximum heart rate attained was 151 bpm which was 89% of maximum predicted heart rate the maximum workload was 9 me tabolic equivalents. At rest there were no ST or T wave changes noted suggest ischemia and at peak exercise there was a pproximately [address] depression noted in lead II and aVF as well as V4 V5 and 0.75 mm noted in V6. T he above changes suggestive and indicative of ischemia. No obvious angina was noted. During recovery there was persistent ST depression noted. The peak blood pressure was noted to be 122/78 which was a suboptimal blood pressure res ponse to exercise at the workload. The rate-pressure product was 17,200. The test was terminated due to leg cramping. Stress echocardiogram. The resting echocardiogram demonstrated preserved left v entricular systolic function estimated to be 60% with no wall motion abnormalities noted at rest with Definity enhancemen t. With exercise there was a reduction in left ventricular ejection fraction to approximately 50% with evidence of mid an teroseptal, mid anterior and possibly mid to distal lateral hypokinesis present. The above is suggestive of disease in th e LAD and or circumflex distribution. Conclusion: Abnormal stress echocardiogram with suboptimal blood pressure response to exerc ise at a moderate to high workload. Stress echocardiographic images as noted above with evidence of anteroseptal an d anterolateral ischemia present. Ordering Physician: Jovan Gilliam Referring Physician: Jovan Gilliam Performed By: Onelia Becerra RCS
== END | disposition home or self-care (01) ==
LOC: CVS 10:28
PROVIDERS: PCP Internal Medicine; Referring Provider Internal Medicine Cardiovascular Disease; Visit Provider Internal Medicine Cardiovascular Disease
DX: R93.1 Abnormal findings on diagnostic imaging of heart and coronary circulation (principal); I25.10 Atherosclerotic heart disease of native coronary artery without angina pectoris
CPT/HCPCS: 93017; 93350; Q9957; A4216; C8928

== ENCOUNTER 2024-11-16 09:09 | Day surgery (SDC) | payer OTHER, SELFPAY ==
[2024-11-15 07:41] LABS: Hematocrit 33.7 % (37-47); Hemoglobin 11.3 g/dL (12.0-15.0); Immature Granulocytes Count 0.020 X10^3/uL (0.0-0.0); Mean Corp Hgb Conc 33.5 g/dL (32-36); Mean Corpuscular Volume 90.8 fL (81-99); Mean Platelet Vol. 10.4 fl (6.2-12.0); NRBC Flagged by Analyzer 0 % (0-5); Platelet Count 290 K/mm3 (150-450); RBC Distribution Width CV 12.0 % (11.6-14.6); RBC Distribution Width SD 39.7 fl (35.1-43.9); Red Blood Count 3.71 M/mm3 (4.2-5.4); White Blood Count 8.3 K/mm3 (4.4-11.0)
[2024-11-15 08:37] LABS: Anion Gap 14 (5-15); BUN 15 mg/dL (4-19); BUN/Creat Ratio 23.1 RATIO (10-20); Calcium,Total 9.4 mg/dL (7.6-11.0); Carbon Dioxide 21.4 mmol/L (21.0-32.0); Chloride 105 mmol/L (98-108); Glucose 172 mg/dL (70-99); Potassium 4.1 mmol/L (3.3-5.1)
[2024-11-15 08:44] VITALS: BMI 28.4
--- NOTE | 2024-11-15 15:25 | PCM.HP.BLA ---
History and Physical Date of Admission: 11/16/24 History of Present Illness Details: Pleasant 54-year-old lady who presents today for cardiac catheterization. She has a family history of coronary artery disease who underwent a routine screening coronary calcium score which demonstrated an elevated level of 461. She denies any chest pain or shortness of breath or paroxysmal nocturnal dyspnea or pedal edema she does have what she thinks are intermittent claudication she also thinks that she has muscle aches from the statin. She was sent for and underwent a lower extremity arterial duplex scan has had a lipid profile demonstrating a total cholesterol 234 HDL of 54 LDL of 151. She has been compliant with her medications. Her physical exam demonstrates clear lung hayes regular rate and rhythm soft 1/6 systolic murmur noted left sternal border and apex and no pedal edema electrocardiogram demonstrates sinus rhythm with no acute changes and a rate of 84 bpm. She underwent further evaluation via stress echocardiogram 11/12/2024 that resulted as abnormal with suboptimal blood pressure response to exercise at a moderate to high workload and stress echocardiographic images with evidence of anteroseptal and anterolateral ischemia present. She is being further assessed via left heart catheterization. Intake Vital Signs 09/28/2506:36 10/21/2507:55 Height 5 ft 5 in 5 ft 5 in Weight: 171 lb BMI 28.4 BP 93/67 Blood Pressure Location Lt brachial Position Sitting Respiration 16 Pulse 76 Pulse Source Monitor Intake Visit Reasons: ABN CCTA ([place]) Home Mortgage Disclosure Act Specialist Required: No Accompanied by: Self Is patient in pain?: No Allergies codeine Allergy (Verified 10/20/24 08:59) Itching Medications ?Medication ?Instructions ?Recorded ?Confirmed ?Type blood sugar diagnostic (Accu-Chek #100 ea 01/01/23 10/20/24 Rx Asya Plus test strips) blood-glucose meter (Accu-Chek #1 ea 01/01/23 10/20/24 Rx Guide Glucose Meter) lancets (Accu-Chek Softclix #100 ea 01/01/23 10/20/24 Rx Lancets) coenzyme Q10 75 mg capsule (Ultra 75 mg PO DAILY 02/11/23 10/20/24 History CoQ10) lisinopril 2.5 mg tablet 2.5 mg PO DAILY #90 tabs 07/27/24 10/20/24 Rx fluticasone propionate 50 2 spray intranasal DAILY #16 grams 09/16/24 10/20/24 Rx mcg/actuation nasal spray,suspension (Allergy Relief (fluticasone)) ipratropium bromide 21 mcg (0.03 2 spray intranasal BID-TID PRN 09/16/24 10/20/24 Rx %) nasal spray allergy symptoms #30 mL tirzepatide 12.5 mg/0.5 mL 12.5 mg (0.5 mL) subcut QWEEK 4 09/28/24 10/20/24 Rx subcutaneous pen injector weeks #2 mL levocetirizine 5 mg tablet (Xyzal) 5 mg PO QDAY 10/20/24 10/20/24 History rosuvastatin 40 mg tablet (Crestor) 40 mg PO QDAY #90 tabs 10/20/24 10/20/24 Rx PFSH Medical History Abnormal findings on diagnostic imaging of heart and coronary circulation Right-sided chest wall pain High cholesterol Restless legs Type 2 diabetes mellitus Adhesive capsulitis of left shoulder Kidney stone Hay fever Surgical History History of shoulder surgery S/P endometrial ablation History of hip surgery History of cholecystectomy History of repair of ACL History of placement of ear tubes History of tonsillectomy and adenoidectomy Family History Father Hypertension CVA (cerebral vascular accident) Diabetes Prostate cancer Myocardial infarction High cholesterolMother Breast cancer Cancer SKIN CANCER High cholesterolOther Heart disease Social History household members: spouse and children current occupational status: employed current occupation: [employer] Smoking Status: Never smoker Electronic Cigarette Use: not used alcohol intake: current alcohol intake frequency: holidays/special occasions only details: special occasions substance use type: does not use what type of physical activity do you participate in: none seatbelt use: always do you feel safe at home: Yes additional social history: - Homar ROS Const Const: Negative for fatigue, weakness, headache(s), daytime sleepiness or difficulty sleeping ENT ENT: Negative for headache(s), dizziness or Nosebleed/epistaxis Cardio Chest Pain: No Palpitations: No Edema: None Resp Respiratory: Negative for SOB with activity, SOB at rest, SOB orthopnea\SOB lying down or Cough GI GI: Negative nausea, vomiting or heartburn Neuro Neuro: Negative for dizziness, lightheadedness, near syncope, headache(s) or weakness Endo Endo: Negative for fatigue Cardiology Exam Const Appearance: cooperative, healthy appearing, no acute distress, well developed and well groomed Nutritional Appearance: average body habitus and well nourished Orientation: alert, awake and oriented x3 Head Head: normal to inspection, normocephalic and atraumatic Ears: hearing grossly normal bilaterally and external ears normal Nose: external nose normal, nares normal, nasal mucous membranes and turbinates normal, septum normal and no nasal discharge Face and Sinus: face symmetric Mouth: oral mucosae normal, tongue normal, oropharynx normal and moist mucous membranes Teeth and gingiva: dentition normal Throat: posterior oropharynx normal, tonsils normal and uvula midline Eyes General: appearance normal, both eyes and all related structures Eyelids: eyelids normal Conjunctivae: conjunctivae normal Pupils: PERRL, normal by confrontation and accommodation normal EOM: EOM intact bilaterally Neck Neck: normal visual inspection, trachea midline and no JVD JVD: +5 Carotids: normal carotid upstroke and bounding pulses Chest Chest inspection: normal inspection of the chest, symmetric chest movement and normal respiratory effort Auscultation: Bilateral: Clear to Auscultation Cardio Palpation: normal PMI Rate: regular rate Rhythm: regular rhythm Heart sounds: S1 normal, S2 normal and normal, physiologic split S2; Negative rub, gallop or murmur GI GI: normal to inspection, soft, no hepatosplenomegaly and bowel sounds present Neuro General: patient alert, patient awake, patient oriented x3, gait normal, moves all extremities and no focal sensory deficit Skin Skin: no rashes or lesions noted Extremities Pulses: Normal: Right Femoral Pulse, Left Femoral Pulse, Right Dorsalis Pedis Pulse, Left Dorsalis Pedis Pulse, Right Posterior Tibial Pulse, Left Posterior Tibial Pulse, Right Radial Pulse and Left Radial Pulse Lower Extremity Edema: None: Bilateral Musculoskel Musculoskeletal: No joint tenderness Psych Psychological: normal affect Supplemental Info Supplemental Information Coronary Angiography CT 10/05/24 Findings Coronary Artery Left Main (LM): 0 Left Anterior Descending (LAD): 233 Left Circumflex (LCX): 0 Right Coronary Artery (RCA): 228 Total Agatston Score: 461 Conclusion: Moderate two-vessel plaque disease noted. Labs: HDL Cholesterol 54 mg/dL (40-) Cholesterol 234 mg/dL (<=200) H Triglycerides 147 mg/dL (-199) Diagnostics: Extremity Arterial Study Coronary Angiography CT Pulmonary: No Data to Display Past Visits: Cardiology Visit 10/20/24 Assessment and Plan Assessment and Plan (1) Abnormal stress echocardiogram Patient presented after undergoing evaluation via coronary calcium score which demonstrated elevated levels at 461. She was further assessed via stress echocardiogram which also resulted as abnormal with findings concerning for ischemia.
--- NOTE | 2024-11-16 11:08 | CL.D_ITS ---
Patient Name: WHIT CHAPMAN Study Date: 11/16/2024 Performing: Jovan Gilliam MD Ht: 65 inches 165.1 cm : 1970 Wt: 170.99 lbs 77.56 kg Age: 54 Gender: female BSA: 1.85 PROCEDURE(S) PERFORMED DC01-(52576)LHC/COR/LV CLINICAL PROFILE AND INDICATIONS Indications: New Onset Angina <= 2 months Heart Failure: None Stress/Imaging Stress Echocardiogram: Yes Result: Positive High RiskStress Echocardiogram: Positive High Risk CAD Presentations: Stable angina. CONCLUSIONS Severe distal triple-vessel disease and ostial left main disease and preserved ejection fraction RECOMMENDATIONS Surgery consult for coronary revascularization DESCRIPTION OF PROCEDURE The patient arrived to the procedure lab. The risks and benefits of the procedure as well as a full description of our services here and current unavailability of surgical backup were fully explained to the patient and/or their significant other prior to the catheterization. The Timeout was completed, verifying the correct patient and procedure. The patient's procedural site was prepped and draped in the usual fashion. Local anesthetic was given subcutaneously to right radial region with Lidocaine 2%. Using a modified Seldinger technique, arterial access was obtained via the right radial artery, a 6Fr sheath was inserted. Right Coronary Artery selective angiography was then performed in multiple views using a 5 Fr. 4.0 [place] catheter. Left Coronary Artery selective angiography was performed in multiple views using a 5 Fr. JL3.5 catheter. Left Ventriculography was performed in CHEUNG projection using a 5 Fr. Pigtail catheter. LV to AO pullback pressures were then recorded.The arterial sheath was pulled and a TR Band was applied for hemostasis. 10cc of air CORONARY ANGIOGRAPHY DOMINANCE: Right Dominant LEFT HEART ASSESSMENT Left Ventricular Ejection Fraction: by LV Gram 65 % Normal LV wall motion Normal Left Ventricular systolic function LEFT MAIN: Ostial 60% left main and a long the left main which bifurcates the left anterior descending artery and left circumflex artery LEFT ANTERIOR DESCENDING ARTERY: This vessel courses towards the apex of the ventricle and is severely diffusely diseased more in the proximal portion with up to 70% stenosis in some portions. CIRCUMFLEX ARTERY: Diffusely diseased vessel with areas of proximal stenosis of 60 to 70% stenosis present RIGHT CORONARY ARTERY: Dominant right coronary artery with mild 30 to 40% proximal and mid stenosis and distal disease noted in the posterior descending artery of diffuse 80% stenosis and in the posterolateral vessel as well. COMPLICATIONS No Complications PROCEDURE MEDICATIONS Versed 1 mg IV Fentanyl 50 mcg IV Versed 1 mg IV Fentanyl 25 mcg IV Oxygen: 2 L/min via nasal cannula Aspirin (325mg) 1 Tabs PO @ 11/16/2024 09:27:15 Heparin given IA 11/16/2024 10:31:39 Verapamil 2.5mg, Ntg 100mcgs, 3000 units of Heparin given IA 11/16/2024 10:31:39 SUMMARY OF HEMODYNAMIC DATA Time AIR REST ECG 09:32:12 AO 128/72 (96) SA 10:37:39 LV 147/13, 27 10:49:36 LV 154/15, 34 10:49:46 LV 151/14, 27 10:50:21 LVp 149/15, 27 10:50:25 AOp 153/73 (107) 10:50:32 11:02:35 Signed By Jovan Gilliam MD On 11/16/2024 11:07:03 Jovan Gilliam MD
== END 2024-11-16 12:45 | disposition home or self-care (01) ==
PROVIDERS: PCP Internal Medicine; Referring Provider Internal Medicine Cardiovascular Disease; Visit Provider Internal Medicine Cardiovascular Disease
DX: I25.118 Atherosclerotic heart disease of native coronary artery with other forms of angina pectoris (principal); E11.9 Type 2 diabetes mellitus without complications; E78.00 Pure hypercholesterolemia, unspecified; Z82.49 Family history of ischemic heart disease and other diseases of the circulatory system
CPT/HCPCS: 36415; 80048; 85025; 93458; 99152; 99153; Q9967; C1769; C1894

== ENCOUNTER → 2024-11-19 | Outpatient (CLI) | payer OTHER, SELFPAY ==
--- NOTE | 2024-11-19 08:30 | CT_ITS ---
PROCEDURE: LIMITED CHEST CT CARDIAC ONLY 11/19/2024 REASON FOR EXAM: CAD JUST LOOKING AT THE OSTIUM OF THE LEFT MAIN TECHNIQUE: Procedure Code: [id number] Modality: CT Procedure: LIMITED CHEST CT CARDIAC ONLY CONTRAST: Isovue 370 VOLUME: 95 mL One or more dose reduction techniques were used (e.g., Automated exposure control, adjustment of the mA and/or kV according to patient size, use of iterative reconstruction technique). RADIATION DOSE SUMMARY: CTDlvol: 29.5 mGy DLP: 1078.56 mGycm COMPARISON: None FINDINGS: No coronary artery calcification. The heart is not enlarged. The pericardium is unremarkable. The lungs are clear. CT/Limited Chest CT Cardiac Only IMPRESSION: No coronary artery calcification is seen. Reading Location: [id number]
[2024-11-19 08:38] VITALS: BP 127/88; PULSE 85; RESP 18; O2SAT 100; BMI 28.3
[2024-11-19 09:47] VITALS: BP 126/70; PULSE 88
[2024-11-19] MEDS: 0.9% Saline Lock 10 ML Syringe IV (09:52)
[2024-11-19 09:55] VITALS: BP 114/74; PULSE 82
[2024-11-19 10:04] VITALS: BP 123/64; PULSE 80
[2024-11-19 10:15] VITALS: BP 97/74; PULSE 91
[2024-11-19] MEDS: Nitroglycerin SL (ED/IMG/CATH) 0.4 MG TABLET SL (10:15)
--- NOTE | 2024-11-22 10:31 | CCTA.WCONT ---
CCTA w/Cont Coronary Arteries Date of Study:: 11/19/24 Evaluation of the ostium of the left main Coronary Calcium Scoring: High-resolution Computed Tomographic imaging of the chest was performed on [11/19/2024], with particular attention paid to the coronary arteries. Intravenous contrast agent was administered per protocol and images reconstructed and displayed. LEFT MAIN CORONARY ARTERY: Arises from the left coronary cusp. There appears to be a 40% stenosis noted very close to the ostium and then the vessel opens up before it trifurcates into a left anterior descending artery, ramus intermedius and a circumflex artery. No calcification is noted at the ostium of the left main. [] LEFT ANTERIOR DESCENDING CORONARY ARTERY: Moderate calcification noted and diffuse stenosis present [] LEFT CIRCUMFLEX CORONARY ARTERY: Moderate calcification noted and moderate stenosis present [] RIGHT CORONARY ARTERY: Mild proximal calcification noted Calcium Scoring Interpretation: Different methods to categorize the overall amount of coronary plaque. Overall amount CAC SIS Visual of coronary plaque P1 Mild -100 <2 1-2 vessels with mild amount of plaque P2 Moderate 101-300 3-4 1-2 vessels with moderate amount, 3 vessels with mild amount of plaque P3 Severe 301-999 5-7 3 vessels with moderate amount, 1 vessel with severe amount of plaque P4 Extensive >1000 >8 2-3 vessels with severe amount of plaque Conclusion: Probable moderate disease noted at the ostium of the left main coronary artery. Consider IVUS in a tertiary care facility.
== END | disposition home or self-care (01) ==
LOC: CT 08:28
PROVIDERS: PCP Internal Medicine; Referring Provider Internal Medicine Cardiovascular Disease; Visit Provider Internal Medicine Cardiovascular Disease
DX: R93.1 Abnormal findings on diagnostic imaging of heart and coronary circulation (principal); I25.10 Atherosclerotic heart disease of native coronary artery without angina pectoris
CPT/HCPCS: 75574; 76380; 96374; Q9967; A4216

== ENCOUNTER 2024-12-20 08:36 | Outpatient (CLI) | payer OTHER, SELFPAY ==
--- OUTSIDE RECORDS SUMMARY | 2024-12-10 12:46 | XMS RPT_ITS ---
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 Referring Unavail able BRIANNA MOSS JR. Attending Unavail able PROBLEMS No Problem Records Found PROCEDURES No Procedure Records Found RESULTS ALLERGIES No Allergies Records Found ENCOUNTERS ADMIT/DISCHARGE ACCOUNT NUMBER ADMITTING ENCOUNTER CLASS LOCATION SOURCE 12/10/2024 [id number] [facility] ing:[facility] 05/11/2024/05/11/19 25 [id number] Ambulatory Building:[facility] 02/25/2024/02/25/20 24 [id number] Ambulatory Building:[facility] PAYERS ENCOUNTER GUARANTOR PAYER SUBSCRIBER SOURCE 12/10/2024 WHIT CHAPMANB: [place], [place] [address]Kfg: () Primary Insurance:TIERA Montero Number: [id number] Date:1138-57-13Gitq Name:MANAGED CARE WHIT [place] CYNTHIAB: [id number] [place] [id number] [facility] 05/11/2024 WHIT MARIEB: [place], [place] [address]Bqw: () Primary Insurance:AETNAPolicy Number: [id number] Date:2944-53-55Dtvg Name:MAUREEN GRAMAJO [id number]: WHIT ARIB: [id number] [place] [id number] [facility] 02/25/2024 WHIT CYNTHIAB: [place], [place] [address]Cfr: () Primary Insurance:AETNAPolicy Number: [id number] Date:1978-72-44Fnuo Name:JESSICA COFFMAN [id number] [address]QG: WHIT MARIEB: [id number] [place] [id number] [facility]
--- NOTE | 2024-12-20 08:37 | CDU_ITS ---
Reason For Study Reason For Study: CAD Rt. Velocities/BP Lt. Velocities/BP Prox CCA 136/21 cm/sec. Prox CCA 186/38 cm/sec. Mid CCA 88/29 cm/sec. Mid CCA 94/27 cm/sec. Dist CCA 82/22 cm/sec. Dist CCA 113/32 cm/sec. Prox ICA 182/66 cm/sec. Prox ICA 197/49 cm/sec. Mid ICA 177/68 cm/sec. Mid ICA 176/49 cm/sec. Dist ICA 170/69 cm/sec. Dist ICA 122/44 cm/sec. Rt. ICA/CCA = 2.07. Lt. ICA/CCA = 2.10. Prox ECA 307/37 cm/sec. Prox ECA 231/19 cm/sec. Rt. Vert. 74/29 cm/sec. Right Extracranial There is heterogeneous, irregular atherosclerotic plaque noted in the right common carotid artery. There is heterogeneous, irregular atherosclerotic plaque noted in the right internal carotid artery. There is homogeneous, irregular atherosclerotic plaque noted in the right external carotid artery. Antegrade flow is noted in the right vertebral artery. Left Extracranial There is homogeneous, irregular atherosclerotic plaque noted in the left common carotid artery. There is heterogeneous, irregular atherosclerotic plaque noted in the left internal carotid artery. There is heterogeneous, smooth atherosclerotic plaque noted in the left external carotid artery. Bidirectional flow noted Lt Vert A. Procedure Carotid Duplex [id number]. This is a Carotid Duplex examination using B-mode, color flow and specral Doppler. Hypoechoic, non vascular structure noted Lt Thyroid 0.65cm x 1.13cm. Exam performed in department. VL/Carotid Duplex Ultrasound Interpretation Summary Moderate (50-69%) stenosis right extracranial internal carotid. Moderate (50-69%) stenosis left extracranial internal carotid. The Right vertebral is patent and antegrade. The Left vertebral flow is bidirectional. Ordering Physician: Jovan Gilliam Referring Physician: Shantell Ricks Performed By: Jen Jones, RDCS, RVT
--- NOTE | 2024-12-20 08:37 | CT_ITS ---
PROCEDURE: CTA ABD W/RUNOFF W/WO CONTRAST 12/20/2024 REASON FOR EXAM: PVD TECHNIQUE: Procedure Code: [id number] Modality: CT Procedure: CTA ABD W/RUNOFF W/WO CONTRAST Multiplanar Sagittal and Coronal images were obtained. CONTRAST: 100 cc Isovue 370 One or more dose reduction techniques were used (e.g., Automated exposure control, adjustment of the mA and/or kV according to patient size, use of iterative reconstruction technique). RADIATION DOSE SUMMARY: DLP: 1143 mGycm COMPARISON: None FINDINGS: Aorta: Within normal limits. Scattered plaque is noted. Iliac Arteries: Patent Celiac: Patent SMA: Patent GONSALO : Patent Renal arteries: The right and left renal artery are widely patent, with an accessory renal artery visible in the right and left. Lower extremities: The common femoral, superficial femoral, and popliteal are widely patent on the right and left. The trifurcation or its ends are patent. There is three-vessel flow visible to the distal calf, two-vessel flow at the ankle and foot on the right and left. CT/CTA Abd w/Runoff W/WO Contrast IMPRESSION: No significant diameter stenosis is identified in the arterial system of the ab domen or right or left lower extremity. There is no visible occlusion. Reading Location: [facility]
[2024-12-20 09:24] LABS: CREATININE FINGERSTICK < 1.0 mg/dL (0.55-1.02); EGFR FINGERSTICK > 60.0000 mL/min (>60)
== END 2024-12-20 23:59 | disposition home or self-care (01) ==
LOC: CT 08:36
PROVIDERS: PCP Internal Medicine; Referring Provider Internal Medicine Cardiovascular Disease; Visit Provider Internal Medicine Cardiovascular Disease
DX: I73.9 Peripheral vascular disease, unspecified (principal); R93.1 Abnormal findings on diagnostic imaging of heart and coronary circulation
CPT/HCPCS: 75635; 93880; Q9967

== ENCOUNTER → 2024-12-24 | Outpatient (CLI) | payer OTHER, SELFPAY ==
[2024-12-24 12:19] LABS: Hematocrit 37.4 % (37-47); Hemoglobin 12.5 g/dL (12.0-15.0); Mean Corp Hgb Conc 33.4 g/dL (32-36); Mean Corpuscular Volume 89.5 fL (81-99); Mean Platelet Vol. 10.6 fl (6.2-12.0); Platelet Count 299 K/mm3 (150-450); RBC Distribution Width CV 12.8 % (11.6-14.6); RBC Distribution Width SD 41.6 fl (35.1-43.9); Red Blood Count 4.18 M/mm3 (4.2-5.4); White Blood Count 8.8 K/mm3 (4.4-11.0)
[2024-12-24 12:48] LABS: Anion Gap 10 (5-15); BUN 19 mg/dL (4-19); BUN/Creat Ratio 26.3 RATIO (10-20); Calcium,Total 9.2 mg/dL (7.6-11.0); Carbon Dioxide 23.9 mmol/L (21.0-32.0); Chloride 103 mmol/L (98-108); Glucose 122 mg/dL (70-99); Potassium 4.7 mmol/L (3.3-5.1)
== END | disposition home or self-care (01) ==
LOC: LAB 10:59
PROVIDERS: PCP Internal Medicine; Referring Provider Internal Medicine Interventional Cardiology; Visit Provider Internal Medicine Interventional Cardiology
DX: I25.119 Atherosclerotic heart disease of native coronary artery with unspecified angina pectoris (principal); I25.10 Atherosclerotic heart disease of native coronary artery without angina pectoris; E78.5 Hyperlipidemia, unspecified
CPT/HCPCS: 36415; 80048; 85027

== ENCOUNTER 2025-01-03 09:26 | Outpatient (RCR) | payer OTHER, SELFPAY | END 2025-01-21 23:59 | LOC: NS 09:26 | PROVIDERS: PCP Internal Medicine; Referring Provider Internal Medicine; Visit Provider Internal Medicine | DX: E11.29 Type 2 diabetes mellitus with other diabetic kidney complication (principal); R80.9 Proteinuria, unspecified; R93.1 Abnormal findings on diagnostic imaging of heart and coronary circulation | CPT/HCPCS: 97802 ==

== ENCOUNTER → 2025-01-04 | Outpatient (CLI) | payer OTHER, SELFPAY ==
[2025-01-04 16:49] LABS: Hematocrit 28.4 % (37-47); Hemoglobin 9.5 g/dL (12.0-15.0); Immature Granulocytes Count 0.030 X10^3/uL (0.0-0.0); Mean Corp Hgb Conc 33.5 g/dL (32-36); Mean Corpuscular Volume 91.0 fL (81-99); Mean Platelet Vol. 10.1 fl (6.2-12.0); NRBC Flagged by Analyzer 0 % (0-5); Platelet Count 418 K/mm3 (150-450); RBC Distribution Width CV 13.8 % (11.6-14.6); RBC Distribution Width SD 43.8 fl (35.1-43.9); Red Blood Count 3.12 M/mm3 (4.2-5.4); White Blood Count 9.4 K/mm3 (4.4-11.0)
[2025-01-04 17:30] LABS: Anion Gap 12 (5-15); BUN 24 mg/dL (4-19); BUN/Creat Ratio 29.8 RATIO (10-20); Calcium,Total 9.6 mg/dL (7.6-11.0); Carbon Dioxide 23.1 mmol/L (21.0-32.0); Chloride 103 mmol/L (98-108); Glucose 175 mg/dL (70-99); Magnesium 2.3 mg/dL (1.5-2.2); Potassium 4.2 mmol/L (3.3-5.1)
== END | disposition home or self-care (01) ==
LOC: LAB 16:18
PROVIDERS: PCP Internal Medicine; Referring Provider Nurse Practitioner Gerontology; Visit Provider Nurse Practitioner Gerontology
DX: R42 Dizziness and giddiness (principal)
CPT/HCPCS: 36415; 80048; 83735; 84443; 85025

== ENCOUNTER → 2025-01-05 | Outpatient (CLI) | payer OTHER, SELFPAY ==
--- NOTE | 2025-01-05 14:00 | CR.HP_ITS ---
CR - History & Physical General Arrival date:: 01/05/25 Arrival time:: 14:00 Date of Referral:: 12/28/24 Date of CR Evaluation:: 01/05/25 Referring Physician: Dr. Newton Amado Primary Diagnosis: S/P drug eluding coronary stent History of Present Cardiac Event Onset Date PTCA or coronary stenting:: Yes (onset 12/28/2024) Vessel: RCA, Lmian, LAD Medications Ambulatory Orders ?Medication ?Instructions ?Recorded blood sugar diagnostic (Accu-Chek #100 ea 01/01/23 Asya Plus test strips) blood-glucose meter (Accu-Chek #1 ea 01/01/23 Guide Glucose Meter) lancets (Accu-Chek Softclix #100 ea 01/01/23 Lancets) coenzyme Q10 75 mg capsule (Ultra 75 mg PO DAILY 02/11 CoQ10) fluticasone propionate 50 2 spray intranasal DAILY #16 grams 09/16/24 mcg/actuation nasal spray,suspension (Allergy Relief (fluticasone)) levocetirizine 5 mg tablet (Xyzal) 5 mg PO QDAY rosuvastatin 40 mg tablet (Crestor) 40 mg PO QDAY #90 tabs 10/20/24 metoprolol succinate 50 mg 50 mg PO QDAY #90 tabs 10/23 09/15 tablet,extended release 24 hr (Toprol XL) evolocumab 140 mg/mL subcutaneous 140 mg subcut Q2W #2 mL 11/17/24 pen injector (Nikhil Dey) tirzepatide 12.5 mg/0.5 mL 12.5 mg (0.5 mL) subcut QWE EK 4 12/02/24 subcutaneous pen injector weeks #2 mL benzocaine 15 mg-menthol 3.6 mg 1 riley mucous membrane Q2H PRN sore 12/09/24 lozenges (Cepacol Sore Throat throat #16 ea (benzocaine-menthol)) ipratropium bromide 21 mcg (0.03 2 spray intranasal BI D-TID PRN 12/09/24 %) nasal spray postnasal drainage #30 mL clopidogrel 75 mg tablet 75 mg PO QDAY #90 tabs 12/24 Allergies Allergies codeine Allergy (Verified 01/04/25 16:02) Itching Sleep Disorder Evaluation Hx of Sleep Apnea: No Do you snore loudly (louder than talking or can be heard through closed doors)?: No Do you often feel tired/ fatigued/ sleepy during daytime?: No Has anyone observed you stop breathing during sleep?: No History of Hypertension (for STOP score): No STOP Results: Negative Advanced Directives Advanced Directives Do you have a Healthcare Power of Plastic Tubing Insulation Supervisor?: No Living Will: No Advance Directives Information Provided: No Advance Directives on File: No DNR Order?:: No Past Medical History Covid-19 Screening Physicial Symptoms Other Clinical Concerns Exposure Risk Pertinent Comorbidities Has a serious heart condition:: Yes Diabetic:: Yes Past Medical Illness Medical History (Reviewed 01/04/25 @ 17:26 by Mignon Love OPERATIONAL INTELLIGENCE OFFICER, OPERATIONAL INTELLIGENCE OFFICER-C) Abnormal findings on diagnostic imaging of heart and coronary circulation Right-sided chest wall pain High cholesterol Restless legs Type 2 diabetes mellitus Adhesive capsulitis of left shoulder Kidney stone Hay fever Past Surgical History Past Surgical History (Updated 01/04/25 @ 17:23 by Mignon Love OPERATIONAL INTELLIGENCE OFFICER, OPERATIONAL INTELLIGENCE OFFICER-C) History of percutaneous angioplasty (12/28/24) Z98.890 rPAV, RPLV, proximal/mid LAD, and ostial LM-ALFONSO 12/28/2024 History of shoulder surgery Z98.890 r 03/11/24 05/27/24 S/P endometrial ablation Z98.890 History of hip surgery Z98.890 LEFT HIP, 10/2020 History of cholecystectomy Z90.49 History of repair of ACL Z98.890 RIGHT KNEE; 2002 History of placement of ear tubes Z96.22 History of tonsillectomy and adenoidectomy Z98.890 Family History Summary Family History Father Hypertension CVA (cerebral vascular accident) Diabetes Prostate cancer Myocardial infarction High cholesterol Mother Breast cancer Cancer SKIN CANCER High cholesterol Other Heart disease Social History Smoking History Smoking Status: Never smoker Alcohol Use Alcohol Usage: Yes (rare) Occupation Occupation (List type of work in comments):: Employed Social Environment Status Marital Status: Current Living Arrangements Living Environment:: Family Children How many children do you have?: 2 Do any of your children live nearby?: Yes Safety Do you feel safe in your surroundings?: Yes Assistance Do you need any assistance at home?: no Review of Systems Review of Systems Hints Review of Present Symptoms: Reports PVD, Appetite - Normal, Appetite - Special Diet and Sleep - Normal; Denies Shortness of Breath at Rest, Shortness of Breath with Exertion, Operative Discomfort, Angina, Wound Healing, Dizziness/Lightheadedness, Fatigue, Heart Arrhythmia/Irregularities or Sexual Changes Pain Is Patient Pain Free?: Yes Risk Factor Assessment Chief Complaint Chief Complaint: S/P drug eluding coronary stent Vital Signs Pulse Ox: 100 Blood Pressure: 92/62 Pulse Pulse Rate: 86 Pulse Rhythm: Regular Hypertension Blood Pressure Sitting - Right Arm: 92/62 Diabetes Diabetic History: Type II Obesity Height: 5 ft 5 in Weight:: 177 lb Weight in Pounds: 177.0 lbs Body Mass Index (BMI): 29.4 Nutritional Referral for Obesity: No Physical Inactivity Physical Inactivity: None Risk Stratification Risk Guidelines: Lowest Risk: Risk Factor for Smoking, Moderate Risk: Risk Factor for Obesity, Risk Factor for Hypertension, Risk Factor for Sedentary Life style and Risk Factor for Depression and Highest Risk: Risk Factor for Dyslipidemia and Risk Factor for Diabetes For Smoking Smoking Risk Guidelines For Dyslipidemia Dyslipidemia Risk Guidelines For Diabetes Mellitus Diabetes Risk Guidelines For Obesity/Overweight Obesity/Overweight Risk Guidelines For Hypertension Hypertension Risk Guidelines For Sedentary Lifestyle Sedentary Lifestyle Risk Guidelines For Depression Depression Risk Guidelines Family History Family History Father Hypertension CVA (cerebral vascular accident) Diabetes Prostate cancer Myocardial infarction High cholesterol Mother Breast cancer Cancer SKIN CANCER High cholesterol Other Heart disease Motivation Motivation to Participate On a scale of 1 to 10, how prepared are you to commit to attending program?: 8 What do you see as barriers to successfully being able to complete the program?: nothing What do you see as the benefits of succesfully completing the program? In other words, what do you hope to get out of participating in the program?: more energy, stamina Are there issues you are dealing with that will interfere with completing the program?: no Do you have a spouse or signficant other, family or friends who will help support you to complete the program?: yes
[2025-01-05 14:15] VITALS: BMI 29.4
[2025-01-05 14:27] VITALS: BP 92/62; PULSE 86; O2SAT 100
--- NOTE | 2025-01-05 14:55 | PCM.CR.ITP ---
Diagnosis General Information Admitting Diagnosis: S/P drug eluding coronary stent Personal Learning Style:: Audio/Visual Stage of change r/t lifestyle modifications:: Contemplation Gave educational material for:: Treating Heart Disease, How The Heart Works, What it means to have Heart Disease, How Coronary Artery Disease is Diagnosed, Heart Procedures, What Heart Medications Do, Risk Factors & Modifications, Living an Active Life, Nutrition, Emotions & Heart Disease, Stress Management & Relaxation and Sleep Disorders & Heart Disease Education/Goals Cardiac Rehabilitation Goals Personal Goals: Initial Assessment: Improve management of stress and emotions, Improve energy level, Get back to work, or to resume activities faster, Improve muscle strength and endurance and Improve diet and eating habits (eat healthier) Scale for measuring improvement of personal goals Diagnosis & Disease Process Outcomes/Goals: Pt IDs own risk factors & lifestyle modifications by Session 10, Verbalizes symptoms of angina & response by session 3., Pt independently manages and Other Additional Outcomes/Goals: Plan/Interventions: Assist Pt to ID & engage in lifestyle modification to reduce CVD risk, Instruct on individual risk factors, Review symptoms of angina & emergency actions, Review secondary diagnosis & identify educational needs. and Other see comment 30 day Reassessments:: Not Met 30 day Reassessments:: Not Met 30 day Reassessments:: Not Met 30 day Reassessments:: Not Met Final Reassessments:: Not Met Safety Referral to Physical Therapy: No Referral to [facility] Case Management: No Fall Risk Assessed:: Yes Assistive Devices:: None Exercise - Initial Assessment Visit Date of Eval: 01/05/25 (initial eval) Mets: Pre-: >3 METS for 30 minutes by discharge, >5 METS for 30 minutes by discharge, >7 METS for 30 minutes by discharge and Unable to meet goal due to: (see comment below) Physician Prescribed Exercise Modalities: Treadmill, Rower, Schwinn Airdyne AD-7, SciFit Stepper, SciFit Pro-II Ergometer and SciFit Lateral [place] Frequency: 3x/week for 12 weeks [36 sessions] Intensity: 60-80% of age predicted maximum heart rate reserve Duration: 30 - 45 minutes Current METSs:: 3 Target Heart Rate:: 109-126 Resting Blood Pressure: 92/62 EKG Type: NSR Outcomes & Goals Goals:: Verbalizes understanding of THR, RPE & goal METS by session 6, Documents in home exercise log/reports 30 min aerobic 5 day/wk by DC, Demonstrates accurate pulse taking by DC and Other additional outcome/goals: see below Intervention & Plan Exercise Program Goals: Instruct on personal THR & RPE, Instruct on MET level & personal MET goal, Show patient to take own pulse /validate performance until accurate, Instruct on home exercise and Other additional plan/int Physical Activity Home Exercise Physical Activity - Home Exercise: Safe Exercise, Warm-up, Self-monitoring, Cool-Down, Home Exercise > 30 min Daily and Sitting Time <3 hours/daily Outcomes & Goals Outcomes/Goals: Demonstrates correct Warm-up/exercise Cool-Down (S3) if = 2.5 METs, Verbalizes symptoms of exercise intolerance by Session 3 (S3), Demonstrate safe equipment use (S3) & follows exercise prescrition (6) and Other: See below Intervention & Plan Plan/Intervention: Instruct warm-up & cool-down if exercising at > 2 METs, Instruct on symptoms of exercise intolerance & actions to take, Instruct & monitor on saf, Assess intial functional capacity & safety risk and Other See below Nutrition - Initial Assessment Program Goals Nutrition Program Goals Patient has diagnosis of Hyperlipidemia (ICD E78)?: Yes Visit Date of Eval: 01/05/25 (initial eval. Nutrition survey score of 3.) Cholesterol/Lipids (Other Core Measures) Determine presence & major risk factors that modify LDL goal: Hypertension or hypertensive medication, Low HDL cholesterol <40 mg/dL*, Family history of premature CHD in Male < 55 years: female <65 yearsFa and Age men > 45 years; women >/= 55 years Outcomes/Goals: Pt IDs own risk factors & lifestyle modifications by Session 10, Verbalizes symptoms of angina & response by session 3., Pt independently manages and Other Additional Outcomes/Goals: Intervention/Plan: Advocate for lipid panel cholesterol medication if applicable, Instruct on personal lipid levels & lipid goals/NCEP guidelines, Instruct on cholesterol and Other additional plan/int Referral to dietitian:: No (Pt saw the dietitian this week.) Diabetes (Other Core Measures) Diabetes Type: Diagnosis Type II ICD-10 E11 Insulin dependent injection/pump?: No Non-Insulin Dependent?: Yes Do you monitor your blood sugar at home?: Yes Referral to Diabetic Clinic:: No Outcomes/Goals:: Able to state symptoms of, Able to state, Able to state and Other additional Intervention/Plan:: Instruct on, Refer to, Instruct on and Other Weight Mgt (Other Care) Height: 5 ft 5 in Weight:: 177 lb BMI: 29.4 Diagnosis Overweight/Obesity BMI> 30% ICD-10 E66: No Diagnosis High BMI/Morbid Obesity BMI> 35% ICD-10 Z68: No Outcomes/Goals: Pt sets, maintains & shows weight loss goal & trend during rehab and Other additional outcomes/goals Intervention/Plan: Instruct on ideal BMI & set weight loss goal w/patient, Assist pt to ID & incorporate diet changes for weight loss by S9, Refer to Structured Weight Loss program as appropriate, Encourage goal of using 250-300dcal per session for weight loss and Other additional plan/interventions Healthy Eating Habits Will attend diet classes:: Yes Outcomes/Goals:: Consume diet rich in vegs,fruits,whole grain/high fiber,fish,lean meat, Limit sat/trans fats,cholesterol & added salts & sugars and Other additional outcome/goals: Intervention/Plan:: Assess current eating habits and Other Additional plan/interventions Education Gave educational materials for:: Signs & symptoms of hypoglycemia, Signs & symptoms of hyperglycemia, Relate diabetes to coronary artery disease and Healthy eating Core - Initial Assessment Visit Date of Eval: 01/05/25 Medication Compliance Preventative Medication(s):: Aspirin, Clopidogrel/P2Y12 inhibit, Statin/lipid and Beta lonnie H/O mental health issues: depression, anxiety, or addiction?: No Doesn?t believe in the benefits of treatment?: No Believes medications are unnecessary or harmful?: No Has a concern about medication side effects?: No Expresses concern over the cost of medications?: No Outcomes/Goals: Verbalizes medications,desired effect & common side effects @ DC, Pt self-reports following medication regimen, Keeps card in wallet w/medications listed by DC and Other additional outcome/goals: Interventions/plans: Instruct on medication effects & side effects, Review medication list w/patient every two weeks, Instruct importance of taking meds as ordered & assist problem solving and Other additional Tobacco Use Tobacco Use: Non-smoker Hypertension Resting Blood Pressure:: 92/62 [place] [employer] Hypertension Guidelines Outcomes/Goals: Able to verbalize/achieve optimal blood pressure <130/80, Incorporates diet changes & exercise for blood pressure control by DC and Other additional outcomes/goals Interventions/plan: Instruct on optimal blood pressure, hypertension & medications, Instruct on effects of sodium, alcohol, stress, exercise &hypertension and Other additional plan/interventions Tobacco Cessation Referral Smoking Cessation Referral:: No Individual Education/Counseling:: No Education Schedule Given:: Yes Psychosocial - Initial Assess VIsit Date of Eval: 01/05/25 (initial eval ) History of previous Mental disease:: No Psychosocial Test Tool Used:: [employer] Power QOL Cardiac and PHQ-9 Questionnaire phq-9 Severity See PHQ-9 Score: 3 Referral to Behavioral Health PS - Interventions: Yes: Attend Stress Management Classes Outcomes/Goals: See list Psychosocial Outcomes/Goals:: ID's personal stressors & 2 strategies to manage stress by discharge and Other Additional outcome/goals: Intervention/Plan: See List Interventions/Plan:: Assess stressors,coping strategies & signs of derpression on admission, Instruct/assist pt to develop coping & personal stress Mgt strategies, Refer to Behavioral Health if appropriate, Refer to Physician if appropriate, Instruct patient to recognize signs & symptoms of depression, Instruct patient to recog and Other additional plan/intervention Patient Health Questionnaire PHQ-9 Screening Initial Assessment: 1. Little interest or pleasure in doing things: Not at all 2. Feeling down, depressed, or hopeless: Several days 3. Trouble falling or staying asleep, or sleeping too much: Not at all 4. Feeling tired or having little energy: Several days 5. Poor appetite or overeating: Several days 6. Feeling bad about yourself -- or that you are a failure or have let yourself or your family down: Not at all 7. Trouble concentrating on things, such as reading the newspaper or watching television: Not at all 8. Moving or speaking so slowly that other people could have noticed. Or the opposite - being so fidgety or restless that you have been moving around a lot more than usual: Not at all 9. Thoughts that you would be better off , or of hurting yourself in some way: Not at all How difficult have these problems made it for you to do your work, take care of things at home, or get along with other people?: Not difficult at all Total Score: 3 Nutrition Survey Nutrition Survey Initial: Have you lost >10 lbs over the past 2 months without trying?: No Are you following a special diet at home for diabetes, low fat, or low salt?: Yes Are you interested in meeting with a dietitian for help understanding your diet?: No Do you eat less than 3 meals a day?: No Do you eat fatty meats (blankenship, sausage, ribs, etc), fried foods, desserts, large amounts of salad dressings, margarine, butter, or cheese most days?: No Do you have food allergies? [Enter types in comment field]: No Do you eat in restaurants more than 3 times a week?: No Do you season food with salt, seasoning salt, or garlic salt?: Yes Do you used canned, boxed, frozen meals, or soups, seasoning packets?: Yes Total Score:: 3 Exercise - 30-day Assessment Physician Prescribed Exercise Modalities: Treadmill, Rower, Schwinn Airdyne AD-7, SciFit Stepper, SciFit Pro-II Ergometer and SciFit Lateral [place] Exercise - 60-day Assessment Physician Prescribed Exercise Modalities: Treadmill, Rower, Schwinn Airdyne AD-7, SciFit Stepper, SciFit Pro-II Ergometer and SciFit Lateral [place] Exercise - 90-day Assessment Physician Prescribed Exercise Modalities: Treadmill, Rower, Schwinn Airdyne AD-7, SciFit Stepper, SciFit Pro-II Ergometer and SciFit Lateral [employer]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 Exercise - Final/Discharge Physician Prescribed Exercise Modalities: Treadmill, Rower, Schwinn Airdyne AD-7, SciFit Stepper, SciFit Pro-II Ergometer and SciFit Lateral [place] Frequency: 3x/week for 12 weeks [36 sessions] Intensity: 60-80% of age predicted maximum heart rate reserve Current METSs:: 3 Target Heart Rate:: 109-126 Nutrition - 30-Day Assessment Weight Mgt (Other Care) Height: 5 ft 5 in Weight:: 177 lb BMI: 29.4 Nutrition - 60-Day Assessment Weight Mgt (Other Care) Height: 5 ft 5 in Weight:: 177 lb BMI: 29.4 Core - Final Assessment Hypertension Resting Blood Pressure:: 92/62 [place] [employer] Hypertension Guidelines Core - 60-Day Assessment Hypertension Resting Blood Pressure:: 92/62 [place] [employer] Hypertension Guidelines Psychosocial - 30-Day Assess Referral to Behavioral Health PS - Interventions: Yes: Attend Stress Management Classes Psychosocial - 60-Day Assess Referral to Behavioral Health PS - Interventions: Yes: Attend Stress Management Classes Psychosocial - 90-Day Assess Referral to Behavioral Health PS - Interventions: Yes: Attend Stress Management Classes Psychosocial - Final Assessmen Psychosocial Test phq-9 Severity See PHQ-9 Score: 3 Referral to Behavioral Health PS - Interventions: Yes: Attend Stress Management Classes Nutrition - 90-Day Assessment Weight Mgt (Other Care) Height: 5 ft 5 in Weight:: 177 lb BMI: 29.4 Nutrition - Final Assessment Program Goals Patient has diagnosis of Hyperlipidemia (ICD E78)?: Yes Weight Mgt (Other Care) Height: 5 ft 5 in Weight:: 177 lb BMI: 29.4
[2025-01-05 15:06] VITALS: BP 92/62; BMI 29.4
== END | disposition home or self-care (01) ==
PROVIDERS: PCP Internal Medicine; Referring Provider Internal Medicine Interventional Cardiology; Visit Provider Internal Medicine Interventional Cardiology
DX: Z95.5 Presence of coronary angioplasty implant and graft (principal)

== ENCOUNTER → 2025-01-07 | Outpatient (CLI) | payer OTHER, SELFPAY ==
[2025-01-05 15:06] VITALS: BMI 29.4
--- NOTE | 2025-01-07 13:58 | ADUL_ITS ---
Reason For Study Reason For Study: R/O Pseudoaneurysm Right Velocities CLIENT MANAGER, 0.65 x 0.65 cm. CLIENT MANAGER, 167.4 cm/sec. SFA prox, 0.45 x 0.50 cm. SFA prox, 144.1 cm/sec. CFV and FV are compressible with normal venous flow noted. No Pseudoaneurysm or AVM noted in the right groin. Preliminary report given to Dr. Gilliam. Procedure Exam performed in department. /US Art Duplex Unilat Lower Ext Interpretation Summary Right femoral vessels patent with no pseudoaneurysm or fistula identified. Ordering Physician: Jovan Gilliam Referring Physician: Shantell Ricks Performed By: Antonina Dickinson RVT
--- NOTE | 2025-01-07 13:58 | ADUL_ITS ---
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 PRESS OPERATOR [employer], 167.4 cm/sec. SFA prox, 0.45 x 0.50 cm. SFA prox, 144.1 cm/sec. CFV and FV are compressible with normal venous flow noted. No Pseudoaneurysm or AVM noted in the right groin. Preliminary report given to Dr. Gilliam. Procedure Exam performed in department. /US Art Duplex Unilat Lower Ext Interpretation Summary Right femoral vessels patent with no pseudoaneurysm or fistula identified. Ordering Physician: Jovan Gilliam Referring Physician: Shantell Ricks Performed By: Antonina Dickinson RVT
== END | disposition home or self-care (01) ==
LOC: CVS 13:57
PROVIDERS: PCP Internal Medicine; Referring Provider Internal Medicine Cardiovascular Disease; Visit Provider Internal Medicine Cardiovascular Disease
DX: Z98.890 Other specified postprocedural states (principal); I72.9 Aneurysm of unspecified site
CPT/HCPCS: 93926

== ENCOUNTER 2025-01-21 15:15 | Outpatient (RCR) | payer OTHER, SELFPAY ==
[2025-01-05 15:06] VITALS: BMI 29.4
== END 2025-01-21 23:59 ==
LOC: CR 15:15
PROVIDERS: PCP Internal Medicine; Referring Provider Internal Medicine Interventional Cardiology; Visit Provider Internal Medicine Interventional Cardiology
DX: Z95.5 Presence of coronary angioplasty implant and graft (principal)
CPT/HCPCS: 93798

== ENCOUNTER → 2025-01-27 | Outpatient (CLI) | payer OTHER, SELFPAY ==
[2025-01-05 15:06] VITALS: BMI 29.4
[2025-01-27 10:41] LABS: AST(SGOT) 33 U/L (<=31); Alanine Aminotransfer ALT/SGPT 45 U/L (<=34); Albumin, Serum 4.4 g/dL (3.5-5.0); Alkaline Phosphatase 107 U/L (35-104); Bilirubin, Direct 0.25 mg/dL (0.00-0.30); Cholesterol 109 mg/dL (<=200); Globulin 3.0 g/dL (2.2-4.2); Low Density Lipoprotein Calc. 31 mg/dL; Triglycerides 120 mg/dL; Very Low Density Lipoprotein 24 mg/dL (5-40); cholesterol:hdl ratio screen 1.92
== END | disposition home or self-care (01) ==
LOC: LAB 09:29
PROVIDERS: PCP Internal Medicine; Referring Provider Nurse Practitioner Gerontology; Visit Provider Nurse Practitioner Gerontology
DX: E78.00 Pure hypercholesterolemia, unspecified (principal)
CPT/HCPCS: 36415; 80061; 80076

== ENCOUNTER 2025-01-31 09:30 | Outpatient (RCR) | payer OTHER, SELFPAY ==
[2025-01-05 15:06] VITALS: BMI 29.4
== END 2025-02-20 23:59 ==
LOC: NS 09:30
PROVIDERS: PCP Internal Medicine; Referring Provider Internal Medicine; Visit Provider Internal Medicine
DX: Z71.3 Dietary counseling and surveillance (principal); E11.29 Type 2 diabetes mellitus with other diabetic kidney complication; R80.9 Proteinuria, unspecified; R93.1 Abnormal findings on diagnostic imaging of heart and coronary circulation
CPT/HCPCS: 97803

== ENCOUNTER → 2025-02-09 | Outpatient (CLI) | payer OTHER, SELFPAY ==
[2025-01-05 15:06] VITALS: BMI 29.4
[2025-02-03 11:12] VITALS: BMI 28.9
--- NOTE | 2025-02-09 12:00 | BI_ITS ---
EXAM: SCRN MAMM (CAD)W/JAKE BILAT DATE: 02/09/2025 CLINICAL HISTORY: F, Age 54 y/o , SCREENING TECHNIQUE: Procedure Code: [id number] Modality: MG Procedure: SCRN MAMM (CAD)W/JAKE BILAT COMPARISON: Prior exam(s) were compared FINDINGS: TISSUE DENSITY: The breasts are heterogeneously dense, which may obscure small masses. Bilateral Breast Mammographic Findings: No significant masses, calcifications or other abnormalities are identified. BI/SCRN MAMM (CAD)W/JAKE BILAT IMPRESSION: No mammographic evidence of malignancy. OVERALL FINAL ASSESSMENT BI-RADS 1: NEGATIVE. RECOMMENDATION: Routine annual follow-up in 1 Year Additional Recommendation none A letter with findings and recommendations will be mailed to the patient. Reading Location: [id number]
== END | disposition home or self-care (01) ==
LOC: OPBI 12:43
PROVIDERS: PCP Internal Medicine; Referring Provider Internal Medicine; Visit Provider Internal Medicine
DX: Z12.31 Encounter for screening mammogram for malignant neoplasm of breast (principal)
CPT/HCPCS: 77063; 77067

== ENCOUNTER 2025-02-16 15:15 | Outpatient (RCR) | payer OTHER, SELFPAY ==
[2025-01-05 15:06] VITALS: BMI 29.4
--- NOTE | 2025-02-03 10:54 | CR.ITP_ITS ---
Exercise - Initial Assessment Visit Session #:: 12 Physician Prescribed Exercise Modalities: Treadmill, Schwinn Airdyne AD-7 and SciFit Stepper Nutrition - Initial Assessment Weight Mgt (Other Care) Height: 5 ft 5 in Weight:: 174 lb BMI: 28.9 Psychosocial - Initial Assess Referral to Behavioral Health PS - Interventions: Yes: Attend Stress Management Classes Exercise - 30-day Assessment Visit Date of Eval: 02/03/25 Session #:: 12 Physician Prescribed Exercise Modalities: Treadmill, Schwinn Airdyne AD-7 and SciFit Stepper Frequency: 3x/week for 12 weeks [36 sessions] Intensity: 60-80% of age predicted maximum heart rate reserve Duration: 30 - 45 minutes Current METSs:: 5.9 Target Heart Rate:: 109-126 Current RPE:: 11-12 Maximum Excercise HR:: 122 Resting Blood Pressure: 98/56 Maximum Exercise Blood Pressure: 114/78 EKG Type: NSR to ST Outcomes & Goals Goals:: Verbalizes understanding of THR, RPE & goal METS by session 6, Documents in home exercise log/reports 30 min aerobic 5 day/wk by DC, Demonstrates accurate pulse taking by DC and Other additional outcome/goals: see below Intervention & Plan Exercise Program Goals: Instruct on personal THR & RPE, Instruct on MET level & personal MET goal, Show patient to take own pulse /validate performance until accurate, Instruct on home exercise and Other additional plan/int Physical Activity Home Exercise Physical Activity - Home Exercise: Safe Exercise, Warm-up, Self-monitoring, Cool-Down, Home Exercise > 30 min Daily and Sitting Time <3 hours/daily Outcomes & Goals Outcomes/Goals: Demonstrates correct Warm-up/exercise Cool-Down (S3) if = 2.5 METs, Verbalizes symptoms of exercise intolerance by Session 3 (S3), Demonstrate safe equipment use (S3) & follows exercise prescrition (6) and Other: See below Intervention & Plan Plan/Intervention: Instruct warm-up & cool-down if exercising at > 2 METs, Instruct on symptoms of exercise intolerance & actions to take, Instruct & monitor on saf, Assess intial functional capacity & safety risk and Other See below 30-day Reassessments 30 day Reassessments:: Progressing Reassessment Notes & Comments:: Pt oriented to equipment. RPE explained to pt. Pt demonstrates understanding in her daily sessions. Exercise - 60-day Assessment Physician Prescribed Exercise Modalities: Treadmill, Schwinn Airdyne AD-7 and SciFit Stepper Exercise - 90-day Assessment Physician Prescribed Exercise Modalities: Treadmill, Schwinn Airdyne AD-7 and SciFit Stepper Exercise - Final/Discharge Physician Prescribed Exercise Modalities: Treadmill, Schwinn Airdyne AD-7 and SciFit Stepper Nutrition - 30-Day Assessment Program Goals Nutrition Program Goals Patient has diagnosis of Hyperlipidemia (ICD E78)?: Yes Visit Date of Eval: 02/03/25 Session #:: 12 (Nutrition survey score of 3.) Cholesterol/Lipids (Other Core Measures) Determine presence & major risk factors that modify LDL goal: Hypertension or hypertensive medication, Low HDL cholesterol <40 mg/dL*, Family history of premature CHD in Male < 55 years: female <65 yearsFa and Age men > 45 years; women >/= 55 years Outcomes/Goals: Pt IDs own risk factors & lifestyle modifications by Session 10, Verbalizes symptoms of angina & response by session 3., Pt independently manages and Other Additional Outcomes/Goals: Intervention/Plan: Advocate for lipid panel cholesterol medication if applicable, Instruct on personal lipid levels & lipid goals/NCEP guidelines, Instruct on cholesterol and Other additional plan/int Referral to dietitian:: No (Pt has met with a college football coach. ) Diabetes (Other Core Measures) Diabetes Type: Diagnosis Type II ICD-10 E11 Insulin dependent injection/pump?: No Non-Insulin Dependent?: Yes Do you monitor your blood sugar at home?: Yes Referral to Diabetic Clinic:: No Weight Mgt (Other Care) Height: 5 ft 5 in Weight:: 174 lb BMI: 28.9 Diagnosis Overweight/Obesity BMI> 30% ICD-10 E66: No Diagnosis High BMI/Morbid Obesity BMI> 35% ICD-10 Z68: No Outcomes/Goals: Pt sets, maintains & shows weight loss goal & trend during rehab and Other additional outcomes/goals Intervention/Plan: Instruct on ideal BMI & set weight loss goal w/patient, Assist pt to ID & incorporate diet changes for weight loss by S9, Refer to Structured Weight Loss program as appropriate, Encourage goal of using 250- 300dcal per session for weight loss and Other additional plan/interventions Healthy Eating Habits Will attend diet classes:: Yes Outcomes/Goals:: Consume diet rich in vegs,fruits,whole grain/high fiber,fish,lean meat, Limit sat/trans fats,cholesterol & added salts & sugars and Other additional outcome/goals: Intervention/Plan:: Assess current eating habits and Other Additional plan/interventions 30-day Reassessments:: Progressing Reassessment Notes & Comments:: Pt is scheduled to attend nutrition classes next week with our college football coach. Low sodium heart healthy diet encouraged. Education Gave educational materials for:: Signs & symptoms of hypoglycemia, Signs & symptoms of hyperglycemia, Relate diabetes to coronary artery disease and Healthy eating Nutrition - 60-Day Assessment Weight Mgt (Other Care) Height: 5 ft 5 in Weight:: 174 lb BMI: 28.9 Core - 30-Day Assessment Visit Date of Eval: 02/03/25 Session #:: 12 Medication Compliance Preventative Medication(s):: Aspirin, Clopidogrel/P2Y12 inhibit, Statin/lipid and Beta lonnie H/O mental health issues: depression, anxiety, or addiction?: No Doesn’t believe in the benefits of treatment?: No Believes medications are unnecessary or harmful?: No Has a concern about medication side effects?: No Expresses concern over the cost of medications?: No Outcomes/Goals: Verbalizes medications,desired effect & common side effects @ DC, Pt self-reports following medication regimen, Keeps card in wallet w/medications listed by DC and Other additional outcome/goals: Interventions/plans: Instruct on medication effects & side effects, Review medication list w/patient every two weeks, Instruct importance of taking meds as ordered & assist problem solving and Other additional Tobacco Use Tobacco Use: Non-smoker Hypertension Hypertension Diagnosis:: Hypertension ICD-10 I10 Resting Blood Pressure:: 98/56 [place] [employer] Hypertension Guidelines Peak Exercise Blood Pressure:: 114/78 Outcomes/Goals: Able to verbalize/achieve optimal blood pressure <130/80, Incorporates diet changes & exercise for blood pressure control by DC and Other additional outcomes/goals Interventions/plan: Instruct on optimal blood pressure, hypertension & medications, Instruct on effects of sodium, alcohol, stress, exercise &hypertension and Other additional plan/interventions 30 day Reassessments:: Progressing Reassessment Notes & Comments:: Pt's BP's are within AHA normal limits. Will continue to monitor and report to pt's physician if necessary. Tobacco Cessation Referral Smoking Cessation Referral:: No Individual Education/Counseling:: No Education Schedule Given:: Yes Psychosocial - 30-Day Assess VIsit Date of Eval: 02/03/25 Session #:: 12 History of previous Mental disease:: No Psychosocial Test Tool Used:: Ferrans Power QOL Cardiac and PHQ-9 Questionnaire phq-9 Severity See PHQ-9 Score: 3 Referral to Behavioral Health PS - Interventions: Yes: Attend Stress Management Classes Outcomes/Goals: See list Psychosocial Outcomes/Goals:: ID's personal stressors & 2 strategies to manage stress by discharge and Other Additional outcome/goals: Intervention/Plan: See List Interventions/Plan:: Assess stressors,coping strategies & signs of derpression on admission, Instruct/assist pt to develop coping & personal stress Mgt strategies, Refer to Behavioral Health if appropriate, Refer to Physician if appropriate, Instruct patient to recognize signs & symptoms of depression, Instruct patient to recog and Other additional plan/intervention 30-day Reassessments: 30 day Reassessments:: Progressing Reassessment Notes & Comments:: Pt denies any psychosocial issues at this time. Pt to attend stress management class. Will reassess every 30 days. Psychosocial - 60-Day Assess Referral to Behavioral Health PS - Interventions: Yes: Attend Stress Management Classes Outcomes/Goals: See list Psychosocial Outcomes/Goals:: ID's personal stressors & 2 strategies to manage stress by discharge and Other Additional outcome/goals: Psychosocial - 90-Day Assess Referral to Behavioral Health PS - Interventions: Yes: Attend Stress Management Classes Psychosocial - Final Assessmen Referral to Behavioral Health PS - Interventions: Yes: Attend Stress Management Classes Nutrition - 90-Day Assessment Weight Mgt (Other Care) Height: 5 ft 5 in Weight:: 174 lb BMI: 28.9 Nutrition - Final Assessment Weight Mgt (Other Care) Height: 5 ft 5 in Weight:: 174 lb BMI: 28.9
[2025-02-03 10:59] VITALS: BP 98/56
[2025-02-03 11:12] VITALS: BP 98/56; BMI 28.9
== END 2025-02-20 23:59 ==
LOC: CR 15:15
PROVIDERS: PCP Internal Medicine; Referring Provider Internal Medicine Interventional Cardiology; Visit Provider Internal Medicine Interventional Cardiology
DX: Z95.5 Presence of coronary angioplasty implant and graft (principal)
CPT/HCPCS: 93798

== ENCOUNTER → 2025-02-23 | Outpatient (CLI) | payer OTHER, SELFPAY ==
[2025-02-21 00:23] VITALS: BMI 28.9
[2025-02-23 09:23] LABS: Hematocrit 36.8 % (37-47); Hemoglobin 12.2 g/dL (12.0-15.0); Immature Granulocytes Count 0.030 X10^3/uL (0.0-0.0); Mean Corp Hgb Conc 33.2 g/dL (32-36); Mean Corpuscular Volume 90.0 fL (81-99); Mean Platelet Vol. 10.1 fl (6.2-12.0); NRBC Flagged by Analyzer 0 % (0-5); Platelet Count 291 K/mm3 (150-450); RBC Distribution Width CV 13.5 % (11.6-14.6); RBC Distribution Width SD 44.5 fl (35.1-43.9); Red Blood Count 4.09 M/mm3 (4.2-5.4); White Blood Count 11.3 K/mm3 (4.4-11.0)
== END | disposition home or self-care (01) ==
LOC: LAB 09:01
PROVIDERS: PCP Internal Medicine; Referring Provider Student in an Organized Health Care Education/Training Program; Visit Provider Student in an Organized Health Care Education/Training Program
DX: R23.3 Spontaneous ecchymoses (principal); T14.8XXA Other injury of unspecified body region, initial encounter
CPT/HCPCS: 36415; 85025

== ENCOUNTER 2025-03-23 15:15 | Outpatient (RCR) | payer OTHER, SELFPAY ==
[2025-02-21 00:23] VITALS: BMI 28.9
--- NOTE | 2025-03-02 08:54 | PCM.CR.ITP ---
Exercise - Initial Assessment Physician Prescribed Exercise Modalities: Treadmill, Schwinn Airdyne AD-7 and SciFit Stepper Nutrition - Initial Assessment Weight Mgt (Other Care) Height: 5 ft 5 in Weight:: 176 lb BMI: 29.2 Core - Initial Assessment Hypertension Resting Blood Pressure:: 98/56 [place] [employer] Hypertension Guidelines Psychosocial - Initial Assess Referral to Behavioral Health PS - Interventions: Yes: Attend Stress Management Classes Exercise - 30-day Assessment Physician Prescribed Exercise Modalities: Treadmill, Schwinn Airdyne AD-7 and SciFit Stepper Exercise - 60-day Assessment Visit Date of Eval: 03/02/25 Session #:: 21 Physician Prescribed Exercise Modalities: Treadmill, Schwinn Airdyne AD-7 and SciFit Stepper Frequency: 3x/week for 12 weeks [36 sessions] Intensity: 60-80% of age predicted maximum heart rate reserve Duration: 30 - 45 minutes Current METSs:: 6.8 Target Heart Rate:: 109-126 Current RPE:: 12 Maximum Excercise HR:: 121 Resting Blood Pressure: 112/76 Maximum Exercise Blood Pressure: 104/58 EKG Type: NSR to ST Outcomes & Goals Goals:: Verbalizes understanding of THR, RPE & goal METS by session 6, Documents in home exercise log/reports 30 min aerobic 5 day/wk by DC, Demonstrates accurate pulse taking by DC and Other additional outcome/goals: see below Intervention & Plan Exercise Program Goals: Instruct on personal THR & RPE, Instruct on MET level & personal MET goal, Show patient to take own pulse /validate performance until accurate, Instruct on home exercise and Other additional plan/int Physical Activity Home Exercise Physical Activity - Home Exercise: Safe Exercise, Warm-up, Self-monitoring, Cool-Down, Home Exercise > 30 min Daily and Sitting Time <3 hours/daily Outcomes & Goals Outcomes/Goals: Demonstrates correct Warm-up/exercise Cool-Down (S3) if = 2.5 METs, Verbalizes symptoms of exercise intolerance by Session 3 (S3), Demonstrate safe equipment use (S3) & follows exercise prescrition (6) and Other: See below Intervention & Plan Plan/Intervention: Instruct warm-up & cool-down if exercising at > 2 METs, Instruct on symptoms of exercise intolerance & actions to take, Instruct & monitor on saf, Assess intial functional capacity & safety risk and Other See below 30-day Reassessments 30 day Reassessments:: Progressing Reassessment Notes & Comments:: Proper warm up and cool down demonstrated and explained to pt. Pt is able to return demonstration in their daily sessions. Exercise - 90-day Assessment Physician Prescribed Exercise Modalities: Treadmill, Schwinn Airdyne AD-7 and SciFit Stepper Exercise - Final/Discharge Physician Prescribed Exercise Modalities: Treadmill, Schwinn Airdyne AD-7 and SciFit Stepper Nutrition - 30-Day Assessment Weight Mgt (Other Care) Height: 5 ft 5 in Weight:: 176 lb BMI: 29.2 Nutrition - 60-Day Assessment Program Goals Nutrition Program Goals Patient has diagnosis of Hyperlipidemia (ICD E78)?: Yes Visit Date of Eval: 03/02/25 Session #:: 21 Cholesterol/Lipids (Other Core Measures) Determine presence & major risk factors that modify LDL goal: Hypertension or hypertensive medication, Low HDL cholesterol <40 mg/dL*, Family history of premature CHD in Male < 55 years: female <65 yearsFa and Age men > 45 years; women >/= 55 years Outcomes/Goals: Pt IDs own risk factors & lifestyle modifications by Session 10, Verbalizes symptoms of angina & response by session 3., Pt independently manages and Other Additional Outcomes/Goals: Intervention/Plan: Advocate for lipid panel cholesterol medication if applicable, Instruct on personal lipid levels & lipid goals/NCEP guidelines, Instruct on cholesterol and Other additional plan/int Diabetes (Other Core Measures) Diabetes Type: Diagnosis Type II ICD-10 E11 Non-Insulin Dependent?: Yes Do you monitor your blood sugar at home?: Yes Referral to Diabetic Clinic:: No (Pt has met with a dietitian) 30-day Reassessments:: Met Weight Mgt (Other Care) Height: 5 ft 5 in Weight:: 176 lb BMI: 29.2 Diagnosis Overweight/Obesity BMI> 30% ICD-10 E66: No Diagnosis High BMI/Morbid Obesity BMI> 35% ICD-10 Z68: No Outcomes/Goals: Pt sets, maintains & shows weight loss goal & trend during rehab and Other additional outcomes/goals Intervention/Plan: Instruct on ideal BMI & set weight loss goal w/patient, Assist pt to ID & incorporate diet changes for weight loss by S9, Refer to Structured Weight Loss program as appropriate, Encourage goal of using 250-300dcal per session for weight loss and Other additional plan/interventions Healthy Eating Habits Will attend diet classes:: Yes Outcomes/Goals:: Consume diet rich in vegs,fruits,whole grain/high fiber,fish,lean meat, Limit sat/trans fats,cholesterol & added salts & sugars and Other additional outcome/goals: Intervention/Plan:: Assess current eating habits and Other Additional plan/interventions 30-day Reassessments:: Met Reassessment Notes & Comments:: Pt has attended nutrition class. Pt understands the benefits of a hearth healthy low sodium diet. Education Gave educational materials for:: Signs & symptoms of hypoglycemia, Signs & symptoms of hyperglycemia, Relate diabetes to coronary artery disease and Healthy eating Core - Final Assessment Hypertension Resting Blood Pressure:: 98/56 [place] [employer] Hypertension Guidelines Core - 60-Day Assessment Visit Date of Eval: 03/02/25 Session #:: 21 Medication Compliance Preventative Medication(s):: Aspirin, Clopidogrel/P2Y12 inhibit, Statin/lipid and Beta lonnie H/O mental health issues: depression, anxiety, or addiction?: No Doesn?t believe in the benefits of treatment?: No Believes medications are unnecessary or harmful?: No Has a concern about medication side effects?: No Expresses concern over the cost of medications?: No Outcomes/Goals: Verbalizes medications,desired effect & common side effects @ DC, Pt self-reports following medication regimen, Keeps card in wallet w/medications listed by DC and Other additional outcome/goals: Interventions/plans: Instruct on medication effects & side effects, Review medication list w/patient every two weeks, Instruct importance of taking meds as ordered & assist problem solving and Other additional Tobacco Use Tobacco Use: Non-smoker Hypertension Hypertension Diagnosis:: Hypertension ICD-10 I10 Resting Blood Pressure:: 112/76 Resting Blood Pressure:: 98/56 [place] [employer] Hypertension Guidelines Peak Exercise Blood Pressure:: 104/58 Outcomes/Goals: Able to verbalize/achieve optimal blood pressure <130/80, Incorporates diet changes & exercise for blood pressure control by DC and Other additional outcomes/goals Interventions/plan: Instruct on optimal blood pressure, hypertension & medications, Instruct on effects of sodium, alcohol, stress, exercise &hypertension and Other additional plan/interventions 30 day Reassessments:: Met Reassessment Notes & Comments:: Pt's BP's are within AHA normal limits. Will continue to monitor and report to pt's physician if necessary. Tobacco Cessation Referral Smoking Cessation Referral:: No Individual Education/Counseling:: No Education Schedule Given:: Yes Psychosocial - 30-Day Assess Referral to Behavioral Health PS - Interventions: Yes: Attend Stress Management Classes Outcomes/Goals: See list Psychosocial Outcomes/Goals:: ID's personal stressors & 2 strategies to manage stress by discharge and Other Additional outcome/goals: Psychosocial - 60-Day Assess VIsit Date of Eval: 03/02/25 Session #:: 21 History of previous Mental disease:: No Psychosocial Test Tool Used:: [employer] Power QOL Cardiac and PHQ-9 Questionnaire phq-9 Severity See PHQ-9 Score: 3 Referral to Behavioral Health PS - Interventions: Yes: Attend Stress Management Classes Outcomes/Goals: See list Psychosocial Outcomes/Goals:: ID's personal stressors & 2 strategies to manage stress by discharge and Other Additional outcome/goals: Intervention/Plan: See List Interventions/Plan:: Assess stressors,coping strategies & signs of derpression on admission, Instruct/assist pt to develop coping & personal stress Mgt strategies, Refer to Behavioral Health if appropriate, Refer to Physician if appropriate, Instruct patient to recognize signs & symptoms of depression, Instruct patient to recog and Other additional plan/intervention 30-day Reassessments: 30 day Reassessments:: Met Reassessment Notes & Comments:: Pt denies any psychosocial issues at this time. Pt to attend stress management class. Will reassess every 30 days. Psychosocial - 90-Day Assess Referral to Behavioral Health PS - Interventions: Yes: Attend Stress Management Classes Psychosocial - Final Assessmen Referral to Behavioral Health PS - Interventions: Yes: Attend Stress Management Classes Nutrition - 90-Day Assessment Weight Mgt (Other Care) Height: 5 ft 5 in Weight:: 176 lb BMI: 29.2 Nutrition - Final Assessment Weight Mgt (Other Care) Height: 5 ft 5 in Weight:: 176 lb BMI: 29.2
[2025-03-02 09:01] VITALS: BP 112/76; BP 98/56; BMI 29.2
== END 2025-03-23 23:59 ==
LOC: CR 15:15
PROVIDERS: PCP Internal Medicine; Referring Provider Internal Medicine Interventional Cardiology; Visit Provider Internal Medicine Interventional Cardiology
DX: Z95.5 Presence of coronary angioplasty implant and graft (principal)
CPT/HCPCS: 93798